=== PATIENT | female | born 2000 | race Caucasian/White ===

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

== ENCOUNTER 2018-09-25 10:49 | Emergency (ER) | payer OTHER ==
[~2018-09-25] VITALS: Ht 154.9 cm; Wt 65.8 kg
--- OUTSIDE RECORDS SUMMARY | 2018-09-25 10:54 | XMS REPORT | Clinical Summary ---
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 Conditions or Problems Problem Name Problem Code Onset Date Status Entry Date Provider Comment Standard Description Annotate FH DIABETES V18.0 Active Moon Pete CAR STOWER Family history of diabetes mellitus PHARYNGITIS-ACUTE 462 Inactive Moon Pete [employer] STOWER Acute pharyngitis OTITIS MEDIA, RIGHT 382.9 Resolved Linda Davis MD PhD Unspecified otitis media ACUTE PHARYNGITIS 462 Resolved Linda Davis MD PhD Acute pharyngitis COUGH 786.2 Resolved Linda Davis MD PhD Cough FATIGUE 780.79 Resolved Linda Davis MD PhD Other malaise and fatigue TONSILLITIS 463 Resolved Linda Davis MD PhD Acute tonsillitis ABSCESS, GLUTEAL 682.5 Resolved Linda Davis MD PhD Cellulitis and abscess of buttock EAR PAIN, LEFT 388.70 Resolved Linda Davis MD PhD Otalgia, unspecified FH BREAST CANCER V16.3 Active Radha Victor CAR STOWER Family history of malignant neoplasm of breast PILONIDAL CYST 685.1 Resolved Linda Davis MD PhD Pilonidal cyst without mention of abscess AFTERCARE FOLLOW SURGERY SKIN&SUBCUT TISSUE NEC V58.77 Resolved Linda Davis MD PhD Aftercare following surgery of the skin and subcutaneous tissue, NEC Thumb pain, left 729.5 Resolved Linda Davis MD PhD Pain in limb Migraine 346.90 Resolved Linda Davis MD PhD Migraine, unspecified, without mention of intractable migraine, without mention of status migrainosus CONTRACEPTIVE MANAGEMENT V25.09 Active Mikhail Forbes MD Encounter for other general counseling and advice on contraceptive management Fever 780.60 Active Linda Davis MD PhD Fever, unspecified Abdominal pain, epigastric 789.06 Active Linda Davis MD PhD Abdominal pain, epigastric Fatigue 780.79 Active Linda Davis MD PhD Other malaise and fatigue PHARYNGITIS-ACUTE ICD-462 Inactive Moon Pete CAR STOWER OTITIS MEDIA, RIGHT ICD-382.9 Inactive Linda Davis MD PhD ACUTE PHARYNGITIS ICD-462 Inactive Linda Davis MD PhD COUGH ICD-786.2 Inactive Linda Davis MD PhD 02/18 FATIGUE ICD-780.79 Inactive Linda Davis MD PhD TONSILLITIS ICD-463 Inactive Linda Davis MD PhD ABSCESS, GLUTEAL ICD-682.5 Inactive Linda Davis MD PhD EAR PAIN, LEFT ICD-388.70 Inactive Linda Davis MD PhD PILONIDAL CYST ICD-685.1 Inactive Linda Davis MD PhD AFTERCARE FOLLOW SURGERY SKIN&SUBCUT TISSUE NEC ICD-V58.77 02/18 Inactive Linda Davis MD PhD Thumb pain, left ICD-729.5 Inactive Linda Davis MD PhD Migraine ICD-346.90 Inactive Linda Davis MD PhD Medication List Medication Instructions Start Date Stop Date Generic Name ND Status Provider Patient Instruction TYLENOL 325 MG TAB 1-2 pills by mouth every 6 hours if needed for pain/fever ACETAMINOPHEN 16890074465 Active Linda Davis MD PhD Active DEPO-PROVERA 150 MG/ML SUPENSION q3mos MEDROXYPROGEST ANDRZEJ (CONTRACEP) 65461413683 Active Linda Davis MD PhD Active TOPAMAX 25 MG TABS take 1 tab po qday for migraines. TOPIRAMATE 39445146869 No Longer Active Linda Davis MD PhD Active HYDROCODONE-ACETAMINOPHEN 5-325 MG TABS 1 po q 6hr PRN Pain 06/18 HYDROCODONE-ACETAMINOPHEN 18407396054 No Longer Active Mikhail Forbes MD Active KEFLEX 500 MG CAP 1 tab po tid CEPHALEXIN 60269710008 No Longer Active Mikhail Forbes MD Active HYDROCODONE-ACETAMINOPHEN 5-500 MG TABS 1 every 4hours as needed HYDROCODONE-ACETAMINOPHEN 57003098378 No Longer Active Radha Victor APRN Active TAMIFLU 75 MG CAPS 1 bid x 5 days OSELTAMIVIR PHOSPHATE 86233726794 No Longer Active Linda Davis MD PhD Active AUGMENTIN 875-125 MG TAB 1 tab by mouth twice daily with food AMOXICILLIN-POT CLAVULANATE 25649494007 No Longer Active Jillina Frazell CAR STOWER Active AUGMENTIN 875-125 MG TAB 1 tab by mouth twice daily with food AMOXICILLIN-POT CLAVULANATE 06571060448 No Longer Active Jillina Kayleigh COOPERN Active CLINDAMYCIN HCL 150 MG CAPS 1 four times a day CLINDAMYCIN HCL 19312142111 No Longer Active Moon Reed Juan R RODRÍGUEZ Active BACTRIM DS 800-160 MG TAB 1 tab by mouth twice daily TRIMETHOPRIM-SULFAMETHOXAZOLE 48437190134 No Longer Active Moon Pete CAR STOWER Active AMOXICILLIN 500 MG CAP 1 tab by mouth twice daily AMOXICILLIN 73686941770 No Longer Active Antony Moran DO Active ZITHROMAX Z-MAKAYLA 250 MG TABS 2 now then 1 everyday AZITHROMYCIN 66853725158 No Longer Active Antony Moran DO Active ZITHROMAX Z-MAKAYLA 250 MG TABS 2 now then 1 everyday ZITHROMAX Z-MAKAYLA 250 MG TABS 1601019 AZITHROMYCIN Inactive AMOXICILLIN 500 MG CAP 1 tab by mouth twice daily AMOXICILLIN 500 MG CAP 607572 AMOXICILLIN Inactive BACTRIM DS 800-160 MG TAB 1 tab by mouth twice daily BACTRIM DS 800-160 MG TAB 348403 TRIMETHOPRIM-SULFAMETHOXAZOLE Inactive CLINDAMYCIN HCL 150 MG CAPS 1 four times a day CLINDAMYCIN HCL 150 MG CAPS 293237 CLINDAMYCIN HCL Inactive HYDROCODONE-ACETAMINOPHEN 5-500 MG TABS 1 every 4hours as needed HYDROCODONE-ACETAMINOPHEN 5-500 MG TABS HYDROCODONE- ACETAMINOPHEN Inactive KEFLEX 500 MG CAP 1 tab po tid KEFLEX 500 MG CAP 283648 CEPHALEXIN Inactive HYDROCODONE-ACETAMINOPHEN 5-325 MG TABS 1 po q 6hr PRN Pain 06/18 HYDROCODONE-ACETAMINOPHEN 5-325 MG TABS 395734 HYDROCODONE- ACETAMINOPHEN Inactive TOPAMAX 25 MG TABS take 1 tab po qday for migraines. TOPAMAX 25 MG TABS 826738 TOPIRAMATE Inactive AUGMENTIN 875-125 MG TAB 1 tab by mouth twice daily with food AUGMENTIN 875-125 MG TAB 668906 AMOXICILLIN-POT CLAVULANATE Inactive AUGMENTIN 875-125 MG TAB 1 tab by mouth twice daily with food AUGMENTIN 875-125 MG TAB 910704 AMOXICILLIN-POT CLAVULANATE Inactive TAMIFLU 75 MG CAPS 1 bid x 5 days TAMIFLU 75 MG CAPS OSELTAMIVIR PHOSPHATE Inactive Advance Directives Directive Description Start Date PERMISSION TO SHARE Vital Signs Date Name Value Unit Range Description blood pressure, diastolic - 8462-4 69 mm[Hg] BP burkett blood pressure, systolic - 8480-6 108 mm[Hg] BP sys pulse rate E&M - 8867-4 79 /min Heart rate temperature E&M 98.1 [degF] Body temperature weight E&M - 3141-9 123.6 [lb_av] Weight Measured Diagnostic Results Date Name Value Unit Range Description Lab Report: CBC W/DIFF - Hematology leukocyte count, blood 6.8 10^3/MM^3 10*3/mm3 4.6-10.2 neutrophils as percent of blood leukocytes 51.2 % 42.2-75.2 monocytes as percent of blood leukocytes 7.1 % 1.7-9.3 lymphocytes as percent of blood leukocytes 38.4 % 20.5-51.1 erythrocyte (RBC) count 4.14 10^6/MM^3 10*6/mm3 4.04-5.48 hemoglobin, blood 13.0 g/dL 12.0-16.0 hematocrit, blood 38.4 % 36.0-46.0 mean corpuscular volume, RBC 93 fL 80-97 mean corpuscular hemoglobin, RBC 31.5 pg 27.0-31.2 mean corpuscular hemoglobin concentration, RBC 34.0 G/DL % 31.8- 35.4 red blood cell distribution width 13.1 % 11.6-14.8 platelet count 306 10^3/MM^3 10*3/mm3 142-424 Lab Report: Comp. Metabolic Panel, H. Pylori, MONO w/Rflx EBV - Chemistry blood glucose 84 mg/dL 65-110 chloride, serum 107 mmol/L 98-107 potassium, serum 3.8 mmol/L 3.5-5.2 carbon dioxide, venous blood 26.0 mmol/L 21.0-32.0 sodium, serum 141 mmol/L 004-442 8265/09/21 urea nitrogen, blood 13 mg/dL 7-18 creatinine, serum 0.86 mg/dL 0.55-1.30 alanine aminotransferase (SGPT), serum 23 U/L 12-78 aspartate aminotransferase (SGOT), serum 17 U/L 15-37 calcium, serum 8.9 mg/dL 8.5-10.1 Lab Report: RapidStrep Rflx/Cx - Lab Microbial identification kit, rapid strep method Negative-Throat Culture to Follow Negative [place] [facility] [place] human chorionic gonadotropin, urine, qualitative (urine test) Negative Negative Encounters Code Encounter Date Provider Facility CPT-72290 Level 3 Est. Patient 18:31:30 CDT Linda Davis MD PhD [facility] CPT-56291 Level 4 Est. Patient 21:34:05 PROCESS MANAGER Mikhail Forbes MD [facility] CPT-68600 Level 4 Est. Patient 15:14:34 PROCESS MANAGER Mikhail Forbes MD [facility] CPT-68853 Level 3 Est. Patient 12:52:25 CDT Mikhail Forbes MD [facility] CPT-12369 Level 2 Est. Patient 14:57:21 CDT Radha [facility] CPT-49260 Level 2 Est. Patient 16:59:23 CDT Radha [facility] CPT-06212 Level 3 Est. Patient 15:10:28 CDT Moon Pete [facility] CPT-68462 Level 3 Est. Patient 13:38:05 PROCESS MANAGER Moon Pete [facility] CPT-80318 Level 3 Est. Patient 13:36:40 PROCESS MANAGER Antony Cline Dean KATHLEEN [facility] CPT-66739 Level 3 Est. Patient 14:07:56 PROCESS MANAGER Moon Pete [facility] Procedures Code Procedure Name Date Entry Date Standard Description CPT-J1050 Depo Provera 150 mg (Medroxyprogesterone) 11:26:14 CDT CPT-31454 Abx/Therapy Injection 11:26:13 CDT CPT-J1055 Depo-Provera Injection only 150 mg 16:55:48 CDT CPT-J1050 Depo Provera 150 mg (Medroxyprogesterone) 13:49:16 PROCESS MANAGER CPT-75363 Abx/Therapy Injection 13:49:16 PROCESS MANAGER CPT-J1055 Depo-Provera Injection only 150 mg 09:45:32 PROCESS MANAGER CPT-J1050 Depo Provera 150 mg (Medroxyprogesterone) 18:49:54 CDT CPT-14505 Abx/Therapy Injection 18:49:54 CDT CPT-J1055 Depo-Provera Injection only 150 mg 09:18:50 CDT CPT-J1050 Depo Provera 150 mg (Medroxyprogesterone) 08:12:54 CDT CPT-23631 Abx/Therapy Injection 08:12:54 CDT CPT-J1050 Depo Provera 150 mg (Medroxyprogesterone) 15:07:25 CDT CPT-10690 Abx/Therapy Injection 15:07:25 CDT CPT-J1050 Depo Provera 150 mg (Medroxyprogesterone) 09:59:09 CDT CPT-J1050 Depo Provera 150 mg (Medroxyprogesterone) 15:43:37 PROCESS MANAGER CPT-12384 Abx/Therapy Injection 15:43:37 PROCESS MANAGER CPT-J1050 Depo Provera 150 mg (Medroxyprogesterone) 15:14:34 PROCESS MANAGER CPT-38322 Postop F/U Visit 09:10:48 CDT CPT-OV Office Visit 21:43:13 CDT CPT-21200 Postop F/U Visit 16:13:18 CDT CPT-41986 Venipuncture Draw Fee 13:37:57 PROCESS MANAGER
--- OUTSIDE RECORDS SUMMARY | 2018-09-25 10:54 | XMS REPORT | Clinical Summary ---
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 Conditions or Problems Problem Name Problem Code Onset Date Status Entry Date Provider Comment Standard Description Annotate FH DIABETES V18.0 Active Moon Pete TANK TESTER Family history of diabetes mellitus PHARYNGITIS-ACUTE 462 Inactive Moon Pete TANK TESTER Acute pharyngitis OTITIS MEDIA, RIGHT 382.9 Active Moon Pete TANK TESTER Unspecified otitis media ACUTE PHARYNGITIS 462 Active Antony Moran DO Acute pharyngitis COUGH 786.2 Active Antony Moran DO Cough FATIGUE 780.79 Active Antony Moran DO Other malaise and fatigue TONSILLITIS 463 Active Moon Pete TANK TESTER Acute tonsillitis ABSCESS, GLUTEAL 682.5 Active Moon Pete TANK TESTER Cellulitis and abscess of buttock EAR PAIN, LEFT 388.70 Active Moon Pete TANK TESTER Otalgia, unspecified FH BREAST CANCER V16.3 Active Jillina Kayleigh TANK TESTER Family history of malignant neoplasm of breast PILONIDAL CYST 685.1 Active Jillina Frazell TANK TESTER Pilonidal cyst without mention of abscess AFTERCARE FOLLOW SURGERY SKIN&SUBCUT TISSUE NEC V58.77 Active Pradip Smith MD Aftercare following surgery of the skin and subcutaneous tissue, NEC Thumb pain, left 729.5 Active Mikhail Forbes MD Pain in limb Migraine 346.90 Active Mikhail Forbes MD Migraine, unspecified, without mention of intractable migraine, without mention of status migrainosus CONTRACEPTIVE MANAGEMENT V25.09 Active Mikhail Forbes MD Encounter for other general counseling and advice on contraceptive management PHARYNGITIS-ACUTE ICD-462 Inactive Moon Pete APRN Medication List Medication Instructions Start Date Stop Date Generic Name NDC Status Provider Patient Instruction TOPAMAX 25 MG TABS take 1 tab po qday for migraines. TOPIRAMATE 71070811746 Active Mikhail Forbes MD Active HYDROCODONE-ACETAMINOPHEN 5-325 MG TABS 1 po q 6hr PRN Pain 06/18 HYDROCODONE-ACETAMINOPHEN 23753107179 No Longer Active Mikhail Forbes MD Active KEFLEX 500 MG CAP 1 tab po tid CEPHALEXIN 82089812895 No Longer Active Mikhail Forbes MD Active HYDROCODONE-ACETAMINOPHEN 5-500 MG TABS 1 every 4hours as needed HYDROCODONE-ACETAMINOPHEN 69671698071 No Longer Active Radha Victor APRN Active TAMIFLU 75 MG CAPS 1 bid x 5 days OSELTAMIVIR PHOSPHATE 71656426896 No Longer Active Linda Davis MD PhD Active AUGMENTIN 875-125 MG TAB 1 tab by mouth twice daily with food AMOXICILLIN-POT CLAVULANATE 84223639220 No Longer Active Jillina Frazell TANK TESTER Active AUGMENTIN 875-125 MG TAB 1 tab by mouth twice daily with food AMOXICILLIN-POT CLAVULANATE 37341545999 No Longer Active Jillina Frazell TANK TESTER Active CLINDAMYCIN HCL 150 MG CAPS 1 four times a day CLINDAMYCIN HCL 58960026616 No Longer Active Moon Pete APRN Active BACTRIM DS 800-160 MG TAB 1 tab by mouth twice daily TRIMETHOPRIM-SULFAMETHOXAZOLE 78877650926 No Longer Active Moon Reed Juan R RODRÍGUEZ Active AMOXICILLIN 500 MG CAP 1 tab by mouth twice daily AMOXICILLIN 66878275848 No Longer Active Antony Moran DO Active ZITHROMAX Z-MAKAYLA 250 MG TABS 2 now then 1 everyday AZITHROMYCIN 68261584172 No Longer Active Antony Moran DO Active ZITHROMAX Z-MAKAYLA 250 MG TABS 2 now then 1 everyday ZITHROMAX Z-MAKAYLA 250 MG TABS 7823354 AZITHROMYCIN Inactive AMOXICILLIN 500 MG CAP 1 tab by mouth twice daily AMOXICILLIN 500 MG CAP 344197 AMOXICILLIN Inactive BACTRIM DS 800-160 MG TAB 1 tab by mouth twice daily BACTRIM DS 800-160 MG TAB TRIMETHOPRIM-SULFAMETHOXAZOLE Inactive CLINDAMYCIN HCL 150 MG CAPS 1 four times a day CLINDAMYCIN HCL 150 MG CAPS 466696 CLINDAMYCIN HCL Inactive HYDROCODONE-ACETAMINOPHEN 5-500 MG TABS 1 every 4hours as needed HYDROCODONE-ACETAMINOPHEN 5-500 MG TABS HYDROCODONE- ACETAMINOPHEN Inactive KEFLEX 500 MG CAP 1 tab po tid KEFLEX 500 MG CAP 591817 CEPHALEXIN Inactive HYDROCODONE-ACETAMINOPHEN 5-325 MG TABS 1 po q 6hr PRN Pain 06/18 HYDROCODONE-ACETAMINOPHEN 5-325 MG TABS 193854 HYDROCODONE- ACETAMINOPHEN Inactive AUGMENTIN 875-125 MG TAB 1 tab by mouth twice daily with food AUGMENTIN 875-125 MG TAB 510587 AMOXICILLIN-POT CLAVULANATE Inactive AUGMENTIN 875-125 MG TAB 1 tab by mouth twice daily with food AUGMENTIN 875-125 MG TAB 505320 AMOXICILLIN-POT CLAVULANATE Inactive TAMIFLU 75 MG CAPS 1 bid x 5 days TAMIFLU 75 MG CAPS OSELTAMIVIR PHOSPHATE Inactive Advance Directives Directive Description Start Date PERMISSION TO SHARE Vital Signs Date Name Value Unit Range Description blood pressure, diastolic - 8462-4 67 mm[Hg] BP burkett blood pressure, systolic - 8480-6 112 mm[Hg] BP sys pulse rate E&M - 8867-4 69 /min Heart rate temperature E&M 98.4 [degF] Body temperature weight E&M - 3141-9 126 [lb_av] Weight Measured blood pressure, diastolic - 8462-4 73 mm[Hg] BP burkett blood pressure, systolic - 8480-6 106 mm[Hg] BP sys height E&M - 8302-2 62 [in_us] Bdy height pulse rate E&M - 8867-4 92 /min Heart rate temperature E&M 97.6 [degF] Body temperature weight E&M - 3141-9 128 [lb_av] Weight Measured blood pressure, diastolic - 8462-4 59 mm[Hg] BP burkett blood pressure, systolic - 8480-6 104 mm[Hg] BP sys pulse rate E&M - 8867-4 78 /min Heart rate temperature E&M 98.9 [degF] Body temperature weight E&M - 3141-9 129 [lb_av] Weight Measured blood pressure, diastolic - 8462-4 76 mm[Hg] BP burkett blood pressure, systolic - 8480-6 117 mm[Hg] BP sys pulse rate E&M - 8867-4 76 /min Heart rate temperature E&M 98.0 [degF] Body temperature weight E&M - 3141-9 130 [lb_av] Weight Measured Diagnostic Results Date Name Value Unit Range Description Lab Report: CBC W/ DIFF, HCG - Hematology leukocyte count, blood 9.3 10*3/mm3 hemoglobin, blood 13.0 g/dL platelet count 311 10*3/mm3 Lab Report: [facility] [place] - Chemistry human chorionic gonadotropin, urine, qualitative (urine test) Negative Negative human chorionic gonadotropin, urine, qualitative (urine test) Negative Negative Encounters Code Encounter Date Provider Facility CPT-14510 Level 4 Est. Patient 21:34:05 MEDICAL DETAILIST Mikhail Forbes MD [facility] CPT-99188 Level 4 Est. Patient 15:14:34 MEDICAL DETAILIST Mikhail Forbes MD [facility] CPT-96632 Level 3 Est. Patient 12:52:25 CDT Mikhail Forbes MD [facility] CPT-36171 Level 2 Est. Patient 14:57:21 CDT Radha Victor [facility]-23096 Level 2 Est. Patient 16:59:23 CDT Radha Victor [facility] CPT-01593 Level 3 Est. Patient 15:10:28 CDT Moon Pete [facility] CPT-70428 Level 3 Est. Patient 13:38:05 MEDICAL DETAILIST Moon Pete [facility] CPT-82274 Level 3 Est. Patient 13:36:40 MEDICAL DETAILIST Antony Moran DO [facility] CPT-31798 Level 3 Est. Patient 14:07:56 MEDICAL DETAILIST Moon Pete [facility] Procedures Code Procedure Name Date Entry Date Standard Description CPT-J1050 Depo Provera 150 mg (Medroxyprogesterone) 15:07:25 CDT CPT-62396 Abx/Therapy Injection 15:07:25 CDT CPT-J1050 Depo Provera 150 mg (Medroxyprogesterone) 09:59:09 CDT CPT-J1050 Depo Provera 150 mg (Medroxyprogesterone) 15:43:37 MEDICAL DETAILIST CPT-99135 Abx/Therapy Injection 15:43:37 MEDICAL DETAILIST CPT-J1050 Depo Provera 150 mg (Medroxyprogesterone) 15:14:34 MEDICAL DETAILIST CPT-56840 Postop F/U Visit 09:10:48 CDT CPT-OV Office Visit 21:43:13 CDT CPT-20480 Postop F/U Visit 16:13:18 CDT CPT-96887 Venipuncture Draw Fee 13:37:57 MEDICAL DETAILIST
--- OUTSIDE RECORDS SUMMARY | 2018-09-25 10:54 | XMS REPORT | Clinical Summary ---
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 Conditions or Problems Problem Name Problem Code Onset Date Status Entry Date Provider Comment Standard Description Annotate FH DIABETES V18.0 Active Moon Pete EXERCISER HORSE Family history of diabetes mellitus PHARYNGITIS-ACUTE 462 Inactive Moon Pete EXERCISER HORSE Acute pharyngitis OTITIS MEDIA, RIGHT 382.9 Resolved [...] FH BREAST CANCER V16.3 Active Radha Victor EXERCISER HORSE Family history of malignant neoplasm of breast [...] Davis MD PhD Other malaise and fatigue Ankle pain, right 719.47 Active Radha Victor EXERCISER HORSE Pain in joint involving ankle and foot PHARYNGITIS-ACUTE ICD-462 Inactive Moon Pete EXERCISER HORSE OTITIS MEDIA, RIGHT ICD-382.9 Inactive Linda Davis [...] Generic Name NDC Status Provider Patient Instruction TYLENOL 325 MG TAB 1-2 pills by mouth every 6 hours if needed for pain/fever ACETAMINOPHEN 07922973972 Active Linda Davis MD PhD Active DEPO-PROVERA 150 MG/ML SUPENSION q3mos MEDROXYPROGEST ANDRZEJ (CONTRACEP) 09411592891 Active Linda Davis MD PhD Active TOPAMAX 25 MG TABS take 1 tab po qday for migraines. TOPIRAMATE 69027559429 No Longer Active Linda Davis MD PhD Active HYDROCODONE-ACETAMINOPHEN 5-325 MG TABS 1 po q 6hr PRN Pain 06/18 HYDROCODONE-ACETAMINOPHEN 19355708827 No Longer Active Mikhail Forbes MD Active KEFLEX 500 MG CAP 1 tab po tid CEPHALEXIN 41366325127 No Longer Active Mikhail Forbes MD Active HYDROCODONE-ACETAMINOPHEN 5-500 MG TABS 1 every 4hours as needed HYDROCODONE-ACETAMINOPHEN 68828907129 No Longer Active Radha Victor APRN Active TAMIFLU 75 MG CAPS 1 bid x 5 days OSELTAMIVIR PHOSPHATE 92968887391 No Longer Active Linda Davis MD PhD Active AUGMENTIN 875-125 MG TAB 1 tab by mouth twice daily with food AMOXICILLIN-POT CLAVULANATE 00588949997 No Longer Active Jillsantiago Victor APRN Active AUGMENTIN 875-125 MG TAB 1 tab by mouth twice daily with food AMOXICILLIN-POT CLAVULANATE 23663229195 No Longer Active Radha Victor EXERCISER HORSE Active CLINDAMYCIN HCL 150 MG CAPS 1 four times a day CLINDAMYCIN HCL 39572551496 No Longer Active Moon Pete APRN Active BACTRIM DS 800-160 MG TAB 1 tab by mouth twice daily TRIMETHOPRIM-SULFAMETHOXAZOLE 61212752647 No Longer Active Moon Pete APRN Active AMOXICILLIN 500 MG CAP 1 tab by mouth twice daily AMOXICILLIN 23590593595 No Longer Active Antony Moran DO Active ZITHROMAX Z-MAKAYLA 250 MG TABS 2 now then 1 everyday AZITHROMYCIN 84341158645 No Longer Active Antony Moran DO Active ZITHROMAX Z-MAKAYLA 250 MG TABS 2 now then 1 everyday ZITHROMAX Z-MAKAYLA 250 MG TABS 9995650 AZITHROMYCIN Inactive AMOXICILLIN 500 MG CAP 1 tab by mouth twice daily AMOXICILLIN 500 MG CAP 564784 AMOXICILLIN Inactive BACTRIM DS 800-160 MG TAB 1 tab by mouth twice daily BACTRIM DS 800-160 MG TAB 203916 TRIMETHOPRIM-SULFAMETHOXAZOLE Inactive CLINDAMYCIN HCL 150 MG CAPS 1 four times a day CLINDAMYCIN HCL 150 MG CAPS 423322 CLINDAMYCIN HCL Inactive HYDROCODONE-ACETAMINOPHEN 5-500 MG TABS 1 every 4hours as needed HYDROCODONE-ACETAMINOPHEN 5-500 MG TABS HYDROCODONE- ACETAMINOPHEN Inactive KEFLEX 500 MG CAP 1 tab po tid KEFLEX 500 MG CAP 616761 CEPHALEXIN Inactive HYDROCODONE-ACETAMINOPHEN 5-325 MG TABS 1 po q 6hr PRN Pain 06/18 HYDROCODONE-ACETAMINOPHEN 5-325 MG TABS 474755 HYDROCODONE- ACETAMINOPHEN Inactive TOPAMAX 25 MG TABS take 1 tab po qday for migraines. TOPAMAX 25 MG TABS 941081 TOPIRAMATE Inactive AUGMENTIN 875-125 MG TAB 1 tab by mouth twice daily with food AUGMENTIN 875-125 MG TAB 757680 AMOXICILLIN-POT CLAVULANATE Inactive AUGMENTIN 875-125 MG TAB 1 tab by mouth twice daily with food AUGMENTIN 875-125 MG TAB 218923 AMOXICILLIN-POT CLAVULANATE Inactive TAMIFLU 75 MG CAPS 1 bid x 5 days TAMIFLU 75 MG CAPS 414947 OSELTAMIVIR PHOSPHATE Inactive Advance Directives Directive Description Start Date PERMISSION TO SHARE Encounters Code Encounter Date Provider Facility CPT-94879 Level 3 Est. Patient 10:22:24 CDT Radha Victor [facility]-26505 Level 3 Est. Patient 18:31:30 CDT Linda Davis MD, PhD [facility] CPT-42085 Level 4 Est. Patient 21:34:05 REGIONAL EDUCATION COORDINATOR Mikhail Forbes MD [facility] CPT-31681 Level 4 Est. Patient 15:14:34 REGIONAL EDUCATION COORDINATOR Mikhail Forbes MD [facility] CPT-94509 Level 3 Est. Patient 12:52:25 CDT Mikhail Forbes MD [facility] CPT-41751 Level 2 Est. Patient 14:57:21 CDT Radha Victor [facility]-61196 Level 2 Est. Patient 16:59:23 CDT Radha Victor [facility]-74867 Level 3 Est. Patient 15:10:28 CDT Moon Pete [facility] [place] CPT-00855 Level 3 Est. Patient 13:38:05 REGIONAL EDUCATION COORDINATOR Moon Pete [facility] [place] CPT-04205 Level 3 Est. Patient 13:36:40 REGIONAL EDUCATION COORDINATOR Antony Moran DO [facility] CPT-92613 Level 3 Est. Patient 14:07:56 REGIONAL EDUCATION COORDINATOR Moon Pete APRN [facility] Procedures Code Procedure Name Date Entry Date Standard Description CPT-J1050 Depo Provera 150 mg (Medroxyprogesterone) 14:50:04 CDT CPT-31443 Abx/Therapy Injection 14:50:04 CDT CPT-40244 Ankle, right, Complete - Min 3V 10:34:26 CDT CPT-J1050 Depo Provera 150 mg (Medroxyprogesterone) 11:26:14 CDT CPT-64649 Abx/Therapy Injection 11:26:13 CDT CPT-J1055 Depo-Provera Injection only 150 mg 16:55:48 CDT CPT-J1050 Depo Provera 150 mg (Medroxyprogesterone) 13:49:16 REGIONAL EDUCATION COORDINATOR CPT-76447 Abx/Therapy Injection 13:49:16 REGIONAL EDUCATION COORDINATOR CPT-J1055 Depo-Provera Injection only 150 mg 09:45:32 REGIONAL EDUCATION COORDINATOR CPT-J1050 Depo Provera 150 mg (Medroxyprogesterone) 18:49:54 CDT CPT-38892 Abx/Therapy Injection 18:49:54 CDT CPT-J1055 Depo-Provera Injection only 150 mg 09:18:50 CDT CPT-J1050 Depo Provera 150 mg (Medroxyprogesterone) 08:12:54 CDT CPT-21374 Abx/Therapy Injection 08:12:54 CDT CPT-J1050 Depo Provera 150 mg (Medroxyprogesterone) 15:07:25 CDT CPT-74355 Abx/Therapy Injection 15:07:25 CDT CPT-J1050 Depo Provera 150 mg (Medroxyprogesterone) 09:59:09 CDT CPT-J1050 Depo Provera 150 mg (Medroxyprogesterone) 15:43:37 REGIONAL EDUCATION COORDINATOR CPT-89170 Abx/Therapy Injection 15:43:37 REGIONAL EDUCATION COORDINATOR CPT-J1050 Depo Provera 150 mg (Medroxyprogesterone) 15:14:34 REGIONAL EDUCATION COORDINATOR CPT-66989 Postop F/U Visit 09:10:48 CDT CPT-OV Office Visit 21:43:13 CDT CPT-75027 Postop F/U Visit 16:13:18 CDT CPT-61176 Venipuncture Draw Fee 13:37:57 REGIONAL EDUCATION COORDINATOR
--- OUTSIDE RECORDS SUMMARY | 2018-09-25 10:55 | XMS REPORT | Clinical Summary ---
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 Problem Name Problem Code Onset Date Status Entry Date Provider Comment Standard Description Annotate FH DIABETES V18.0 Active Moon Pete ROUTE AIDE Family history of diabetes mellitus PHARYNGITIS-ACUTE 462 Inactive Moon Pete ROUTE AIDE Acute pharyngitis OTITIS MEDIA, RIGHT 382.9 Resolved [...] FH BREAST CANCER V16.3 Active Radha Victor ROUTE AIDE Family history of malignant neoplasm of breast [...] Ankle pain, right 719.47 Active Radha Victor ROUTE AIDE Pain in joint involving ankle and foot PHARYNGITIS-ACUTE ICD-462 Inactive Moon Pete ROUTE AIDE OTITIS MEDIA, RIGHT ICD-382.9 Inactive Linda Davis [...] 6 hours if needed for pain/fever ACETAMINOPHEN 37058726090 Active Linda Davis MD PhD Active DEPO-PROVERA 150 MG/ML SUPENSION q3mos MEDROXYPROGEST ANDRZEJ (CONTRACEP) 36520498072 Active Linda Davis MD PhD Active TOPAMAX 25 MG TABS take 1 tab po qday for migraines. TOPIRAMATE 40832807941 No Longer Active Linda Davis MD PhD Active HYDROCODONE-ACETAMINOPHEN 5-325 MG TABS 1 po q 6hr PRN Pain 06/18 HYDROCODONE-ACETAMINOPHEN 83682089590 No Longer Active Mikhail Forbes MD Active KEFLEX 500 MG CAP 1 tab po tid CEPHALEXIN 41109691458 No Longer Active Mikhail Forbes MD Active HYDROCODONE-ACETAMINOPHEN 5-500 MG TABS 1 every 4hours as needed HYDROCODONE-ACETAMINOPHEN 48444661822 No Longer Active Radha Victor APRN Active TAMIFLU 75 MG CAPS 1 bid x 5 days OSELTAMIVIR PHOSPHATE 03282691908 No Longer Active Linda Davis MD PhD Active AUGMENTIN 875-125 MG TAB 1 tab by mouth twice daily with food AMOXICILLIN-POT CLAVULANATE 87576963792 No Longer Active Jillina Frahazel ROUTE AIDE Active AUGMENTIN 875-125 MG TAB 1 tab by mouth twice daily with food AMOXICILLIN-POT CLAVULANATE 95495363500 No Longer Active Radha Victor ROUTE AIDE Active CLINDAMYCIN HCL 150 MG CAPS 1 four times a day CLINDAMYCIN HCL 60661374877 No Longer Active Moon Pete APRN Active BACTRIM DS 800-160 MG TAB 1 tab by mouth twice daily TRIMETHOPRIM-SULFAMETHOXAZOLE 09333398543 No Longer Active Moon Pete APRN Active AMOXICILLIN 500 MG CAP 1 tab by mouth twice daily AMOXICILLIN 62473532244 No Longer Active Antony Moran DO Active ZITHROMAX Z-MAKAYLA 250 MG TABS 2 now then 1 everyday AZITHROMYCIN 32905972632 No Longer Active Antony Moran DO Active ZITHROMAX Z-MAKAYLA 250 MG TABS 2 now then 1 everyday ZITHROMAX Z-MAKAYLA 250 MG TABS 6833059 AZITHROMYCIN Inactive AMOXICILLIN 500 MG CAP 1 tab by mouth twice daily AMOXICILLIN 500 MG CAP 428813 AMOXICILLIN Inactive BACTRIM DS 800-160 MG TAB 1 tab by mouth twice daily BACTRIM DS 800-160 MG TAB 593689 TRIMETHOPRIM-SULFAMETHOXAZOLE Inactive CLINDAMYCIN HCL 150 MG CAPS 1 four times a day CLINDAMYCIN HCL 150 MG CAPS 707208 CLINDAMYCIN HCL Inactive HYDROCODONE-ACETAMINOPHEN 5-500 MG TABS 1 every 4hours as needed HYDROCODONE-ACETAMINOPHEN 5-500 MG TABS HYDROCODONE- ACETAMINOPHEN Inactive KEFLEX 500 MG CAP 1 tab po tid KEFLEX 500 MG CAP 377004 CEPHALEXIN Inactive HYDROCODONE-ACETAMINOPHEN 5-325 MG TABS 1 po q 6hr PRN Pain 06/18 HYDROCODONE-ACETAMINOPHEN 5-325 MG TABS 916309 HYDROCODONE- ACETAMINOPHEN Inactive TOPAMAX 25 MG TABS take 1 tab po qday for migraines. TOPAMAX 25 MG TABS 155576 TOPIRAMATE Inactive AUGMENTIN 875-125 MG TAB 1 tab by mouth twice daily with food AUGMENTIN 875-125 MG TAB 455112 AMOXICILLIN-POT CLAVULANATE Inactive AUGMENTIN 875-125 MG TAB 1 tab by mouth twice daily with food AUGMENTIN 875-125 MG TAB 821316 AMOXICILLIN-POT CLAVULANATE Inactive TAMIFLU 75 MG CAPS 1 bid x 5 days TAMIFLU 75 MG CAPS OSELTAMIVIR PHOSPHATE Inactive Advance Directives Directive Description Start Date PERMISSION TO SHARE Vital Signs Date Name Value Unit Range Description blood pressure, diastolic - 8462-4 59 mm[Hg] BP burkett blood pressure, systolic - 8480-6 112 mm[Hg] BP sys pulse rate E&M - 8867-4 84 /min Heart rate temperature E&M 96.4 [degF] Body temperature weight E&M - 3141-9 131 [lb_av] Weight Measured blood pressure, diastolic - 8462-4 69 mm[Hg] [...] 26.0 mmol/L 21.0-32.0 sodium, serum 141 mmol/L 737-412 4042/09/21 urea nitrogen, blood 13 mg/dL 7-18 creatinine, serum 0.86 mg/dL 0.55-1.30 alanine aminotransferase (SGPT), serum 23 U/L 12-78 aspartate aminotransferase (SGOT), serum 17 U/L 15-37 calcium, serum 8.9 mg/dL 8.5-10.1 Lab Report: RapidStrep Rflx/Cx - Lab Microbial identification kit, rapid strep method Negative-Throat Culture to Follow Negative Lab Report: [facility] - Chemistry human chorionic gonadotropin, urine, qualitative (urine test) Negative Negative Encounters Code Encounter Date Provider Facility CPT-72078 Level 3 Est. Patient 10:22:24 CDT Radha Victor APRN [facility] CPT-61990 Level 3 Est. Patient 18:31:30 CDT Linda Davis MD PhD [facility] CPT-32075 Level 4 Est. Patient 21:34:05 PRODUCTION MACHINE SHOP SUPERVISOR Mikhail Forbes MD [facility] CPT-09681 Level 4 Est. Patient 15:14:34 PRODUCTION MACHINE SHOP SUPERVISOR Mikhail Frobes MD [facility] CPT-10660 Level 3 Est. Patient 12:52:25 CDT Mikhail Forbes MD [facility] CPT-79400 Level 2 Est. Patient 14:57:21 CDT Radha Victor [facility] CPT-22978 Level 2 Est. Patient 16:59:23 CDT Radha Victor [facility]-04421 Level 3 Est. Patient 15:10:28 CDT Moon Pete [facility] CPT-63240 Level 3 Est. Patient 13:38:05 PRODUCTION MACHINE SHOP SUPERVISOR Moon Pete [facility] CPT-53905 Level 3 Est. Patient 13:36:40 PRODUCTION MACHINE SHOP SUPERVISOR Antony Moran DO [facility] CPT-23884 Level 3 Est. Patient 14:07:56 PRODUCTION MACHINE SHOP SUPERVISOR Moon Pete [facility] Procedures Code Procedure Name Date Entry Date Standard Description CPT-15880 Ankle, right, Complete - Min 3V 10:34:26 CDT CPT-J1050 Depo Provera 150 mg (Medroxyprogesterone) 11:26:14 CDT CPT-80056 Abx/Therapy Injection 11:26:13 CDT CPT-J1055 Depo-Provera Injection only 150 mg 16:55:48 CDT CPT-J1050 Depo Provera 150 mg (Medroxyprogesterone) 13:49:16 PRODUCTION MACHINE SHOP SUPERVISOR CPT-73293 Abx/Therapy Injection 13:49:16 PRODUCTION MACHINE SHOP SUPERVISOR CPT-J1055 Depo-Provera Injection only 150 mg 09:45:32 PRODUCTION MACHINE SHOP SUPERVISOR CPT-J1050 Depo Provera 150 mg (Medroxyprogesterone) 18:49:54 CDT CPT-05964 Abx/Therapy Injection 18:49:54 CDT CPT-J1055 Depo-Provera Injection only 150 mg 09:18:50 CDT CPT-J1050 Depo Provera 150 mg (Medroxyprogesterone) 08:12:54 CDT CPT-69877 Abx/Therapy Injection 08:12:54 CDT CPT-J1050 Depo Provera 150 mg (Medroxyprogesterone) 15:07:25 CDT CPT-71810 Abx/Therapy Injection 15:07:25 CDT CPT-J1050 Depo Provera 150 mg (Medroxyprogesterone) 09:59:09 CDT CPT-J1050 Depo Provera 150 mg (Medroxyprogesterone) 15:43:37 PRODUCTION MACHINE SHOP SUPERVISOR CPT-94875 Abx/Therapy Injection 15:43:37 PRODUCTION MACHINE SHOP SUPERVISOR CPT-J1050 Depo Provera 150 mg (Medroxyprogesterone) 15:14:34 PRODUCTION MACHINE SHOP SUPERVISOR CPT-85057 Postop F/U Visit 09:10:48 CDT CPT-OV Office Visit 21:43:13 CDT CPT-34388 Postop F/U Visit 16:13:18 CDT CPT-53011 Venipuncture Draw Fee 13:37:57 PRODUCTION MACHINE SHOP SUPERVISOR
--- OUTSIDE RECORDS SUMMARY | 2018-09-25 10:55 | XMS REPORT | Clinical Summary ---
Author Author Admin, MAISHA Pedroza [facility] Address Unknown Phone Unavailable Allergies, Adverse Reactions, Alerts Allergy Name Reaction Description Start Date Severity Status Provider SULFA rash Moderate Active Jessy Sommers CLINIC MD ASSOCIATE Conditions or Problems Problem Name Problem Code Onset Date Status Entry Date Provider Comment Standard Description Annotate FH DIABETES V18.0 Active Moon Pete DYE LAB TECHNICIAN Family history of diabetes mellitus PHARYNGITIS-ACUTE 462 Inactive Moon Peet DYE LAB TECHNICIAN Acute pharyngitis OTITIS MEDIA, RIGHT 382.9 Active Moon Pete DYE LAB TECHNICIAN Unspecified otitis media ACUTE PHARYNGITIS 462 Active Antony Moran DO Acute pharyngitis COUGH 786.2 Active Antony Moran DO Cough FATIGUE 780.79 Active Antony Moran DO Other malaise and fatigue TONSILLITIS 463 Active Moon Pete DYE LAB TECHNICIAN Acute tonsillitis ABSCESS, GLUTEAL 682.5 Active Moon Pete DYE LAB TECHNICIAN Cellulitis and abscess of buttock EAR PAIN, LEFT 388.70 Active Moon Pete DYE LAB TECHNICIAN Otalgia, unspecified FH BREAST CANCER V16.3 Active Jillina Kayleigh DYE LAB TECHNICIAN Family history of malignant neoplasm of breast PILONIDAL CYST 685.1 Active Jillina Frazell DYE LAB TECHNICIAN Pilonidal cyst without mention of abscess AFTERCARE [...] 1 tab po qday for migraines. TOPIRAMATE 84072727376 Active Mikhail Forbes MD Active HYDROCODONE-ACETAMINOPHEN 5-325 MG TABS 1 po q 6hr PRN Pain 06/18 HYDROCODONE-ACETAMINOPHEN 20311818825 No Longer Active Mikhail Forbes MD Active KEFLEX 500 MG CAP 1 tab po tid CEPHALEXIN 15390238930 No Longer Active Mikhail Forbes MD Active HYDROCODONE-ACETAMINOPHEN 5-500 MG TABS 1 every 4hours as needed HYDROCODONE-ACETAMINOPHEN 27502019740 No Longer Active Radha Victor APRN Active TAMIFLU 75 MG CAPS 1 bid x 5 days OSELTAMIVIR PHOSPHATE 32359345746 No Longer Active Linda Davis MD PhD Active AUGMENTIN 875-125 MG TAB 1 tab by mouth twice daily with food AMOXICILLIN-POT CLAVULANATE 99772150410 No Longer Active Jillina Frazell DYE LAB TECHNICIAN Active AUGMENTIN 875-125 MG TAB 1 tab by mouth twice daily with food AMOXICILLIN-POT CLAVULANATE 11956695367 No Longer Active Jillina Frazell DYE LAB TECHNICIAN Active CLINDAMYCIN HCL 150 MG CAPS 1 four times a day CLINDAMYCIN HCL 36451120379 No Longer Active Moon Pete APRN Active BACTRIM DS 800-160 MG TAB 1 tab by mouth twice daily TRIMETHOPRIM-SULFAMETHOXAZOLE 04863363916 No Longer Active Moon Reed Juan R RODRÍGUEZ Active AMOXICILLIN 500 MG CAP 1 tab by mouth twice daily AMOXICILLIN 87537998096 No Longer Active Antony Moran DO Active ZITHROMAX Z-MAKAYLA 250 MG TABS 2 now then 1 everyday AZITHROMYCIN 33234047207 No Longer Active Antony Moran DO Active ZITHROMAX Z-MAKAYLA 250 MG TABS 2 now then 1 everyday ZITHROMAX Z-MAKAYLA 250 MG TABS 1736141 AZITHROMYCIN Inactive AMOXICILLIN 500 MG CAP 1 tab by mouth twice daily AMOXICILLIN 500 MG CAP 787861 AMOXICILLIN Inactive BACTRIM DS 800-160 MG TAB 1 tab by mouth twice daily BACTRIM DS 800-160 MG TAB TRIMETHOPRIM-SULFAMETHOXAZOLE Inactive CLINDAMYCIN HCL 150 MG CAPS 1 four times a day CLINDAMYCIN HCL 150 MG CAPS 972413 CLINDAMYCIN HCL Inactive HYDROCODONE-ACETAMINOPHEN 5-500 MG TABS 1 every 4hours as needed HYDROCODONE-ACETAMINOPHEN 5-500 MG TABS HYDROCODONE- ACETAMINOPHEN Inactive KEFLEX 500 MG CAP 1 tab po tid KEFLEX 500 MG CAP 704083 CEPHALEXIN Inactive HYDROCODONE-ACETAMINOPHEN 5-325 MG TABS 1 po q 6hr PRN Pain 06/18 HYDROCODONE-ACETAMINOPHEN 5-325 MG TABS 958888 HYDROCODONE- ACETAMINOPHEN Inactive AUGMENTIN 875-125 MG TAB 1 tab by mouth twice daily with food AUGMENTIN 875-125 MG TAB 775311 AMOXICILLIN-POT CLAVULANATE Inactive AUGMENTIN 875-125 MG TAB 1 tab by mouth twice daily with food AUGMENTIN 875-125 MG TAB 088599 AMOXICILLIN-POT CLAVULANATE Inactive TAMIFLU 75 MG CAPS [...] g/dL platelet count 311 10*3/mm3 Lab Report: [facility] - Chemistry human chorionic gonadotropin, urine, qualitative (urine test) Negative Negative Encounters Code Encounter Date Provider Facility CPT-54449 Level 4 Est. Patient 21:34:05 FOREST PRACTICES FIELD COORDINATOR Mikhail Forbse MD [facility] CPT-79442 Level 4 Est. Patient 15:14:34 FOREST PRACTICES FIELD COORDINATOR Mikhail Forbes MD [facility] CPT-00882 Level 3 Est. Patient 12:52:25 CDT Mikhail Forbes MD [facility] CPT-47167 Level 2 Est. Patient 14:57:21 CDT [facility]-03895 Level 2 Est. Patient 16:59:23 CDT Radha Victor [facility]-86173 Level 3 Est. Patient 15:10:28 CDT Moon Pete [facility] CPT-91332 Level 3 Est. Patient 13:38:05 FOREST PRACTICES FIELD COORDINATOR Moon Pete [facility] CPT-96840 Level 3 Est. Patient 13:36:40 FOREST PRACTICES FIELD COORDINATOR Antony Moran DO [facility] CPT-71696 Level 3 Est. Patient 14:07:56 FOREST PRACTICES FIELD COORDINATOR Moon Pete [facility] [place] Procedures Code Procedure Name Date Entry Date Standard Description CPT-J1050 Depo Provera 150 mg (Medroxyprogesterone) 15:07:25 CDT CPT-32209 Abx/Therapy Injection 15:07:25 CDT CPT-J1050 Depo Provera 150 mg (Medroxyprogesterone) 09:59:09 CDT CPT-J1050 Depo Provera 150 mg (Medroxyprogesterone) 15:43:37 FOREST PRACTICES FIELD COORDINATOR CPT-35415 Abx/Therapy Injection 15:43:37 FOREST PRACTICES FIELD COORDINATOR CPT-J1050 Depo Provera 150 mg (Medroxyprogesterone) 15:14:34 FOREST PRACTICES FIELD COORDINATOR CPT-14893 Postop F/U Visit 09:10:48 CDT CPT-OV Office Visit 21:43:13 CDT CPT-67651 Postop F/U Visit 16:13:18 CDT CPT-94084 Venipuncture Draw Fee 13:37:57 FOREST PRACTICES FIELD COORDINATOR
--- OUTSIDE RECORDS SUMMARY | 2018-09-25 10:55 | XMS REPORT | Clinical Summary ---
Author Author Admin, MAISHA Organization [employer] Address Unknown Phone Unavailable Allergies, Adverse Reactions, Alerts Allergy Name Reaction Description Start Date Severity Status Provider SULFA rash Moderate Active Jessy Sommers IT DESKTOP SUPPORT TECHNICIAN Conditions or Problems Problem Name Problem Code Onset Date Status Entry Date Provider Comment Standard Description Annotate FH DIABETES V18.0 Active Moon Pete WASTEWATER PROCESS ENGINEER Family history of diabetes mellitus PHARYNGITIS-ACUTE 462 Inactive Moon Pete WASTEWATER PROCESS ENGINEER Acute pharyngitis OTITIS MEDIA, RIGHT 382.9 Resolved Linda Davis MD PhD Unspecified otitis media ACUTE PHARYNGITIS 462 Resolved Linda Davis MD PhD Acute pharyngitis ACUTE PHARYNGITIS 462 Active Mary Dupont WASTEWATER PROCESS ENGINEER Acute pharyngitis COUGH 786.2 Resolved Linda Davis MD PhD Cough FATIGUE 780.79 Resolved Linda Davis MD PhD Other malaise and fatigue TONSILLITIS 463 Resolved Linda Davis MD PhD Acute tonsillitis ABSCESS, GLUTEAL 682.5 Resolved Linda Davis MD PhD Cellulitis and abscess of buttock EAR PAIN, LEFT 388.70 Resolved Linda Davis MD PhD Otalgia, unspecified FH BREAST CANCER V16.3 Active Radha Victor WASTEWATER PROCESS ENGINEER Family history of malignant neoplasm of breast [...] Ankle pain, right 719.47 Active Radha Victor WASTEWATER PROCESS ENGINEER Pain in joint involving ankle and foot PHARYNGITIS-ACUTE ICD-462 Inactive Moon Pete WASTEWATER PROCESS ENGINEER OTITIS MEDIA, RIGHT ICD-382.9 Inactive Linda Davis MD PhD COUGH ICD-786.2 [...] Generic Name NDC Status Provider Patient Instruction CLARITIN-D 12 HOUR 5-120 MG ORAL [id number] Take one tablet every 12 hours as needed for congestion LORATADINE-PSEUDOEPHEDRINE [id number] Active Mary Yoangelito WASTEWATER PROCESS ENGINEER Active AUGMENTIN 875-125 MG TAB 1 tab by mouth twice daily with food AMOXICILLIN-POT CLAVULANATE 77289226360 Active Mary Dupont APRN Active DEPO-PROVERA 150 MG/ML SUPENSION q3mos MEDROXYPROGEST ANDRZEJ ( CONTRACEP) 36352050371 No Longer Active Mary Dupont APRN Active NAPROXEN 500 MG TABS 1 twice a day for breakthrough bleeding. Continue for 1 month. NAPROXEN 80454096717 Active Ania Alejandra APRN Active TRI-SPRINTEC 0.18/0.215/0.25 MG-35 MCG TABS 1 po qd as directed. Begin 1st pack on 11/01/16. NORGESTIM-ETH ESTRAD TRIPHASIC 95631407151 Active Ania Alejandra APRN Active TYLENOL 325 MG TAB 1-2 pills by mouth every 6 hours if needed for pain/fever ACETAMINOPHEN 39046317584 Active Linda Davis MD PhD Active TOPAMAX 25 MG TABS take 1 tab po qday for migraines. TOPIRAMATE 57211705285 No Longer Active Linda Davis MD PhD Active HYDROCODONE-ACETAMINOPHEN 5-325 MG TABS 1 po q 6hr PRN Pain 06/18 HYDROCODONE-ACETAMINOPHEN 66999557180 No Longer Active Mikhail Forbes MD Active KEFLEX 500 MG CAP 1 tab po tid CEPHALEXIN 45026279274 No Longer Active Mikhail Forbes MD Active HYDROCODONE-ACETAMINOPHEN 5-500 MG TABS 1 every 4hours as needed HYDROCODONE-ACETAMINOPHEN 14309651827 No Longer Active Germainllina Kayleigh COOPERN Active TAMIFLU 75 MG CAPS 1 bid x 5 days OSELTAMIVIR PHOSPHATE 11758702368 No Longer Active Linda Davis MD PhD Active AUGMENTIN 875-125 MG TAB 1 tab by mouth twice daily with food AMOXICILLIN-POT CLAVULANATE 14564770784 No Longer Active Jillina Frazell WASTEWATER PROCESS ENGINEER Active AUGMENTIN 875-125 MG TAB 1 tab by mouth twice daily with food AMOXICILLIN-POT CLAVULANATE 95138534715 No Longer Active Jillina Frashantelll WASTEWATER PROCESS ENGINEER Active CLINDAMYCIN HCL 150 MG CAPS 1 four times a day CLINDAMYCIN HCL 15193069396 No Longer Active Moon Pete APRN Active BACTRIM DS 800-160 MG TAB 1 tab by mouth twice daily TRIMETHOPRIM-SULFAMETHOXAZOLE 37824831913 No Longer Active Moon Pete APRN Active AMOXICILLIN 500 MG CAP 1 tab by mouth twice daily AMOXICILLIN 89776361385 No Longer Active Antony Moran DO Active ZITHROMAX Z-MAKAYLA 250 MG TABS 2 now then 1 everyday AZITHROMYCIN 02188834602 No Longer Active Antony Moran DO Active ZITHROMAX Z-MAKAYLA 250 MG TABS 2 now then 1 everyday ZITHROMAX Z-MAKAYLA 250 MG TABS 7210652 AZITHROMYCIN Inactive AMOXICILLIN 500 MG CAP 1 tab by mouth twice daily AMOXICILLIN 500 MG CAP 437248 AMOXICILLIN Inactive BACTRIM DS 800-160 MG TAB 1 tab by mouth twice daily BACTRIM DS 800-160 MG TAB 751888 TRIMETHOPRIM-SULFAMETHOXAZOLE Inactive CLINDAMYCIN HCL 150 MG CAPS 1 four times a day CLINDAMYCIN HCL 150 MG CAPS 652705 CLINDAMYCIN HCL Inactive HYDROCODONE-ACETAMINOPHEN 5-500 MG TABS 1 every 4hours as needed HYDROCODONE-ACETAMINOPHEN 5-500 MG TABS HYDROCODONE- ACETAMINOPHEN Inactive KEFLEX 500 MG CAP 1 tab po tid KEFLEX 500 MG CAP 828603 CEPHALEXIN Inactive HYDROCODONE-ACETAMINOPHEN 5-325 MG TABS 1 po q 6hr PRN Pain 06/18 HYDROCODONE-ACETAMINOPHEN 5-325 MG TABS 735539 HYDROCODONE- ACETAMINOPHEN Inactive TOPAMAX 25 MG TABS take 1 tab po qday for migraines. TOPAMAX 25 MG TABS 226467 TOPIRAMATE Inactive DEPO-PROVERA 150 MG/ML SUPENSION q3mos DEPO-PROVERA 150 MG/ML SUPENSION 2342175 MEDROXYPROGEST ANDRZEJ (CONTRACEP) Inactive AUGMENTIN 875-125 MG TAB 1 tab by mouth twice daily with food AUGMENTIN 875-125 MG TAB 559002 AMOXICILLIN-POT CLAVULANATE Inactive AUGMENTIN 875-125 MG TAB 1 tab by mouth twice daily with food AUGMENTIN 875-125 MG TAB 481978 AMOXICILLIN-POT CLAVULANATE Inactive TAMIFLU 75 MG CAPS 1 bid x 5 days TAMIFLU 75 MG CAPS 018993 OSELTAMIVIR PHOSPHATE Inactive Advance Directives Directive Description Start Date PERMISSION TO SHARE Vital Signs Date Name Value Unit Range Description blood pressure, diastolic - 8462-4 73 mm[Hg] BP burkett blood pressure, systolic - 8480-6 117 mm[Hg] BP sys height E&M - 8302-2 62 [in_us] Bdy height pulse rate E&M - 8867-4 120 /min Heart rate temperature E&M 97.8 [degF] Body temperature weight E&M - 3141-9 129.5 [lb_av] Weight Measured blood pressure, diastolic - 8462-4 56 mm[Hg] BP burkett blood pressure, systolic - 8480-6 117 mm[Hg] BP sys height E&M - 8302-2 62 [in_us] Bdy height pulse rate E&M - 8867-4 73 /min Heart rate temperature E&M 97.2 [degF] Body temperature weight E&M - 3141-9 135 [lb_av] Weight Measured Encounters Code Encounter Date Provider Facility CPT-03224 Level 3 Est. Patient 18:10:13 CDT Ania Alejandra [facility] CPT-71125 Level 3 Est. Patient 13:01:05 CDT Mary Dupont [facility] CPT-87392 Level 3 Est. Patient 10:22:24 CDT Radha Victor [facility]-18331 Level 3 Est. Patient 18:31:30 CDT Linda Davis MD PhD [facility] CPT-17112 Level 4 Est. Patient 21:34:05 PROJECT ADMINISTRATOR Mikhail Forbes MD [facility] CPT-23613 Level 4 Est. Patient 15:14:34 PROJECT ADMINISTRATOR Mikhail Forbes MD [facility] CPT-02178 Level 3 Est. Patient 12:52:25 CDT Mikhail Forbes MD [facility] CPT-60663 Level 2 Est. Patient 14:57:21 CDT Radha Victor [facility] CPT-19311 Level 2 Est. Patient 16:59:23 CDT Radha Victor [facility] CPT-15537 Level 3 Est. Patient 15:10:28 CDT Moon Pete [facility] CPT-29330 Level 3 Est. Patient 13:38:05 PROJECT ADMINISTRATOR Moon Pete [facility] CPT-50331 Level 3 Est. Patient 13:36:40 PROJECT ADMINISTRATOR Antony Moran DO [facility] CPT-60958 Level 3 Est. Patient 14:07:56 PROJECT ADMINISTRATOR Moon Pete [facility] Procedures Code Procedure Name Date Entry Date Standard Description CPT-J1050 Depo Provera 150 mg (Medroxyprogesterone) 14:50:04 CDT CPT-73174 Abx/Therapy Injection 14:50:04 CDT CPT-28688 Ankle, right, Complete - Min 3V 10:34:26 CDT CPT-J1050 Depo Provera 150 mg (Medroxyprogesterone) 11:26:14 CDT CPT-56663 Abx/Therapy Injection 11:26:13 CDT CPT-J1055 Depo-Provera Injection only 150 mg 16:55:48 CDT CPT-J1050 Depo Provera 150 mg (Medroxyprogesterone) 13:49:16 PROJECT ADMINISTRATOR CPT-39935 Abx/Therapy Injection 13:49:16 PROJECT ADMINISTRATOR CPT-J1055 Depo-Provera Injection only 150 mg 09:45:32 PROJECT ADMINISTRATOR CPT-J1050 Depo Provera 150 mg (Medroxyprogesterone) 18:49:54 CDT CPT-51734 Abx/Therapy Injection 18:49:54 CDT CPT-J1055 Depo-Provera Injection only 150 mg 09:18:50 CDT CPT-J1050 Depo Provera 150 mg (Medroxyprogesterone) 08:12:54 CDT CPT-21881 Abx/Therapy Injection 08:12:54 CDT CPT-J1050 Depo Provera 150 mg (Medroxyprogesterone) 15:07:25 CDT CPT-07444 Abx/Therapy Injection 15:07:25 CDT CPT-J1050 Depo Provera 150 mg (Medroxyprogesterone) 09:59:09 CDT CPT-J1050 Depo Provera 150 mg (Medroxyprogesterone) 15:43:37 PROJECT ADMINISTRATOR CPT-13047 Abx/Therapy Injection 15:43:37 PROJECT ADMINISTRATOR CPT-J1050 Depo Provera 150 mg (Medroxyprogesterone) 15:14:34 PROJECT ADMINISTRATOR CPT-90350 Postop F/U Visit 09:10:48 CDT CPT-OV Office Visit 21:43:13 CDT CPT-83397 Postop F/U Visit 16:13:18 CDT CPT-68106 Venipuncture Draw Fee 13:37:57 PROJECT ADMINISTRATOR
--- OUTSIDE RECORDS SUMMARY | 2018-09-25 10:56 | XMS REPORT | Clinical Summary ---
Author Author Admin, MAISHA Organization [email or web address] Address Unknown Phone Unavailable Allergies, Adverse Reactions, Alerts Allergy Name Reaction Description Start Date Severity Status Provider SULFA rash Moderate Active Jessy Sommers PAROLE AGENT Conditions or Problems Problem Name Problem Code Onset Date Status Entry Date Provider Comment Standard Description Annotate FH DIABETES V18.0 Active Moon Pete SENIOR DATABASE PROGRAMMER Family history of diabetes mellitus PHARYNGITIS-ACUTE 462 Inactive Moon Pete SENIOR DATABASE PROGRAMMER Acute pharyngitis OTITIS MEDIA, RIGHT 382.9 Resolved [...] FH BREAST CANCER V16.3 Active Radha Victor SENIOR DATABASE PROGRAMMER Family history of malignant neoplasm of breast [...] Ankle pain, right 719.47 Active Radha Victor SENIOR DATABASE PROGRAMMER Pain in joint involving ankle and foot PHARYNGITIS-ACUTE ICD-462 Inactive Moon Pete SENIOR DATABASE PROGRAMMER OTITIS MEDIA, RIGHT ICD-382.9 Inactive Linda Davis [...] 6 hours if needed for pain/fever ACETAMINOPHEN 58815307228 Active Linda Davis MD PhD Active DEPO-PROVERA 150 MG/ML SUPENSION q3mos MEDROXYPROGEST ANDRZEJ (CONTRACEP) 98331658184 Active Linda Davis MD PhD Active TOPAMAX 25 MG TABS take 1 tab po qday for migraines. TOPIRAMATE 59336271066 No Longer Active Linda Davis MD PhD Active HYDROCODONE-ACETAMINOPHEN 5-325 MG TABS 1 po q 6hr PRN Pain 06/18 HYDROCODONE-ACETAMINOPHEN 03136500972 No Longer Active Mikhail Forbes MD Active KEFLEX 500 MG CAP 1 tab po tid CEPHALEXIN 62456836162 No Longer Active Mikhail Forbes MD Active HYDROCODONE-ACETAMINOPHEN 5-500 MG TABS 1 every 4hours as needed HYDROCODONE-ACETAMINOPHEN 36082986083 No Longer Active Radha Victor APRN Active TAMIFLU 75 MG CAPS 1 bid x 5 days OSELTAMIVIR PHOSPHATE 24107920987 No Longer Active Linda Davis MD PhD Active AUGMENTIN 875-125 MG TAB 1 tab by mouth twice daily with food AMOXICILLIN-POT CLAVULANATE 35608342942 No Longer Active Jillina Frahazel SENIOR DATABASE PROGRAMMER Active AUGMENTIN 875-125 MG TAB 1 tab by mouth twice daily with food AMOXICILLIN-POT CLAVULANATE 98590528554 No Longer Active Radha Victor SENIOR DATABASE PROGRAMMER Active CLINDAMYCIN HCL 150 MG CAPS 1 four times a day CLINDAMYCIN HCL 87579866105 No Longer Active Moon Ptee APRN Active BACTRIM DS 800-160 MG TAB 1 tab by mouth twice daily TRIMETHOPRIM-SULFAMETHOXAZOLE 59407050994 No Longer Active Moon Pete APRN Active AMOXICILLIN 500 MG CAP 1 tab by mouth twice daily AMOXICILLIN 70567156678 No Longer Active Antony Moran DO Active ZITHROMAX Z-MAKAYLA 250 MG TABS 2 now then 1 everyday AZITHROMYCIN 41008438326 No Longer Active Antony Moran DO Active ZITHROMAX Z-MAKAYLA 250 MG TABS 2 now then 1 everyday ZITHROMAX Z-MAKAYLA 250 MG TABS 3851242 AZITHROMYCIN Inactive AMOXICILLIN 500 MG CAP 1 tab by mouth twice daily AMOXICILLIN 500 MG CAP 533134 AMOXICILLIN Inactive BACTRIM DS 800-160 MG TAB 1 tab by mouth twice daily BACTRIM DS 800-160 MG TAB 291743 TRIMETHOPRIM-SULFAMETHOXAZOLE Inactive CLINDAMYCIN HCL 150 MG CAPS 1 four times a day CLINDAMYCIN HCL 150 MG CAPS 111854 CLINDAMYCIN HCL Inactive HYDROCODONE-ACETAMINOPHEN 5-500 MG TABS 1 every 4hours as needed HYDROCODONE-ACETAMINOPHEN 5-500 MG TABS HYDROCODONE- ACETAMINOPHEN Inactive KEFLEX 500 MG CAP 1 tab po tid KEFLEX 500 MG CAP 078558 CEPHALEXIN Inactive HYDROCODONE-ACETAMINOPHEN 5-325 MG TABS 1 po q 6hr PRN Pain 06/18 HYDROCODONE-ACETAMINOPHEN 5-325 MG TABS 887603 HYDROCODONE- ACETAMINOPHEN Inactive TOPAMAX 25 MG TABS take 1 tab po qday for migraines. TOPAMAX 25 MG TABS 614044 TOPIRAMATE Inactive AUGMENTIN 875-125 MG TAB 1 tab by mouth twice daily with food AUGMENTIN 875-125 MG TAB 340375 AMOXICILLIN-POT CLAVULANATE Inactive AUGMENTIN 875-125 MG TAB 1 tab by mouth twice daily with food AUGMENTIN 875-125 MG TAB 829066 AMOXICILLIN-POT CLAVULANATE Inactive TAMIFLU 75 MG CAPS [...] H. Pylori, MONO w/Rflx EBV - Chemistry sodium, serum 141 mmol/L 466-375 0560/09/21 carbon dioxide, venous blood 26.0 mmol/L 21.0-32.0 potassium, serum 3.8 mmol/L 3.5-5.2 chloride, serum 107 mmol/L 98-107 blood glucose 84 mg/dL 65-110 urea nitrogen, blood 13 mg/dL 7-18 creatinine, serum 0.86 mg/dL 0.55-1.30 alanine aminotransferase (SGPT), serum 23 U/L 12-78 aspartate aminotransferase (SGOT), serum 17 U/L 15-37 calcium, serum 8.9 mg/dL 8.5-10.1 Lab Report: RapidStrep Rflx/Cx - Lab Microbial identification kit, rapid strep method Negative-Throat Culture to Follow Negative Lab Report: [facility] [place] Chemistry human chorionic gonadotropin, urine, qualitative (urine test) Negative Negative Encounters Code Encounter Date Provider Facility CPT-04854 Level 3 Est. Patient 10:22:24 CDT Radha Victor APRN [facility] CPT-85170 Level 3 Est. Patient 18:31:30 CDT Linda Davis MD PhD [facility] CPT-70844 Level 4 Est. Patient 21:34:05 FREEZER MACHINE OPERATOR Mikhail Forbes MD [facility] CPT-19083 Level 4 Est. Patient 15:14:34 FREEZER MACHINE OPERATOR Mikhail Forbes MD [facility] CPT-95239 Level 3 Est. Patient 12:52:25 CDT Mikhail Forbes MD [facility] CPT-93489 Level 2 Est. Patient 14:57:21 CDT Radha Victor [facility] CPT-55613 Level 2 Est. Patient 16:59:23 CDT Radha Victor [facility]-04413 Level 3 Est. Patient 15:10:28 CDT Moon Pete [facility] CPT-01862 Level 3 Est. Patient 13:38:05 FREEZER MACHINE OPERATOR Moon Pete [facility] CPT-97310 Level 3 Est. Patient 13:36:40 FREEZER MACHINE OPERATOR Antony Moran DO [facility] CPT-61960 Level 3 Est. Patient 14:07:56 FREEZER MACHINE OPERATOR Moon Pete [facility] Procedures Code Procedure Name Date Entry Date Standard Description CPT-22422 Ankle, right, Complete - Min 3V 10:34:26 CDT CPT-J1050 Depo Provera 150 mg (Medroxyprogesterone) 11:26:14 CDT CPT-59049 Abx/Therapy Injection 11:26:13 CDT CPT-J1055 Depo-Provera Injection only 150 mg 16:55:48 CDT CPT-J1050 Depo Provera 150 mg (Medroxyprogesterone) 13:49:16 FREEZER MACHINE OPERATOR CPT-14660 Abx/Therapy Injection 13:49:16 FREEZER MACHINE OPERATOR CPT-J1055 Depo-Provera Injection only 150 mg 09:45:32 FREEZER MACHINE OPERATOR CPT-J1050 Depo Provera 150 mg (Medroxyprogesterone) 18:49:54 CDT CPT-11798 Abx/Therapy Injection 18:49:54 CDT CPT-J1055 Depo-Provera Injection only 150 mg 09:18:50 CDT CPT-J1050 Depo Provera 150 mg (Medroxyprogesterone) 08:12:54 CDT CPT-84713 Abx/Therapy Injection 08:12:54 CDT CPT-J1050 Depo Provera 150 mg (Medroxyprogesterone) 15:07:25 CDT CPT-14765 Abx/Therapy Injection 15:07:25 CDT CPT-J1050 Depo Provera 150 mg (Medroxyprogesterone) 09:59:09 CDT CPT-J1050 Depo Provera 150 mg (Medroxyprogesterone) 15:43:37 FREEZER MACHINE OPERATOR CPT-15857 Abx/Therapy Injection 15:43:37 FREEZER MACHINE OPERATOR CPT-J1050 Depo Provera 150 mg (Medroxyprogesterone) 15:14:34 FREEZER MACHINE OPERATOR CPT-63798 Postop F/U Visit 09:10:48 CDT CPT-OV Office Visit 21:43:13 CDT CPT-52432 Postop F/U Visit 16:13:18 CDT CPT-03054 Venipuncture Draw Fee 13:37:57 FREEZER MACHINE OPERATOR
--- OUTSIDE RECORDS SUMMARY | 2018-09-25 10:56 | XMS REPORT | Clinical Summary ---
Author Author Admin, MAISHA Organization [employer] Address Unknown Phone Unavailable Allergies, Adverse Reactions, Alerts Allergy Name Reaction Description Start Date Severity Status Provider SULFA rash Moderate Active Jessy Sommers GUEST SERVICES REPRESENTATIVE Conditions or Problems Problem Name Problem Code Onset Date Status Entry Date Provider Comment Standard Description Annotate FH DIABETES V18.0 Active Moon Pete DIRECTOR OF RELIGIOUS ACTIVITIES Family history of diabetes mellitus PHARYNGITIS-ACUTE 462 Inactive Moon Pete DIRECTOR OF RELIGIOUS ACTIVITIES Acute pharyngitis OTITIS MEDIA, RIGHT 382.9 Resolved [...] FH BREAST CANCER V16.3 Active Radha Victor DIRECTOR OF RELIGIOUS ACTIVITIES Family history of malignant neoplasm of breast [...] Ankle pain, right 719.47 Active Radha Victor DIRECTOR OF RELIGIOUS ACTIVITIES Pain in joint involving ankle and foot PHARYNGITIS-ACUTE ICD-462 Inactive Moon Pete DIRECTOR OF RELIGIOUS ACTIVITIES OTITIS MEDIA, RIGHT ICD-382.9 Inactive Linda Davis [...] 6 hours if needed for pain/fever ACETAMINOPHEN 40998734953 Active Linda Davis MD PhD Active DEPO-PROVERA 150 MG/ML SUPENSION q3mos MEDROXYPROGEST ANDRZEJ (CONTRACEP) 08436846637 Active Linda Davis MD PhD Active TOPAMAX 25 MG TABS take 1 tab po qday for migraines. TOPIRAMATE 41587234707 No Longer Active Linda Davis MD PhD Active HYDROCODONE-ACETAMINOPHEN 5-325 MG TABS 1 po q 6hr PRN Pain 06/18 HYDROCODONE-ACETAMINOPHEN 73954926982 No Longer Active Mikhail Forbes MD Active KEFLEX 500 MG CAP 1 tab po tid CEPHALEXIN 41337653299 No Longer Active Mikhail Forbes MD Active HYDROCODONE-ACETAMINOPHEN 5-500 MG TABS 1 every 4hours as needed HYDROCODONE-ACETAMINOPHEN 65954510663 No Longer Active Radha Victor APRN Active TAMIFLU 75 MG CAPS 1 bid x 5 days OSELTAMIVIR PHOSPHATE 20182007755 No Longer Active Linda Davis MD PhD Active AUGMENTIN 875-125 MG TAB 1 tab by mouth twice daily with food AMOXICILLIN-POT CLAVULANATE 89571278763 No Longer Active Jillsantiago Victor APRN Active AUGMENTIN 875-125 MG TAB 1 tab by mouth twice daily with food AMOXICILLIN-POT CLAVULANATE 50399816810 No Longer Active Radha Victor DIRECTOR OF RELIGIOUS ACTIVITIES Active CLINDAMYCIN HCL 150 MG CAPS 1 four times a day CLINDAMYCIN HCL 02932757758 No Longer Active Moon Pete APRN Active BACTRIM DS 800-160 MG TAB 1 tab by mouth twice daily TRIMETHOPRIM-SULFAMETHOXAZOLE 23031418014 No Longer Active Moon Pete APRN Active AMOXICILLIN 500 MG CAP 1 tab by mouth twice daily AMOXICILLIN 98890700729 No Longer Active Antony Moran DO Active ZITHROMAX Z-MAKAYLA 250 MG TABS 2 now then 1 everyday AZITHROMYCIN 59480262987 No Longer Active Antony Moran DO Active ZITHROMAX Z-MAKAYLA 250 MG TABS 2 now then 1 everyday ZITHROMAX Z-MAKAYLA 250 MG TABS 9130459 AZITHROMYCIN Inactive AMOXICILLIN 500 MG CAP 1 tab by mouth twice daily AMOXICILLIN 500 MG CAP 330390 AMOXICILLIN Inactive BACTRIM DS 800-160 MG TAB 1 tab by mouth twice daily BACTRIM DS 800-160 MG TAB 740853 TRIMETHOPRIM-SULFAMETHOXAZOLE Inactive CLINDAMYCIN HCL 150 MG CAPS 1 four times a day CLINDAMYCIN HCL 150 MG CAPS 009714 CLINDAMYCIN HCL Inactive HYDROCODONE-ACETAMINOPHEN 5-500 MG TABS 1 every 4hours as needed HYDROCODONE-ACETAMINOPHEN 5-500 MG TABS HYDROCODONE- ACETAMINOPHEN Inactive KEFLEX 500 MG CAP 1 tab po tid KEFLEX 500 MG CAP 566674 CEPHALEXIN Inactive HYDROCODONE-ACETAMINOPHEN 5-325 MG TABS 1 po q 6hr PRN Pain 06/18 HYDROCODONE-ACETAMINOPHEN 5-325 MG TABS 771778 HYDROCODONE- ACETAMINOPHEN Inactive TOPAMAX 25 MG TABS take 1 tab po qday for migraines. TOPAMAX 25 MG TABS 324738 TOPIRAMATE Inactive AUGMENTIN 875-125 MG TAB 1 tab by mouth twice daily with food AUGMENTIN 875-125 MG TAB 207314 AMOXICILLIN-POT CLAVULANATE Inactive AUGMENTIN 875-125 MG TAB 1 tab by mouth twice daily with food AUGMENTIN 875-125 MG TAB 755432 AMOXICILLIN-POT CLAVULANATE Inactive TAMIFLU 75 MG CAPS 1 bid x 5 days TAMIFLU 75 MG CAPS 416942 OSELTAMIVIR PHOSPHATE Inactive Advance Directives Directive Description Start Date PERMISSION TO SHARE Vital Signs Date Name Value Unit Range Description blood pressure, diastolic - 8462-4 59 mm[Hg] BP burkett blood pressure, systolic - 8480-6 112 mm[Hg] BP sys pulse rate E&M - 8867-4 84 /min Heart rate temperature E&M 96.4 [degF] Body temperature weight E&M - 3141-9 131 [lb_av] Weight Measured Encounters Code Encounter Date Provider Facility CPT-49938 Level 3 Est. Patient 10:22:24 CDT Radha Victor [facility] CPT-59955 Level 3 Est. Patient 18:31:30 CDT Linda Davis MD PhD [facility] CPT-39036 Level 4 Est. Patient 21:34:05 DIESEL TRAILER MECHANIC Mikhail Forbes MD [facility] CPT-19820 Level 4 Est. Patient 15:14:34 DIESEL TRAILER MECHANIC Mikhail Forbes MD [facility] CPT-38435 Level 3 Est. Patient 12:52:25 CDT Mikhail Forbes MD [facility] CPT-52824 Level 2 Est. Patient 14:57:21 CDT Radha Victor [facility] CPT-55803 Level 2 Est. Patient 16:59:23 CDT Radha Victor [facility] CPT-30917 Level 3 Est. Patient 15:10:28 CDT Moon Pete [facility] CPT-59936 Level 3 Est. Patient 13:38:05 DIESEL TRAILER MECHANIC Moon Pete [facility] CPT-02211 Level 3 Est. Patient 13:36:40 DIESEL TRAILER MECHANIC Antony Cline Dean KATHLEEN [facility] CPT-45037 Level 3 Est. Patient 14:07:56 DIESEL TRAILER MECHANIC Moon Pete [facility] Procedures Code Procedure Name Date Entry Date Standard Description CPT-J1050 Depo Provera 150 mg (Medroxyprogesterone) 14:50:04 CDT CPT-63066 Abx/Therapy Injection 14:50:04 CDT CPT-12055 Ankle, right, Complete - Min 3V 10:34:26 CDT CPT-J1050 Depo Provera 150 mg (Medroxyprogesterone) 11:26:14 CDT CPT-19057 Abx/Therapy Injection 11:26:13 CDT CPT-J1055 Depo-Provera Injection only 150 mg 16:55:48 CDT CPT-J1050 Depo Provera 150 mg (Medroxyprogesterone) 13:49:16 DIESEL TRAILER MECHANIC CPT-00497 Abx/Therapy Injection 13:49:16 DIESEL TRAILER MECHANIC CPT-J1055 Depo-Provera Injection only 150 mg 09:45:32 DIESEL TRAILER MECHANIC CPT-J1050 Depo Provera 150 mg (Medroxyprogesterone) 18:49:54 CDT CPT-12356 Abx/Therapy Injection 18:49:54 CDT CPT-J1055 Depo-Provera Injection only 150 mg 09:18:50 CDT CPT-J1050 Depo Provera 150 mg (Medroxyprogesterone) 08:12:54 CDT CPT-64964 Abx/Therapy Injection 08:12:54 CDT CPT-J1050 Depo Provera 150 mg (Medroxyprogesterone) 15:07:25 CDT CPT-38205 Abx/Therapy Injection 15:07:25 CDT CPT-J1050 Depo Provera 150 mg (Medroxyprogesterone) 09:59:09 CDT CPT-J1050 Depo Provera 150 mg (Medroxyprogesterone) 15:43:37 DIESEL TRAILER MECHANIC CPT-49941 Abx/Therapy Injection 15:43:37 DIESEL TRAILER MECHANIC CPT-J1050 Depo Provera 150 mg (Medroxyprogesterone) 15:14:34 DIESEL TRAILER MECHANIC CPT-40660 Postop F/U Visit 09:10:48 CDT CPT-OV Office Visit 21:43:13 CDT CPT-62285 Postop F/U Visit 16:13:18 CDT CPT-85535 Venipuncture Draw Fee 13:37:57 DIESEL TRAILER MECHANIC
--- OUTSIDE RECORDS SUMMARY | 2018-09-25 10:56 | XMS REPORT | Clinical Summary ---
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 PLUMBER Conditions or Problems Problem Name Problem Code Onset Date Status Entry Date Provider Comment Standard Description Annotate FH DIABETES V18.0 Active Moon Pete PRESS BRAKE OPERATOR Family history of diabetes mellitus PHARYNGITIS-ACUTE 462 Inactive Moon Pete PRESS BRAKE OPERATOR Acute pharyngitis OTITIS MEDIA, RIGHT 382.9 Resolved Linda Davis MD PhD Unspecified otitis media ACUTE PHARYNGITIS 462 Resolved Linda Davis MD PhD Acute pharyngitis ACUTE PHARYNGITIS 462 Active Mary Dupont PRESS BRAKE OPERATOR Acute pharyngitis COUGH 786.2 Resolved Linda Davis MD PhD Cough FATIGUE 780.79 Resolved Linda Davis MD PhD Other malaise and fatigue TONSILLITIS 463 Resolved Lnida Davis MD PhD Acute tonsillitis ABSCESS, GLUTEAL 682.5 Resolved Linda Davis MD PhD Cellulitis and abscess of buttock EAR PAIN, LEFT 388.70 Resolved Linda Davis MD PhD Otalgia, unspecified FH BREAST CANCER V16.3 Active Radha Victor PRESS BRAKE OPERATOR Family history of malignant neoplasm of breast [...] Ankle pain, right 719.47 Active Radha Victor PRESS BRAKE OPERATOR Pain in joint involving ankle and foot PHARYNGITIS-ACUTE ICD-462 Inactive Moon Pete PRESS BRAKE OPERATOR OTITIS MEDIA, RIGHT ICD-382.9 Inactive Linda Davis [...] Instruction CLARITIN-D 12 HOUR 5-120 MG ORAL [id number] Take one tablet every 12 hours as needed for congestion LORATADINE-PSEUDOEPHEDRINE 37073232765 Active Mary Yokum PRESS BRAKE OPERATOR Active AUGMENTIN 875-125 MG TAB 1 tab by mouth twice daily with food AMOXICILLIN-POT CLAVULANATE 02898507577 No Longer Active Marypushpa Dupont APRN Active DEPO-PROVERA 150 MG/ML SUPENSION q3mos MEDROXYPROGEST ANDRZEJ ( CONTRACEP) 48559611529 No Longer Active Marypushpa Dupont APRN Active NAPROXEN 500 MG TABS 1 twice a day for breakthrough bleeding. Continue for 1 month. NAPROXEN 31114438186 Active Ania Alejandra APRN Active TRI-SPRINTEC 0.18/0.215/0.25 MG-35 MCG TABS 1 po qd as directed. Begin 1st pack on 11/01/16. NORGESTIM-ETH ESTRAD TRIPHASIC 26850503594 Active Ania Alejandra APRN Active TYLENOL 325 MG TAB 1-2 pills by mouth every 6 hours if needed for pain/fever ACETAMINOPHEN 76464578751 Active Linda Davis MD PhD Active TOPAMAX 25 MG TABS take 1 tab po qday for migraines. TOPIRAMATE 82834411046 No Longer Active Linda Davis MD PhD Active HYDROCODONE-ACETAMINOPHEN 5-325 MG TABS 1 po q 6hr PRN Pain 06/18 HYDROCODONE-ACETAMINOPHEN 75905822016 No Longer Active Mikhail Forbes MD Active KEFLEX 500 MG CAP 1 tab po tid CEPHALEXIN 14959202405 No Longer Active Mikhail Forbes MD Active HYDROCODONE-ACETAMINOPHEN 5-500 MG TABS 1 every 4hours as needed HYDROCODONE-ACETAMINOPHEN 34718740119 No Longer Active Germainllina Kayleigh COOPERN Active TAMIFLU 75 MG CAPS 1 bid x 5 days OSELTAMIVIR PHOSPHATE 70080678446 No Longer Active Linda Davis MD PhD Active AUGMENTIN 875-125 MG TAB 1 tab by mouth twice daily with food AMOXICILLIN-POT CLAVULANATE 41282714656 No Longer Active Jillina Frazell PRESS BRAKE OPERATOR Active AUGMENTIN 875-125 MG TAB 1 tab by mouth twice daily with food AMOXICILLIN-POT CLAVULANATE 42456441725 No Longer Active Jillina Frashantelll PRESS BRAKE OPERATOR Active CLINDAMYCIN HCL 150 MG CAPS 1 four times a day CLINDAMYCIN HCL 02194348087 No Longer Active Moon Pete APRN Active BACTRIM DS 800-160 MG TAB 1 tab by mouth twice daily TRIMETHOPRIM-SULFAMETHOXAZOLE 25162655120 No Longer Active Moon Pete APRN Active AMOXICILLIN 500 MG CAP 1 tab by mouth twice daily AMOXICILLIN 74741013741 No Longer Active Antony Moran DO Active ZITHROMAX Z-MAKAYLA 250 MG TABS 2 now then 1 everyday AZITHROMYCIN 26026433141 No Longer Active Antony Moran DO Active ZITHROMAX Z-MAKAYLA 250 MG TABS 2 now then 1 everyday ZITHROMAX Z-MAKAYLA 250 MG TABS 3595795 AZITHROMYCIN Inactive AMOXICILLIN 500 MG CAP 1 tab by mouth twice daily AMOXICILLIN 500 MG CAP 900558 AMOXICILLIN Inactive BACTRIM DS 800-160 MG TAB 1 tab by mouth twice daily BACTRIM DS 800-160 MG TAB 285977 TRIMETHOPRIM-SULFAMETHOXAZOLE Inactive CLINDAMYCIN HCL 150 MG CAPS 1 four times a day CLINDAMYCIN HCL 150 MG CAPS 814454 CLINDAMYCIN HCL Inactive HYDROCODONE-ACETAMINOPHEN 5-500 MG TABS 1 every 4hours as needed HYDROCODONE-ACETAMINOPHEN 5-500 MG TABS HYDROCODONE- ACETAMINOPHEN Inactive KEFLEX 500 MG CAP 1 tab po tid KEFLEX 500 MG CAP 842324 CEPHALEXIN Inactive HYDROCODONE-ACETAMINOPHEN 5-325 MG TABS 1 po q 6hr PRN Pain 06/18 HYDROCODONE-ACETAMINOPHEN 5-325 MG TABS 980035 HYDROCODONE- ACETAMINOPHEN Inactive TOPAMAX 25 MG TABS take 1 tab po qday for migraines. TOPAMAX 25 MG TABS 880416 TOPIRAMATE Inactive DEPO-PROVERA 150 MG/ML SUPENSION q3mos DEPO-PROVERA 150 MG/ML SUPENSION 7877662 MEDROXYPROGEST ANDRZEJ (CONTRACEP) Inactive AUGMENTIN 875-125 MG TAB 1 tab by mouth twice daily with food AUGMENTIN 875-125 MG TAB 870467 AMOXICILLIN-POT CLAVULANATE Inactive AUGMENTIN 875-125 MG TAB 1 tab by mouth twice daily with food AUGMENTIN 875-125 MG TAB 124896 AMOXICILLIN-POT CLAVULANATE Inactive TAMIFLU 75 MG CAPS 1 bid x 5 days TAMIFLU 75 MG CAPS 609792 OSELTAMIVIR PHOSPHATE Inactive AUGMENTIN 875-125 MG TAB 1 tab by mouth twice daily with food AUGMENTIN 875-125 MG TAB 164606 AMOXICILLIN-POT CLAVULANATE Inactive Advance Directives Directive Description Start Date [...] Measured Encounters Code Encounter Date Provider Facility CPT-36394 Level 3 Est. Patient 18:10:13 CDT Ania Alejandra [facility] CPT-19706 Level 3 Est. Patient 13:01:05 CDT Mary Dupont [facility] CPT-41943 Level 3 Est. Patient 10:22:24 CDT Radha Victor [facility] [place]-21067 Level 3 Est. Patient 18:31:30 CDT [facility] MD [facility] CPT-68841 Level 4 Est. Patient 21:34:05 FIBER DESIGN ENGINEER Mikhail Forbes MD [facility] CPT-51444 Level 4 Est. Patient 15:14:34 FIBER DESIGN ENGINEER Mikhail Forbes [facility] CPT-54248 Level 3 Est. Patient 12:52:25 CDT Mikhail Forbes [facility] CPT-71756 Level 2 Est. Patient 14:57:21 CDT Radha Victor [facility] CPT-57631 Level 2 Est. Patient 16:59:23 CDT Radha Victor [facility] CPT-08337 Level 3 Est. Patient 15:10:28 CDT Moon Pete [facility] CPT-18340 Level 3 Est. Patient 13:38:05 FIBER DESIGN ENGINEER Moon Pete [facility] CPT-07434 Level 3 Est. Patient 13:36:40 FIBER DESIGN ENGINEER Antony Moran DO [facility] CPT-68423 Level 3 Est. Patient 14:07:56 FIBER DESIGN ENGINEER Moon Pete [facility] Procedures Code Procedure Name Date Entry Date Standard Description CPT-J1050 Depo Provera 150 mg (Medroxyprogesterone) 14:50:04 CDT CPT-11692 Abx/Therapy Injection 14:50:04 CDT CPT-17964 Ankle, right, Complete - Min 3V 10:34:26 CDT CPT-J1050 Depo Provera 150 mg (Medroxyprogesterone) 11:26:14 CDT CPT-89185 Abx/Therapy Injection 11:26:13 CDT CPT-J1055 Depo-Provera Injection only 150 mg 16:55:48 CDT CPT-J1050 Depo Provera 150 mg (Medroxyprogesterone) 13:49:16 FIBER DESIGN ENGINEER CPT-74267 Abx/Therapy Injection 13:49:16 FIBER DESIGN ENGINEER CPT-J1055 Depo-Provera Injection only 150 mg 09:45:32 FIBER DESIGN ENGINEER CPT-J1050 Depo Provera 150 mg (Medroxyprogesterone) 18:49:54 CDT CPT-57740 Abx/Therapy Injection 18:49:54 CDT CPT-J1055 Depo-Provera Injection only 150 mg 09:18:50 CDT CPT-J1050 Depo Provera 150 mg (Medroxyprogesterone) 08:12:54 CDT CPT-73746 Abx/Therapy Injection 08:12:54 CDT CPT-J1050 Depo Provera 150 mg (Medroxyprogesterone) 15:07:25 CDT CPT-14678 Abx/Therapy Injection 15:07:25 CDT CPT-J1050 Depo Provera 150 mg (Medroxyprogesterone) 09:59:09 CDT CPT-J1050 Depo Provera 150 mg (Medroxyprogesterone) 15:43:37 FIBER DESIGN ENGINEER CPT-76997 Abx/Therapy Injection 15:43:37 FIBER DESIGN ENGINEER CPT-J1050 Depo Provera 150 mg (Medroxyprogesterone) 15:14:34 FIBER DESIGN ENGINEER CPT-47609 Postop F/U Visit 09:10:48 CDT CPT-OV Office Visit 21:43:13 CDT CPT-03593 Postop F/U Visit 16:13:18 CDT CPT-23128 Venipuncture Draw Fee 13:37:57 FIBER DESIGN ENGINEER
--- OUTSIDE RECORDS SUMMARY | 2018-09-25 10:56 | XMS REPORT | Clinical Summary ---
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 Conditions or Problems Problem Name Problem Code Onset Date Status Entry Date Provider Comment Standard Description Annotate FH DIABETES V18.0 Active Moon Pete HIDE CLEANER Family history of diabetes mellitus PHARYNGITIS-ACUTE 462 Inactive Moon Pete HIDE CLEANER Acute pharyngitis OTITIS MEDIA, RIGHT 382.9 Active Moon Pete HIDE CLEANER Unspecified otitis media ACUTE PHARYNGITIS 462 Active Antony Moran DO Acute pharyngitis COUGH 786.2 Active Antony Moran DO Cough FATIGUE 780.79 Active Antony Moran DO Other malaise and fatigue TONSILLITIS 463 Active Moon Pete HIDE CLEANER Acute tonsillitis ABSCESS, GLUTEAL 682.5 Active Moon Pete HIDE CLEANER Cellulitis and abscess of buttock EAR PAIN, LEFT 388.70 Active Moon Pete HIDE CLEANER Otalgia, unspecified FH BREAST CANCER V16.3 Active Jillina Kayleigh HIDE CLEANER Family history of malignant neoplasm of breast PILONIDAL CYST 685.1 Active Jillina Frazell HIDE CLEANER Pilonidal cyst without mention of abscess AFTERCARE [...] 1 tab po qday for migraines. TOPIRAMATE 70185951507 Active Mikhail Forbes MD Active HYDROCODONE-ACETAMINOPHEN 5-325 MG TABS 1 po q 6hr PRN Pain 06/18 HYDROCODONE-ACETAMINOPHEN 00759353073 No Longer Active Mikhail Forbes MD Active KEFLEX 500 MG CAP 1 tab po tid CEPHALEXIN 54401047106 No Longer Active Mikhail Forbes MD Active HYDROCODONE-ACETAMINOPHEN 5-500 MG TABS 1 every 4hours as needed HYDROCODONE-ACETAMINOPHEN 94587431689 No Longer Active Radha Victor APRN Active TAMIFLU 75 MG CAPS 1 bid x 5 days OSELTAMIVIR PHOSPHATE 70530436779 No Longer Active Linda Davis MD PhD Active AUGMENTIN 875-125 MG TAB 1 tab by mouth twice daily with food AMOXICILLIN-POT CLAVULANATE 58771962895 No Longer Active Jillina Frazell HIDE CLEANER Active AUGMENTIN 875-125 MG TAB 1 tab by mouth twice daily with food AMOXICILLIN-POT CLAVULANATE 04105648253 No Longer Active Jillina Frazell HIDE CLEANER Active CLINDAMYCIN HCL 150 MG CAPS 1 four times a day CLINDAMYCIN HCL 82451237644 No Longer Active Moon Pete APRN Active BACTRIM DS 800-160 MG TAB 1 tab by mouth twice daily TRIMETHOPRIM-SULFAMETHOXAZOLE 79760174294 No Longer Active Moon Reed Juan R RODRÍGUEZ Active AMOXICILLIN 500 MG CAP 1 tab by mouth twice daily AMOXICILLIN 59747049034 No Longer Active Antony Moran DO Active ZITHROMAX Z-MAKAYLA 250 MG TABS 2 now then 1 everyday AZITHROMYCIN 71106776731 No Longer Active Antony Moran DO Active ZITHROMAX Z-MAKAYLA 250 MG TABS 2 now then 1 everyday ZITHROMAX Z-MAKAYLA 250 MG TABS 1775400 AZITHROMYCIN Inactive AMOXICILLIN 500 MG CAP 1 tab by mouth twice daily AMOXICILLIN 500 MG CAP 016845 AMOXICILLIN Inactive BACTRIM DS 800-160 MG TAB 1 tab by mouth twice daily BACTRIM DS 800-160 MG TAB TRIMETHOPRIM-SULFAMETHOXAZOLE Inactive CLINDAMYCIN HCL 150 MG CAPS 1 four times a day CLINDAMYCIN HCL 150 MG CAPS 081615 CLINDAMYCIN HCL Inactive HYDROCODONE-ACETAMINOPHEN 5-500 MG TABS 1 every 4hours as needed HYDROCODONE-ACETAMINOPHEN 5-500 MG TABS HYDROCODONE- ACETAMINOPHEN Inactive KEFLEX 500 MG CAP 1 tab po tid KEFLEX 500 MG CAP 381220 CEPHALEXIN Inactive HYDROCODONE-ACETAMINOPHEN 5-325 MG TABS 1 po q 6hr PRN Pain 06/18 HYDROCODONE-ACETAMINOPHEN 5-325 MG TABS 421375 HYDROCODONE- ACETAMINOPHEN Inactive AUGMENTIN 875-125 MG TAB 1 tab by mouth twice daily with food AUGMENTIN 875-125 MG TAB 463520 AMOXICILLIN-POT CLAVULANATE Inactive AUGMENTIN 875-125 MG TAB 1 tab by mouth twice daily with food AUGMENTIN 875-125 MG TAB 412881 AMOXICILLIN-POT CLAVULANATE Inactive TAMIFLU 75 MG CAPS [...] g/dL platelet count 311 10*3/mm3 Lab Report: [facility] [place] - Chemistry human chorionic gonadotropin, urine, qualitative (urine test) Negative Negative Encounters Code Encounter Date Provider Facility CPT-39217 Level 4 Est. Patient 21:34:05 LOAN UNDERWRITER Mikhail Forbes MD [facility] CPT-74463 Level 4 Est. Patient 15:14:34 LOAN UNDERWRITER Mikhail Forbes MD [facility] CPT-62868 Level 3 Est. Patient 12:52:25 CDT Mikhail Forbes MD [facility] CPT-87770 Level 2 Est. Patient 14:57:21 CDT [facility] Level 2 Est. Patient 16:59:23 CDT Germiansantiago Victor [facility] CPT-62591 Level 3 Est. Patient 15:10:28 CDT Moon Pete [facility] CPT-66708 Level 3 Est. Patient 13:38:05 LOAN UNDERWRITER Moon Pete [facility] CPT-30703 Level 3 Est. Patient 13:36:40 LOAN UNDERWRITER Antony Moran DO [facility] CPT-48241 Level 3 Est. Patient 14:07:56 LOAN UNDERWRITER Moon Pete [facility] Procedures Code Procedure Name Date Entry Date Standard Description CPT-J1050 Depo Provera 150 mg (Medroxyprogesterone) 09:59:09 CDT CPT-J1050 Depo Provera 150 mg (Medroxyprogesterone) 15:43:37 LOAN UNDERWRITER CPT-88158 Abx/Therapy Injection 15:43:37 LOAN UNDERWRITER CPT-J1050 Depo Provera 150 mg (Medroxyprogesterone) 15:14:34 LOAN UNDERWRITER CPT-66883 Postop F/U Visit 09:10:48 CDT CPT-OV Office Visit 21:43:13 CDT CPT-82940 Postop F/U Visit 16:13:18 CDT CPT-47848 Venipuncture Draw Fee 13:37:57 LOAN UNDERWRITER
--- OUTSIDE RECORDS SUMMARY | 2018-09-25 10:57 | XMS REPORT | Clinical Summary ---
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 Conditions or Problems Problem Name Problem Code Onset Date Status Entry Date Provider Comment Standard Description Annotate FH DIABETES V18.0 Active Moon Pete DRYWALL STRIPPER Family history of diabetes mellitus PHARYNGITIS-ACUTE 462 Inactive Moon Pete DRYWALL STRIPPER Acute pharyngitis OTITIS MEDIA, RIGHT 382.9 Resolved [...] FH BREAST CANCER V16.3 Active Radha Victor DRYWALL STRIPPER Family history of malignant neoplasm of breast [...] Ankle pain, right 719.47 Active Radha Victor DRYWALL STRIPPER Pain in joint involving ankle and foot PHARYNGITIS-ACUTE ICD-462 Inactive Moon Pete DRYWALL STRIPPER OTITIS MEDIA, RIGHT ICD-382.9 Inactive Linda Davis [...] 6 hours if needed for pain/fever ACETAMINOPHEN 59556550991 Active Linda Davis MD PhD Active DEPO-PROVERA 150 MG/ML SUPENSION q3mos MEDROXYPROGEST ANDRZEJ (CONTRACEP) 94454029061 Active Linda Davis MD PhD Active TOPAMAX 25 MG TABS take 1 tab po qday for migraines. TOPIRAMATE 76412310392 No Longer Active Linda Davis MD PhD Active HYDROCODONE-ACETAMINOPHEN 5-325 MG TABS 1 po q 6hr PRN Pain 06/18 HYDROCODONE-ACETAMINOPHEN 63799399091 No Longer Active Mikhail Forbes MD Active KEFLEX 500 MG CAP 1 tab po tid CEPHALEXIN 51109829675 No Longer Active Mikhail Forbes MD Active HYDROCODONE-ACETAMINOPHEN 5-500 MG TABS 1 every 4hours as needed HYDROCODONE-ACETAMINOPHEN 98444133933 No Longer Active Radha Victor APRN Active TAMIFLU 75 MG CAPS 1 bid x 5 days OSELTAMIVIR PHOSPHATE 31403930293 No Longer Active Linda Davis MD PhD Active AUGMENTIN 875-125 MG TAB 1 tab by mouth twice daily with food AMOXICILLIN-POT CLAVULANATE 09245461994 No Longer Active Jillina Frahazel DRYWALL STRIPPER Active AUGMENTIN 875-125 MG TAB 1 tab by mouth twice daily with food AMOXICILLIN-POT CLAVULANATE 83762133700 No Longer Active Radha Victor DRYWALL STRIPPER Active CLINDAMYCIN HCL 150 MG CAPS 1 four times a day CLINDAMYCIN HCL 57093062194 No Longer Active Moon Pete APRN Active BACTRIM DS 800-160 MG TAB 1 tab by mouth twice daily TRIMETHOPRIM-SULFAMETHOXAZOLE 74278254812 No Longer Active Moon Pete APRN Active AMOXICILLIN 500 MG CAP 1 tab by mouth twice daily AMOXICILLIN 04326889893 No Longer Active Antony Moran DO Active ZITHROMAX Z-MAKAYLA 250 MG TABS 2 now then 1 everyday AZITHROMYCIN 46310072850 No Longer Active Antony Moran DO Active ZITHROMAX Z-MAKAYLA 250 MG TABS 2 now then 1 everyday ZITHROMAX Z-MAKAYLA 250 MG TABS 2622023 AZITHROMYCIN Inactive AMOXICILLIN 500 MG CAP 1 tab by mouth twice daily AMOXICILLIN 500 MG CAP 350166 AMOXICILLIN Inactive BACTRIM DS 800-160 MG TAB 1 tab by mouth twice daily BACTRIM DS 800-160 MG TAB 853280 TRIMETHOPRIM-SULFAMETHOXAZOLE Inactive CLINDAMYCIN HCL 150 MG CAPS 1 four times a day CLINDAMYCIN HCL 150 MG CAPS 793713 CLINDAMYCIN HCL Inactive HYDROCODONE-ACETAMINOPHEN 5-500 MG TABS 1 every 4hours as needed HYDROCODONE-ACETAMINOPHEN 5-500 MG TABS HYDROCODONE- ACETAMINOPHEN Inactive KEFLEX 500 MG CAP 1 tab po tid KEFLEX 500 MG CAP 941078 CEPHALEXIN Inactive HYDROCODONE-ACETAMINOPHEN 5-325 MG TABS 1 po q 6hr PRN Pain 06/18 HYDROCODONE-ACETAMINOPHEN 5-325 MG TABS 236414 HYDROCODONE- ACETAMINOPHEN Inactive TOPAMAX 25 MG TABS take 1 tab po qday for migraines. TOPAMAX 25 MG TABS 209477 TOPIRAMATE Inactive AUGMENTIN 875-125 MG TAB 1 tab by mouth twice daily with food AUGMENTIN 875-125 MG TAB 643281 AMOXICILLIN-POT CLAVULANATE Inactive AUGMENTIN 875-125 MG TAB 1 tab by mouth twice daily with food AUGMENTIN 875-125 MG TAB 073692 AMOXICILLIN-POT CLAVULANATE Inactive TAMIFLU 75 MG CAPS 1 bid x 5 days TAMIFLU 75 MG CAPS 676881 OSELTAMIVIR PHOSPHATE Inactive Advance Directives Directive Description [...] Measured Encounters Code Encounter Date Provider Facility CPT-07703 Level 3 Est. Patient 10:22:24 CDT Rahda Victor [facility] CPT-83631 Level 3 Est. Patient 18:31:30 CDT Linda Davis MD PhD [facility] CPT-94891 Level 4 Est. Patient 21:34:05 CREPE BOX TENDER Mikhail Forbes MD [facility] CPT-31724 Level 4 Est. Patient 15:14:34 CREPE BOX TENDER Mikhail Forbes MD [facility] CPT-08521 Level 3 Est. Patient 12:52:25 CDT Mikhail Forbes MD [facility] CPT-69051 Level 2 Est. Patient 14:57:21 CDT Radha Victor [facility] CPT-91455 Level 2 Est. Patient 16:59:23 CDT Radha Victor [facility] CPT-49792 Level 3 Est. Patient 15:10:28 CDT Moon ePte [facility] CPT-69900 Level 3 Est. Patient 13:38:05 CREPE BOX TENDER Moon Pete [facility] CPT-88881 Level 3 Est. Patient 13:36:40 CREPE BOX TENDER Antony Cline Dean KATHLEEN [facility] CPT-72342 Level 3 Est. Patient 14:07:56 CREPE BOX TENDER Moon Pete [facility] Procedures Code Procedure Name Date Entry Date Standard Description CPT-J1050 Depo Provera 150 mg (Medroxyprogesterone) 14:50:04 CDT CPT-74394 Abx/Therapy Injection 14:50:04 CDT CPT-20762 Ankle, right, Complete - Min 3V 10:34:26 CDT CPT-J1050 Depo Provera 150 mg (Medroxyprogesterone) 11:26:14 CDT CPT-52528 Abx/Therapy Injection 11:26:13 CDT CPT-J1055 Depo-Provera Injection only 150 mg 16:55:48 CDT CPT-J1050 Depo Provera 150 mg (Medroxyprogesterone) 13:49:16 CREPE BOX TENDER CPT-07366 Abx/Therapy Injection 13:49:16 CREPE BOX TENDER CPT-J1055 Depo-Provera Injection only 150 mg 09:45:32 CREPE BOX TENDER CPT-J1050 Depo Provera 150 mg (Medroxyprogesterone) 18:49:54 CDT CPT-68969 Abx/Therapy Injection 18:49:54 CDT CPT-J1055 Depo-Provera Injection only 150 mg 09:18:50 CDT CPT-J1050 Depo Provera 150 mg (Medroxyprogesterone) 08:12:54 CDT CPT-37228 Abx/Therapy Injection 08:12:54 CDT CPT-J1050 Depo Provera 150 mg (Medroxyprogesterone) 15:07:25 CDT CPT-53718 Abx/Therapy Injection 15:07:25 CDT CPT-J1050 Depo Provera 150 mg (Medroxyprogesterone) 09:59:09 CDT CPT-J1050 Depo Provera 150 mg (Medroxyprogesterone) 15:43:37 CREPE BOX TENDER CPT-20899 Abx/Therapy Injection 15:43:37 CREPE BOX TENDER CPT-J1050 Depo Provera 150 mg (Medroxyprogesterone) 15:14:34 CREPE BOX TENDER CPT-48644 Postop F/U Visit 09:10:48 CDT CPT-OV Office Visit 21:43:13 CDT CPT-93637 Postop F/U Visit 16:13:18 CDT CPT-46802 Venipuncture Draw Fee 13:37:57 CREPE BOX TENDER
--- OUTSIDE RECORDS SUMMARY | 2018-09-25 10:57 | XMS REPORT | Clinical Summary ---
Author Author Admin, MAISHA Organization [facility] Address Unknown Phone Unavailable Allergies, Adverse Reactions, Alerts Allergy Name Reaction Description Start Date Severity Status Provider SULFA rash Moderate Active Jsesy Sommers MOBILE ARCHITECT Conditions or Problems Problem Name Problem Code Onset Date Status Entry Date Provider Comment Standard Description Annotate FH DIABETES V18.0 Active Moon Pete MEMORANDUM STATEMENT CLERK Family history of diabetes mellitus PHARYNGITIS-ACUTE 462 Inactive Moon Pete MEMORANDUM STATEMENT CLERK Acute pharyngitis OTITIS MEDIA, RIGHT 382.9 Resolved [...] FH BREAST CANCER V16.3 Active Radha Victor MEMORANDUM STATEMENT CLERK Family history of malignant neoplasm of breast [...] Ankle pain, right 719.47 Active Radha Victor MEMORANDUM STATEMENT CLERK Pain in joint involving ankle and foot PHARYNGITIS-ACUTE ICD-462 Inactive Moon Pete MEMORANDUM STATEMENT CLERK OTITIS MEDIA, RIGHT ICD-382.9 Inactive Linda Davis [...] 6 hours if needed for pain/fever ACETAMINOPHEN 06074473485 Active Linda Davis MD PhD Active DEPO-PROVERA 150 MG/ML SUPENSION q3mos MEDROXYPROGEST ANDRZEJ (CONTRACEP) 85383183039 Active Linda Davis MD PhD Active TOPAMAX 25 MG TABS take 1 tab po qday for migraines. TOPIRAMATE 88623787462 No Longer Active Linda Davis MD PhD Active HYDROCODONE-ACETAMINOPHEN 5-325 MG TABS 1 po q 6hr PRN Pain 06/18 HYDROCODONE-ACETAMINOPHEN 23342243854 No Longer Active Mikhail Forbes MD Active KEFLEX 500 MG CAP 1 tab po tid CEPHALEXIN 37693617998 No Longer Active Mikhail Forbes MD Active HYDROCODONE-ACETAMINOPHEN 5-500 MG TABS 1 every 4hours as needed HYDROCODONE-ACETAMINOPHEN 64880629305 No Longer Active Radha Victor APRN Active TAMIFLU 75 MG CAPS 1 bid x 5 days OSELTAMIVIR PHOSPHATE 82189539568 No Longer Active Linda Davis MD PhD Active AUGMENTIN 875-125 MG TAB 1 tab by mouth twice daily with food AMOXICILLIN-POT CLAVULANATE 94173292985 No Longer Active Jillina Frahazel MEMORANDUM STATEMENT CLERK Active AUGMENTIN 875-125 MG TAB 1 tab by mouth twice daily with food AMOXICILLIN-POT CLAVULANATE 21518810953 No Longer Active Radha Victor MEMORANDUM STATEMENT CLERK Active CLINDAMYCIN HCL 150 MG CAPS 1 four times a day CLINDAMYCIN HCL 37456238956 No Longer Active Moon Pete APRN Active BACTRIM DS 800-160 MG TAB 1 tab by mouth twice daily TRIMETHOPRIM-SULFAMETHOXAZOLE 00268828836 No Longer Active Moon Pete APRN Active AMOXICILLIN 500 MG CAP 1 tab by mouth twice daily AMOXICILLIN 65283589123 No Longer Active Antony Moran DO Active ZITHROMAX Z-MAKAYLA 250 MG TABS 2 now then 1 everyday AZITHROMYCIN 53923379383 No Longer Active Antony Moran DO Active ZITHROMAX Z-MAKAYLA 250 MG TABS 2 now then 1 everyday ZITHROMAX Z-MAKAYLA 250 MG TABS 9050876 AZITHROMYCIN Inactive AMOXICILLIN 500 MG CAP 1 tab by mouth twice daily AMOXICILLIN 500 MG CAP 922874 AMOXICILLIN Inactive BACTRIM DS 800-160 MG TAB 1 tab by mouth twice daily BACTRIM DS 800-160 MG TAB 328384 TRIMETHOPRIM-SULFAMETHOXAZOLE Inactive CLINDAMYCIN HCL 150 MG CAPS 1 four times a day CLINDAMYCIN HCL 150 MG CAPS 698130 CLINDAMYCIN HCL Inactive HYDROCODONE-ACETAMINOPHEN 5-500 MG TABS 1 every 4hours as needed HYDROCODONE-ACETAMINOPHEN 5-500 MG TABS HYDROCODONE- ACETAMINOPHEN Inactive KEFLEX 500 MG CAP 1 tab po tid KEFLEX 500 MG CAP 923499 CEPHALEXIN Inactive HYDROCODONE-ACETAMINOPHEN 5-325 MG TABS 1 po q 6hr PRN Pain 06/18 HYDROCODONE-ACETAMINOPHEN 5-325 MG TABS 368125 HYDROCODONE- ACETAMINOPHEN Inactive TOPAMAX 25 MG TABS take 1 tab po qday for migraines. TOPAMAX 25 MG TABS 527040 TOPIRAMATE Inactive AUGMENTIN 875-125 MG TAB 1 tab by mouth twice daily with food AUGMENTIN 875-125 MG TAB 424222 AMOXICILLIN-POT CLAVULANATE Inactive AUGMENTIN 875-125 MG TAB 1 tab by mouth twice daily with food AUGMENTIN 875-125 MG TAB 038209 AMOXICILLIN-POT CLAVULANATE Inactive TAMIFLU 75 MG CAPS [...] EBV - Chemistry sodium, serum 141 mmol/L 259-170 9657/09/21 carbon dioxide, venous blood 26.0 mmol/L 21.0-32.0 [...] Negative-Throat Culture to Follow Negative [facility] Report[facility] Chemistry human chorionic gonadotropin, urine, qualitative (urine test) Negative Negative Encounters Code Encounter Date Provider Facility CPT-84344 Level 3 Est. Patient 10:22:24 CDT Radha Victor APRN [facility] CPT-16372 Level 3 Est. Patient 18:31:30 CDT Linda Davis MD PhD [facility] CPT-26625 Level 4 Est. Patient 21:34:05 CORE WINDING OPERATOR Mikhail Forbes MD [facility] CPT-58344 Level 4 Est. Patient 15:14:34 CORE WINDING OPERATOR Mikhail Forbes MD [facility] CPT-95323 Level 3 Est. Patient 12:52:25 CDT Mikhail Forbes MD [facility] CPT-82582 Level 2 Est. Patient 14:57:21 CDT Radha Victor [facility] CPT-81770 Level 2 Est. Patient 16:59:23 CDT Radha Victor [facility] CPT-90289 Level 3 Est. Patient 15:10:28 CDT Moon Pete [facility] CPT-02492 Level 3 Est. Patient 13:38:05 CORE WINDING OPERATOR Moon Pete [facility] CPT-43287 Level 3 Est. Patient 13:36:40 CORE WINDING OPERATOR Antony Moran DO [facility] CPT-31769 Level 3 Est. Patient 14:07:56 CORE WINDING OPERATOR Moon Pete [facility] Procedures Code Procedure Name Date Entry Date Standard Description CPT-23356 Ankle, right, Complete - Min 3V 10:34:26 CDT CPT-J1050 Depo Provera 150 mg (Medroxyprogesterone) 11:26:14 CDT CPT-13231 Abx/Therapy Injection 11:26:13 CDT CPT-J1055 Depo-Provera Injection only 150 mg 16:55:48 CDT CPT-J1050 Depo Provera 150 mg (Medroxyprogesterone) 13:49:16 CORE WINDING OPERATOR CPT-58276 Abx/Therapy Injection 13:49:16 CORE WINDING OPERATOR CPT-J1055 Depo-Provera Injection only 150 mg 09:45:32 CORE WINDING OPERATOR CPT-J1050 Depo Provera 150 mg (Medroxyprogesterone) 18:49:54 CDT CPT-60744 Abx/Therapy Injection 18:49:54 CDT CPT-J1055 Depo-Provera Injection only 150 mg 09:18:50 CDT CPT-J1050 Depo Provera 150 mg (Medroxyprogesterone) 08:12:54 CDT CPT-74401 Abx/Therapy Injection 08:12:54 CDT CPT-J1050 Depo Provera 150 mg (Medroxyprogesterone) 15:07:25 CDT CPT-55342 Abx/Therapy Injection 15:07:25 CDT CPT-J1050 Depo Provera 150 mg (Medroxyprogesterone) 09:59:09 CDT CPT-J1050 Depo Provera 150 mg (Medroxyprogesterone) 15:43:37 CORE WINDING OPERATOR CPT-61375 Abx/Therapy Injection 15:43:37 CORE WINDING OPERATOR CPT-J1050 Depo Provera 150 mg (Medroxyprogesterone) 15:14:34 CORE WINDING OPERATOR CPT-28125 Postop F/U Visit 09:10:48 CDT CPT-OV Office Visit 21:43:13 CDT CPT-16053 Postop F/U Visit 16:13:18 CDT CPT-75377 Venipuncture Draw Fee 13:37:57 CORE WINDING OPERATOR
--- OUTSIDE RECORDS SUMMARY | 2018-09-25 10:58 | XMS REPORT | Clinical Summary ---
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 Conditions or Problems Problem Name Problem Code Onset Date Status Entry Date Provider Comment Standard Description Annotate FH DIABETES V18.0 Active Moon Pete INFORMATICS SPEC Family history of diabetes mellitus PHARYNGITIS-ACUTE 462 Inactive Moon Pete INFORMATICS SPEC Acute pharyngitis OTITIS MEDIA, RIGHT 382.9 Resolved [...] FH BREAST CANCER V16.3 Active Radha Victor INFORMATICS SPEC Family history of malignant neoplasm of breast [...] Ankle pain, right 719.47 Active Radha Victor INFORMATICS SPEC Pain in joint involving ankle and foot PHARYNGITIS-ACUTE ICD-462 Inactive Moon Pete INFORMATICS SPEC ACUTE PHARYNGITIS ICD-462 Inactive Linda Davis MD [...] Migraine ICD-346.90 Inactive Linda Davis MD PhD OTITIS MEDIA, RIGHT ICD-382.9 Inactive Linda Davis MD PhD Medication List Medication Instructions Start Date Stop Date Generic Name NDC Status Provider Patient Instruction TYLENOL 325 MG TAB 1-2 pills by mouth every 6 hours if needed for pain/fever ACETAMINOPHEN 83263633059 Active Linda Davis MD PhD Active DEPO-PROVERA 150 MG/ML SUPENSION q3mos MEDROXYPROGEST ANDRZEJ (CONTRACEP) 71039606903 Active Linda Davis MD PhD Active TOPAMAX 25 MG TABS take 1 tab po qday for migraines. TOPIRAMATE 53986088122 No Longer Active Linda Davis MD PhD Active HYDROCODONE-ACETAMINOPHEN 5-325 MG TABS 1 po q 6hr PRN Pain 06/18 HYDROCODONE-ACETAMINOPHEN 78921603252 No Longer Active Mikhail Forbes MD Active KEFLEX 500 MG CAP 1 tab po tid CEPHALEXIN 35955142173 No Longer Active Mikhail Forbes MD Active HYDROCODONE-ACETAMINOPHEN 5-500 MG TABS 1 every 4hours as needed HYDROCODONE-ACETAMINOPHEN 94727007115 No Longer Active Radha Victor APRN Active TAMIFLU 75 MG CAPS 1 bid x 5 days OSELTAMIVIR PHOSPHATE 67590070514 No Longer Active Linda Davis MD PhD Active AUGMENTIN 875-125 MG TAB 1 tab by mouth twice daily with food AMOXICILLIN-POT CLAVULANATE 88652304269 No Longer Active Jillina Frahazel RODRÍGUEZ Active AUGMENTIN 875-125 MG TAB 1 tab by mouth twice daily with food AMOXICILLIN-POT CLAVULANATE 68060031355 No Longer Active Radha Victor INFORMATICS SPEC Active CLINDAMYCIN HCL 150 MG CAPS 1 four times a day CLINDAMYCIN HCL 06061135725 No Longer Active Moon Pete APRN Active BACTRIM DS 800-160 MG TAB 1 tab by mouth twice daily TRIMETHOPRIM-SULFAMETHOXAZOLE 17505600647 No Longer Active Moon Pete APRN Active AMOXICILLIN 500 MG CAP 1 tab by mouth twice daily AMOXICILLIN 64983000320 No Longer Active Antony Moran DO Active ZITHROMAX Z-MAKAYLA 250 MG TABS 2 now then 1 everyday AZITHROMYCIN 39847720011 No Longer Active Antony Moran DO Active ZITHROMAX Z-MAKAYLA 250 MG TABS 2 now then 1 everyday ZITHROMAX Z-MAKAYLA 250 MG TABS 6589788 AZITHROMYCIN Inactive AMOXICILLIN 500 MG CAP 1 tab by mouth twice daily AMOXICILLIN 500 MG CAP 303704 AMOXICILLIN Inactive BACTRIM DS 800-160 MG TAB 1 tab by mouth twice daily BACTRIM DS 800-160 MG TAB 792117 TRIMETHOPRIM-SULFAMETHOXAZOLE Inactive CLINDAMYCIN HCL 150 MG CAPS 1 four times a day CLINDAMYCIN HCL 150 MG CAPS 824501 CLINDAMYCIN HCL Inactive HYDROCODONE-ACETAMINOPHEN 5-500 MG TABS 1 every 4hours as needed HYDROCODONE-ACETAMINOPHEN 5-500 MG TABS HYDROCODONE- ACETAMINOPHEN Inactive KEFLEX 500 MG CAP 1 tab po tid KEFLEX 500 MG CAP 896084 CEPHALEXIN Inactive HYDROCODONE-ACETAMINOPHEN 5-325 MG TABS 1 po q 6hr PRN Pain 06/18 HYDROCODONE-ACETAMINOPHEN 5-325 MG TABS 281015 HYDROCODONE- ACETAMINOPHEN Inactive TOPAMAX 25 MG TABS take 1 tab po qday for migraines. TOPAMAX 25 MG TABS 957088 TOPIRAMATE Inactive AUGMENTIN 875-125 MG TAB 1 tab by mouth twice daily with food AUGMENTIN 875-125 MG TAB 798496 AMOXICILLIN-POT CLAVULANATE Inactive AUGMENTIN 875-125 MG TAB 1 tab by mouth twice daily with food AUGMENTIN 875-125 MG TAB 005770 AMOXICILLIN-POT CLAVULANATE Inactive TAMIFLU 75 MG CAPS [...] Description Lab Report: CBC W/DIFF - Hematology hemoglobin, blood 13.0 g/dL 12.0-16.0 hematocrit, blood 38.4 % 36.0-46.0 mean corpuscular volume, RBC 93 fL 80-97 mean corpuscular hemoglobin, RBC 31.5 pg 27.0-31.2 mean corpuscular hemoglobin concentration, RBC 34.0 G/DL % 31.8- 35.4 red blood cell distribution width 13.1 % 11.6-14.8 platelet count 306 10^3/MM^3 10*3/mm3 721-143 4481/09/21 leukocyte count, blood 6.8 10^3/MM^3 10*3/mm3 4.6-10.2 neutrophils as percent of blood leukocytes 51.2 % 42.2-75.2 monocytes as percent of blood leukocytes 7.1 % 1.7-9.3 lymphocytes as percent of blood leukocytes 38.4 % 20.5-51.1 erythrocyte (RBC) count 4.14 10^6/MM^3 10*6/mm3 4.04-5.48 Lab Report: Comp. Metabolic Panel, H. Pylori, MONO w/Rflx EBV - Chemistry urea nitrogen, blood 13 mg/dL 7-18 creatinine, serum 0.86 mg/dL 0.55-1.30 alanine aminotransferase (SGPT), serum 23 U/L 12-78 aspartate aminotransferase (SGOT), serum 17 U/L 15-37 calcium, serum 8.9 mg/dL 8.5-10.1 blood glucose 84 mg/dL 65-110 chloride, serum 107 mmol/L 98-107 potassium, serum 3.8 mmol/L 3.5-5.2 carbon dioxide, venous blood 26.0 mmol/L 21.0-32.0 sodium, serum 141 mmol/L 136-145 Lab Report: RapidStrep Rflx/Cx - Lab Microbial identification kit, rapid strep method Negative-Throat Culture to Follow Negative Lab Report: [facility] - Chemistry human chorionic gonadotropin, urine, qualitative (urine test) Negative Negative Encounters Code Encounter Date Provider Facility CPT-79371 Level 3 Est. Patient 10:22:24 CDT Radha Victor APRN [facility] CPT-35920 Level 3 Est. Patient 18:31:30 CDT Linda Davis MD PhD [facility] CPT-71757 Level 4 Est. Patient 21:34:05 SANDBLAST OR SHOTBLAST EQUIPMENT TENDER Mikhail Forbes MD [facility] CPT-91347 Level 4 Est. Patient 15:14:34 SANDBLAST OR SHOTBLAST EQUIPMENT TENDER Mikhail Forbes MD [facility] CPT-27502 Level 3 Est. Patient 12:52:25 CDT Mikhail Forbes MD [facility] CPT-36306 Level 2 Est. Patient 14:57:21 CDT Radha Victor [facility][note 3] CPT-31356 Level 2 Est. Patient 16:59:23 CDT Radha Victor [facility][note 3] CPT-56324 Level 3 Est. Patient 15:10:28 CDT Moon Pete [facility] CPT-57360 Level 3 Est. Patient 13:38:05 SANDBLAST OR SHOTBLAST EQUIPMENT TENDER Moon Pete [facility] CPT-46333 Level 3 Est. Patient 13:36:40 SANDBLAST OR SHOTBLAST EQUIPMENT TENDER Antony Moran DO [facility] CPT-58276 Level 3 Est. Patient 14:07:56 SANDBLAST OR SHOTBLAST EQUIPMENT TENDER Moon Pete [facility] Procedures Code Procedure Name Date Entry Date Standard Description CPT-44113 Ankle, right, Complete - Min 3V 10:34:26 CDT CPT-J1050 Depo Provera 150 mg (Medroxyprogesterone) 11:26:14 CDT CPT-72446 Abx/Therapy Injection 11:26:13 CDT CPT-J1055 Depo-Provera Injection only 150 mg 16:55:48 CDT CPT-J1050 Depo Provera 150 mg (Medroxyprogesterone) 13:49:16 SANDBLAST OR SHOTBLAST EQUIPMENT TENDER CPT-39921 Abx/Therapy Injection 13:49:16 SANDBLAST OR SHOTBLAST EQUIPMENT TENDER CPT-J1055 Depo-Provera Injection only 150 mg 09:45:32 SANDBLAST OR SHOTBLAST EQUIPMENT TENDER CPT-J1050 Depo Provera 150 mg (Medroxyprogesterone) 18:49:54 CDT CPT-87707 Abx/Therapy Injection 18:49:54 CDT CPT-J1055 Depo-Provera Injection only 150 mg 09:18:50 CDT CPT-J1050 Depo Provera 150 mg (Medroxyprogesterone) 08:12:54 CDT CPT-54333 Abx/Therapy Injection 08:12:54 CDT CPT-J1050 Depo Provera 150 mg (Medroxyprogesterone) 15:07:25 CDT CPT-50942 Abx/Therapy Injection 15:07:25 CDT CPT-J1050 Depo Provera 150 mg (Medroxyprogesterone) 09:59:09 CDT CPT-J1050 Depo Provera 150 mg (Medroxyprogesterone) 15:43:37 SANDBLAST OR SHOTBLAST EQUIPMENT TENDER CPT-29652 Abx/Therapy Injection 15:43:37 SANDBLAST OR SHOTBLAST EQUIPMENT TENDER CPT-J1050 Depo Provera 150 mg (Medroxyprogesterone) 15:14:34 SANDBLAST OR SHOTBLAST EQUIPMENT TENDER CPT-87239 Postop F/U Visit 09:10:48 CDT CPT-OV Office Visit 21:43:13 CDT CPT-75410 Postop F/U Visit 16:13:18 CDT CPT-66597 Venipuncture Draw Fee 13:37:57 SANDBLAST OR SHOTBLAST EQUIPMENT TENDER
--- OUTSIDE RECORDS SUMMARY | 2018-09-25 10:58 | XMS REPORT | Clinical Summary ---
Author Author Admin, MAISHA Organization [facility] Address Unknown Phone Unavailable Allergies, Adverse Reactions, Alerts Allergy Name Reaction Description Start Date Severity Status Provider SULFA rash Moderate Active Jessy Sommers ATTENDANCE CLERK Conditions or Problems Problem Name Problem Code Onset Date Status Entry Date Provider Comment Standard Description Annotate FH DIABETES V18.0 Active Moon Pete MACHINE PAN GREASER Family history of diabetes mellitus PHARYNGITIS-ACUTE 462 Inactive Moon Pete MACHINE PAN GREASER Acute pharyngitis OTITIS MEDIA, RIGHT 382.9 Resolved Linda Davis MD PhD Unspecified otitis media ACUTE PHARYNGITIS 462 Resolved Linda Davis MD PhD Acute pharyngitis ACUTE PHARYNGITIS 462 Active Mary Dupont MACHINE PAN GREASER Acute pharyngitis COUGH 786.2 Resolved Linda Davis MD PhD Cough FATIGUE 780.79 Resolved Linda Davis MD PhD Other malaise and fatigue TONSILLITIS 463 Resolved Linda Davis MD PhD Acute tonsillitis ABSCESS, GLUTEAL 682.5 Resolved Linda Davis MD PhD Cellulitis and abscess of buttock EAR PAIN, LEFT 388.70 Resolved Linda Davis MD PhD Otalgia, unspecified FH BREAST CANCER V16.3 Active Radha Victor MACHINE PAN GREASER Family history of malignant neoplasm of breast [...] Ankle pain, right 719.47 Active Radha Victor MACHINE PAN GREASER Pain in joint involving ankle and foot PHARYNGITIS-ACUTE ICD-462 Inactive Moon Pete MACHINE PAN GREASER OTITIS MEDIA, RIGHT ICD-382.9 Inactive Linda Davis [...] Instruction CLARITIN-D 12 HOUR 5-120 MG ORAL [id number] Take one tablet every 12 hours as needed for congestion LORATADINE-PSEUDOEPHEDRINE 82754749934 Active Mary Yokum MACHINE PAN GREASER Active AUGMENTIN 875-125 MG TAB 1 tab by mouth twice daily with food AMOXICILLIN-POT CLAVULANATE 49967962947 Active Marypushpa Dupont APRN Active DEPO-PROVERA 150 MG/ML SUPENSION q3mos MEDROXYPROGEST ANDRZEJ ( CONTRACEP) 69265046028 No Longer Active Mary Dupont APRN Active NAPROXEN 500 MG TABS 1 twice a day for breakthrough bleeding. Continue for 1 month. NAPROXEN 40909082796 Active Ania Alejandra APRN Active TRI-SPRINTEC 0.18/0.215/0.25 MG-35 MCG TABS 1 po qd as directed. Begin 1st pack on 11/01/16. NORGESTIM-ETH ESTRAD TRIPHASIC 30640311648 Active Ania Alejandra APRN Active TYLENOL 325 MG TAB 1-2 pills by mouth every 6 hours if needed for pain/fever ACETAMINOPHEN 87131450368 Active Linda Davis MD PhD Active TOPAMAX 25 MG TABS take 1 tab po qday for migraines. TOPIRAMATE 68110744019 No Longer Active Linda Davis MD PhD Active HYDROCODONE-ACETAMINOPHEN 5-325 MG TABS 1 po q 6hr PRN Pain 06/18 HYDROCODONE-ACETAMINOPHEN 41559856988 No Longer Active Mikhail Forbes MD Active KEFLEX 500 MG CAP 1 tab po tid CEPHALEXIN 46183830704 No Longer Active Mikhail Forbes MD Active HYDROCODONE-ACETAMINOPHEN 5-500 MG TABS 1 every 4hours as needed HYDROCODONE-ACETAMINOPHEN 59496790636 No Longer Active Germainllina Kayleigh COOPERN Active TAMIFLU 75 MG CAPS 1 bid x 5 days OSELTAMIVIR PHOSPHATE 11087710366 No Longer Active Linda Davis MD PhD Active AUGMENTIN 875-125 MG TAB 1 tab by mouth twice daily with food AMOXICILLIN-POT CLAVULANATE 21458363324 No Longer Active Jillina Frazell MACHINE PAN GREASER Active AUGMENTIN 875-125 MG TAB 1 tab by mouth twice daily with food AMOXICILLIN-POT CLAVULANATE 54311609886 No Longer Active Jillina Frashantelll MACHINE PAN GREASER Active CLINDAMYCIN HCL 150 MG CAPS 1 four times a day CLINDAMYCIN HCL 03138358937 No Longer Active Moon Pete APRN Active BACTRIM DS 800-160 MG TAB 1 tab by mouth twice daily TRIMETHOPRIM-SULFAMETHOXAZOLE 05848525187 No Longer Active Moon Pete APRN Active AMOXICILLIN 500 MG CAP 1 tab by mouth twice daily AMOXICILLIN 07861357754 No Longer Active Antony Moran DO Active ZITHROMAX Z-MAKAYLA 250 MG TABS 2 now then 1 everyday AZITHROMYCIN 63565209516 No Longer Active Antony Moran DO Active ZITHROMAX Z-MAKAYLA 250 MG TABS 2 now then 1 everyday ZITHROMAX Z-MAKAYLA 250 MG TABS 0325724 AZITHROMYCIN Inactive AMOXICILLIN 500 MG CAP 1 tab by mouth twice daily AMOXICILLIN 500 MG CAP 101446 AMOXICILLIN Inactive BACTRIM DS 800-160 MG TAB 1 tab by mouth twice daily BACTRIM DS 800-160 MG TAB 655417 TRIMETHOPRIM-SULFAMETHOXAZOLE Inactive CLINDAMYCIN HCL 150 MG CAPS 1 four times a day CLINDAMYCIN HCL 150 MG CAPS 508386 CLINDAMYCIN HCL Inactive HYDROCODONE-ACETAMINOPHEN 5-500 MG TABS 1 every 4hours as needed HYDROCODONE-ACETAMINOPHEN 5-500 MG TABS HYDROCODONE- ACETAMINOPHEN Inactive KEFLEX 500 MG CAP 1 tab po tid KEFLEX 500 MG CAP 597779 CEPHALEXIN Inactive HYDROCODONE-ACETAMINOPHEN 5-325 MG TABS 1 po q 6hr PRN Pain 06/18 HYDROCODONE-ACETAMINOPHEN 5-325 MG TABS 418575 HYDROCODONE- ACETAMINOPHEN Inactive TOPAMAX 25 MG TABS take 1 tab po qday for migraines. TOPAMAX 25 MG TABS 416517 TOPIRAMATE Inactive DEPO-PROVERA 150 MG/ML SUPENSION q3mos DEPO-PROVERA 150 MG/ML SUPENSION 0281276 MEDROXYPROGEST ANDRZEJ (CONTRACEP) Inactive AUGMENTIN 875-125 MG TAB 1 tab by mouth twice daily with food AUGMENTIN 875-125 MG TAB 720427 AMOXICILLIN-POT CLAVULANATE Inactive AUGMENTIN 875-125 MG TAB 1 tab by mouth twice daily with food AUGMENTIN 875-125 MG TAB 479404 AMOXICILLIN-POT CLAVULANATE Inactive TAMIFLU 75 MG CAPS 1 bid x 5 days TAMIFLU 75 MG CAPS 272702 OSELTAMIVIR PHOSPHATE Inactive Advance Directives Directive Description [...] Measured Encounters Code Encounter Date Provider Facility CPT-25110 Level 3 Est. Patient 18:10:13 CDT Ania Alejandra [facility] CPT-33014 Level 3 Est. Patient 13:01:05 CDT Mary Dupont [facility] CPT-00814 Level 3 Est. Patient 10:22:24 CDT Radha Victor [facility] CPT-52866 Level 3 Est. Patient 18:31:30 CDT Linda Davis MD, PhD [facility] CPT-32116 Level 4 Est. Patient 21:34:05 AIR DEFENSE SPECIALIST Mikhail Forbes MD [facility] CPT-33942 Level 4 Est. Patient 15:14:34 AIR DEFENSE SPECIALIST Mikhail Forbes MD [facility] CPT-67269 Level 3 Est. Patient 12:52:25 CDT Mikhail Forbes MD [facility] CPT-87015 Level 2 Est. Patient 14:57:21 CDT Radha Victor [facility] CPT-91855 Level 2 Est. Patient 16:59:23 CDT Radha Victor [facility] CPT-54074 Level 3 Est. Patient 15:10:28 CDT Moon Pete [facility] CPT-33186 Level 3 Est. Patient 13:38:05 AIR DEFENSE SPECIALIST Moon Pete [facility] CPT-60623 Level 3 Est. Patient 13:36:40 AIR DEFENSE SPECIALIST Antony Moran DO [facility] CPT-77243 Level 3 Est. Patient 14:07:56 AIR DEFENSE SPECIALIST Moon Pete [facility] Procedures Code Procedure Name Date Entry Date Standard Description CPT-J1050 Depo Provera 150 mg (Medroxyprogesterone) 14:50:04 CDT CPT-58328 Abx/Therapy Injection 14:50:04 CDT CPT-33270 Ankle, right, Complete - Min 3V 10:34:26 CDT CPT-J1050 Depo Provera 150 mg (Medroxyprogesterone) 11:26:14 CDT CPT-00721 Abx/Therapy Injection 11:26:13 CDT CPT-J1055 Depo-Provera Injection only 150 mg 16:55:48 CDT CPT-J1050 Depo Provera 150 mg (Medroxyprogesterone) 13:49:16 AIR DEFENSE SPECIALIST CPT-06955 Abx/Therapy Injection 13:49:16 AIR DEFENSE SPECIALIST CPT-J1055 Depo-Provera Injection only 150 mg 09:45:32 AIR DEFENSE SPECIALIST CPT-J1050 Depo Provera 150 mg (Medroxyprogesterone) 18:49:54 CDT CPT-66048 Abx/Therapy Injection 18:49:54 CDT CPT-J1055 Depo-Provera Injection only 150 mg 09:18:50 CDT CPT-J1050 Depo Provera 150 mg (Medroxyprogesterone) 08:12:54 CDT CPT-07926 Abx/Therapy Injection 08:12:54 CDT CPT-J1050 Depo Provera 150 mg (Medroxyprogesterone) 15:07:25 CDT CPT-26814 Abx/Therapy Injection 15:07:25 CDT CPT-J1050 Depo Provera 150 mg (Medroxyprogesterone) 09:59:09 CDT CPT-J1050 Depo Provera 150 mg (Medroxyprogesterone) 15:43:37 AIR DEFENSE SPECIALIST CPT-76551 Abx/Therapy Injection 15:43:37 AIR DEFENSE SPECIALIST CPT-J1050 Depo Provera 150 mg (Medroxyprogesterone) 15:14:34 AIR DEFENSE SPECIALIST CPT-22863 Postop F/U Visit 09:10:48 CDT CPT-OV Office Visit 21:43:13 CDT CPT-45258 Postop F/U Visit 16:13:18 CDT CPT-74052 Venipuncture Draw Fee 13:37:57 AIR DEFENSE SPECIALIST
--- OUTSIDE RECORDS SUMMARY | 2018-09-25 10:58 | XMS REPORT | Clinical Summary ---
Author Author Admin, MAISHA Organization [facility] Address Unknown Phone Unavailable Allergies, Adverse Reactions, Alerts Allergy Name Reaction Description Start Date Severity Status Provider SULFA rash Moderate Active Jessy Sommers ELECTROPHONIC ENGINEER Conditions or Problems Problem Name Problem Code Onset Date Status Entry Date Provider Comment Standard Description Annotate FH DIABETES V18.0 Active Moon Pete HOG STOMACH PREPARER Family history of diabetes mellitus PHARYNGITIS-ACUTE 462 Inactive Moon Pete HOG STOMACH PREPARER Acute pharyngitis OTITIS MEDIA, RIGHT 382.9 Resolved [...] FH BREAST CANCER V16.3 Active Radha Victor HOG STOMACH PREPARER Family history of malignant neoplasm of breast [...] Ankle pain, right 719.47 Active Radha Victor HOG STOMACH PREPARER Pain in joint involving ankle and foot PHARYNGITIS-ACUTE ICD-462 Inactive Moon Pete HOG STOMACH PREPARER ACUTE PHARYNGITIS ICD-462 Inactive Linda Davis MD [...] Generic Name NDC Status Provider Patient Instruction NAPROXEN 500 MG TABS 1 twice a day for breakthrough bleeding. Continue for 1 month. NAPROXEN [id number] Active Ania Alejandra APRN Active TRI-SPRINTEC 0.18/0.215/0.25 MG-35 MCG TABS 1 po qd as directed. Begin 1st pack on 11/01/16. NORGESTIM-ETH ESTRAD TRIPHASIC 41302112387 Active Ania Alejandra APRN Active TYLENOL 325 MG TAB 1-2 pills by mouth every 6 hours if needed for pain/fever ACETAMINOPHEN 85940769883 Active Linda Davis MD PhD Active DEPO-PROVERA 150 MG/ML SUPENSION q3mos MEDROXYPROGEST ANDRZEJ (CONTRACEP) 84299477098 Active Linda Davis MD PhD Active TOPAMAX 25 MG TABS take 1 tab po qday for migraines. TOPIRAMATE 74443855543 No Longer Active Linda Davis MD PhD Active HYDROCODONE-ACETAMINOPHEN 5-325 MG TABS 1 po q 6hr PRN Pain 06/18 HYDROCODONE-ACETAMINOPHEN 95866823959 No Longer Active Mikhail Forbes MD Active KEFLEX 500 MG CAP 1 tab po tid CEPHALEXIN 98940820695 No Longer Active Mikhail Forbes MD Active HYDROCODONE-ACETAMINOPHEN 5-500 MG TABS 1 every 4hours as needed HYDROCODONE-ACETAMINOPHEN 57148107771 No Longer Active Radha Victor APRN Active TAMIFLU 75 MG CAPS 1 bid x 5 days OSELTAMIVIR PHOSPHATE 93731883915 No Longer Active Linda Davis MD PhD Active AUGMENTIN 875-125 MG TAB 1 tab by mouth twice daily with food AMOXICILLIN-POT CLAVULANATE 60292577635 No Longer Active Jillina Frazeljess HOG STOMACH PREPARER Active AUGMENTIN 875-125 MG TAB 1 tab by mouth twice daily with food AMOXICILLIN-POT CLAVULANATE 73586686641 No Longer Active Jillina Frazell HOG STOMACH PREPARER Active CLINDAMYCIN HCL 150 MG CAPS 1 four times a day CLINDAMYCIN HCL 51248956806 No Longer Active Moon Pete APRN Active BACTRIM DS 800-160 MG TAB 1 tab by mouth twice daily TRIMETHOPRIM-SULFAMETHOXAZOLE 55901018700 No Longer Active Moon Pete APRN Active AMOXICILLIN 500 MG CAP 1 tab by mouth twice daily AMOXICILLIN 59289096234 No Longer Active Antony Moran DO Active ZITHROMAX Z-MAKAYLA 250 MG TABS 2 now then 1 everyday AZITHROMYCIN 60480523420 No Longer Active Antony Moran DO Active ZITHROMAX Z-MAKAYLA 250 MG TABS 2 now then 1 everyday ZITHROMAX Z-MAKAYLA 250 MG TABS 0535480 AZITHROMYCIN Inactive AMOXICILLIN 500 MG CAP 1 tab by mouth twice daily AMOXICILLIN 500 MG CAP 039358 AMOXICILLIN Inactive BACTRIM DS 800-160 MG TAB 1 tab by mouth twice daily BACTRIM DS 800-160 MG TAB 996185 TRIMETHOPRIM-SULFAMETHOXAZOLE Inactive CLINDAMYCIN HCL 150 MG CAPS 1 four times a day CLINDAMYCIN HCL 150 MG CAPS 193940 CLINDAMYCIN HCL Inactive HYDROCODONE-ACETAMINOPHEN 5-500 MG TABS 1 every 4hours as needed HYDROCODONE-ACETAMINOPHEN 5-500 MG TABS HYDROCODONE- ACETAMINOPHEN Inactive KEFLEX 500 MG CAP 1 tab po tid KEFLEX 500 MG CAP 327199 CEPHALEXIN Inactive HYDROCODONE-ACETAMINOPHEN 5-325 MG TABS 1 po q 6hr PRN Pain 06/18 HYDROCODONE-ACETAMINOPHEN 5-325 MG TABS 261547 HYDROCODONE- ACETAMINOPHEN Inactive TOPAMAX 25 MG TABS take 1 tab po qday for migraines. TOPAMAX 25 MG TABS 052267 TOPIRAMATE Inactive AUGMENTIN 875-125 MG TAB 1 tab by mouth twice daily with food AUGMENTIN 875-125 MG TAB 443526 AMOXICILLIN-POT CLAVULANATE Inactive AUGMENTIN 875-125 MG TAB 1 tab by mouth twice daily with food AUGMENTIN 875-125 MG TAB 610299 AMOXICILLIN-POT CLAVULANATE Inactive TAMIFLU 75 MG CAPS 1 bid x 5 days TAMIFLU 75 MG CAPS 290437 OSELTAMIVIR PHOSPHATE Inactive Advance Directives Directive Description Start Date PERMISSION TO SHARE Encounters Code Encounter Date Provider Facility CPT-71177 Level 3 Est. Patient 10:22:24 CDT Radha Victor [facility] CPT-20896 Level 3 Est. Patient 18:31:30 CDT Linda Davis MD [facility] CPT-21983 Level 4 Est. Patient 21:34:05 RISK OFFICER M[facility]ail [facility] CPT-74833 Level 4 Est. Patient 15:14:34 RISK OFFICER Mikhail [facility] CPT-44895 Level 3 Est. Patient 12:52:25 CDT Mikhail [facility] CPT-34037 Level 2 Est. Patient 14:57:21 CDT Radha Victor [facility] CPT-65508 Level 2 Est. Patient 16:59:23 CDT Radha Victor [facility] CPT-23468 Level 3 Est. Patient 15:10:28 CDT Moon Pete [facility] CPT-97524 Level 3 Est. Patient 13:38:05 RISK OFFICER Moon ePte [facility] CPT-07146 Level 3 Est. Patient 13:36:40 RISK OFFICER Antony Cline [facility] CPT-25976 Level 3 Est. Patient 14:07:56 RISK OFFICER Moon Pete [facility] Procedures Code Procedure Name Date Entry Date Standard Description CPT-J1050 Depo Provera 150 mg (Medroxyprogesterone) 14:50:04 CDT CPT-12566 Abx/Therapy Injection 14:50:04 CDT CPT-16967 Ankle, right, Complete - Min 3V 10:34:26 CDT CPT-J1050 Depo Provera 150 mg (Medroxyprogesterone) 11:26:14 CDT CPT-73275 Abx/Therapy Injection 11:26:13 CDT CPT-J1055 Depo-Provera Injection only 150 mg 16:55:48 CDT CPT-J1050 Depo Provera 150 mg (Medroxyprogesterone) 13:49:16 RISK OFFICER CPT-81022 Abx/Therapy Injection 13:49:16 RISK OFFICER CPT-J1055 Depo-Provera Injection only 150 mg 09:45:32 RISK OFFICER CPT-J1050 Depo Provera 150 mg (Medroxyprogesterone) 18:49:54 CDT CPT-07456 Abx/Therapy Injection 18:49:54 CDT CPT-J1055 Depo-Provera Injection only 150 mg 09:18:50 CDT CPT-J1050 Depo Provera 150 mg (Medroxyprogesterone) 08:12:54 CDT CPT-15221 Abx/Therapy Injection 08:12:54 CDT CPT-J1050 Depo Provera 150 mg (Medroxyprogesterone) 15:07:25 CDT CPT-94472 Abx/Therapy Injection 15:07:25 CDT CPT-J1050 Depo Provera 150 mg (Medroxyprogesterone) 09:59:09 CDT CPT-J1050 Depo Provera 150 mg (Medroxyprogesterone) 15:43:37 RISK OFFICER CPT-22551 Abx/Therapy Injection 15:43:37 RISK OFFICER CPT-J1050 Depo Provera 150 mg (Medroxyprogesterone) 15:14:34 RISK OFFICER CPT-50276 Postop F/U Visit 09:10:48 CDT CPT-OV Office Visit 21:43:13 CDT CPT-51149 Postop F/U Visit 16:13:18 CDT CPT-30098 Venipuncture Draw Fee 13:37:57 RISK OFFICER
--- OUTSIDE RECORDS SUMMARY | 2018-09-25 10:59 | XMS REPORT | Clinical Summary ---
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 Conditions or Problems Problem Name Problem Code Onset Date Status Entry Date Provider Comment Standard Description Annotate FH DIABETES V18.0 Active Moon Pete PEWTER FINISHER Family history of diabetes mellitus PHARYNGITIS-ACUTE 462 Inactive Moon Pete PEWTER FINISHER Acute pharyngitis OTITIS MEDIA, RIGHT 382.9 Resolved [...] FH BREAST CANCER V16.3 Active Radha Victor PEWTER FINISHER Family history of malignant neoplasm of breast [...] and fatigue PHARYNGITIS-ACUTE ICD-462 Inactive Moon Pete PEWTER FINISHER OTITIS MEDIA, RIGHT ICD-382.9 Inactive Linda Davis MD PhD ACUTE PHARYNGITIS ICD-462 Inactive Linda Davis MD PhD COUGH ICD-786.2 Inactive Linda Davis MD PhD 02/18 FATIGUE ICD-780.79 Inactive Lnida Davis MD PhD TONSILLITIS ICD-463 Inactive Linda [...] 6 hours if needed for pain/fever ACETAMINOPHEN 45588419011 Active Linda Davis MD PhD Active DEPO-PROVERA 150 MG/ML SUPENSION q3mos MEDROXYPROGEST ANDRZEJ (CONTRACEP) 36655308044 Active Linda Davis MD PhD Active TOPAMAX 25 MG TABS take 1 tab po qday for migraines. TOPIRAMATE 59709473612 No Longer Active Linda Davis MD PhD Active HYDROCODONE-ACETAMINOPHEN 5-325 MG TABS 1 po q 6hr PRN Pain 06/18 HYDROCODONE-ACETAMINOPHEN 98027081040 No Longer Active Mikhail Forbes MD Active KEFLEX 500 MG CAP 1 tab po tid CEPHALEXIN 37753049463 No Longer Active Mikhail Forbes MD Active HYDROCODONE-ACETAMINOPHEN 5-500 MG TABS 1 every 4hours as needed HYDROCODONE-ACETAMINOPHEN 01257819160 No Longer Active Radha Victor APRN Active TAMIFLU 75 MG CAPS 1 bid x 5 days OSELTAMIVIR PHOSPHATE 92255115421 No Longer Active Linda Davis MD PhD Active AUGMENTIN 875-125 MG TAB 1 tab by mouth twice daily with food AMOXICILLIN-POT CLAVULANATE 93585601718 No Longer Active Jillina Frazell PEWTER FINISHER Active AUGMENTIN 875-125 MG TAB 1 tab by mouth twice daily with food AMOXICILLIN-POT CLAVULANATE 48006828748 No Longer Active Jillina Frahazel PEWTER FINISHER Active CLINDAMYCIN HCL 150 MG CAPS 1 four times a day CLINDAMYCIN HCL 44585648930 No Longer Active [place]beau Pete APRN Active BACTRIM DS 800-160 MG TAB 1 tab by mouth twice daily TRIMETHOPRIM-SULFAMETHOXAZOLE 51944054168 No Longer Active Moon Pete PEWTER FINISHER Active AMOXICILLIN 500 MG CAP 1 tab by mouth twice daily AMOXICILLIN 53270800859 No Longer Active Antony Moran DO Active ZITHROMAX Z-MAKAYLA 250 MG TABS 2 now then 1 everyday AZITHROMYCIN 33799573557 No Longer Active Antony Moran DO Active ZITHROMAX Z-MAKAYLA 250 MG TABS 2 now then 1 everyday ZITHROMAX Z-MAKAYLA 250 MG TABS 6455161 AZITHROMYCIN Inactive AMOXICILLIN 500 MG CAP 1 tab by mouth twice daily AMOXICILLIN 500 MG CAP 754765 AMOXICILLIN Inactive BACTRIM DS 800-160 MG TAB 1 tab by mouth twice daily BACTRIM DS 800-160 MG TAB 697173 TRIMETHOPRIM-SULFAMETHOXAZOLE Inactive CLINDAMYCIN HCL 150 MG CAPS 1 four times a day CLINDAMYCIN HCL 150 MG CAPS 403450 CLINDAMYCIN HCL Inactive HYDROCODONE-ACETAMINOPHEN 5-500 MG TABS 1 every 4hours as needed HYDROCODONE-ACETAMINOPHEN 5-500 MG TABS HYDROCODONE- ACETAMINOPHEN Inactive KEFLEX 500 MG CAP 1 tab po tid KEFLEX 500 MG CAP 268463 CEPHALEXIN Inactive HYDROCODONE-ACETAMINOPHEN 5-325 MG TABS 1 po q 6hr PRN Pain 06/18 HYDROCODONE-ACETAMINOPHEN 5-325 MG TABS 971407 HYDROCODONE- ACETAMINOPHEN Inactive TOPAMAX 25 MG TABS take 1 tab po qday for migraines. TOPAMAX 25 MG TABS 174870 TOPIRAMATE Inactive AUGMENTIN 875-125 MG TAB 1 tab by mouth twice daily with food AUGMENTIN 875-125 MG TAB 700408 AMOXICILLIN-POT CLAVULANATE Inactive AUGMENTIN 875-125 MG TAB 1 tab by mouth twice daily with food AUGMENTIN 875-125 MG TAB 608510 AMOXICILLIN-POT CLAVULANATE Inactive TAMIFLU 75 MG CAPS [...] E&M - 3141-9 123.6 [lb_av] Weight Measured blood pressure, diastolic - 8462-4 67 mm[Hg] BP burkett blood pressure, systolic - 8480-6 112 mm[Hg] BP sys pulse rate E&M - 8867-4 69 /min Heart rate temperature E&M 98.4 [degF] Body temperature weight E&M - 3141-9 126 [lb_av] Weight Measured Diagnostic Results Date Name [...] EBV - Chemistry sodium, serum 141 mmol/L 268-553 2099/09/21 carbon dioxide, venous blood 26.0 mmol/L 21.0-32.0 [...] Negative-Throat Culture to Follow Negative Lab Report: [place] - Chemistry human chorionic gonadotropin, urine, qualitative (urine test) Negative Negative human chorionic gonadotropin, urine, qualitative (urine test) Negative Negative Encounters Code Encounter Date Provider Facility CPT-49713 Level 3 Est. Patient 18:31:30 CDT Linda Davis MD PhD [facility] CPT-72718 Level 4 Est. Patient 21:34:05 PEST CONTROL OPERATOR Mikhail Forbes MD [facility] CPT-85699 Level 4 Est. Patient 15:14:34 PEST CONTROL OPERATOR Mikhail Forbes MD [facility] CPT-01739 Level 3 Est. Patient 12:52:25 CDT Mikhail Forbes MD [facility] CPT-20300 Level 2 Est. Patient 14:57:21 CDT Radha Victor [facility] CPT-79842 Level 2 Est. Patient 16:59:23 CDT Radha Victor [facility] CPT-72926 Level 3 Est. Patient 15:10:28 CDT Moon Pete [facility] CPT-45770 Level 3 Est. Patient 13:38:05 PEST CONTROL OPERATOR Moon Derek Thorntones [facility] CPT-44213 Level 3 Est. Patient 13:36:40 PEST CONTROL OPERATOR Antony Moran DO [facility] CPT-46618 Level 3 Est. Patient 14:07:56 PEST CONTROL OPERATOR Moon Derek Pete [facility] Procedures Code Procedure Name Date Entry Date Standard Description CPT-J1055 Depo-Provera Injection only 150 mg 16:55:48 CDT CPT-J1050 Depo Provera 150 mg (Medroxyprogesterone) 13:49:16 PEST CONTROL OPERATOR CPT-61569 Abx/Therapy Injection 13:49:16 PEST CONTROL OPERATOR CPT-J1055 Depo-Provera Injection only 150 mg 09:45:32 PEST CONTROL OPERATOR CPT-J1050 Depo Provera 150 mg (Medroxyprogesterone) 18:49:54 CDT CPT-98914 Abx/Therapy Injection 18:49:54 CDT CPT-J1055 Depo-Provera Injection only 150 mg 09:18:50 CDT CPT-J1050 Depo Provera 150 mg (Medroxyprogesterone) 08:12:54 CDT CPT-35404 Abx/Therapy Injection 08:12:54 CDT CPT-J1050 Depo Provera 150 mg (Medroxyprogesterone) 15:07:25 CDT CPT-43702 Abx/Therapy Injection 15:07:25 CDT CPT-J1050 Depo Provera 150 mg (Medroxyprogesterone) 09:59:09 CDT CPT-J1050 Depo Provera 150 mg (Medroxyprogesterone) 15:43:37 PEST CONTROL OPERATOR CPT-13438 Abx/Therapy Injection 15:43:37 PEST CONTROL OPERATOR CPT-J1050 Depo Provera 150 mg (Medroxyprogesterone) 15:14:34 PEST CONTROL OPERATOR CPT-85473 Postop F/U Visit 09:10:48 CDT CPT-OV Office Visit 21:43:13 CDT CPT-61720 Postop F/U Visit 16:13:18 CDT CPT-78553 Venipuncture Draw Fee 13:37:57 PEST CONTROL OPERATOR
--- OUTSIDE RECORDS SUMMARY | 2018-09-25 10:59 | XMS REPORT | Clinical Summary ---
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 Conditions or Problems Problem Name Problem Code Onset Date Status Entry Date Provider Comment Standard Description Annotate FH DIABETES V18.0 Active Moon Pete MIXER BLENDER Family history of diabetes mellitus PHARYNGITIS-ACUTE 462 Inactive Moon Pete MIXER BLENDER Acute pharyngitis OTITIS MEDIA, RIGHT 382.9 Resolved Linda Davis MD PhD Unspecified otitis media ACUTE PHARYNGITIS 462 Resolved Linda Davis MD PhD Acute pharyngitis ACUTE PHARYNGITIS 462 Active Mary Dupont MIXER BLENDER Acute pharyngitis COUGH 786.2 Resolved Linda Davis MD PhD Cough FATIGUE 780.79 Resolved Linda Davis MD PhD Other malaise and fatigue TONSILLITIS 463 Resolved Linda Davis MD PhD Acute tonsillitis ABSCESS, GLUTEAL 682.5 Resolved Linda Davis MD PhD Cellulitis and abscess of buttock EAR PAIN, LEFT 388.70 Resolved Linda Davis MD PhD Otalgia, unspecified FH BREAST CANCER V16.3 Active Radha Victor MIXER BLENDER Family history of malignant neoplasm of breast [...] Ankle pain, right 719.47 Active Radha Victor MIXER BLENDER Pain in joint involving ankle and foot PHARYNGITIS-ACUTE ICD-462 Inactive Moon Pete MIXER BLENDER OTITIS MEDIA, RIGHT ICD-382.9 Inactive Linda Davis [...] Instruction CLARITIN-D 12 HOUR 5-120 MG ORAL [id number] Take one tablet every 12 hours as needed for congestion LORATADINE-PSEUDOEPHEDRINE 30833969289 Active Mary Yokum MIXER BLENDER Active AUGMENTIN 875-125 MG TAB 1 tab by mouth twice daily with food AMOXICILLIN-POT CLAVULANATE 57881792671 Active Marypushpa Dupont APRN Active DEPO-PROVERA 150 MG/ML SUPENSION q3mos MEDROXYPROGEST ANDRZEJ ( CONTRACEP) 44903528696 No Longer Active Mary Dupont APRN Active NAPROXEN 500 MG TABS 1 twice a day for breakthrough bleeding. Continue for 1 month. NAPROXEN 82325630977 Active Ania Alejandra APRN Active TRI-SPRINTEC 0.18/0.215/0.25 MG-35 MCG TABS 1 po qd as directed. Begin 1st pack on 11/01/16. NORGESTIM-ETH ESTRAD TRIPHASIC 38409223205 Active Ania Alejandra APRN Active TYLENOL 325 MG TAB 1-2 pills by mouth every 6 hours if needed for pain/fever ACETAMINOPHEN 91856397674 Active Linda Davis MD PhD Active TOPAMAX 25 MG TABS take 1 tab po qday for migraines. TOPIRAMATE 60787769585 No Longer Active Linda Davis MD PhD Active HYDROCODONE-ACETAMINOPHEN 5-325 MG TABS 1 po q 6hr PRN Pain 06/18 HYDROCODONE-ACETAMINOPHEN 50530293873 No Longer Active Mikhail Forbes MD Active KEFLEX 500 MG CAP 1 tab po tid CEPHALEXIN 53665279421 No Longer Active Mikhail Forbes MD Active HYDROCODONE-ACETAMINOPHEN 5-500 MG TABS 1 every 4hours as needed HYDROCODONE-ACETAMINOPHEN 74801995309 No Longer Active Germainllina Kayleigh COOPERN Active TAMIFLU 75 MG CAPS 1 bid x 5 days OSELTAMIVIR PHOSPHATE 55369530177 No Longer Active Linda Davis MD PhD Active AUGMENTIN 875-125 MG TAB 1 tab by mouth twice daily with food AMOXICILLIN-POT CLAVULANATE 97449210566 No Longer Active Jillina Frazell MIXER BLENDER Active AUGMENTIN 875-125 MG TAB 1 tab by mouth twice daily with food AMOXICILLIN-POT CLAVULANATE 84690441059 No Longer Active Jillina Frashantelll MIXER BLENDER Active CLINDAMYCIN HCL 150 MG CAPS 1 four times a day CLINDAMYCIN HCL 69165484263 No Longer Active Moon Pete APRN Active BACTRIM DS 800-160 MG TAB 1 tab by mouth twice daily TRIMETHOPRIM-SULFAMETHOXAZOLE 36655315181 No Longer Active Moon Pete APRN Active AMOXICILLIN 500 MG CAP 1 tab by mouth twice daily AMOXICILLIN 77602914285 No Longer Active Antony Moran DO Active ZITHROMAX Z-MAKAYLA 250 MG TABS 2 now then 1 everyday AZITHROMYCIN 96657836374 No Longer Active Antony Moran DO Active ZITHROMAX Z-MAKAYLA 250 MG TABS 2 now then 1 everyday ZITHROMAX Z-MAKAYLA 250 MG TABS 5484079 AZITHROMYCIN Inactive AMOXICILLIN 500 MG CAP 1 tab by mouth twice daily AMOXICILLIN 500 MG CAP 429334 AMOXICILLIN Inactive BACTRIM DS 800-160 MG TAB 1 tab by mouth twice daily BACTRIM DS 800-160 MG TAB 270213 TRIMETHOPRIM-SULFAMETHOXAZOLE Inactive CLINDAMYCIN HCL 150 MG CAPS 1 four times a day CLINDAMYCIN HCL 150 MG CAPS 392782 CLINDAMYCIN HCL Inactive HYDROCODONE-ACETAMINOPHEN 5-500 MG TABS 1 every 4hours as needed HYDROCODONE-ACETAMINOPHEN 5-500 MG TABS HYDROCODONE- ACETAMINOPHEN Inactive KEFLEX 500 MG CAP 1 tab po tid KEFLEX 500 MG CAP 012183 CEPHALEXIN Inactive HYDROCODONE-ACETAMINOPHEN 5-325 MG TABS 1 po q 6hr PRN Pain 06/18 HYDROCODONE-ACETAMINOPHEN 5-325 MG TABS 860532 HYDROCODONE- ACETAMINOPHEN Inactive TOPAMAX 25 MG TABS take 1 tab po qday for migraines. TOPAMAX 25 MG TABS 981856 TOPIRAMATE Inactive DEPO-PROVERA 150 MG/ML SUPENSION q3mos DEPO-PROVERA 150 MG/ML SUPENSION 4776726 MEDROXYPROGEST ANDRZEJ (CONTRACEP) Inactive AUGMENTIN 875-125 MG TAB 1 tab by mouth twice daily with food AUGMENTIN 875-125 MG TAB 162547 AMOXICILLIN-POT CLAVULANATE Inactive AUGMENTIN 875-125 MG TAB 1 tab by mouth twice daily with food AUGMENTIN 875-125 MG TAB 851570 AMOXICILLIN-POT CLAVULANATE Inactive TAMIFLU 75 MG CAPS 1 bid x 5 days TAMIFLU 75 MG CAPS 514932 OSELTAMIVIR PHOSPHATE Inactive Advance Directives Directive Description [...] Measured Encounters Code Encounter Date Provider Facility CPT-89506 Level 3 Est. Patient 18:10:13 CDT Ania Alejandra [facility] CPT-27647 Level 3 Est. Patient 13:01:05 CDT Mary Dupont [facility] CPT-21552 Level 3 Est. Patient 10:22:24 CDT Radha Victor [facility] CPT-17021 Level 3 Est. Patient 18:31:30 CDT Linda Davis MD, PhD [facility] CPT-82285 Level 4 Est. Patient 21:34:05 PAPER BAG MACHINE OPERATOR Mikhail Forbes MD [facility] CPT-78509 Level 4 Est. Patient 15:14:34 PAPER BAG MACHINE OPERATOR Mikhail Forbes MD [facility] CPT-43140 Level 3 Est. Patient 12:52:25 CDT Mikhail Forbes MD [facility] CPT-42345 Level 2 Est. Patient 14:57:21 CDT Radha Victor [facility] CPT-93505 Level 2 Est. Patient 16:59:23 CDT Radha Victor [facility] CPT-92599 Level 3 Est. Patient 15:10:28 CDT Moon Pete [facility] CPT-36621 Level 3 Est. Patient 13:38:05 PAPER BAG MACHINE OPERATOR Moon Pete [facility] CPT-34663 Level 3 Est. Patient 13:36:40 PAPER BAG MACHINE OPERATOR Antony Moran DO [facility] CPT-01837 Level 3 Est. Patient 14:07:56 PAPER BAG MACHINE OPERATOR Moon Pete [facility] Procedures Code Procedure Name Date Entry Date Standard Description CPT-J1050 Depo Provera 150 mg (Medroxyprogesterone) 14:50:04 CDT CPT-84611 Abx/Therapy Injection 14:50:04 CDT CPT-24401 Ankle, right, Complete - Min 3V 10:34:26 CDT CPT-J1050 Depo Provera 150 mg (Medroxyprogesterone) 11:26:14 CDT CPT-02232 Abx/Therapy Injection 11:26:13 CDT CPT-J1055 Depo-Provera Injection only 150 mg 16:55:48 CDT CPT-J1050 Depo Provera 150 mg (Medroxyprogesterone) 13:49:16 PAPER BAG MACHINE OPERATOR CPT-02769 Abx/Therapy Injection 13:49:16 PAPER BAG MACHINE OPERATOR CPT-J1055 Depo-Provera Injection only 150 mg 09:45:32 PAPER BAG MACHINE OPERATOR CPT-J1050 Depo Provera 150 mg (Medroxyprogesterone) 18:49:54 CDT CPT-33918 Abx/Therapy Injection 18:49:54 CDT CPT-J1055 Depo-Provera Injection only 150 mg 09:18:50 CDT CPT-J1050 Depo Provera 150 mg (Medroxyprogesterone) 08:12:54 CDT CPT-20875 Abx/Therapy Injection 08:12:54 CDT CPT-J1050 Depo Provera 150 mg (Medroxyprogesterone) 15:07:25 CDT CPT-34650 Abx/Therapy Injection 15:07:25 CDT CPT-J1050 Depo Provera 150 mg (Medroxyprogesterone) 09:59:09 CDT CPT-J1050 Depo Provera 150 mg (Medroxyprogesterone) 15:43:37 PAPER BAG MACHINE OPERATOR CPT-45830 Abx/Therapy Injection 15:43:37 PAPER BAG MACHINE OPERATOR CPT-J1050 Depo Provera 150 mg (Medroxyprogesterone) 15:14:34 PAPER BAG MACHINE OPERATOR CPT-65420 Postop F/U Visit 09:10:48 CDT CPT-OV Office Visit 21:43:13 CDT CPT-24644 Postop F/U Visit 16:13:18 CDT CPT-68661 Venipuncture Draw Fee 13:37:57 PAPER BAG MACHINE OPERATOR
--- OUTSIDE RECORDS SUMMARY | 2018-09-25 10:59 | XMS REPORT | Clinical Summary ---
Author Author Admin, MAISHA Organization [employer] Address Unknown Phone Unavailable Allergies, Adverse Reactions, Alerts Allergy Name Reaction Description Start Date Severity Status Provider SULFA rash Moderate Active Jessy Sommers DOUPER Conditions or Problems Problem Name Problem Code Onset Date Status Entry Date Provider Comment Standard Description Annotate FH DIABETES V18.0 Active Moon Pete SPECIMEN COLLECTOR Family history of diabetes mellitus PHARYNGITIS-ACUTE 462 Inactive Moon Pete SPECIMEN COLLECTOR Acute pharyngitis OTITIS MEDIA, RIGHT 382.9 Resolved Linda Davis MD PhD Unspecified otitis media ACUTE PHARYNGITIS 462 Resolved Linda Davis MD PhD Acute pharyngitis COUGH 786.2 Resolved Linda Davis MD PhD Cough FATIGUE 780.79 Resolved Linda Davis MD PhD Other malaise and fatigue TONSILLITIS 463 Resolved Linda Davis MD PhD Acute tonsillitis ABSCESS, GLUTEAL 682.5 Resolved Linda aDvis MD PhD Cellulitis and abscess of buttock EAR PAIN, LEFT 388.70 Resolved Linda Davis MD PhD Otalgia, unspecified FH BREAST CANCER V16.3 Active Radha Victor SPECIMEN COLLECTOR Family history of malignant neoplasm of breast [...] and fatigue PHARYNGITIS-ACUTE ICD-462 Inactive Moon Pete SPECIMEN COLLECTOR OTITIS MEDIA, RIGHT ICD-382.9 Inactive Linda Davis [...] 6 hours if needed for pain/fever ACETAMINOPHEN 42656889852 Active Linda Davis MD PhD Active DEPO-PROVERA 150 MG/ML SUPENSION q3mos MEDROXYPROGEST ANDRZEJ (CONTRACEP) 64376869441 Active Linda Davis MD PhD Active TOPAMAX 25 MG TABS take 1 tab po qday for migraines. TOPIRAMATE 30306263402 No Longer Active Linda Davis MD PhD Active HYDROCODONE-ACETAMINOPHEN 5-325 MG TABS 1 po q 6hr PRN Pain 06/18 HYDROCODONE-ACETAMINOPHEN 13570187113 No Longer Active Mikhail Forbes MD Active KEFLEX 500 MG CAP 1 tab po tid CEPHALEXIN 51964574273 No Longer Active Mikhail Forbes MD Active HYDROCODONE-ACETAMINOPHEN 5-500 MG TABS 1 every 4hours as needed HYDROCODONE-ACETAMINOPHEN 39714956918 No Longer Active Radha Victor APRN Active TAMIFLU 75 MG CAPS 1 bid x 5 days OSELTAMIVIR PHOSPHATE 08273418414 No Longer Active Linda Davis MD PhD Active AUGMENTIN 875-125 MG TAB 1 tab by mouth twice daily with food AMOXICILLIN-POT CLAVULANATE 86298889803 No Longer Active Jillina Frazell SPECIMEN COLLECTOR Active AUGMENTIN 875-125 MG TAB 1 tab by mouth twice daily with food AMOXICILLIN-POT CLAVULANATE 27940633637 No Longer Active Jillina Kayleigh COOPERN Active CLINDAMYCIN HCL 150 MG CAPS 1 four times a day CLINDAMYCIN HCL 67195825235 No Longer Active Moon Reed Juan R RODRÍGUEZ Active BACTRIM DS 800-160 MG TAB 1 tab by mouth twice daily TRIMETHOPRIM-SULFAMETHOXAZOLE 39268258182 No Longer Active Moon Pete SPECIMEN COLLECTOR Active AMOXICILLIN 500 MG CAP 1 tab by mouth twice daily AMOXICILLIN 25698441849 No Longer Active Antony Moran DO Active ZITHROMAX Z-MAKAYLA 250 MG TABS 2 now then 1 everyday AZITHROMYCIN 79934728608 No Longer Active Antony Moran DO Active ZITHROMAX Z-MAKAYLA 250 MG TABS 2 now then 1 everyday ZITHROMAX Z-MAKAYLA 250 MG TABS 1055923 AZITHROMYCIN Inactive AMOXICILLIN 500 MG CAP 1 tab by mouth twice daily AMOXICILLIN 500 MG CAP 485975 AMOXICILLIN Inactive BACTRIM DS 800-160 MG TAB 1 tab by mouth twice daily BACTRIM DS 800-160 MG TAB 876885 TRIMETHOPRIM-SULFAMETHOXAZOLE Inactive CLINDAMYCIN HCL 150 MG CAPS 1 four times a day CLINDAMYCIN HCL 150 MG CAPS 380526 CLINDAMYCIN HCL Inactive HYDROCODONE-ACETAMINOPHEN 5-500 MG TABS 1 every 4hours as needed HYDROCODONE-ACETAMINOPHEN 5-500 MG TABS HYDROCODONE- ACETAMINOPHEN Inactive KEFLEX 500 MG CAP 1 tab po tid KEFLEX 500 MG CAP 866706 CEPHALEXIN Inactive HYDROCODONE-ACETAMINOPHEN 5-325 MG TABS 1 po q 6hr PRN Pain 06/18 HYDROCODONE-ACETAMINOPHEN 5-325 MG TABS 714854 HYDROCODONE- ACETAMINOPHEN Inactive TOPAMAX 25 MG TABS take 1 tab po qday for migraines. TOPAMAX 25 MG TABS 854962 TOPIRAMATE Inactive AUGMENTIN 875-125 MG TAB 1 tab by mouth twice daily with food AUGMENTIN 875-125 MG TAB 697643 AMOXICILLIN-POT CLAVULANATE Inactive AUGMENTIN 875-125 MG TAB 1 tab by mouth twice daily with food AUGMENTIN 875-125 MG TAB 244013 AMOXICILLIN-POT CLAVULANATE Inactive TAMIFLU 75 MG CAPS [...] Description Lab Report: CBC W/DIFF - Hematology erythrocyte (RBC) count 4.14 10^6/MM^3 10*6/mm3 4.04-5.48 hemoglobin, blood 13.0 g/dL 12.0-16.0 hematocrit, blood 38.4 % 36.0-46.0 mean corpuscular volume, RBC 93 fL 80-97 mean corpuscular hemoglobin, RBC 31.5 pg 27.0-31.2 mean corpuscular hemoglobin concentration, RBC 34.0 G/DL % 31.8- 35.4 red blood cell distribution width 13.1 % 11.6-14.8 platelet count 306 10^3/MM^3 10*3/mm3 872-525 2480/09/21 lymphocytes as percent of blood leukocytes 38.4 % 20.5-51.1 monocytes as percent of blood leukocytes 7.1 % 1.7-9.3 neutrophils as percent of blood leukocytes 51.2 % 42.2-75.2 leukocyte count, blood 6.8 10^3/MM^3 10*3/mm3 4.6-10.2 Lab Report: Comp. Metabolic Panel, H. Pylori, MONO w/Rflx EBV - Chemistry sodium, serum 141 mmol/L 090-143 6948/09/21 carbon dioxide, venous blood 26.0 mmol/L 21.0-32.0 [...] Negative-Throat Culture to Follow Negative Lab Report: [facility] [place] - Chemistry human chorionic gonadotropin, urine, qualitative (urine test) Negative Negative Encounters Code Encounter Date Provider Facility CPT-16676 Level 3 Est. Patient 18:31:30 CDT Linda Davis MD PhD [facility] CPT-09339 Level 4 Est. Patient 21:34:05 TOBACCO WEIGHER Mikhail Forbes MD [facility] CPT-05383 Level 4 Est. Patient 15:14:34 TOBACCO WEIGHER Mikhail Forbes MD [facility] CPT-13171 Level 3 Est. Patient 12:52:25 CDT Mikhail Forbes MD [facility] CPT-65532 Level 2 Est. Patient 14:57:21 CDT Radha Victor [facility] CPT-25237 Level 2 Est. Patient 16:59:23 CDT Radha Victor [facility] CPT-29479 Level 3 Est. Patient 15:10:28 CDT Moon Pete [facility] CPT-13457 Level 3 Est. Patient 13:38:05 TOBACCO WEIGHER Moon Pete [facility] CPT-62952 Level 3 Est. Patient 13:36:40 TOBACCO WEIGHER Antony Cline Dean KATHLEEN [facility] CPT-11602 Level 3 Est. Patient 14:07:56 TOBACCO WEIGHER Moon Pete [facility] Procedures Code Procedure Name Date Entry Date Standard Description CPT-J1050 Depo Provera 150 mg (Medroxyprogesterone) 11:26:14 CDT CPT-67446 Abx/Therapy Injection 11:26:13 CDT CPT-J1055 Depo-Provera Injection only 150 mg 16:55:48 CDT CPT-J1050 Depo Provera 150 mg (Medroxyprogesterone) 13:49:16 TOBACCO WEIGHER CPT-92703 Abx/Therapy Injection 13:49:16 TOBACCO WEIGHER CPT-J1055 Depo-Provera Injection only 150 mg 09:45:32 TOBACCO WEIGHER CPT-J1050 Depo Provera 150 mg (Medroxyprogesterone) 18:49:54 CDT CPT-09603 Abx/Therapy Injection 18:49:54 CDT CPT-J1055 Depo-Provera Injection only 150 mg 09:18:50 CDT CPT-J1050 Depo Provera 150 mg (Medroxyprogesterone) 08:12:54 CDT CPT-93933 Abx/Therapy Injection 08:12:54 CDT CPT-J1050 Depo Provera 150 mg (Medroxyprogesterone) 15:07:25 CDT CPT-77319 Abx/Therapy Injection 15:07:25 CDT CPT-J1050 Depo Provera 150 mg (Medroxyprogesterone) 09:59:09 CDT CPT-J1050 Depo Provera 150 mg (Medroxyprogesterone) 15:43:37 TOBACCO WEIGHER CPT-86021 Abx/Therapy Injection 15:43:37 TOBACCO WEIGHER CPT-J1050 Depo Provera 150 mg (Medroxyprogesterone) 15:14:34 TOBACCO WEIGHER CPT-32177 Postop F/U Visit 09:10:48 CDT CPT-OV Office Visit 21:43:13 CDT CPT-48605 Postop F/U Visit 16:13:18 CDT CPT-13853 Venipuncture Draw Fee 13:37:57 TOBACCO WEIGHER
--- OUTSIDE RECORDS SUMMARY | 2018-09-25 11:00 | XMS REPORT | Clinical Summary ---
Author Author Admin, MAISHA Organization [email or web address] Address Unknown Phone Unavailable Allergies, Adverse Reactions, Alerts Allergy Name Reaction Description Start Date Severity Status Provider SULFA rash Moderate Active Jessy Sommers BANKING SERVICES ADVISOR Conditions or Problems Problem Name Problem Code Onset Date Status Entry Date Provider Comment Standard Description Annotate FH DIABETES V18.0 Active Moon Pete ICU STAFF NURSE Family history of diabetes mellitus PHARYNGITIS-ACUTE 462 Inactive Moon Pete ICU STAFF NURSE Acute pharyngitis OTITIS MEDIA, RIGHT 382.9 Resolved Linda Davis MD PhD Unspecified otitis media ACUTE PHARYNGITIS 462 Resolved Linda Davis MD PhD Acute pharyngitis ACUTE PHARYNGITIS 462 Active Mary Dupont ICU STAFF NURSE Acute pharyngitis COUGH 786.2 Resolved Linda Davis MD PhD Cough FATIGUE 780.79 Resolved Linda Davis MD PhD Other malaise and fatigue TONSILLITIS 463 Resolved Linda Davis MD PhD Acute tonsillitis ABSCESS, GLUTEAL 682.5 Resolved Linda Davis MD PhD Cellulitis and abscess of buttock EAR PAIN, LEFT 388.70 Resolved Linda Davis MD PhD Otalgia, unspecified FH BREAST CANCER V16.3 Active Radha Victor ICU STAFF NURSE Family history of malignant neoplasm of breast [...] Ankle pain, right 719.47 Active Radha Victor ICU STAFF NURSE Pain in joint involving ankle and foot PHARYNGITIS-ACUTE ICD-462 Inactive Moon Pete ICU STAFF NURSE OTITIS MEDIA, RIGHT ICD-382.9 Inactive Linda Davis [...] Instruction CLARITIN-D 12 HOUR 5-120 MG ORAL [id number] Take one tablet every 12 hours as needed for congestion LORATADINE-PSEUDOEPHEDRINE 00406729564 Active Mary Yokum ICU STAFF NURSE Active AUGMENTIN 875-125 MG TAB 1 tab by mouth twice daily with food AMOXICILLIN-POT CLAVULANATE 56262123366 No Longer Active Marypushpa Dupont APRN Active DEPO-PROVERA 150 MG/ML SUPENSION q3mos MEDROXYPROGEST ANDRZEJ ( CONTRACEP) 06157448391 No Longer Active Marypushpa Dupont APRN Active NAPROXEN 500 MG TABS 1 twice a day for breakthrough bleeding. Continue for 1 month. NAPROXEN 83363662450 Active Ania Alejandra APRN Active TRI-SPRINTEC 0.18/0.215/0.25 MG-35 MCG TABS 1 po qd as directed. Begin 1st pack on 11/01/16. NORGESTIM-ETH ESTRAD TRIPHASIC 18866608738 Active Ania Alejandra APRN Active TYLENOL 325 MG TAB 1-2 pills by mouth every 6 hours if needed for pain/fever ACETAMINOPHEN 15876080841 Active Linda Davis MD PhD Active TOPAMAX 25 MG TABS take 1 tab po qday for migraines. TOPIRAMATE 97497669859 No Longer Active Linda Davis MD PhD Active HYDROCODONE-ACETAMINOPHEN 5-325 MG TABS 1 po q 6hr PRN Pain 06/18 HYDROCODONE-ACETAMINOPHEN 34182724320 No Longer Active Mikhail Forbes MD Active KEFLEX 500 MG CAP 1 tab po tid CEPHALEXIN 78039178896 No Longer Active Mikhail Forbes MD Active HYDROCODONE-ACETAMINOPHEN 5-500 MG TABS 1 every 4hours as needed HYDROCODONE-ACETAMINOPHEN 79305539468 No Longer Active Germainllina Kayleigh COOPERN Active TAMIFLU 75 MG CAPS 1 bid x 5 days OSELTAMIVIR PHOSPHATE 37983294833 No Longer Active Linda Davis MD PhD Active AUGMENTIN 875-125 MG TAB 1 tab by mouth twice daily with food AMOXICILLIN-POT CLAVULANATE 33516773147 No Longer Active Jillina Frazell ICU STAFF NURSE Active AUGMENTIN 875-125 MG TAB 1 tab by mouth twice daily with food AMOXICILLIN-POT CLAVULANATE 34236834858 No Longer Active Jillina Frashantelll ICU STAFF NURSE Active CLINDAMYCIN HCL 150 MG CAPS 1 four times a day CLINDAMYCIN HCL 92633427726 No Longer Active Moon Pete APRN Active BACTRIM DS 800-160 MG TAB 1 tab by mouth twice daily TRIMETHOPRIM-SULFAMETHOXAZOLE 81925708784 No Longer Active Moon Pete APRN Active AMOXICILLIN 500 MG CAP 1 tab by mouth twice daily AMOXICILLIN 25977578991 No Longer Active Antony Moran DO Active ZITHROMAX Z-MAKAYLA 250 MG TABS 2 now then 1 everyday AZITHROMYCIN 90917454981 No Longer Active Antony Moran DO Active ZITHROMAX Z-MAKAYLA 250 MG TABS 2 now then 1 everyday ZITHROMAX Z-MAKAYLA 250 MG TABS 6183778 AZITHROMYCIN Inactive AMOXICILLIN 500 MG CAP 1 tab by mouth twice daily AMOXICILLIN 500 MG CAP 744752 AMOXICILLIN Inactive BACTRIM DS 800-160 MG TAB 1 tab by mouth twice daily BACTRIM DS 800-160 MG TAB 233890 TRIMETHOPRIM-SULFAMETHOXAZOLE Inactive CLINDAMYCIN HCL 150 MG CAPS 1 four times a day CLINDAMYCIN HCL 150 MG CAPS 586739 CLINDAMYCIN HCL Inactive HYDROCODONE-ACETAMINOPHEN 5-500 MG TABS 1 every 4hours as needed HYDROCODONE-ACETAMINOPHEN 5-500 MG TABS HYDROCODONE- ACETAMINOPHEN Inactive KEFLEX 500 MG CAP 1 tab po tid KEFLEX 500 MG CAP 673424 CEPHALEXIN Inactive HYDROCODONE-ACETAMINOPHEN 5-325 MG TABS 1 po q 6hr PRN Pain 06/18 HYDROCODONE-ACETAMINOPHEN 5-325 MG TABS 536342 HYDROCODONE- ACETAMINOPHEN Inactive TOPAMAX 25 MG TABS take 1 tab po qday for migraines. TOPAMAX 25 MG TABS 364670 TOPIRAMATE Inactive DEPO-PROVERA 150 MG/ML SUPENSION q3mos DEPO-PROVERA 150 MG/ML SUPENSION 6959089 MEDROXYPROGEST ANDRZEJ (CONTRACEP) Inactive AUGMENTIN 875-125 MG TAB 1 tab by mouth twice daily with food AUGMENTIN 875-125 MG TAB 377615 AMOXICILLIN-POT CLAVULANATE Inactive AUGMENTIN 875-125 MG TAB 1 tab by mouth twice daily with food AUGMENTIN 875-125 MG TAB 001335 AMOXICILLIN-POT CLAVULANATE Inactive TAMIFLU 75 MG CAPS 1 bid x 5 days TAMIFLU 75 MG CAPS 034992 OSELTAMIVIR PHOSPHATE Inactive AUGMENTIN 875-125 MG TAB 1 tab by mouth twice daily with food AUGMENTIN 875-125 MG TAB 911414 AMOXICILLIN-POT CLAVULANATE Inactive Advance Directives Directive Description [...] Measured Encounters Code Encounter Date Provider Facility CPT-46721 Level 3 Est. Patient 18:10:13 CDT Ania Alejandra [facility] CPT-18785 Level 3 Est. Patient 13:01:05 CDT Mary Dupont [facility] CPT-33889 Level 3 Est. Patient 10:22:24 CDT Radha Victor [facility]-28025 Level 3 Est. Patient 18:31:30 CDT Linda Davis MD PhD [facility] CPT-35091 Level 4 Est. Patient 21:34:05 TANDEM MILL STICKER Mikhail Forbes MD [facility] CPT-06877 Level 4 Est. Patient 15:14:34 TANDEM MILL STICKER Mikhail Forbes MD [facility] CPT-86966 Level 3 Est. Patient 12:52:25 CDT Mikhail Forbes MD [facility] CPT-44045 Level 2 Est. Patient 14:57:21 CDT Radha Victor [facility] CPT-43403 Level 2 Est. Patient 16:59:23 CDT Radha Victor [facility] CPT-73201 Level 3 Est. Patient 15:10:28 CDT Moon Pete [facility] CPT-07867 Level 3 Est. Patient 13:38:05 TANDEM MILL STICKER Moon Pete [facility] CPT-88683 Level 3 Est. Patient 13:36:40 TANDEM MILL STICKER Antony Moran DO [facility] CPT-54040 Level 3 Est. Patient 14:07:56 TANDEM MILL STICKER Mono Pete [facility] Procedures Code Procedure Name Date Entry Date Standard Description CPT-J1050 Depo Provera 150 mg (Medroxyprogesterone) 14:50:04 CDT CPT-12877 Abx/Therapy Injection 14:50:04 CDT CPT-20537 Ankle, right, Complete - Min 3V 10:34:26 CDT CPT-J1050 Depo Provera 150 mg (Medroxyprogesterone) 11:26:14 CDT CPT-99237 Abx/Therapy Injection 11:26:13 CDT CPT-J1055 Depo-Provera Injection only 150 mg 16:55:48 CDT CPT-J1050 Depo Provera 150 mg (Medroxyprogesterone) 13:49:16 TANDEM MILL STICKER CPT-05958 Abx/Therapy Injection 13:49:16 TANDEM MILL STICKER CPT-J1055 Depo-Provera Injection only 150 mg 09:45:32 TANDEM MILL STICKER CPT-J1050 Depo Provera 150 mg (Medroxyprogesterone) 18:49:54 CDT CPT-27266 Abx/Therapy Injection 18:49:54 CDT CPT-J1055 Depo-Provera Injection only 150 mg 09:18:50 CDT CPT-J1050 Depo Provera 150 mg (Medroxyprogesterone) 08:12:54 CDT CPT-74738 Abx/Therapy Injection 08:12:54 CDT CPT-J1050 Depo Provera 150 mg (Medroxyprogesterone) 15:07:25 CDT CPT-21035 Abx/Therapy Injection 15:07:25 CDT CPT-J1050 Depo Provera 150 mg (Medroxyprogesterone) 09:59:09 CDT CPT-J1050 Depo Provera 150 mg (Medroxyprogesterone) 15:43:37 TANDEM MILL STICKER CPT-89320 Abx/Therapy Injection 15:43:37 TANDEM MILL STICKER CPT-J1050 Depo Provera 150 mg (Medroxyprogesterone) 15:14:34 TANDEM MILL STICKER CPT-28722 Postop F/U Visit 09:10:48 CDT CPT-OV Office Visit 21:43:13 CDT CPT-74500 Postop F/U Visit 16:13:18 CDT CPT-30501 Venipuncture Draw Fee 13:37:57 TANDEM MILL STICKER
--- OUTSIDE RECORDS SUMMARY | 2018-09-25 11:00 | XMS REPORT | Clinical Summary ---
Author Author Admin, MAISHA Pedroza [facility] Address Unknown Phone Unavailable Allergies, Adverse Reactions, Alerts Allergy Name Reaction Description Start Date Severity Status Provider SULFA rash Moderate Active Jessy Sommers SASH FINISHER Conditions or Problems Problem Name Problem Code Onset Date Status Entry Date Provider Comment Standard Description Annotate FH DIABETES V18.0 Active Moon Pete NECK SKEWER Family history of diabetes mellitus PHARYNGITIS-ACUTE 462 Inactive Moon Pete NECK SKEWER Acute pharyngitis OTITIS MEDIA, RIGHT 382.9 Active Moon Pete NECK SKEWER Unspecified otitis media ACUTE PHARYNGITIS 462 Active Antony Moran DO Acute pharyngitis COUGH 786.2 Active Antony Moran DO Cough FATIGUE 780.79 Active Antony Moran DO Other malaise and fatigue TONSILLITIS 463 Active Moon Pete NECK SKEWER Acute tonsillitis ABSCESS, GLUTEAL 682.5 Active Moon Pete NECK SKEWER Cellulitis and abscess of buttock EAR PAIN, LEFT 388.70 Active Moon Pete NECK SKEWER Otalgia, unspecified FH BREAST CANCER V16.3 Active Jillina Kayleigh NECK SKEWER Family history of malignant neoplasm of breast PILONIDAL CYST 685.1 Active Jillina Frazell NECK SKEWER Pilonidal cyst without mention of abscess AFTERCARE [...] 1 tab po qday for migraines. TOPIRAMATE 45551919589 Active Mikhail Forbes MD Active HYDROCODONE-ACETAMINOPHEN 5-325 MG TABS 1 po q 6hr PRN Pain 06/18 HYDROCODONE-ACETAMINOPHEN 56243228513 No Longer Active Mikhail Forbes MD Active KEFLEX 500 MG CAP 1 tab po tid CEPHALEXIN 91800052043 No Longer Active Mikhail Forbes MD Active HYDROCODONE-ACETAMINOPHEN 5-500 MG TABS 1 every 4hours as needed HYDROCODONE-ACETAMINOPHEN 91410255506 No Longer Active Radha Victor APRN Active TAMIFLU 75 MG CAPS 1 bid x 5 days OSELTAMIVIR PHOSPHATE 97038816426 No Longer Active Linda Davis MD PhD Active AUGMENTIN 875-125 MG TAB 1 tab by mouth twice daily with food AMOXICILLIN-POT CLAVULANATE 61539658954 No Longer Active Jillina Frazell NECK SKEWER Active AUGMENTIN 875-125 MG TAB 1 tab by mouth twice daily with food AMOXICILLIN-POT CLAVULANATE 15570416436 No Longer Active Jillina Frazell NECK SKEWER Active CLINDAMYCIN HCL 150 MG CAPS 1 four times a day CLINDAMYCIN HCL 09980471895 No Longer Active Moon Pete APRN Active BACTRIM DS 800-160 MG TAB 1 tab by mouth twice daily TRIMETHOPRIM-SULFAMETHOXAZOLE 76010936235 No Longer Active Moon Reed Juan R RODRÍGUEZ Active AMOXICILLIN 500 MG CAP 1 tab by mouth twice daily AMOXICILLIN 37127218334 No Longer Active Antony Moran DO Active ZITHROMAX Z-MAKAYLA 250 MG TABS 2 now then 1 everyday AZITHROMYCIN 36697913951 No Longer Active Antony Moran DO Active ZITHROMAX Z-MAKAYLA 250 MG TABS 2 now then 1 everyday ZITHROMAX Z-MAKAYLA 250 MG TABS 3199329 AZITHROMYCIN Inactive AMOXICILLIN 500 MG CAP 1 tab by mouth twice daily AMOXICILLIN 500 MG CAP 620328 AMOXICILLIN Inactive BACTRIM DS 800-160 MG TAB 1 tab by mouth twice daily BACTRIM DS 800-160 MG TAB TRIMETHOPRIM-SULFAMETHOXAZOLE Inactive CLINDAMYCIN HCL 150 MG CAPS 1 four times a day CLINDAMYCIN HCL 150 MG CAPS 984190 CLINDAMYCIN HCL Inactive HYDROCODONE-ACETAMINOPHEN 5-500 MG TABS 1 every 4hours as needed HYDROCODONE-ACETAMINOPHEN 5-500 MG TABS HYDROCODONE- ACETAMINOPHEN Inactive KEFLEX 500 MG CAP 1 tab po tid KEFLEX 500 MG CAP 256104 CEPHALEXIN Inactive HYDROCODONE-ACETAMINOPHEN 5-325 MG TABS 1 po q 6hr PRN Pain 06/18 HYDROCODONE-ACETAMINOPHEN 5-325 MG TABS 871427 HYDROCODONE- ACETAMINOPHEN Inactive AUGMENTIN 875-125 MG TAB 1 tab by mouth twice daily with food AUGMENTIN 875-125 MG TAB 125790 AMOXICILLIN-POT CLAVULANATE Inactive AUGMENTIN 875-125 MG TAB 1 tab by mouth twice daily with food AUGMENTIN 875-125 MG TAB 364794 AMOXICILLIN-POT CLAVULANATE Inactive TAMIFLU 75 MG CAPS [...] Report: CBC W/ DIFF, HCG - Hematology platelet count 311 10*3/mm3 hemoglobin, blood 13.0 g/dL leukocyte count, blood 9.3 10*3/mm3 Lab Report: [facility] [place] human chorionic gonadotropin, urine, qualitative (urine test) Negative Negative human chorionic gonadotropin, urine, qualitative (urine test) Negative Negative Encounters Code Encounter Date Provider Facility CPT-67769 Level 4 Est. Patient 21:34:05 CUSTOMS APPRAISER Mikhail Forbes MD [facility] CPT-66181 Level 4 Est. Patient 15:14:34 CUSTOMS APPRAISER Mikhail Forbes MD [facility] CPT-13188 Level 3 Est. Patient 12:52:25 CDT Mikhail Forbes MD [facility] CPT-18133 Level 2 Est. Patient 14:57:21 CDT Radha Victor [facility]-67626 Level 2 Est. Patient 16:59:23 CDT Radha Victor [facility] CPT-29763 Level 3 Est. Patient 15:10:28 CDT Moon Pete [facility] CPT-93923 Level 3 Est. Patient 13:38:05 CUSTOMS APPRAISER Moon Pete [facility] CPT-18120 Level 3 Est. Patient 13:36:40 CUSTOMS APPRAISER Antony Moran DO [facility] CPT-15346 Level 3 Est. Patient 14:07:56 CUSTOMS APPRAISER Moon Pete [facility] Procedures Code Procedure Name Date Entry Date Standard Description CPT-J1050 Depo Provera 150 mg (Medroxyprogesterone) 15:07:25 CDT CPT-81487 Abx/Therapy Injection 15:07:25 CDT CPT-J1050 Depo Provera 150 mg (Medroxyprogesterone) 09:59:09 CDT CPT-J1050 Depo Provera 150 mg (Medroxyprogesterone) 15:43:37 CUSTOMS APPRAISER CPT-41241 Abx/Therapy Injection 15:43:37 CUSTOMS APPRAISER CPT-J1050 Depo Provera 150 mg (Medroxyprogesterone) 15:14:34 CUSTOMS APPRAISER CPT-22843 Postop F/U Visit 09:10:48 CDT CPT-OV Office Visit 21:43:13 CDT CPT-57775 Postop F/U Visit 16:13:18 CDT CPT-27979 Venipuncture Draw Fee 13:37:57 CUSTOMS APPRAISER
--- OUTSIDE RECORDS SUMMARY | 2018-09-25 11:00 | XMS REPORT | Clinical Summary ---
Author Author Admin, MAISHA Organization [employer] Address Unknown Phone Unavailable Allergies, Adverse Reactions, Alerts Allergy Name Reaction Description Start Date Severity Status Provider SULFA rash Moderate Active Jessy Sommers EMULSION OPERATOR Conditions or Problems Problem Name Problem Code Onset Date Status Entry Date Provider Comment Standard Description Annotate FH DIABETES V18.0 Active Moon Pete RESIDENT SERVICES COORDINATOR Family history of diabetes mellitus PHARYNGITIS-ACUTE 462 Inactive Moon Pete RESIDENT SERVICES COORDINATOR Acute pharyngitis OTITIS MEDIA, RIGHT 382.9 Resolved [...] FH BREAST CANCER V16.3 Active Radha Victor RESIDENT SERVICES COORDINATOR Family history of malignant neoplasm of breast [...] Ankle pain, right 719.47 Active Radha Victor RESIDENT SERVICES COORDINATOR Pain in joint involving ankle and foot PHARYNGITIS-ACUTE ICD-462 Inactive Moon Pete RESIDENT SERVICES COORDINATOR OTITIS MEDIA, RIGHT ICD-382.9 Inactive Linda Davis [...] Instruction CLARITIN-D 12 HOUR 5-120 MG ORAL [id number] Take one tablet every 12 hours as needed for congestion LORATADINE-PSEUDOEPHEDRINE 73424738045 Active Mary Yokum RESIDENT SERVICES COORDINATOR Active AUGMENTIN 875-125 MG TAB 1 tab by mouth twice daily with food AMOXICILLIN-POT CLAVULANATE 43341339429 Active Marypushpa Dupont APRN Active DEPO-PROVERA 150 MG/ML SUPENSION q3mos MEDROXYPROGEST ANDRZEJ ( CONTRACEP) 70140924971 No Longer Active Mary Dupont APRN Active NAPROXEN 500 MG TABS 1 twice a day for breakthrough bleeding. Continue for 1 month. NAPROXEN 94090960973 Active Ania Alejandra APRN Active TRI-SPRINTEC 0.18/0.215/0.25 MG-35 MCG TABS 1 po qd as directed. Begin 1st pack on 11/01/16. NORGESTIM-ETH ESTRAD TRIPHASIC 40065445090 Active Ania Alejandra APRN Active TYLENOL 325 MG TAB 1-2 pills by mouth every 6 hours if needed for pain/fever ACETAMINOPHEN 72545628049 Active Linda Davis MD PhD Active TOPAMAX 25 MG TABS take 1 tab po qday for migraines. TOPIRAMATE 62181312431 No Longer Active Linda Davis MD PhD Active HYDROCODONE-ACETAMINOPHEN 5-325 MG TABS 1 po q 6hr PRN Pain 06/18 HYDROCODONE-ACETAMINOPHEN 90025467848 No Longer Active Mikhail Forbes MD Active KEFLEX 500 MG CAP 1 tab po tid CEPHALEXIN 59649725760 No Longer Active Mikhail Forbes MD Active HYDROCODONE-ACETAMINOPHEN 5-500 MG TABS 1 every 4hours as needed HYDROCODONE-ACETAMINOPHEN 57307152829 No Longer Active Germainllina Kayleigh COOPERN Active TAMIFLU 75 MG CAPS 1 bid x 5 days OSELTAMIVIR PHOSPHATE 86063471069 No Longer Active Linda Davis MD PhD Active AUGMENTIN 875-125 MG TAB 1 tab by mouth twice daily with food AMOXICILLIN-POT CLAVULANATE 63335748392 No Longer Active Jillina Frazell RESIDENT SERVICES COORDINATOR Active AUGMENTIN 875-125 MG TAB 1 tab by mouth twice daily with food AMOXICILLIN-POT CLAVULANATE 14799291593 No Longer Active Jillina Frashantelll RESIDENT SERVICES COORDINATOR Active CLINDAMYCIN HCL 150 MG CAPS 1 four times a day CLINDAMYCIN HCL 16842362474 No Longer Active Moon Pete APRN Active BACTRIM DS 800-160 MG TAB 1 tab by mouth twice daily TRIMETHOPRIM-SULFAMETHOXAZOLE 96198139053 No Longer Active Moon Pete APRN Active AMOXICILLIN 500 MG CAP 1 tab by mouth twice daily AMOXICILLIN 07801133827 No Longer Active Antony Moran DO Active ZITHROMAX Z-MAKAYLA 250 MG TABS 2 now then 1 everyday AZITHROMYCIN 00561588467 No Longer Active Antony Moran DO Active ZITHROMAX Z-MAKAYLA 250 MG TABS 2 now then 1 everyday ZITHROMAX Z-MAKAYLA 250 MG TABS 8539475 AZITHROMYCIN Inactive AMOXICILLIN 500 MG CAP 1 tab by mouth twice daily AMOXICILLIN 500 MG CAP 264602 AMOXICILLIN Inactive BACTRIM DS 800-160 MG TAB 1 tab by mouth twice daily BACTRIM DS 800-160 MG TAB 083903 TRIMETHOPRIM-SULFAMETHOXAZOLE Inactive CLINDAMYCIN HCL 150 MG CAPS 1 four times a day CLINDAMYCIN HCL 150 MG CAPS 087205 CLINDAMYCIN HCL Inactive HYDROCODONE-ACETAMINOPHEN 5-500 MG TABS 1 every 4hours as needed HYDROCODONE-ACETAMINOPHEN 5-500 MG TABS HYDROCODONE- ACETAMINOPHEN Inactive KEFLEX 500 MG CAP 1 tab po tid KEFLEX 500 MG CAP 866491 CEPHALEXIN Inactive HYDROCODONE-ACETAMINOPHEN 5-325 MG TABS 1 po q 6hr PRN Pain 06/18 HYDROCODONE-ACETAMINOPHEN 5-325 MG TABS 857764 HYDROCODONE- ACETAMINOPHEN Inactive TOPAMAX 25 MG TABS take 1 tab po qday for migraines. TOPAMAX 25 MG TABS 629069 TOPIRAMATE Inactive DEPO-PROVERA 150 MG/ML SUPENSION q3mos DEPO-PROVERA 150 MG/ML SUPENSION 6533123 MEDROXYPROGEST ANDRZEJ (CONTRACEP) Inactive AUGMENTIN 875-125 MG TAB 1 tab by mouth twice daily with food AUGMENTIN 875-125 MG TAB 321787 AMOXICILLIN-POT CLAVULANATE Inactive AUGMENTIN 875-125 MG TAB 1 tab by mouth twice daily with food AUGMENTIN 875-125 MG TAB 882623 AMOXICILLIN-POT CLAVULANATE Inactive TAMIFLU 75 MG CAPS 1 bid x 5 days TAMIFLU 75 MG CAPS 948106 OSELTAMIVIR PHOSPHATE Inactive Advance Directives Directive Description Start Date PERMISSION TO SHARE Encounters Code Encounter Date Provider Facility CPT-69261 Level 3 Est. Patient 10:22:24 CDT Radha Victor APRN [facility] CPT-33541 Level 3 Est. Patient 18:31:30 CDT Linda Davis MD PhD [facility] CPT-46211 Level 4 Est. Patient 21:34:05 UNCLAIMED PROPERTY MANAGER Mikhail Forbes MD [facility] CPT-65650 Level 4 Est. Patient 15:14:34 UNCLAIMED PROPERTY MANAGER Mikhail Forbes MD [facility] CPT-87931 Level 3 Est. Patient 12:52:25 CDT Mikhail Forbes MD [facility] CPT-09569 Level 2 Est. Patient 14:57:21 CDT Germainfelicity Victor [facility] CPT-69354 Level 2 Est. Patient 16:59:23 CDT Radha Victor [facility] CPT-16043 Level 3 Est. Patient 15:10:28 CDT Moon Pete [facility] CPT-40509 Level 3 Est. Patient 13:38:05 UNCLAIMED PROPERTY MANAGER Moon Pete [facility] CPT-63536 Level 3 Est. Patient 13:36:40 UNCLAIMED PROPERTY MANAGER Antony Moran DO [facility] CPT-29126 Level 3 Est. Patient 14:07:56 UNCLAIMED PROPERTY MANAGER Moon Pete [facility] Procedures Code Procedure Name Date Entry Date Standard Description CPT-J1050 Depo Provera 150 mg (Medroxyprogesterone) 14:50:04 CDT CPT-22290 Abx/Therapy Injection 14:50:04 CDT CPT-85330 Ankle, right, Complete - Min 3V 10:34:26 CDT CPT-J1050 Depo Provera 150 mg (Medroxyprogesterone) 11:26:14 CDT CPT-50079 Abx/Therapy Injection 11:26:13 CDT CPT-J1055 Depo-Provera Injection only 150 mg 16:55:48 CDT CPT-J1050 Depo Provera 150 mg (Medroxyprogesterone) 13:49:16 UNCLAIMED PROPERTY MANAGER CPT-96334 Abx/Therapy Injection 13:49:16 UNCLAIMED PROPERTY MANAGER CPT-J1055 Depo-Provera Injection only 150 mg 09:45:32 UNCLAIMED PROPERTY MANAGER CPT-J1050 Depo Provera 150 mg (Medroxyprogesterone) 18:49:54 CDT CPT-95597 Abx/Therapy Injection 18:49:54 CDT CPT-J1055 Depo-Provera Injection only 150 mg 09:18:50 CDT CPT-J1050 Depo Provera 150 mg (Medroxyprogesterone) 08:12:54 CDT CPT-97507 Abx/Therapy Injection 08:12:54 CDT CPT-J1050 Depo Provera 150 mg (Medroxyprogesterone) 15:07:25 CDT CPT-85665 Abx/Therapy Injection 15:07:25 CDT CPT-J1050 Depo Provera 150 mg (Medroxyprogesterone) 09:59:09 CDT CPT-J1050 Depo Provera 150 mg (Medroxyprogesterone) 15:43:37 UNCLAIMED PROPERTY MANAGER CPT-23320 Abx/Therapy Injection 15:43:37 UNCLAIMED PROPERTY MANAGER CPT-J1050 Depo Provera 150 mg (Medroxyprogesterone) 15:14:34 UNCLAIMED PROPERTY MANAGER CPT-92668 Postop F/U Visit 09:10:48 CDT CPT-OV Office Visit 21:43:13 CDT CPT-37267 Postop F/U Visit 16:13:18 CDT CPT-27728 Venipuncture Draw Fee 13:37:57 UNCLAIMED PROPERTY MANAGER
--- OUTSIDE RECORDS SUMMARY | 2018-09-25 11:01 | XMS REPORT | Clinical Summary ---
Author Author Admin, MAISHA Organization [employer] Address Unknown Phone Unavailable Allergies, Adverse Reactions, Alerts Allergy Name Reaction Description Start Date Severity Status Provider SULFA rash Moderate Active Jessy Sommers COLOR CONTROL OPERATOR Conditions or Problems Problem Name Problem Code Onset Date Status Entry Date Provider Comment Standard Description Annotate FH DIABETES V18.0 Active Moon Pete RE DYE HAND Family history of diabetes mellitus PHARYNGITIS-ACUTE 462 Inactive Moon Pete RE DYE HAND Acute pharyngitis OTITIS MEDIA, RIGHT 382.9 Resolved Linda Davis MD PhD Unspecified otitis media ACUTE PHARYNGITIS 462 Resolved Linda Davis MD PhD Acute pharyngitis ACUTE PHARYNGITIS 462 Active Mary Dupont RE DYE HAND Acute pharyngitis COUGH 786.2 Resolved Linda Davis MD PhD Cough FATIGUE 780.79 Resolved Linda Davis MD PhD Other malaise and fatigue TONSILLITIS 463 Resolved Linda Davis MD PhD Acute tonsillitis ABSCESS, GLUTEAL 682.5 Resolved Linda Davis MD PhD Cellulitis and abscess of buttock EAR PAIN, LEFT 388.70 Resolved Linda Davis MD PhD Otalgia, unspecified FH BREAST CANCER V16.3 Active Radha Victor RE DYE HAND Family history of malignant neoplasm of breast [...] Ankle pain, right 719.47 Active Radha Victor RE DYE HAND Pain in joint involving ankle and foot PHARYNGITIS-ACUTE ICD-462 Inactive Moon Pete RE DYE HAND COUGH ICD-786.2 Inactive Linda Davis MD PhD [...] Instruction CLARITIN-D 12 HOUR 5-120 MG ORAL [id number] Take one tablet every 12 hours as needed for congestion LORATADINE-PSEUDOEPHEDRINE 84115642352 Active Marypushpa Dupont RE DYE HAND Active AUGMENTIN 875-125 MG TAB 1 tab by mouth twice daily with food AMOXICILLIN-POT CLAVULANATE 48494486797 Active Mary Dupont APRN Active DEPO-PROVERA 150 MG/ML SUPENSION q3mos MEDROXYPROGEST ANDRZEJ ( CONTRACEP) 34692836773 No Longer Active Mary Dupont APRN Active NAPROXEN 500 MG TABS 1 twice a day for breakthrough bleeding. Continue for 1 month. NAPROXEN 10932275718 Active Ania Alejandra APRN Active TRI-SPRINTEC 0.18/0.215/0.25 MG-35 MCG TABS 1 po qd as directed. Begin 1st pack on 11/01/16. NORGESTIM-ETH ESTRAD TRIPHASIC 77107194299 Active Ania Alejandra APRN Active TYLENOL 325 MG TAB 1-2 pills by mouth every 6 hours if needed for pain/fever ACETAMINOPHEN 93448151732 Active Linda Davis MD PhD Active TOPAMAX 25 MG TABS take 1 tab po qday for migraines. TOPIRAMATE 88040467489 No Longer Active Linda Davis MD PhD Active HYDROCODONE-ACETAMINOPHEN 5-325 MG TABS 1 po q 6hr PRN Pain 06/18 HYDROCODONE-ACETAMINOPHEN 34216680855 No Longer Active Mikhail Forbes MD Active KEFLEX 500 MG CAP 1 tab po tid CEPHALEXIN 41208073339 No Longer Active Mikhail Forbes MD Active HYDROCODONE-ACETAMINOPHEN 5-500 MG TABS 1 every 4hours as needed HYDROCODONE-ACETAMINOPHEN 15989093085 No Longer Active Germainllina Kayleigh COOPERN Active TAMIFLU 75 MG CAPS 1 bid x 5 days OSELTAMIVIR PHOSPHATE 16920373270 No Longer Active Linda Davis MD PhD Active AUGMENTIN 875-125 MG TAB 1 tab by mouth twice daily with food AMOXICILLIN-POT CLAVULANATE 85765289235 No Longer Active Jillina Frazell RE DYE HAND Active AUGMENTIN 875-125 MG TAB 1 tab by mouth twice daily with food AMOXICILLIN-POT CLAVULANATE 43150330789 No Longer Active Jillina Frashantelll RE DYE HAND Active CLINDAMYCIN HCL 150 MG CAPS 1 four times a day CLINDAMYCIN HCL 80346983123 No Longer Active Moon Pete APRN Active BACTRIM DS 800-160 MG TAB 1 tab by mouth twice daily TRIMETHOPRIM-SULFAMETHOXAZOLE 17551546591 No Longer Active Moon Pete APRN Active AMOXICILLIN 500 MG CAP 1 tab by mouth twice daily AMOXICILLIN 86645696938 No Longer Active Antony Moran DO Active ZITHROMAX Z-MAKAYLA 250 MG TABS 2 now then 1 everyday AZITHROMYCIN 67723461598 No Longer Active Antony Moran DO Active ZITHROMAX Z-MAKAYLA 250 MG TABS 2 now then 1 everyday ZITHROMAX Z-MAKAYLA 250 MG TABS 3757820 AZITHROMYCIN Inactive AMOXICILLIN 500 MG CAP 1 tab by mouth twice daily AMOXICILLIN 500 MG CAP 802916 AMOXICILLIN Inactive BACTRIM DS 800-160 MG TAB 1 tab by mouth twice daily BACTRIM DS 800-160 MG TAB 647495 TRIMETHOPRIM-SULFAMETHOXAZOLE Inactive CLINDAMYCIN HCL 150 MG CAPS 1 four times a day CLINDAMYCIN HCL 150 MG CAPS 365478 CLINDAMYCIN HCL Inactive HYDROCODONE-ACETAMINOPHEN 5-500 MG TABS 1 every 4hours as needed HYDROCODONE-ACETAMINOPHEN 5-500 MG TABS HYDROCODONE- ACETAMINOPHEN Inactive KEFLEX 500 MG CAP 1 tab po tid KEFLEX 500 MG CAP 718417 CEPHALEXIN Inactive HYDROCODONE-ACETAMINOPHEN 5-325 MG TABS 1 po q 6hr PRN Pain 06/18 HYDROCODONE-ACETAMINOPHEN 5-325 MG TABS 942261 HYDROCODONE- ACETAMINOPHEN Inactive TOPAMAX 25 MG TABS take 1 tab po qday for migraines. TOPAMAX 25 MG TABS 877898 TOPIRAMATE Inactive DEPO-PROVERA 150 MG/ML SUPENSION q3mos DEPO-PROVERA 150 MG/ML SUPENSION 8520027 MEDROXYPROGEST ANDRZEJ (CONTRACEP) Inactive AUGMENTIN 875-125 MG TAB 1 tab by mouth twice daily with food AUGMENTIN 875-125 MG TAB 331639 AMOXICILLIN-POT CLAVULANATE Inactive AUGMENTIN 875-125 MG TAB 1 tab by mouth twice daily with food AUGMENTIN 875-125 MG TAB 381108 AMOXICILLIN-POT CLAVULANATE Inactive TAMIFLU 75 MG CAPS 1 bid x 5 days TAMIFLU 75 MG CAPS 873876 OSELTAMIVIR PHOSPHATE Inactive Advance Directives Directive Description [...] E&M - 3141-9 129.5 [lb_av] Weight Measured Encounters Code Encounter Date Provider Facility CPT-01127 Level 3 Est. Patient 13:01:05 CDT Mary Dupont [facility] CPT-68528 Level 3 Est. Patient 10:22:24 CDT Radha Victor [facility]-59820 Level 3 Est. Patient 18:31:30 CDT Linda Davis MD PhD [facility] CPT-27390 Level 4 Est. Patient 21:34:05 FIELD RETURN REPAIRER Mikhail Forbes MD [facility] CPT-71636 Level 4 Est. Patient 15:14:34 FIELD RETURN REPAIRER Mikhail Forbes MD [facility] CPT-61930 Level 3 Est. Patient 12:52:25 CDT Mikhail Forbes MD [facility] CPT-17937 Level 2 Est. Patient 14:57:21 CDT Radha Victor [facility]-42170 Level 2 Est. Patient 16:59:23 CDT Radha Victor [facility]-92224 Level 3 Est. Patient 15:10:28 CDT Moon Pete [facility] CPT-33547 Level 3 Est. Patient 13:38:05 FIELD RETURN REPAIRER Moon Pete [facility] CPT-68635 Level 3 Est. Patient 13:36:40 FIELD RETURN REPAIRER Antony Moran DO [facility] CPT-44401 Level 3 Est. Patient 14:07:56 FIELD RETURN REPAIRER Moon Pete [facility] Procedures Code Procedure Name Date Entry Date Standard Description CPT-J1050 Depo Provera 150 mg (Medroxyprogesterone) 14:50:04 CDT CPT-47975 Abx/Therapy Injection 14:50:04 CDT CPT-83795 Ankle, right, Complete - Min 3V 10:34:26 CDT CPT-J1050 Depo Provera 150 mg (Medroxyprogesterone) 11:26:14 CDT CPT-14356 Abx/Therapy Injection 11:26:13 CDT CPT-J1055 Depo-Provera Injection only 150 mg 16:55:48 CDT CPT-J1050 Depo Provera 150 mg (Medroxyprogesterone) 13:49:16 FIELD RETURN REPAIRER CPT-66053 Abx/Therapy Injection 13:49:16 FIELD RETURN REPAIRER CPT-J1055 Depo-Provera Injection only 150 mg 09:45:32 FIELD RETURN REPAIRER CPT-J1050 Depo Provera 150 mg (Medroxyprogesterone) 18:49:54 CDT CPT-83476 Abx/Therapy Injection 18:49:54 CDT CPT-J1055 Depo-Provera Injection only 150 mg 09:18:50 CDT CPT-J1050 Depo Provera 150 mg (Medroxyprogesterone) 08:12:54 CDT CPT-26988 Abx/Therapy Injection 08:12:54 CDT CPT-J1050 Depo Provera 150 mg (Medroxyprogesterone) 15:07:25 CDT CPT-44963 Abx/Therapy Injection 15:07:25 CDT CPT-J1050 Depo Provera 150 mg (Medroxyprogesterone) 09:59:09 CDT CPT-J1050 Depo Provera 150 mg (Medroxyprogesterone) 15:43:37 FIELD RETURN REPAIRER CPT-24094 Abx/Therapy Injection 15:43:37 FIELD RETURN REPAIRER CPT-J1050 Depo Provera 150 mg (Medroxyprogesterone) 15:14:34 FIELD RETURN REPAIRER CPT-26041 Postop F/U Visit 09:10:48 CDT CPT-OV Office Visit 21:43:13 CDT CPT-28309 Postop F/U Visit 16:13:18 CDT CPT-51409 Venipuncture Draw Fee 13:37:57 FIELD RETURN REPAIRER
--- OUTSIDE RECORDS SUMMARY | 2018-09-25 11:01 | XMS REPORT | Clinical Summary ---
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 Conditions or Problems Problem Name Problem Code Onset Date Status Entry Date Provider Comment Standard Description Annotate FH DIABETES V18.0 Active Moon Pete MANAGER POKER Family history of diabetes mellitus PHARYNGITIS-ACUTE 462 Inactive Moon Pete MANAGER POKER Acute pharyngitis OTITIS MEDIA, RIGHT 382.9 Resolved [...] FH BREAST CANCER V16.3 Active Radha Victor MANAGER POKER Family history of malignant neoplasm of breast [...] and fatigue PHARYNGITIS-ACUTE ICD-462 Inactive Moon Pete MANAGER POKER OTITIS MEDIA, RIGHT ICD-382.9 Inactive Linda Davis [...] 6 hours if needed for pain/fever ACETAMINOPHEN 50270069747 Active Linda Davis MD PhD Active DEPO-PROVERA 150 MG/ML SUPENSION q3mos MEDROXYPROGEST ANDRZEJ (CONTRACEP) 19891117946 Active Linda Davis MD PhD Active TOPAMAX 25 MG TABS take 1 tab po qday for migraines. TOPIRAMATE 23753922244 No Longer Active Linda Davis MD PhD Active HYDROCODONE-ACETAMINOPHEN 5-325 MG TABS 1 po q 6hr PRN Pain 06/18 HYDROCODONE-ACETAMINOPHEN 23779658946 No Longer Active Mikhail Forbes MD Active KEFLEX 500 MG CAP 1 tab po tid CEPHALEXIN 87553491217 No Longer Active Mikhail Forbes MD Active HYDROCODONE-ACETAMINOPHEN 5-500 MG TABS 1 every 4hours as needed HYDROCODONE-ACETAMINOPHEN 88110905605 No Longer Active Radha Victor APRN Active TAMIFLU 75 MG CAPS 1 bid x 5 days OSELTAMIVIR PHOSPHATE 47376606808 No Longer Active Linda Davis MD PhD Active AUGMENTIN 875-125 MG TAB 1 tab by mouth twice daily with food AMOXICILLIN-POT CLAVULANATE 12618996865 No Longer Active Jillina Frazell MANAGER POKER Active AUGMENTIN 875-125 MG TAB 1 tab by mouth twice daily with food AMOXICILLIN-POT CLAVULANATE 24724782966 No Longer Active Jillina Frahazel MANAGER POKER Active CLINDAMYCIN HCL 150 MG CAPS 1 four times a day CLINDAMYCIN HCL 23547131922 No Longer Active Moonbeau Pete APRN Active BACTRIM DS 800-160 MG TAB 1 tab by mouth twice daily TRIMETHOPRIM-SULFAMETHOXAZOLE 60745976583 No Longer Active Moon Pete MANAGER POKER Active AMOXICILLIN 500 MG CAP 1 tab by mouth twice daily AMOXICILLIN 60729612045 No Longer Active Antony Moran DO Active ZITHROMAX Z-MAKAYLA 250 MG TABS 2 now then 1 everyday AZITHROMYCIN 37062880555 No Longer Active Antony Moran DO Active ZITHROMAX Z-MAKAYLA 250 MG TABS 2 now then 1 everyday ZITHROMAX Z-MAKAYLA 250 MG TABS 4479944 AZITHROMYCIN Inactive AMOXICILLIN 500 MG CAP 1 tab by mouth twice daily AMOXICILLIN 500 MG CAP 481665 AMOXICILLIN Inactive BACTRIM DS 800-160 MG TAB 1 tab by mouth twice daily BACTRIM DS 800-160 MG TAB 380648 TRIMETHOPRIM-SULFAMETHOXAZOLE Inactive CLINDAMYCIN HCL 150 MG CAPS 1 four times a day CLINDAMYCIN HCL 150 MG CAPS 491739 CLINDAMYCIN HCL Inactive HYDROCODONE-ACETAMINOPHEN 5-500 MG TABS 1 every 4hours as needed HYDROCODONE-ACETAMINOPHEN 5-500 MG TABS HYDROCODONE- ACETAMINOPHEN Inactive KEFLEX 500 MG CAP 1 tab po tid KEFLEX 500 MG CAP 125587 CEPHALEXIN Inactive HYDROCODONE-ACETAMINOPHEN 5-325 MG TABS 1 po q 6hr PRN Pain 06/18 HYDROCODONE-ACETAMINOPHEN 5-325 MG TABS 017749 HYDROCODONE- ACETAMINOPHEN Inactive TOPAMAX 25 MG TABS take 1 tab po qday for migraines. TOPAMAX 25 MG TABS 552216 TOPIRAMATE Inactive AUGMENTIN 875-125 MG TAB 1 tab by mouth twice daily with food AUGMENTIN 875-125 MG TAB 262671 AMOXICILLIN-POT CLAVULANATE Inactive AUGMENTIN 875-125 MG TAB 1 tab by mouth twice daily with food AUGMENTIN 875-125 MG TAB 923073 AMOXICILLIN-POT CLAVULANATE Inactive TAMIFLU 75 MG CAPS [...] EBV - Chemistry sodium, serum 141 mmol/L 199-573 4312/09/21 carbon dioxide, venous blood 26.0 mmol/L 21.0-32.0 [...] Culture to Follow Negative [place] Report[place] [facility] [place] human chorionic gonadotropin, urine, qualitative (urine test) Negative Negative human chorionic gonadotropin, urine, qualitative (urine test) Negative Negative Encounters Code Encounter Date Provider Facility CPT-03187 Level 3 Est. Patient 18:31:30 CDT Linda Davis MD PhD [facility] CPT-29731 Level 4 Est. Patient 21:34:05 TEST CAR DRIVER Mikhail Forbes MD [facility] CPT-22927 Level 4 Est. Patient 15:14:34 TEST CAR DRIVER Mikhail Forbes MD [facility] CPT-52518 Level 3 Est. Patient 12:52:25 CDT Mikhail Forbes MD [facility] CPT-22246 Level 2 Est. Patient 14:57:21 CDT Radha Victor [facility] CPT-92345 Level 2 Est. Patient 16:59:23 CDT Radha Victor [facility] CPT-23051 Level 3 Est. Patient 15:10:28 CDT Moon Derek Pete [facility] CPT-66421 Level 3 Est. Patient 13:38:05 TEST CAR DRIVER Moon Pete [facility] CPT-92389 Level 3 Est. Patient 13:36:40 TEST CAR DRIVER Antony Moran DO [facility] CPT-25675 Level 3 Est. Patient 14:07:56 TEST CAR DRIVER Moon Pete [facility] Procedures Code Procedure Name Date Entry Date Standard Description CPT-J1055 Depo-Provera Injection only 150 mg 09:45:32 TEST CAR DRIVER CPT-J1050 Depo Provera 150 mg (Medroxyprogesterone) 18:49:54 CDT CPT-86767 Abx/Therapy Injection 18:49:54 CDT CPT-J1055 Depo-Provera Injection only 150 mg 09:18:50 CDT CPT-J1050 Depo Provera 150 mg (Medroxyprogesterone) 08:12:54 CDT CPT-32901 Abx/Therapy Injection 08:12:54 CDT CPT-J1050 Depo Provera 150 mg (Medroxyprogesterone) 15:07:25 CDT CPT-21294 Abx/Therapy Injection 15:07:25 CDT CPT-J1050 Depo Provera 150 mg (Medroxyprogesterone) 09:59:09 CDT CPT-J1050 Depo Provera 150 mg (Medroxyprogesterone) 15:43:37 TEST CAR DRIVER CPT-37481 Abx/Therapy Injection 15:43:37 TEST CAR DRIVER CPT-J1050 Depo Provera 150 mg (Medroxyprogesterone) 15:14:34 TEST CAR DRIVER CPT-92954 Postop F/U Visit 09:10:48 CDT CPT-OV Office Visit 21:43:13 CDT CPT-87337 Postop F/U Visit 16:13:18 CDT CPT-42019 Venipuncture Draw Fee 13:37:57 TEST CAR DRIVER
--- OUTSIDE RECORDS SUMMARY | 2018-09-25 11:02 | XMS REPORT | Clinical Summary ---
Author Author Admin, MAISHA Organization [employer] Address Unknown Phone Unavailable Allergies, Adverse Reactions, Alerts Allergy Name Reaction Description Start Date Severity Status Provider SULFA rash Moderate Active Jessy Sommers MAT PUNCHER Conditions or Problems Problem Name Problem Code Onset Date Status Entry Date Provider Comment Standard Description Annotate FH DIABETES V18.0 Active Moon Pete WAREHOUSE PROCESSOR Family history of diabetes mellitus PHARYNGITIS-ACUTE 462 Inactive Moon Pete WAREHOUSE PROCESSOR Acute pharyngitis OTITIS MEDIA, RIGHT 382.9 Resolved Linda Davis MD PhD Unspecified otitis media ACUTE PHARYNGITIS 462 Resolved Linda Davis MD PhD Acute pharyngitis ACUTE PHARYNGITIS 462 Active Mary Dupont WAREHOUSE PROCESSOR Acute pharyngitis COUGH 786.2 Resolved Linda Davis MD PhD Cough FATIGUE 780.79 Resolved Linda Davis MD PhD Other malaise and fatigue TONSILLITIS 463 Resolved Linda Davis MD PhD Acute tonsillitis ABSCESS, GLUTEAL 682.5 Resolved Linda Davis MD PhD Cellulitis and abscess of buttock EAR PAIN, LEFT 388.70 Resolved Linda Davis MD PhD Otalgia, unspecified FH BREAST CANCER V16.3 Active Radha Victor WAREHOUSE PROCESSOR Family history of malignant neoplasm of breast [...] Ankle pain, right 719.47 Active Radha Victor WAREHOUSE PROCESSOR Pain in joint involving ankle and foot PHARYNGITIS-ACUTE ICD-462 Inactive oMon Pete WAREHOUSE PROCESSOR OTITIS MEDIA, RIGHT ICD-382.9 Inactive Linda Davis [...] Instruction CLARITIN-D 12 HOUR 5-120 MG ORAL [id number] Take one tablet every 12 hours as needed for congestion LORATADINE-PSEUDOEPHEDRINE 00320576042 Active Mary Yokum WAREHOUSE PROCESSOR Active AUGMENTIN 875-125 MG TAB 1 tab by mouth twice daily with food AMOXICILLIN-POT CLAVULANATE 93988483148 No Longer Active Marypushpa Dupont APRN Active DEPO-PROVERA 150 MG/ML SUPENSION q3mos MEDROXYPROGEST ANDRZEJ ( CONTRACEP) 86627701844 No Longer Active Marypushpa Dupont APRN Active NAPROXEN 500 MG TABS 1 twice a day for breakthrough bleeding. Continue for 1 month. NAPROXEN 12225036521 Active Ania Alejandra APRN Active TRI-SPRINTEC 0.18/0.215/0.25 MG-35 MCG TABS 1 po qd as directed. Begin 1st pack on 11/01/16. NORGESTIM-ETH ESTRAD TRIPHASIC 06402113188 Active Ania Alejandra APRN Active TYLENOL 325 MG TAB 1-2 pills by mouth every 6 hours if needed for pain/fever ACETAMINOPHEN 38327080317 Active Linda Davis MD PhD Active TOPAMAX 25 MG TABS take 1 tab po qday for migraines. TOPIRAMATE 20331375155 No Longer Active Linda Davis MD PhD Active HYDROCODONE-ACETAMINOPHEN 5-325 MG TABS 1 po q 6hr PRN Pain 06/18 HYDROCODONE-ACETAMINOPHEN 64544714055 No Longer Active Mikhail Forbes MD Active KEFLEX 500 MG CAP 1 tab po tid CEPHALEXIN 96650655005 No Longer Active Mikhail Forbes MD Active HYDROCODONE-ACETAMINOPHEN 5-500 MG TABS 1 every 4hours as needed HYDROCODONE-ACETAMINOPHEN 16664851051 No Longer Active Germainllina Kayleigh COOPERN Active TAMIFLU 75 MG CAPS 1 bid x 5 days OSELTAMIVIR PHOSPHATE 87756533603 No Longer Active Linda Davis MD PhD Active AUGMENTIN 875-125 MG TAB 1 tab by mouth twice daily with food AMOXICILLIN-POT CLAVULANATE 79250493318 No Longer Active Jillina Frazell WAREHOUSE PROCESSOR Active AUGMENTIN 875-125 MG TAB 1 tab by mouth twice daily with food AMOXICILLIN-POT CLAVULANATE 32410101740 No Longer Active Jillina Frashantelll WAREHOUSE PROCESSOR Active CLINDAMYCIN HCL 150 MG CAPS 1 four times a day CLINDAMYCIN HCL 45450864447 No Longer Active Moon Pete APRN Active BACTRIM DS 800-160 MG TAB 1 tab by mouth twice daily TRIMETHOPRIM-SULFAMETHOXAZOLE 50123550138 No Longer Active Moon Pete APRN Active AMOXICILLIN 500 MG CAP 1 tab by mouth twice daily AMOXICILLIN 15087495730 No Longer Active Antony Moran DO Active ZITHROMAX Z-MAKAYLA 250 MG TABS 2 now then 1 everyday AZITHROMYCIN 60599587619 No Longer Active Antony Moran DO Active ZITHROMAX Z-MAKAYLA 250 MG TABS 2 now then 1 everyday ZITHROMAX Z-MAKAYLA 250 MG TABS 7968305 AZITHROMYCIN Inactive AMOXICILLIN 500 MG CAP 1 tab by mouth twice daily AMOXICILLIN 500 MG CAP 626266 AMOXICILLIN Inactive BACTRIM DS 800-160 MG TAB 1 tab by mouth twice daily BACTRIM DS 800-160 MG TAB 506315 TRIMETHOPRIM-SULFAMETHOXAZOLE Inactive CLINDAMYCIN HCL 150 MG CAPS 1 four times a day CLINDAMYCIN HCL 150 MG CAPS 038800 CLINDAMYCIN HCL Inactive HYDROCODONE-ACETAMINOPHEN 5-500 MG TABS 1 every 4hours as needed HYDROCODONE-ACETAMINOPHEN 5-500 MG TABS HYDROCODONE- ACETAMINOPHEN Inactive KEFLEX 500 MG CAP 1 tab po tid KEFLEX 500 MG CAP 698326 CEPHALEXIN Inactive HYDROCODONE-ACETAMINOPHEN 5-325 MG TABS 1 po q 6hr PRN Pain 06/18 HYDROCODONE-ACETAMINOPHEN 5-325 MG TABS 148925 HYDROCODONE- ACETAMINOPHEN Inactive TOPAMAX 25 MG TABS take 1 tab po qday for migraines. TOPAMAX 25 MG TABS 351212 TOPIRAMATE Inactive DEPO-PROVERA 150 MG/ML SUPENSION q3mos DEPO-PROVERA 150 MG/ML SUPENSION 5804512 MEDROXYPROGEST ANDRZEJ (CONTRACEP) Inactive AUGMENTIN 875-125 MG TAB 1 tab by mouth twice daily with food AUGMENTIN 875-125 MG TAB 680551 AMOXICILLIN-POT CLAVULANATE Inactive AUGMENTIN 875-125 MG TAB 1 tab by mouth twice daily with food AUGMENTIN 875-125 MG TAB 550361 AMOXICILLIN-POT CLAVULANATE Inactive TAMIFLU 75 MG CAPS 1 bid x 5 days TAMIFLU 75 MG CAPS 981060 OSELTAMIVIR PHOSPHATE Inactive AUGMENTIN 875-125 MG TAB 1 tab by mouth twice daily with food AUGMENTIN 875-125 MG TAB 820710 AMOXICILLIN-POT CLAVULANATE Inactive Advance Directives Directive Description [...] Measured Encounters Code Encounter Date Provider Facility CPT-51400 Level 3 Est. Patient 18:10:[address] [facility] [place] CPT-10043 Level 3 Est. Patient 13:01:[address] [facility] [place] CPT-31781 Level 3 Est. Patient 10:22:24 CDT Radha Victor [facility]-13268 Level 3 Est. Patient 18:31:30 CDT Linda Davis MD PhD [facility] CPT-97786 Level 4 Est. Patient 21:34:05 GROOVER AND STRIPER OPERATOR Mikhail Forbes MD [facility] CPT-70770 Level 4 Est. Patient 15:14:34 GROOVER AND STRIPER OPERATOR Mikhail Forbes MD [facility] CPT-94037 Level 3 Est. Patient 12:52:25 CDT Mikhail Forbes MD [facility] CPT-73724 Level 2 Est. Patient 14:57:[address] [facility] CPT-08405 Level 2 Est. Patient 16:59:[address] [facility] CPT-43538 Level 3 Est. Patient 15:10:28 CDT Moon Pete [facility] CPT-31437 Level 3 Est. Patient 13:38:05 GROOVER AND STRIPER OPERATOR Moon Pete [facility] CPT-30888 Level 3 Est. Patient 13:36:40 GROOVER AND STRIPER OPERATOR Antony Moran DO [facility] CPT-10280 Level 3 Est. Patient 14:07:56 GROOVER AND STRIPER OPERATOR Moon Pete [facility] Procedures Code Procedure Name Date Entry Date Standard Description CPT-J1050 Depo Provera 150 mg (Medroxyprogesterone) 14:50:04 CDT CPT-19936 Abx/Therapy Injection 14:50:04 CDT CPT-06940 Ankle, right, Complete - Min 3V 10:34:26 CDT CPT-J1050 Depo Provera 150 mg (Medroxyprogesterone) 11:26:14 CDT CPT-29356 Abx/Therapy Injection 11:26:13 CDT CPT-J1055 Depo-Provera Injection only 150 mg 16:55:48 CDT CPT-J1050 Depo Provera 150 mg (Medroxyprogesterone) 13:49:16 GROOVER AND STRIPER OPERATOR CPT-12234 Abx/Therapy Injection 13:49:16 GROOVER AND STRIPER OPERATOR CPT-J1055 Depo-Provera Injection only 150 mg 09:45:32 GROOVER AND STRIPER OPERATOR CPT-J1050 Depo Provera 150 mg (Medroxyprogesterone) 18:49:54 CDT CPT-09091 Abx/Therapy Injection 18:49:54 CDT CPT-J1055 Depo-Provera Injection only 150 mg 09:18:50 CDT CPT-J1050 Depo Provera 150 mg (Medroxyprogesterone) 08:12:54 CDT CPT-53945 Abx/Therapy Injection 08:12:54 CDT CPT-J1050 Depo Provera 150 mg (Medroxyprogesterone) 15:07:25 CDT CPT-36004 Abx/Therapy Injection 15:07:25 CDT CPT-J1050 Depo Provera 150 mg (Medroxyprogesterone) 09:59:09 CDT CPT-J1050 Depo Provera 150 mg (Medroxyprogesterone) 15:43:37 GROOVER AND STRIPER OPERATOR CPT-24326 Abx/Therapy Injection 15:43:37 GROOVER AND STRIPER OPERATOR CPT-J1050 Depo Provera 150 mg (Medroxyprogesterone) 15:14:34 GROOVER AND STRIPER OPERATOR CPT-33793 Postop F/U Visit 09:10:48 CDT CPT-OV Office Visit 21:43:13 CDT CPT-26223 Postop F/U Visit 16:13:18 CDT CPT-64637 Venipuncture Draw Fee 13:37:57 GROOVER AND STRIPER OPERATOR
--- OUTSIDE RECORDS SUMMARY | 2018-09-25 11:02 | XMS REPORT | Clinical Summary ---
Author Author Admin, MAISHA Pedroza [facility] Address Unknown Phone Unavailable Allergies, Adverse Reactions, Alerts Allergy Name Reaction Description Start Date Severity Status Provider SULFA rash Moderate Active Jessy Sommers HOSE CEMENTER Conditions or Problems Problem Name Problem Code Onset Date Status Entry Date Provider Comment Standard Description Annotate FH DIABETES V18.0 Active Moon Pete SYSTEM DEVELOPMENT MANAGER Family history of diabetes mellitus PHARYNGITIS-ACUTE 462 Inactive Moon Pete SYSTEM DEVELOPMENT MANAGER Acute pharyngitis OTITIS MEDIA, RIGHT 382.9 Active Moon Pete SYSTEM DEVELOPMENT MANAGER Unspecified otitis media ACUTE PHARYNGITIS 462 Active Antony Moran DO Acute pharyngitis COUGH 786.2 Active Antony Moran DO Cough FATIGUE 780.79 Active Antony Moran DO Other malaise and fatigue TONSILLITIS 463 Active Moon Pete SYSTEM DEVELOPMENT MANAGER Acute tonsillitis ABSCESS, GLUTEAL 682.5 Active Moon Pete SYSTEM DEVELOPMENT MANAGER Cellulitis and abscess of buttock EAR PAIN, LEFT 388.70 Active Moon Pete SYSTEM DEVELOPMENT MANAGER Otalgia, unspecified FH BREAST CANCER V16.3 Active Jillina Kayleigh SYSTEM DEVELOPMENT MANAGER Family history of malignant neoplasm of breast PILONIDAL CYST 685.1 Active Jillina Frazell SYSTEM DEVELOPMENT MANAGER Pilonidal cyst without mention of abscess AFTERCARE [...] 1 tab po qday for migraines. TOPIRAMATE 45577729116 Active Mikhail Forbes MD Active HYDROCODONE-ACETAMINOPHEN 5-325 MG TABS 1 po q 6hr PRN Pain 06/18 HYDROCODONE-ACETAMINOPHEN 10093010038 No Longer Active Mikhail Forbes MD Active KEFLEX 500 MG CAP 1 tab po tid CEPHALEXIN 01421225697 No Longer Active Mikhail Forbes MD Active HYDROCODONE-ACETAMINOPHEN 5-500 MG TABS 1 every 4hours as needed HYDROCODONE-ACETAMINOPHEN 98585801130 No Longer Active Radha Victor APRN Active TAMIFLU 75 MG CAPS 1 bid x 5 days OSELTAMIVIR PHOSPHATE 85076896077 No Longer Active Linda Davis MD PhD Active AUGMENTIN 875-125 MG TAB 1 tab by mouth twice daily with food AMOXICILLIN-POT CLAVULANATE 02004933706 No Longer Active Jillina Frazell SYSTEM DEVELOPMENT MANAGER Active AUGMENTIN 875-125 MG TAB 1 tab by mouth twice daily with food AMOXICILLIN-POT CLAVULANATE 93089844323 No Longer Active Jillina Frazell SYSTEM DEVELOPMENT MANAGER Active CLINDAMYCIN HCL 150 MG CAPS 1 four times a day CLINDAMYCIN HCL 42784308786 No Longer Active Moon Pete APRN Active BACTRIM DS 800-160 MG TAB 1 tab by mouth twice daily TRIMETHOPRIM-SULFAMETHOXAZOLE 53578560204 No Longer Active Moon Reed Juan R RODRÍGUEZ Active AMOXICILLIN 500 MG CAP 1 tab by mouth twice daily AMOXICILLIN 13676524885 No Longer Active Antony Moran DO Active ZITHROMAX Z-MAKAYLA 250 MG TABS 2 now then 1 everyday AZITHROMYCIN 11217862318 No Longer Active Antony Moran DO Active ZITHROMAX Z-MAKAYLA 250 MG TABS 2 now then 1 everyday ZITHROMAX Z-MAKAYLA 250 MG TABS 3224450 AZITHROMYCIN Inactive AMOXICILLIN 500 MG CAP 1 tab by mouth twice daily AMOXICILLIN 500 MG CAP 267138 AMOXICILLIN Inactive BACTRIM DS 800-160 MG TAB 1 tab by mouth twice daily BACTRIM DS 800-160 MG TAB TRIMETHOPRIM-SULFAMETHOXAZOLE Inactive CLINDAMYCIN HCL 150 MG CAPS 1 four times a day CLINDAMYCIN HCL 150 MG CAPS 401548 CLINDAMYCIN HCL Inactive HYDROCODONE-ACETAMINOPHEN 5-500 MG TABS 1 every 4hours as needed HYDROCODONE-ACETAMINOPHEN 5-500 MG TABS HYDROCODONE- ACETAMINOPHEN Inactive KEFLEX 500 MG CAP 1 tab po tid KEFLEX 500 MG CAP 499851 CEPHALEXIN Inactive HYDROCODONE-ACETAMINOPHEN 5-325 MG TABS 1 po q 6hr PRN Pain 06/18 HYDROCODONE-ACETAMINOPHEN 5-325 MG TABS 876738 HYDROCODONE- ACETAMINOPHEN Inactive AUGMENTIN 875-125 MG TAB 1 tab by mouth twice daily with food AUGMENTIN 875-125 MG TAB 974769 AMOXICILLIN-POT CLAVULANATE Inactive AUGMENTIN 875-125 MG TAB 1 tab by mouth twice daily with food AUGMENTIN 875-125 MG TAB 966464 AMOXICILLIN-POT CLAVULANATE Inactive TAMIFLU 75 MG CAPS [...] g/dL platelet count 311 10*3/mm3 Lab Report: [facility] - Chemistry human chorionic gonadotropin, urine, qualitative (urine test) Negative Negative Encounters Code Encounter Date Provider Facility CPT-84563 Level 4 Est. Patient 21:34:05 INSIDE SALES LEAD Mikhail Forbes MD [facility] CPT-89674 Level 4 Est. Patient 15:14:34 INSIDE SALES LEAD Mikhail Forbes MD [facility] CPT-92594 Level 3 Est. Patient 12:52:25 CDT Mikhail Forbes MD [facility] CPT-77303 Level 2 Est. Patient 14:57:21 CDT [facility]-91884 Level 2 Est. Patient 16:59:23 CDT Germainsantiago Victor [facility] CPT-44469 Level 3 Est. Patient 15:10:28 CDT Moon Pete [facility] CPT-38674 Level 3 Est. Patient 13:38:05 INSIDE SALES LEAD Moon Pete [facility] CPT-37885 Level 3 Est. Patient 13:36:40 INSIDE SALES LEAD Antony Moran DO [facility] CPT-67722 Level 3 Est. Patient 14:07:56 INSIDE SALES LEAD Moon Pete [facility] Procedures Code Procedure Name Date Entry Date Standard Description CPT-J1050 Depo Provera 150 mg (Medroxyprogesterone) 09:59:09 CDT CPT-J1050 Depo Provera 150 mg (Medroxyprogesterone) 15:43:37 INSIDE SALES LEAD CPT-05955 Abx/Therapy Injection 15:43:37 INSIDE SALES LEAD CPT-J1050 Depo Provera 150 mg (Medroxyprogesterone) 15:14:34 INSIDE SALES LEAD CPT-75277 Postop F/U Visit 09:10:48 CDT CPT-OV Office Visit 21:43:13 CDT CPT-04643 Postop F/U Visit 16:13:18 CDT CPT-68407 Venipuncture Draw Fee 13:37:57 INSIDE SALES LEAD
--- OUTSIDE RECORDS SUMMARY | 2018-09-25 11:03 | XMS REPORT | Clinical Summary ---
Author Author Admin, MAISHA Organization [employer] Address Unknown Phone Unavailable Allergies, Adverse Reactions, Alerts Allergy Name Reaction Description Start Date Severity Status Provider SULFA rash Moderate Active Jessy Sommers GREASE MONKEY Conditions or Problems Problem Name Problem Code Onset Date Status Entry Date Provider Comment Standard Description Annotate FH DIABETES V18.0 Active Moon Pete REIMBURSEMENT REPRESENTATIVE Family history of diabetes mellitus PHARYNGITIS-ACUTE 462 Inactive Moon Pete REIMBURSEMENT REPRESENTATIVE Acute pharyngitis OTITIS MEDIA, RIGHT 382.9 Resolved Linda Davis MD PhD Unspecified otitis media ACUTE PHARYNGITIS 462 Resolved Linda Davis MD PhD Acute pharyngitis ACUTE PHARYNGITIS 462 Active Mary Dupont REIMBURSEMENT REPRESENTATIVE Acute pharyngitis COUGH 786.2 Resolved Linda Davis MD PhD Cough FATIGUE 780.79 Resolved Linda Davis MD PhD Other malaise and fatigue TONSILLITIS 463 Resolved Linda Davis MD PhD Acute tonsillitis ABSCESS, GLUTEAL 682.5 Resolved Linda Davis MD PhD Cellulitis and abscess of buttock EAR PAIN, LEFT 388.70 Resolved Linda Davis MD PhD Otalgia, unspecified FH BREAST CANCER V16.3 Active Radha Victor REIMBURSEMENT REPRESENTATIVE Family history of malignant neoplasm of breast [...] Ankle pain, right 719.47 Active Radha Victor REIMBURSEMENT REPRESENTATIVE Pain in joint involving ankle and foot PHARYNGITIS-ACUTE ICD-462 Inactive Moon Pete REIMBURSEMENT REPRESENTATIVE OTITIS MEDIA, RIGHT ICD-382.9 Inactive Linda Davis [...] Instruction CLARITIN-D 12 HOUR 5-120 MG ORAL [id number] Take one tablet every 12 hours as needed for congestion LORATADINE-PSEUDOEPHEDRINE 41807741642 Active Mary Yokum REIMBURSEMENT REPRESENTATIVE Active AUGMENTIN 875-125 MG TAB 1 tab by mouth twice daily with food AMOXICILLIN-POT CLAVULANATE 03347276754 No Longer Active Marypushpa Dupont APRN Active DEPO-PROVERA 150 MG/ML SUPENSION q3mos MEDROXYPROGEST ANDRZEJ ( CONTRACEP) 08887764015 No Longer Active Marypushpa Dupont APRN Active NAPROXEN 500 MG TABS 1 twice a day for breakthrough bleeding. Continue for 1 month. NAPROXEN 11926593627 Active Ania Alejandra APRN Active TRI-SPRINTEC 0.18/0.215/0.25 MG-35 MCG TABS 1 po qd as directed. Begin 1st pack on 11/01/16. NORGESTIM-ETH ESTRAD TRIPHASIC 06616538649 Active Ania Alejandra APRN Active TYLENOL 325 MG TAB 1-2 pills by mouth every 6 hours if needed for pain/fever ACETAMINOPHEN 48095654281 Active Linda Davis MD PhD Active TOPAMAX 25 MG TABS take 1 tab po qday for migraines. TOPIRAMATE 85037975049 No Longer Active Linda Davis MD PhD Active HYDROCODONE-ACETAMINOPHEN 5-325 MG TABS 1 po q 6hr PRN Pain 06/18 HYDROCODONE-ACETAMINOPHEN 84528663177 No Longer Active Mikhail Forbes MD Active KEFLEX 500 MG CAP 1 tab po tid CEPHALEXIN 41807638894 No Longer Active Mikhail Forbes MD Active HYDROCODONE-ACETAMINOPHEN 5-500 MG TABS 1 every 4hours as needed HYDROCODONE-ACETAMINOPHEN 58148323339 No Longer Active Germainllina Kayleigh COOPERN Active TAMIFLU 75 MG CAPS 1 bid x 5 days OSELTAMIVIR PHOSPHATE 50091613773 No Longer Active Linda aDvis MD PhD Active AUGMENTIN 875-125 MG TAB 1 tab by mouth twice daily with food AMOXICILLIN-POT CLAVULANATE 91485568230 No Longer Active Jillina Frazell REIMBURSEMENT REPRESENTATIVE Active AUGMENTIN 875-125 MG TAB 1 tab by mouth twice daily with food AMOXICILLIN-POT CLAVULANATE 70427972232 No Longer Active Jillina Frashantelll REIMBURSEMENT REPRESENTATIVE Active CLINDAMYCIN HCL 150 MG CAPS 1 four times a day CLINDAMYCIN HCL 39848190945 No Longer Active Moon Pete APRN Active BACTRIM DS 800-160 MG TAB 1 tab by mouth twice daily TRIMETHOPRIM-SULFAMETHOXAZOLE 81436314580 No Longer Active Moon Pete APRN Active AMOXICILLIN 500 MG CAP 1 tab by mouth twice daily AMOXICILLIN 35680997910 No Longer Active Antony Moran DO Active ZITHROMAX Z-MAKAYLA 250 MG TABS 2 now then 1 everyday AZITHROMYCIN 34804149071 No Longer Active Antony Moran DO Active ZITHROMAX Z-MAKAYLA 250 MG TABS 2 now then 1 everyday ZITHROMAX Z-MAKAYLA 250 MG TABS 0190695 AZITHROMYCIN Inactive AMOXICILLIN 500 MG CAP 1 tab by mouth twice daily AMOXICILLIN 500 MG CAP 721919 AMOXICILLIN Inactive BACTRIM DS 800-160 MG TAB 1 tab by mouth twice daily BACTRIM DS 800-160 MG TAB 017340 TRIMETHOPRIM-SULFAMETHOXAZOLE Inactive CLINDAMYCIN HCL 150 MG CAPS 1 four times a day CLINDAMYCIN HCL 150 MG CAPS 889772 CLINDAMYCIN HCL Inactive HYDROCODONE-ACETAMINOPHEN 5-500 MG TABS 1 every 4hours as needed HYDROCODONE-ACETAMINOPHEN 5-500 MG TABS HYDROCODONE- ACETAMINOPHEN Inactive KEFLEX 500 MG CAP 1 tab po tid KEFLEX 500 MG CAP 089543 CEPHALEXIN Inactive HYDROCODONE-ACETAMINOPHEN 5-325 MG TABS 1 po q 6hr PRN Pain 06/18 HYDROCODONE-ACETAMINOPHEN 5-325 MG TABS 245477 HYDROCODONE- ACETAMINOPHEN Inactive TOPAMAX 25 MG TABS take 1 tab po qday for migraines. TOPAMAX 25 MG TABS 916303 TOPIRAMATE Inactive DEPO-PROVERA 150 MG/ML SUPENSION q3mos DEPO-PROVERA 150 MG/ML SUPENSION 9421166 MEDROXYPROGEST ANDRZEJ (CONTRACEP) Inactive AUGMENTIN 875-125 MG TAB 1 tab by mouth twice daily with food AUGMENTIN 875-125 MG TAB 601452 AMOXICILLIN-POT CLAVULANATE Inactive AUGMENTIN 875-125 MG TAB 1 tab by mouth twice daily with food AUGMENTIN 875-125 MG TAB 861488 AMOXICILLIN-POT CLAVULANATE Inactive TAMIFLU 75 MG CAPS 1 bid x 5 days TAMIFLU 75 MG CAPS 731176 OSELTAMIVIR PHOSPHATE Inactive AUGMENTIN 875-125 MG TAB 1 tab by mouth twice daily with food AUGMENTIN 875-125 MG TAB 285560 AMOXICILLIN-POT CLAVULANATE Inactive Advance Directives Directive Description [...] Measured Encounters Code Encounter Date Provider Facility CPT-94305 Level 3 Est. Patient 18:10:13 CDT Ania Alejandra [facility] CPT-36131 Level 3 Est. Patient 13:01:05 CDT Mary Dupont [facility] CPT-02045 Level 3 Est. Patient 10:22:24 CDT Radha Victor [facility]-76378 Level 3 Est. Patient 18:31:30 CDT Linda Davis MD PhD [facility] CPT-58769 Level 4 Est. Patient 21:34:05 MEDICAL RECORD CLERK Mikhail Forbes MD [facility] CPT-39524 Level 4 Est. Patient 15:14:34 MEDICAL RECORD CLERK Mikhail Forbes MD [facility] CPT-27966 Level 3 Est. Patient 12:52:25 CDT Mikhail Forbes MD [facility] CPT-34409 Level 2 Est. Patient 14:57:21 CDT Radha Victor [facility] CPT-93280 Level 2 Est. Patient 16:59:23 CDT Radha Victor [facility] CPT-05381 Level 3 Est. Patient 15:10:28 CDT Moon Pete [facility] CPT-08789 Level 3 Est. Patient 13:38:05 MEDICAL RECORD CLERK Moon Pete [facility] CPT-49540 Level 3 Est. Patient 13:36:40 MEDICAL RECORD CLERK Antony Moran DO [facility] CPT-66020 Level 3 Est. Patient 14:07:56 MEDICAL RECORD CLERK Moon Pete [facility] Procedures Code Procedure Name Date Entry Date Standard Description CPT-J1050 Depo Provera 150 mg (Medroxyprogesterone) 14:50:04 CDT CPT-80618 Abx/Therapy Injection 14:50:04 CDT CPT-44694 Ankle, right, Complete - Min 3V 10:34:26 CDT CPT-J1050 Depo Provera 150 mg (Medroxyprogesterone) 11:26:14 CDT CPT-21420 Abx/Therapy Injection 11:26:13 CDT CPT-J1055 Depo-Provera Injection only 150 mg 16:55:48 CDT CPT-J1050 Depo Provera 150 mg (Medroxyprogesterone) 13:49:16 MEDICAL RECORD CLERK CPT-62440 Abx/Therapy Injection 13:49:16 MEDICAL RECORD CLERK CPT-J1055 Depo-Provera Injection only 150 mg 09:45:32 MEDICAL RECORD CLERK CPT-J1050 Depo Provera 150 mg (Medroxyprogesterone) 18:49:54 CDT CPT-55699 Abx/Therapy Injection 18:49:54 CDT CPT-J1055 Depo-Provera Injection only 150 mg 09:18:50 CDT CPT-J1050 Depo Provera 150 mg (Medroxyprogesterone) 08:12:54 CDT CPT-30633 Abx/Therapy Injection 08:12:54 CDT CPT-J1050 Depo Provera 150 mg (Medroxyprogesterone) 15:07:25 CDT CPT-20706 Abx/Therapy Injection 15:07:25 CDT CPT-J1050 Depo Provera 150 mg (Medroxyprogesterone) 09:59:09 CDT CPT-J1050 Depo Provera 150 mg (Medroxyprogesterone) 15:43:37 MEDICAL RECORD CLERK CPT-26408 Abx/Therapy Injection 15:43:37 MEDICAL RECORD CLERK CPT-J1050 Depo Provera 150 mg (Medroxyprogesterone) 15:14:34 MEDICAL RECORD CLERK CPT-90209 Postop F/U Visit 09:10:48 CDT CPT-OV Office Visit 21:43:13 CDT CPT-64941 Postop F/U Visit 16:13:18 CDT CPT-31899 Venipuncture Draw Fee 13:37:57 MEDICAL RECORD CLERK
--- OUTSIDE RECORDS SUMMARY | 2018-09-25 11:03 | XMS REPORT | Clinical Summary ---
Author Author Admin, MAISHA Pedroza [facility] Address Unknown Phone Unavailable Allergies, Adverse Reactions, Alerts Allergy Name Reaction Description Start Date Severity Status Provider SULFA rash Moderate Active Jessy Sommers SKIMMER Conditions or Problems Problem Name Problem Code Onset Date Status Entry Date Provider Comment Standard Description Annotate FH DIABETES V18.0 Active Moon Pete SAMPLER AND TEST PREPARER Family history of diabetes mellitus PHARYNGITIS-ACUTE 462 Inactive Moon Pete SAMPLER AND TEST PREPARER Acute pharyngitis OTITIS MEDIA, RIGHT 382.9 Active Moon Pete SAMPLER AND TEST PREPARER Unspecified otitis media ACUTE PHARYNGITIS 462 Active Antony Moran DO Acute pharyngitis COUGH 786.2 Active Antony Moran DO Cough FATIGUE 780.79 Active Antony Moran DO Other malaise and fatigue TONSILLITIS 463 Active Moon Pete SAMPLER AND TEST PREPARER Acute tonsillitis ABSCESS, GLUTEAL 682.5 Active Moon Pete SAMPLER AND TEST PREPARER Cellulitis and abscess of buttock EAR PAIN, LEFT 388.70 Active Moon Pete SAMPLER AND TEST PREPARER Otalgia, unspecified FH BREAST CANCER V16.3 Active Jillina Kayleigh SAMPLER AND TEST PREPARER Family history of malignant neoplasm of breast PILONIDAL CYST 685.1 Active Jillina Frazell SAMPLER AND TEST PREPARER Pilonidal cyst without mention of abscess AFTERCARE [...] 1 tab po qday for migraines. TOPIRAMATE 23227588733 Active Mikhail Forbes MD Active HYDROCODONE-ACETAMINOPHEN 5-325 MG TABS 1 po q 6hr PRN Pain 06/18 HYDROCODONE-ACETAMINOPHEN 20484849991 No Longer Active Mikhail Forbes MD Active KEFLEX 500 MG CAP 1 tab po tid CEPHALEXIN 18903291349 No Longer Active Mikhail Forbes MD Active HYDROCODONE-ACETAMINOPHEN 5-500 MG TABS 1 every 4hours as needed HYDROCODONE-ACETAMINOPHEN 72808929280 No Longer Active Radha Victor APRN Active TAMIFLU 75 MG CAPS 1 bid x 5 days OSELTAMIVIR PHOSPHATE 68526160412 No Longer Active Linda Davis MD PhD Active AUGMENTIN 875-125 MG TAB 1 tab by mouth twice daily with food AMOXICILLIN-POT CLAVULANATE 10098527255 No Longer Active Jillina Frazell SAMPLER AND TEST PREPARER Active AUGMENTIN 875-125 MG TAB 1 tab by mouth twice daily with food AMOXICILLIN-POT CLAVULANATE 67594161501 No Longer Active Jillina Frazell SAMPLER AND TEST PREPARER Active CLINDAMYCIN HCL 150 MG CAPS 1 four times a day CLINDAMYCIN HCL 60947685894 No Longer Active Moon Pete APRN Active BACTRIM DS 800-160 MG TAB 1 tab by mouth twice daily TRIMETHOPRIM-SULFAMETHOXAZOLE 35875335105 No Longer Active Moon Reed Juan R RODRÍGUEZ Active AMOXICILLIN 500 MG CAP 1 tab by mouth twice daily AMOXICILLIN 58444822808 No Longer Active Antony Moran DO Active ZITHROMAX Z-MAKAYLA 250 MG TABS 2 now then 1 everyday AZITHROMYCIN 57407751575 No Longer Active Antony Moran DO Active ZITHROMAX Z-MAKAYLA 250 MG TABS 2 now then 1 everyday ZITHROMAX Z-MAKAYLA 250 MG TABS 9111973 AZITHROMYCIN Inactive AMOXICILLIN 500 MG CAP 1 tab by mouth twice daily AMOXICILLIN 500 MG CAP 935123 AMOXICILLIN Inactive BACTRIM DS 800-160 MG TAB 1 tab by mouth twice daily BACTRIM DS 800-160 MG TAB TRIMETHOPRIM-SULFAMETHOXAZOLE Inactive CLINDAMYCIN HCL 150 MG CAPS 1 four times a day CLINDAMYCIN HCL 150 MG CAPS 056155 CLINDAMYCIN HCL Inactive HYDROCODONE-ACETAMINOPHEN 5-500 MG TABS 1 every 4hours as needed HYDROCODONE-ACETAMINOPHEN 5-500 MG TABS HYDROCODONE- ACETAMINOPHEN Inactive KEFLEX 500 MG CAP 1 tab po tid KEFLEX 500 MG CAP 101218 CEPHALEXIN Inactive HYDROCODONE-ACETAMINOPHEN 5-325 MG TABS 1 po q 6hr PRN Pain 06/18 HYDROCODONE-ACETAMINOPHEN 5-325 MG TABS 138834 HYDROCODONE- ACETAMINOPHEN Inactive AUGMENTIN 875-125 MG TAB 1 tab by mouth twice daily with food AUGMENTIN 875-125 MG TAB 351596 AMOXICILLIN-POT CLAVULANATE Inactive AUGMENTIN 875-125 MG TAB 1 tab by mouth twice daily with food AUGMENTIN 875-125 MG TAB 783880 AMOXICILLIN-POT CLAVULANATE Inactive TAMIFLU 75 MG CAPS [...] E&M - 3141-9 128 [lb_av] Weight Measured Diagnostic Results Date Name Value Unit Range Description Lab Report: [facility] - Chemistry human chorionic gonadotropin, urine, qualitative (urine test) Negative Negative human chorionic gonadotropin, urine, qualitative (urine test) Negative Negative Encounters Code Encounter Date Provider Facility CPT-79787 Level 4 Est. Patient 21:34:05 DERRICK FOLLOWER Mikhail Forbes MD [facility] CPT-74149 Level 4 Est. Patient 15:14:34 DERRICK FOLLOWER Mikhail Forbes MD [facility] CPT-04565 Level 3 Est. Patient 12:52:25 CDT Mikhail Forbes MD [facility] CPT-92388 Level 2 Est. Patient 14:57:21 CDT Radha Victor [facility] CPT-89807 Level 2 Est. Patient 16:59:23 CDT Radha Victor [facility] CPT-86661 Level 3 Est. Patient 15:10:28 CDT Moon Pete [facility] CPT-36669 Level 3 Est. Patient 13:38:05 DERRICK FOLLOWER Moon Pete [facility] CPT-56274 Level 3 Est. Patient 13:36:40 DERRICK FOLLOWER Antony Moran DO [facility] CPT-57361 Level 3 Est. Patient 14:07:56 DERRICK FOLLOWER Moon Pete [facility] Procedures Code Procedure Name Date Entry Date Standard Description CPT-J1050 Depo Provera 150 mg (Medroxyprogesterone) 08:12:54 CDT CPT-85456 Abx/Therapy Injection 08:12:54 CDT CPT-J1050 Depo Provera 150 mg (Medroxyprogesterone) 15:07:25 CDT CPT-39179 Abx/Therapy Injection 15:07:25 CDT CPT-J1050 Depo Provera 150 mg (Medroxyprogesterone) 09:59:09 CDT CPT-J1050 Depo Provera 150 mg (Medroxyprogesterone) 15:43:37 DERRICK FOLLOWER CPT-07107 Abx/Therapy Injection 15:43:37 DERRICK FOLLOWER CPT-J1050 Depo Provera 150 mg (Medroxyprogesterone) 15:14:34 DERRICK FOLLOWER CPT-45861 Postop F/U Visit 09:10:48 CDT CPT-OV Office Visit 21:43:13 CDT CPT-60135 Postop F/U Visit 16:13:18 CDT CPT-63585 Venipuncture Draw Fee 13:37:57 DERRICK FOLLOWER
--- OUTSIDE RECORDS SUMMARY | 2018-09-25 11:04 | XMS REPORT | Clinical Summary ---
Author Author Admin, MAISHA Pedroza [facility] Address Unknown Phone Unavailable Allergies, Adverse Reactions, Alerts Allergy Name Reaction Description Start Date Severity Status Provider SULFA rash Moderate Active Jessy Sommers LUBRICATION TECHNICIAN Conditions or Problems Problem Name Problem Code Onset Date Status Entry Date Provider Comment Standard Description Annotate FH DIABETES V18.0 Active Moon Pete COMPUTER OPERATIONS TECHNICIAN Family history of diabetes mellitus PHARYNGITIS-ACUTE 462 Inactive Moon Pete COMPUTER OPERATIONS TECHNICIAN Acute pharyngitis OTITIS MEDIA, RIGHT 382.9 Resolved [...] FH BREAST CANCER V16.3 Active Radha Victor COMPUTER OPERATIONS TECHNICIAN Family history of malignant neoplasm of [...] and fatigue PHARYNGITIS-ACUTE ICD-462 Inactive Moon Pete COMPUTER OPERATIONS TECHNICIAN OTITIS MEDIA, RIGHT ICD-382.9 Inactive Linda Davis [...] 6 hours if needed for pain/fever ACETAMINOPHEN 89894977646 Active Linda Davis MD PhD Active DEPO-PROVERA 150 MG/ML SUPENSION q3mos MEDROXYPROGEST ANDRZEJ (CONTRACEP) 59024571984 Active Linda Davis MD PhD Active TOPAMAX 25 MG TABS take 1 tab po qday for migraines. TOPIRAMATE 72072147901 No Longer Active Linda Davis MD PhD Active HYDROCODONE-ACETAMINOPHEN 5-325 MG TABS 1 po q 6hr PRN Pain 06/18 HYDROCODONE-ACETAMINOPHEN 04170768746 No Longer Active Mikhail Forbes MD Active KEFLEX 500 MG CAP 1 tab po tid CEPHALEXIN 01072092531 No Longer Active Mikhail Forbes MD Active HYDROCODONE-ACETAMINOPHEN 5-500 MG TABS 1 every 4hours as needed HYDROCODONE-ACETAMINOPHEN 45738787748 No Longer Active Radha Victor APRN Active TAMIFLU 75 MG CAPS 1 bid x 5 days OSELTAMIVIR PHOSPHATE 31835930578 No Longer Active Linda Davis MD PhD Active AUGMENTIN 875-125 MG TAB 1 tab by mouth twice daily with food AMOXICILLIN-POT CLAVULANATE 15454456997 No Longer Active Jillina Frazell COMPUTER OPERATIONS TECHNICIAN Active AUGMENTIN 875-125 MG TAB 1 tab by mouth twice daily with food AMOXICILLIN-POT CLAVULANATE 00761531673 No Longer Active Jillina Frahazel COMPUTER OPERATIONS TECHNICIAN Active CLINDAMYCIN HCL 150 MG CAPS 1 four times a day CLINDAMYCIN HCL 33194543114 No Longer Active Moonbeau Pete APRN Active BACTRIM DS 800-160 MG TAB 1 tab by mouth twice daily TRIMETHOPRIM-SULFAMETHOXAZOLE 51495537587 No Longer Active Moon Pete COMPUTER OPERATIONS TECHNICIAN Active AMOXICILLIN 500 MG CAP 1 tab by mouth twice daily AMOXICILLIN 22108868291 No Longer Active Antony Moran DO Active ZITHROMAX Z-MAKAYLA 250 MG TABS 2 now then 1 everyday AZITHROMYCIN 79808896050 No Longer Active Antony Moran DO Active ZITHROMAX Z-MAKAYLA 250 MG TABS 2 now then 1 everyday ZITHROMAX Z-MAKAYLA 250 MG TABS 6426276 AZITHROMYCIN Inactive AMOXICILLIN 500 MG CAP 1 tab by mouth twice daily AMOXICILLIN 500 MG CAP 471765 AMOXICILLIN Inactive BACTRIM DS 800-160 MG TAB 1 tab by mouth twice daily BACTRIM DS 800-160 MG TAB 276281 TRIMETHOPRIM-SULFAMETHOXAZOLE Inactive CLINDAMYCIN HCL 150 MG CAPS 1 four times a day CLINDAMYCIN HCL 150 MG CAPS 090162 CLINDAMYCIN HCL Inactive HYDROCODONE-ACETAMINOPHEN 5-500 MG TABS 1 every 4hours as needed HYDROCODONE-ACETAMINOPHEN 5-500 MG TABS HYDROCODONE- ACETAMINOPHEN Inactive KEFLEX 500 MG CAP 1 tab po tid KEFLEX 500 MG CAP 800349 CEPHALEXIN Inactive HYDROCODONE-ACETAMINOPHEN 5-325 MG TABS 1 po q 6hr PRN Pain 06/18 HYDROCODONE-ACETAMINOPHEN 5-325 MG TABS 095729 HYDROCODONE- ACETAMINOPHEN Inactive TOPAMAX 25 MG TABS take 1 tab po qday for migraines. TOPAMAX 25 MG TABS 725709 TOPIRAMATE Inactive AUGMENTIN 875-125 MG TAB 1 tab by mouth twice daily with food AUGMENTIN 875-125 MG TAB 911915 AMOXICILLIN-POT CLAVULANATE Inactive AUGMENTIN 875-125 MG TAB 1 tab by mouth twice daily with food AUGMENTIN 875-125 MG TAB 696612 AMOXICILLIN-POT CLAVULANATE Inactive TAMIFLU 75 MG CAPS [...] EBV - Chemistry sodium, serum 141 mmol/L 828-910 2527/09/21 carbon dioxide, venous blood 26.0 mmol/L 21.0-32.0 [...] Negative-Throat Culture to Follow Negative Lab Report: [facility] [place] Chemistry human chorionic gonadotropin, urine, qualitative (urine test) Negative Negative human chorionic gonadotropin, urine, qualitative (urine test) Negative Negative Encounters Code Encounter Date Provider Facility CPT-94613 Level 3 Est. Patient 18:31:30 CDT Linda Davis MD PhD [facility] CPT-25644 Level 4 Est. Patient 21:34:05 MEDICAL EDUCATOR Mikhail Forbes MD [facility] CPT-74818 Level 4 Est. Patient 15:14:34 MEDICAL EDUCATOR Mikhail Forbes MD [facility] CPT-72002 Level 3 Est. Patient 12:52:25 CDT Mikhail Forbes MD [facility] CPT-62186 Level 2 Est. Patient 14:57:21 CDT Radha Victor [facility] CPT-92025 Level 2 Est. Patient 16:59:23 CDT Radha Victor [facility] CPT-69830 Level 3 Est. Patient 15:10:28 CDT Moon Derek Pete [facility] CPT-04640 Level 3 Est. Patient 13:38:05 MEDICAL EDUCATOR Moon Pete [facility] CPT-16479 Level 3 Est. Patient 13:36:40 MEDICAL EDUCATOR Antony Moran DO [facility] CPT-64757 Level 3 Est. Patient 14:07:56 MEDICAL EDUCATOR Moon Pete [facility] Procedures Code Procedure Name Date Entry Date Standard Description CPT-J1050 Depo Provera 150 mg (Medroxyprogesterone) 13:49:16 MEDICAL EDUCATOR CPT-97864 Abx/Therapy Injection 13:49:16 MEDICAL EDUCATOR CPT-J1055 Depo-Provera Injection only 150 mg 09:45:32 MEDICAL EDUCATOR CPT-J1050 Depo Provera 150 mg (Medroxyprogesterone) 18:49:54 CDT CPT-54214 Abx/Therapy Injection 18:49:54 CDT CPT-J1055 Depo-Provera Injection only 150 mg 09:18:50 CDT CPT-J1050 Depo Provera 150 mg (Medroxyprogesterone) 08:12:54 CDT CPT-94640 Abx/Therapy Injection 08:12:54 CDT CPT-J1050 Depo Provera 150 mg (Medroxyprogesterone) 15:07:25 CDT CPT-76920 Abx/Therapy Injection 15:07:25 CDT CPT-J1050 Depo Provera 150 mg (Medroxyprogesterone) 09:59:09 CDT CPT-J1050 Depo Provera 150 mg (Medroxyprogesterone) 15:43:37 MEDICAL EDUCATOR CPT-07848 Abx/Therapy Injection 15:43:37 MEDICAL EDUCATOR CPT-J1050 Depo Provera 150 mg (Medroxyprogesterone) 15:14:34 MEDICAL EDUCATOR CPT-45130 Postop F/U Visit 09:10:48 CDT CPT-OV Office Visit 21:43:13 CDT CPT-09461 Postop F/U Visit 16:13:18 CDT CPT-27045 Venipuncture Draw Fee 13:37:57 MEDICAL EDUCATOR
--- OUTSIDE RECORDS SUMMARY | 2018-09-25 11:04 | XMS REPORT | Clinical Summary ---
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 Conditions or Problems Problem Name Problem Code Onset Date Status Entry Date Provider Comment Standard Description Annotate FH DIABETES V18.0 Active Moon Pete POST SECONDARY PROFESSIONAL Family history of diabetes mellitus PHARYNGITIS-ACUTE 462 Inactive Moon Pete POST SECONDARY PROFESSIONAL Acute pharyngitis OTITIS MEDIA, RIGHT 382.9 Resolved [...] FH BREAST CANCER V16.3 Active Radha Victor POST SECONDARY PROFESSIONAL Family history of malignant neoplasm of breast [...] and fatigue PHARYNGITIS-ACUTE ICD-462 Inactive Moon Pete POST SECONDARY PROFESSIONAL OTITIS MEDIA, RIGHT ICD-382.9 Inactive Linda Davis [...] 6 hours if needed for pain/fever ACETAMINOPHEN 04857550198 Active Linda Davis MD PhD Active DEPO-PROVERA 150 MG/ML SUPENSION q3mos MEDROXYPROGEST ANDRZEJ (CONTRACEP) 09805310406 Active Linda Davis MD PhD Active TOPAMAX 25 MG TABS take 1 tab po qday for migraines. TOPIRAMATE 12915622601 No Longer Active Linda Davis MD PhD Active HYDROCODONE-ACETAMINOPHEN 5-325 MG TABS 1 po q 6hr PRN Pain 06/18 HYDROCODONE-ACETAMINOPHEN 71856810290 No Longer Active Mikhail Forbes MD Active KEFLEX 500 MG CAP 1 tab po tid CEPHALEXIN 59126676368 No Longer Active Mikhail Forbes MD Active HYDROCODONE-ACETAMINOPHEN 5-500 MG TABS 1 every 4hours as needed HYDROCODONE-ACETAMINOPHEN 83824184801 No Longer Active Radha Victor APRN Active TAMIFLU 75 MG CAPS 1 bid x 5 days OSELTAMIVIR PHOSPHATE 24838913398 No Longer Active Linda Davis MD PhD Active AUGMENTIN 875-125 MG TAB 1 tab by mouth twice daily with food AMOXICILLIN-POT CLAVULANATE 29429042338 No Longer Active Jillina Frazell POST SECONDARY PROFESSIONAL Active AUGMENTIN 875-125 MG TAB 1 tab by mouth twice daily with food AMOXICILLIN-POT CLAVULANATE 80219879413 No Longer Active Jillina Frahazel POST SECONDARY PROFESSIONAL Active CLINDAMYCIN HCL 150 MG CAPS 1 four times a day CLINDAMYCIN HCL 45221886325 No Longer Active Moonbeau Pete APRN Active BACTRIM DS 800-160 MG TAB 1 tab by mouth twice daily TRIMETHOPRIM-SULFAMETHOXAZOLE 65661284069 No Longer Active Moon Pete POST SECONDARY PROFESSIONAL Active AMOXICILLIN 500 MG CAP 1 tab by mouth twice daily AMOXICILLIN 54671727510 No Longer Active Antony Moran DO Active ZITHROMAX Z-MAKAYLA 250 MG TABS 2 now then 1 everyday AZITHROMYCIN 80931059024 No Longer Active Antony Moran DO Active ZITHROMAX Z-MAKAYLA 250 MG TABS 2 now then 1 everyday ZITHROMAX Z-MAKAYLA 250 MG TABS 6608867 AZITHROMYCIN Inactive AMOXICILLIN 500 MG CAP 1 tab by mouth twice daily AMOXICILLIN 500 MG CAP 347225 AMOXICILLIN Inactive BACTRIM DS 800-160 MG TAB 1 tab by mouth twice daily BACTRIM DS 800-160 MG TAB 671874 TRIMETHOPRIM-SULFAMETHOXAZOLE Inactive CLINDAMYCIN HCL 150 MG CAPS 1 four times a day CLINDAMYCIN HCL 150 MG CAPS 158067 CLINDAMYCIN HCL Inactive HYDROCODONE-ACETAMINOPHEN 5-500 MG TABS 1 every 4hours as needed HYDROCODONE-ACETAMINOPHEN 5-500 MG TABS HYDROCODONE- ACETAMINOPHEN Inactive KEFLEX 500 MG CAP 1 tab po tid KEFLEX 500 MG CAP 403681 CEPHALEXIN Inactive HYDROCODONE-ACETAMINOPHEN 5-325 MG TABS 1 po q 6hr PRN Pain 06/18 HYDROCODONE-ACETAMINOPHEN 5-325 MG TABS 991460 HYDROCODONE- ACETAMINOPHEN Inactive TOPAMAX 25 MG TABS take 1 tab po qday for migraines. TOPAMAX 25 MG TABS 769827 TOPIRAMATE Inactive AUGMENTIN 875-125 MG TAB 1 tab by mouth twice daily with food AUGMENTIN 875-125 MG TAB 851423 AMOXICILLIN-POT CLAVULANATE Inactive AUGMENTIN 875-125 MG TAB 1 tab by mouth twice daily with food AUGMENTIN 875-125 MG TAB 040788 AMOXICILLIN-POT CLAVULANATE Inactive TAMIFLU 75 MG CAPS [...] leukocyte count, blood 6.8 10^3/MM^3 10*3/mm3 4.6-10.2 hematocrit, blood 38.4 % 36.0-46.0 mean corpuscular volume, RBC 93 fL 80-97 mean corpuscular hemoglobin, RBC 31.5 pg 27.0-31.2 mean corpuscular hemoglobin concentration, RBC 34.0 G/DL % 31.8- 35.4 red blood cell distribution width 13.1 % 11.6-14.8 platelet count 306 10^3/MM^3 10*3/mm3 528-603 4189/09/21 neutrophils as percent of blood leukocytes 51.2 % 42.2-75.2 monocytes as percent of blood leukocytes 7.1 % 1.7-9.3 lymphocytes as percent of blood leukocytes 38.4 % 20.5-51.1 erythrocyte (RBC) count 4.14 10^6/MM^3 10*6/mm3 4.04-5.48 hemoglobin, blood 13.0 g/dL 12.0-16.0 Lab Report: Comp. Metabolic Panel, H. Pylori, [...] Negative-Throat Culture to Follow Negative Lab Report: [facility] [place] - Chemistry human chorionic gonadotropin, urine, qualitative (urine test) Negative Negative human chorionic gonadotropin, urine, qualitative (urine test) Negative Negative Encounters Code Encounter Date Provider Facility CPT-08742 Level 3 Est. Patient 18:31:30 CDT Linda Davis MD PhD [facility] CPT-59248 Level 4 Est. Patient 21:34:05 CONTRACTING ENGINEER Mikhail Forbes MD [facility] CPT-10839 Level 4 Est. Patient 15:14:34 CONTRACTING ENGINEER Mikhail Forbes MD [facility] CPT-51387 Level 3 Est. Patient 12:52:25 CDT Mikhail Forbes MD [facility] CPT-54576 Level 2 Est. Patient 14:57:21 CDT Radha Victor [facility] CPT-02591 Level 2 Est. Patient 16:59:23 CDT Radha Victor [facility] CPT-82228 Level 3 Est. Patient 15:10:28 CDT Moon Derek [facility] CPT-90828 Level 3 Est. Patient 13:38:05 CONTRACTING ENGINEER Moon Pete [facility] CPT-33562 Level 3 Est. Patient 13:36:40 CONTRACTING ENGINEER Antony Moran DO [facility] CPT-03131 Level 3 Est. Patient 14:07:56 CONTRACTING ENGINEER Moon Pete [facility] Procedures Code Procedure Name Date Entry Date Standard Description CPT-J1055 Depo-Provera Injection only 150 mg 09:45:32 CONTRACTING ENGINEER CPT-J1050 Depo Provera 150 mg (Medroxyprogesterone) 18:49:54 CDT CPT-16823 Abx/Therapy Injection 18:49:54 CDT CPT-J1055 Depo-Provera Injection only 150 mg 09:18:50 CDT CPT-J1050 Depo Provera 150 mg (Medroxyprogesterone) 08:12:54 CDT CPT-63256 Abx/Therapy Injection 08:12:54 CDT CPT-J1050 Depo Provera 150 mg (Medroxyprogesterone) 15:07:25 CDT CPT-00888 Abx/Therapy Injection 15:07:25 CDT CPT-J1050 Depo Provera 150 mg (Medroxyprogesterone) 09:59:09 CDT CPT-J1050 Depo Provera 150 mg (Medroxyprogesterone) 15:43:37 CONTRACTING ENGINEER CPT-77810 Abx/Therapy Injection 15:43:37 CONTRACTING ENGINEER CPT-J1050 Depo Provera 150 mg (Medroxyprogesterone) 15:14:34 CONTRACTING ENGINEER CPT-60020 Postop F/U Visit 09:10:48 CDT CPT-OV Office Visit 21:43:13 CDT CPT-73128 Postop F/U Visit 16:13:18 CDT CPT-34046 Venipuncture Draw Fee 13:37:57 CONTRACTING ENGINEER
--- OUTSIDE RECORDS SUMMARY | 2018-09-25 11:05 | XMS REPORT | Clinical Summary ---
Author Author Admin, MAISHA Pedroza [facility] Address Unknown Phone Unavailable Allergies, Adverse Reactions, Alerts Allergy Name Reaction Description Start Date Severity Status Provider SULFA rash Moderate Active Jessy Sommers TRAFFIC RATE COMPUTER Conditions or Problems Problem Name Problem Code Onset Date Status Entry Date Provider Comment Standard Description Annotate FH DIABETES V18.0 Active Moon Pete PM HEAD COOK Family history of diabetes mellitus PHARYNGITIS-ACUTE 462 Inactive Moon Pete PM HEAD COOK Acute pharyngitis OTITIS MEDIA, RIGHT 382.9 Active Moon Pete PM HEAD COOK Unspecified otitis media ACUTE PHARYNGITIS 462 Active Antony Moran DO Acute pharyngitis COUGH 786.2 Active Antony Moran DO Cough FATIGUE 780.79 Active Antony Moran DO Other malaise and fatigue TONSILLITIS 463 Active Moon Pete PM HEAD COOK Acute tonsillitis ABSCESS, GLUTEAL 682.5 Active Moon Pete PM HEAD COOK Cellulitis and abscess of buttock EAR PAIN, LEFT 388.70 Active Moon Pete PM HEAD COOK Otalgia, unspecified FH BREAST CANCER V16.3 Active Jillina Kayleigh PM HEAD COOK Family history of malignant neoplasm of breast PILONIDAL CYST 685.1 Active Jillina Frazell PM HEAD COOK Pilonidal cyst without mention of abscess AFTERCARE [...] 1 tab po qday for migraines. TOPIRAMATE 65177070512 Active Mikhail Forbes MD Active HYDROCODONE-ACETAMINOPHEN 5-325 MG TABS 1 po q 6hr PRN Pain 06/18 HYDROCODONE-ACETAMINOPHEN 54044696616 No Longer Active Mikhail Forbes MD Active KEFLEX 500 MG CAP 1 tab po tid CEPHALEXIN 78074721900 No Longer Active Mikhail Forbes MD Active HYDROCODONE-ACETAMINOPHEN 5-500 MG TABS 1 every 4hours as needed HYDROCODONE-ACETAMINOPHEN 82551649155 No Longer Active Radha Victor APRN Active TAMIFLU 75 MG CAPS 1 bid x 5 days OSELTAMIVIR PHOSPHATE 29666043098 No Longer Active Linda Davis MD PhD Active AUGMENTIN 875-125 MG TAB 1 tab by mouth twice daily with food AMOXICILLIN-POT CLAVULANATE 73551455333 No Longer Active Jillina Frazell PM HEAD COOK Active AUGMENTIN 875-125 MG TAB 1 tab by mouth twice daily with food AMOXICILLIN-POT CLAVULANATE 56596226498 No Longer Active Jillina Frazell PM HEAD COOK Active CLINDAMYCIN HCL 150 MG CAPS 1 four times a day CLINDAMYCIN HCL 41327880468 No Longer Active Moon Pete APRN Active BACTRIM DS 800-160 MG TAB 1 tab by mouth twice daily TRIMETHOPRIM-SULFAMETHOXAZOLE 03072799348 No Longer Active Moon Reed Juan R RODRÍGUEZ Active AMOXICILLIN 500 MG CAP 1 tab by mouth twice daily AMOXICILLIN 86931747694 No Longer Active Antony Moran DO Active ZITHROMAX Z-MAKAYLA 250 MG TABS 2 now then 1 everyday AZITHROMYCIN 72363567792 No Longer Active Antony Moran DO Active ZITHROMAX Z-MAKAYLA 250 MG TABS 2 now then 1 everyday ZITHROMAX Z-MAKAYLA 250 MG TABS 4910475 AZITHROMYCIN Inactive AMOXICILLIN 500 MG CAP 1 tab by mouth twice daily AMOXICILLIN 500 MG CAP 859907 AMOXICILLIN Inactive BACTRIM DS 800-160 MG TAB 1 tab by mouth twice daily BACTRIM DS 800-160 MG TAB TRIMETHOPRIM-SULFAMETHOXAZOLE Inactive CLINDAMYCIN HCL 150 MG CAPS 1 four times a day CLINDAMYCIN HCL 150 MG CAPS 857637 CLINDAMYCIN HCL Inactive HYDROCODONE-ACETAMINOPHEN 5-500 MG TABS 1 every 4hours as needed HYDROCODONE-ACETAMINOPHEN 5-500 MG TABS HYDROCODONE- ACETAMINOPHEN Inactive KEFLEX 500 MG CAP 1 tab po tid KEFLEX 500 MG CAP 221570 CEPHALEXIN Inactive HYDROCODONE-ACETAMINOPHEN 5-325 MG TABS 1 po q 6hr PRN Pain 06/18 HYDROCODONE-ACETAMINOPHEN 5-325 MG TABS 387219 HYDROCODONE- ACETAMINOPHEN Inactive AUGMENTIN 875-125 MG TAB 1 tab by mouth twice daily with food AUGMENTIN 875-125 MG TAB 291353 AMOXICILLIN-POT CLAVULANATE Inactive AUGMENTIN 875-125 MG TAB 1 tab by mouth twice daily with food AUGMENTIN 875-125 MG TAB 193719 AMOXICILLIN-POT CLAVULANATE Inactive TAMIFLU 75 MG CAPS [...] g/dL platelet count 311 10*3/mm3 Lab Report: [facility] [place] Chemistry human chorionic gonadotropin, urine, qualitative (urine test) Negative Negative human chorionic gonadotropin, urine, qualitative (urine test) Negative Negative Encounters Code Encounter Date Provider Facility CPT-98103 Level 4 Est. Patient 21:34:05 INSURANCE SALES AGENT Mikhail Forbes MD [facility] CPT-80410 Level 4 Est. Patient 15:14:34 INSURANCE SALES AGENT Mikhail Forbes MD [facility] CPT-11034 Level 3 Est. Patient 12:52:25 CDT Mikhail Forbes MD [facility] CPT-42274 Level 2 Est. Patient 14:57:21 [address] [facility]-63707 Level 2 Est. Patient 16:59:23 CDT Radha Victor [facility] CPT-85646 Level 3 Est. Patient 15:10:28 CDT Moon Pete [facility] CPT-74212 Level 3 Est. Patient 13:38:05 INSURANCE SALES AGENT Moon Pete [facility] CPT-16610 Level 3 Est. Patient 13:36:40 INSURANCE SALES AGENT Antony Moran DO [facility] CPT-25908 Level 3 Est. Patient 14:07:56 INSURANCE SALES AGENT Moon Pete [facility] Procedures Code Procedure Name Date Entry Date Standard Description CPT-J1050 Depo Provera 150 mg (Medroxyprogesterone) 15:07:25 CDT CPT-94288 Abx/Therapy Injection 15:07:25 CDT CPT-J1050 Depo Provera 150 mg (Medroxyprogesterone) 09:59:09 CDT CPT-J1050 Depo Provera 150 mg (Medroxyprogesterone) 15:43:37 INSURANCE SALES AGENT CPT-06620 Abx/Therapy Injection 15:43:37 INSURANCE SALES AGENT CPT-J1050 Depo Provera 150 mg (Medroxyprogesterone) 15:14:34 INSURANCE SALES AGENT CPT-53829 Postop F/U Visit 09:10:48 CDT CPT-OV Office Visit 21:43:13 CDT CPT-01323 Postop F/U Visit 16:13:18 CDT CPT-77077 Venipuncture Draw Fee 13:37:57 INSURANCE SALES AGENT
--- OUTSIDE RECORDS SUMMARY | 2018-09-25 11:05 | XMS REPORT | Clinical Summary ---
Author Author Admin, MAISHA Organization [facility] Address Unknown Phone Unavailable Allergies, Adverse Reactions, Alerts Allergy Name Reaction Description Start Date Severity Status Provider SULFA rash Moderate Active Jessy Sommers LITERACY CONSULTANT Conditions or Problems Problem Name Problem Code Onset Date Status Entry Date Provider Comment Standard Description Annotate FH DIABETES V18.0 Active Moon Pete STRAIGHTENING PRESS OPERATOR Family history of diabetes mellitus PHARYNGITIS-ACUTE 462 Inactive Moon Pete STRAIGHTENING PRESS OPERATOR Acute pharyngitis OTITIS MEDIA, RIGHT 382.9 [...] FH BREAST CANCER V16.3 Active Radha Victor STRAIGHTENING PRESS OPERATOR Family history of malignant neoplasm of [...] Ankle pain, right 719.47 Active Radha Victor STRAIGHTENING PRESS OPERATOR Pain in joint involving ankle and foot PHARYNGITIS-ACUTE ICD-462 Inactive Moon Pete STRAIGHTENING PRESS OPERATOR OTITIS MEDIA, RIGHT ICD-382.9 Inactive Linda [...] 6 hours if needed for pain/fever ACETAMINOPHEN 08478335770 Active Linda Davis MD PhD Active DEPO-PROVERA 150 MG/ML SUPENSION q3mos MEDROXYPROGEST ANDRZEJ (CONTRACEP) 85307239212 Active Linda Davis MD PhD Active TOPAMAX 25 MG TABS take 1 tab po qday for migraines. TOPIRAMATE 28954742550 No Longer Active Linda Davis MD PhD Active HYDROCODONE-ACETAMINOPHEN 5-325 MG TABS 1 po q 6hr PRN Pain 06/18 HYDROCODONE-ACETAMINOPHEN 06810874773 No Longer Active Mikhail Forbes MD Active KEFLEX 500 MG CAP 1 tab po tid CEPHALEXIN 43279930752 No Longer Active Mikhail Forbes MD Active HYDROCODONE-ACETAMINOPHEN 5-500 MG TABS 1 every 4hours as needed HYDROCODONE-ACETAMINOPHEN 65146882621 No Longer Active Radha Victor APRN Active TAMIFLU 75 MG CAPS 1 bid x 5 days OSELTAMIVIR PHOSPHATE 97323796172 No Longer Active Linda Davis MD PhD Active AUGMENTIN 875-125 MG TAB 1 tab by mouth twice daily with food AMOXICILLIN-POT CLAVULANATE 50183218684 No Longer Active Jillina Frahazel RODRÍGUEZ Active AUGMENTIN 875-125 MG TAB 1 tab by mouth twice daily with food AMOXICILLIN-POT CLAVULANATE 47007818490 No Longer Active Radha Victor STRAIGHTENING PRESS OPERATOR Active CLINDAMYCIN HCL 150 MG CAPS 1 four times a day CLINDAMYCIN HCL 26570758230 No Longer Active Moon Pete APRN Active BACTRIM DS 800-160 MG TAB 1 tab by mouth twice daily TRIMETHOPRIM-SULFAMETHOXAZOLE 20159215586 No Longer Active Moon Pete APRN Active AMOXICILLIN 500 MG CAP 1 tab by mouth twice daily AMOXICILLIN 85073151084 No Longer Active Antony Moran DO Active ZITHROMAX Z-MAKAYLA 250 MG TABS 2 now then 1 everyday AZITHROMYCIN 22544248695 No Longer Active Antony Moran DO Active ZITHROMAX Z-MAKAYLA 250 MG TABS 2 now then 1 everyday ZITHROMAX Z-MAKAYLA 250 MG TABS 6916282 AZITHROMYCIN Inactive AMOXICILLIN 500 MG CAP 1 tab by mouth twice daily AMOXICILLIN 500 MG CAP 941444 AMOXICILLIN Inactive BACTRIM DS 800-160 MG TAB 1 tab by mouth twice daily BACTRIM DS 800-160 MG TAB 908241 TRIMETHOPRIM-SULFAMETHOXAZOLE Inactive CLINDAMYCIN HCL 150 MG CAPS 1 four times a day CLINDAMYCIN HCL 150 MG CAPS 845982 CLINDAMYCIN HCL Inactive HYDROCODONE-ACETAMINOPHEN 5-500 MG TABS 1 every 4hours as needed HYDROCODONE-ACETAMINOPHEN 5-500 MG TABS HYDROCODONE- ACETAMINOPHEN Inactive KEFLEX 500 MG CAP 1 tab po tid KEFLEX 500 MG CAP 407137 CEPHALEXIN Inactive HYDROCODONE-ACETAMINOPHEN 5-325 MG TABS 1 po q 6hr PRN Pain 06/18 HYDROCODONE-ACETAMINOPHEN 5-325 MG TABS 835936 HYDROCODONE- ACETAMINOPHEN Inactive TOPAMAX 25 MG TABS take 1 tab po qday for migraines. TOPAMAX 25 MG TABS 507854 TOPIRAMATE Inactive AUGMENTIN 875-125 MG TAB 1 tab by mouth twice daily with food AUGMENTIN 875-125 MG TAB 194526 AMOXICILLIN-POT CLAVULANATE Inactive AUGMENTIN 875-125 MG TAB 1 tab by mouth twice daily with food AUGMENTIN 875-125 MG TAB 718383 AMOXICILLIN-POT CLAVULANATE Inactive TAMIFLU 75 MG CAPS [...] EBV - Chemistry sodium, serum 141 mmol/L 057-627 0902/09/21 carbon dioxide, venous blood 26.0 mmol/L 21.0-32.0 [...] Negative-Throat Culture to Follow Negative [facility] Report[facility] - Chemistry human chorionic gonadotropin, urine, qualitative (urine test) Negative Negative Encounters Code Encounter Date Provider Facility CPT-41600 Level 3 Est. Patient 10:22:24 CDT Radha Victor APRN [facility] CPT-18898 Level 3 Est. Patient 18:31:30 CDT Linda Davis MD PhD [facility] CPT-46866 Level 4 Est. Patient 21:34:05 ELEMENTARY SCHOOL REGISTRAR Mikhail Forbes MD [facility] CPT-75369 Level 4 Est. Patient 15:14:34 ELEMENTARY SCHOOL REGISTRAR Mikhail Forbes MD [facility] CPT-56208 Level 3 Est. Patient 12:52:25 CDT Mikhail Forbes MD [facility] CPT-97887 Level 2 Est. Patient 14:57:21 CDT Radha Victor [facility] CPT-44112 Level 2 Est. Patient 16:59:23 CDT Radha Victor [facility] CPT-84548 Level 3 Est. Patient 15:10:28 CDT Moon Pete [facility] CPT-21335 Level 3 Est. Patient 13:38:05 ELEMENTARY SCHOOL REGISTRAR Moon Pete [facility] CPT-66684 Level 3 Est. Patient 13:36:40 ELEMENTARY SCHOOL REGISTRAR Antony Moran DO [facility] CPT-44209 Level 3 Est. Patient 14:07:56 ELEMENTARY SCHOOL REGISTRAR Moon Pete [facility] Procedures Code Procedure Name Date Entry Date Standard Description CPT-24753 Ankle, right, Complete - Min 3V 10:34:26 CDT CPT-J1050 Depo Provera 150 mg (Medroxyprogesterone) 11:26:14 CDT CPT-59935 Abx/Therapy Injection 11:26:13 CDT CPT-J1055 Depo-Provera Injection only 150 mg 16:55:48 CDT CPT-J1050 Depo Provera 150 mg (Medroxyprogesterone) 13:49:16 ELEMENTARY SCHOOL REGISTRAR CPT-30290 Abx/Therapy Injection 13:49:16 ELEMENTARY SCHOOL REGISTRAR CPT-J1055 Depo-Provera Injection only 150 mg 09:45:32 ELEMENTARY SCHOOL REGISTRAR CPT-J1050 Depo Provera 150 mg (Medroxyprogesterone) 18:49:54 CDT CPT-55841 Abx/Therapy Injection 18:49:54 CDT CPT-J1055 Depo-Provera Injection only 150 mg 09:18:50 CDT CPT-J1050 Depo Provera 150 mg (Medroxyprogesterone) 08:12:54 CDT CPT-83454 Abx/Therapy Injection 08:12:54 CDT CPT-J1050 Depo Provera 150 mg (Medroxyprogesterone) 15:07:25 CDT CPT-89289 Abx/Therapy Injection 15:07:25 CDT CPT-J1050 Depo Provera 150 mg (Medroxyprogesterone) 09:59:09 CDT CPT-J1050 Depo Provera 150 mg (Medroxyprogesterone) 15:43:37 ELEMENTARY SCHOOL REGISTRAR CPT-58925 Abx/Therapy Injection 15:43:37 ELEMENTARY SCHOOL REGISTRAR CPT-J1050 Depo Provera 150 mg (Medroxyprogesterone) 15:14:34 ELEMENTARY SCHOOL REGISTRAR CPT-27751 Postop F/U Visit 09:10:48 CDT CPT-OV Office Visit 21:43:13 CDT CPT-81355 Postop F/U Visit 16:13:18 CDT CPT-63865 Venipuncture Draw Fee 13:37:57 ELEMENTARY SCHOOL REGISTRAR
--- OUTSIDE RECORDS SUMMARY | 2018-09-25 11:05 | XMS REPORT | Clinical Summary ---
Author Author Admin, MAISHA Organization [employer] Address Unknown Phone Unavailable Allergies, Adverse Reactions, Alerts Allergy Name Reaction Description Start Date Severity Status Provider SULFA rash Moderate Active Jessy Sommers ELEPHANT KEEPER Conditions or Problems Problem Name Problem Code Onset Date Status Entry Date Provider Comment Standard Description Annotate FH DIABETES V18.0 Active Moon Pete BUILDING CONSTRUCTION SUPERVISOR Family history of diabetes mellitus PHARYNGITIS-ACUTE 462 Inactive Moon Pete BUILDING CONSTRUCTION SUPERVISOR Acute pharyngitis OTITIS MEDIA, RIGHT 382.9 Resolved Linda Davis MD PhD Unspecified otitis media ACUTE PHARYNGITIS 462 Resolved Linda Davis MD PhD Acute pharyngitis ACUTE PHARYNGITIS 462 Active Mary Dupont BUILDING CONSTRUCTION SUPERVISOR Acute pharyngitis COUGH 786.2 Resolved Linda aDvis MD PhD Cough FATIGUE 780.79 Resolved Linda Davis MD PhD Other malaise and fatigue TONSILLITIS 463 Resolved Linda Davis MD PhD Acute tonsillitis ABSCESS, GLUTEAL 682.5 Resolved Linda Davis MD PhD Cellulitis and abscess of buttock EAR PAIN, LEFT 388.70 Resolved Linda Davis MD PhD Otalgia, unspecified FH BREAST CANCER V16.3 Active Radha Victor BUILDING CONSTRUCTION SUPERVISOR Family history of malignant neoplasm of breast [...] Ankle pain, right 719.47 Active Radha Victor BUILDING CONSTRUCTION SUPERVISOR Pain in joint involving ankle and foot PHARYNGITIS-ACUTE ICD-462 Inactive Moon Pete BUILDING CONSTRUCTION SUPERVISOR OTITIS MEDIA, RIGHT ICD-382.9 Inactive Linda Davis [...] Instruction CLARITIN-D 12 HOUR 5-120 MG ORAL [id number] Take one tablet every 12 hours as needed for congestion LORATADINE-PSEUDOEPHEDRINE 35820013687 Active Mary Yoangelito BUILDING CONSTRUCTION SUPERVISOR Active AUGMENTIN 875-125 MG TAB 1 tab by mouth twice daily with food AMOXICILLIN-POT CLAVULANATE 64541751482 Active Mary Dupont APRN Active DEPO-PROVERA 150 MG/ML SUPENSION q3mos MEDROXYPROGEST ANDRZEJ ( CONTRACEP) 31600632575 No Longer Active Mary Dupont APRN Active NAPROXEN 500 MG TABS 1 twice a day for breakthrough bleeding. Continue for 1 month. NAPROXEN 55139615942 Active Ania Alejandra APRN Active TRI-SPRINTEC 0.18/0.215/0.25 MG-35 MCG TABS 1 po qd as directed. Begin 1st pack on 11/01/16. NORGESTIM-ETH ESTRAD TRIPHASIC 12285811797 Active Ania Alejandra APRN Active TYLENOL 325 MG TAB 1-2 pills by mouth every 6 hours if needed for pain/fever ACETAMINOPHEN 25421273485 Active Linda Davis MD PhD Active TOPAMAX 25 MG TABS take 1 tab po qday for migraines. TOPIRAMATE 00099813256 No Longer Active Linda Davis MD PhD Active HYDROCODONE-ACETAMINOPHEN 5-325 MG TABS 1 po q 6hr PRN Pain 06/18 HYDROCODONE-ACETAMINOPHEN 67504539595 No Longer Active Mikhail Forbes MD Active KEFLEX 500 MG CAP 1 tab po tid CEPHALEXIN 29960509438 No Longer Active Mikhail Forbes MD Active HYDROCODONE-ACETAMINOPHEN 5-500 MG TABS 1 every 4hours as needed HYDROCODONE-ACETAMINOPHEN 31571921610 No Longer Active Germainllina Kayleigh COOPERN Active TAMIFLU 75 MG CAPS 1 bid x 5 days OSELTAMIVIR PHOSPHATE 08908541491 No Longer Active Linda Davis MD PhD Active AUGMENTIN 875-125 MG TAB 1 tab by mouth twice daily with food AMOXICILLIN-POT CLAVULANATE 25790569848 No Longer Active Jillina Frazell BUILDING CONSTRUCTION SUPERVISOR Active AUGMENTIN 875-125 MG TAB 1 tab by mouth twice daily with food AMOXICILLIN-POT CLAVULANATE 02582367195 No Longer Active Jillina Frashantelll BUILDING CONSTRUCTION SUPERVISOR Active CLINDAMYCIN HCL 150 MG CAPS 1 four times a day CLINDAMYCIN HCL 24150646460 No Longer Active Moon Pete APRN Active BACTRIM DS 800-160 MG TAB 1 tab by mouth twice daily TRIMETHOPRIM-SULFAMETHOXAZOLE 20330299316 No Longer Active Moon Pete APRN Active AMOXICILLIN 500 MG CAP 1 tab by mouth twice daily AMOXICILLIN 28905696813 No Longer Active Antony Moran DO Active ZITHROMAX Z-MAKAYLA 250 MG TABS 2 now then 1 everyday AZITHROMYCIN 77527446317 No Longer Active Antony Moran DO Active ZITHROMAX Z-MAKAYLA 250 MG TABS 2 now then 1 everyday ZITHROMAX Z-MAKAYLA 250 MG TABS 0517808 AZITHROMYCIN Inactive AMOXICILLIN 500 MG CAP 1 tab by mouth twice daily AMOXICILLIN 500 MG CAP 130696 AMOXICILLIN Inactive BACTRIM DS 800-160 MG TAB 1 tab by mouth twice daily BACTRIM DS 800-160 MG TAB 181242 TRIMETHOPRIM-SULFAMETHOXAZOLE Inactive CLINDAMYCIN HCL 150 MG CAPS 1 four times a day CLINDAMYCIN HCL 150 MG CAPS 325618 CLINDAMYCIN HCL Inactive HYDROCODONE-ACETAMINOPHEN 5-500 MG TABS 1 every 4hours as needed HYDROCODONE-ACETAMINOPHEN 5-500 MG TABS HYDROCODONE- ACETAMINOPHEN Inactive KEFLEX 500 MG CAP 1 tab po tid KEFLEX 500 MG CAP 087255 CEPHALEXIN Inactive HYDROCODONE-ACETAMINOPHEN 5-325 MG TABS 1 po q 6hr PRN Pain 06/18 HYDROCODONE-ACETAMINOPHEN 5-325 MG TABS 775237 HYDROCODONE- ACETAMINOPHEN Inactive TOPAMAX 25 MG TABS take 1 tab po qday for migraines. TOPAMAX 25 MG TABS 426082 TOPIRAMATE Inactive DEPO-PROVERA 150 MG/ML SUPENSION q3mos DEPO-PROVERA 150 MG/ML SUPENSION 3511606 MEDROXYPROGEST ANDRZEJ (CONTRACEP) Inactive AUGMENTIN 875-125 MG TAB 1 tab by mouth twice daily with food AUGMENTIN 875-125 MG TAB 621802 AMOXICILLIN-POT CLAVULANATE Inactive AUGMENTIN 875-125 MG TAB 1 tab by mouth twice daily with food AUGMENTIN 875-125 MG TAB 924748 AMOXICILLIN-POT CLAVULANATE Inactive TAMIFLU 75 MG CAPS 1 bid x 5 days TAMIFLU 75 MG CAPS 482190 OSELTAMIVIR PHOSPHATE Inactive Advance Directives Directive Description [...] Measured Encounters Code Encounter Date Provider Facility CPT-89299 Level 3 Est. Patient 13:01:05 CDT Mary Dupont [facility] [place] 2] CPT-48752 Level 3 Est. Patient 10:22:24 CDT Radha Victor [facility]-55333 Level 3 Est. Patient 18:31:30 CDT Linda Davis MD PhD [facility] CPT-30816 Level 4 Est. Patient 21:34:05 YOUTH OFFICER Mikhail Forbes MD [facility] CPT-94409 Level 4 Est. Patient 15:14:34 YOUTH OFFICER Mikhail Forbes MD [facility] CPT-69422 Level 3 Est. Patient 12:52:25 CDT Mikhail Forbes MD [facility] CPT-57250 Level 2 Est. Patient 14:57:21 CDT Radha Victor [facility]-33026 Level 2 Est. Patient 16:59:23 CDT Radha Victor [facility]-24181 Level 3 Est. Patient 15:10:28 CDT Moon Pete [facility] CPT-20589 Level 3 Est. Patient 13:38:05 YOUTH OFFICER Moon Pete [facility] CPT-76070 Level 3 Est. Patient 13:36:40 YOUTH OFFICER Antony Moran DO [facility] CPT-15543 Level 3 Est. Patient 14:07:56 YOUTH OFFICER Moon Pete [facility] Procedures Code Procedure Name Date Entry Date Standard Description CPT-J1050 Depo Provera 150 mg (Medroxyprogesterone) 14:50:04 CDT CPT-71360 Abx/Therapy Injection 14:50:04 CDT CPT-64955 Ankle, right, Complete - Min 3V 10:34:26 CDT CPT-J1050 Depo Provera 150 mg (Medroxyprogesterone) 11:26:14 CDT CPT-23389 Abx/Therapy Injection 11:26:13 CDT CPT-J1055 Depo-Provera Injection only 150 mg 16:55:48 CDT CPT-J1050 Depo Provera 150 mg (Medroxyprogesterone) 13:49:16 YOUTH OFFICER CPT-28935 Abx/Therapy Injection 13:49:16 YOUTH OFFICER CPT-J1055 Depo-Provera Injection only 150 mg 09:45:32 YOUTH OFFICER CPT-J1050 Depo Provera 150 mg (Medroxyprogesterone) 18:49:54 CDT CPT-47443 Abx/Therapy Injection 18:49:54 CDT CPT-J1055 Depo-Provera Injection only 150 mg 09:18:50 CDT CPT-J1050 Depo Provera 150 mg (Medroxyprogesterone) 08:12:54 CDT CPT-24381 Abx/Therapy Injection 08:12:54 CDT CPT-J1050 Depo Provera 150 mg (Medroxyprogesterone) 15:07:25 CDT CPT-77339 Abx/Therapy Injection 15:07:25 CDT CPT-J1050 Depo Provera 150 mg (Medroxyprogesterone) 09:59:09 CDT CPT-J1050 Depo Provera 150 mg (Medroxyprogesterone) 15:43:37 YOUTH OFFICER CPT-39336 Abx/Therapy Injection 15:43:37 YOUTH OFFICER CPT-J1050 Depo Provera 150 mg (Medroxyprogesterone) 15:14:34 YOUTH OFFICER CPT-32717 Postop F/U Visit 09:10:48 CDT CPT-OV Office Visit 21:43:13 CDT CPT-65416 Postop F/U Visit 16:13:18 CDT CPT-19877 Venipuncture Draw Fee 13:37:57 YOUTH OFFICER
--- OUTSIDE RECORDS SUMMARY | 2018-09-25 11:06 | XMS REPORT | Clinical Summary ---
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 Conditions or Problems Problem Name Problem Code Onset Date Status Entry Date Provider Comment Standard Description Annotate FH DIABETES V18.0 Active Moon Pete EVENTS AND PROMOTIONS ASSISTANT Family history of diabetes mellitus PHARYNGITIS-ACUTE 462 Inactive Moon Pete EVENTS AND PROMOTIONS ASSISTANT Acute pharyngitis OTITIS MEDIA, RIGHT 382.9 Resolved Linda Davis MD PhD Unspecified otitis media ACUTE PHARYNGITIS 462 Resolved Linda Davis MD PhD Acute pharyngitis ACUTE PHARYNGITIS 462 Active Mary Dupont EVENTS AND PROMOTIONS ASSISTANT Acute pharyngitis COUGH 786.2 Resolved Linda Davis MD PhD Cough FATIGUE 780.79 Resolved Linda Davis MD PhD Other malaise and fatigue TONSILLITIS 463 Resolved Linda Davis MD PhD Acute tonsillitis ABSCESS, GLUTEAL 682.5 Resolved Linda Davis MD PhD Cellulitis and abscess of buttock EAR PAIN, LEFT 388.70 Resolved Linda Davis MD PhD Otalgia, unspecified FH BREAST CANCER V16.3 Active Radha Victor EVENTS AND PROMOTIONS ASSISTANT Family history of malignant neoplasm of breast [...] Ankle pain, right 719.47 Active Radha Victor EVENTS AND PROMOTIONS ASSISTANT Pain in joint involving ankle and foot PHARYNGITIS-ACUTE ICD-462 Inactive Moon Pete EVENTS AND PROMOTIONS ASSISTANT OTITIS MEDIA, RIGHT ICD-382.9 Inactive Linda Davis [...] Instruction CLARITIN-D 12 HOUR 5-120 MG ORAL [id number] Take one tablet every 12 hours as needed for congestion LORATADINE-PSEUDOEPHEDRINE 49601847845 Active Mary Yokum EVENTS AND PROMOTIONS ASSISTANT Active AUGMENTIN 875-125 MG TAB 1 tab by mouth twice daily with food AMOXICILLIN-POT CLAVULANATE 77888312152 No Longer Active Marypushpa Dupont APRN Active DEPO-PROVERA 150 MG/ML SUPENSION q3mos MEDROXYPROGEST ANDRZEJ ( CONTRACEP) 65076033504 No Longer Active Marypushpa Dupont APRN Active NAPROXEN 500 MG TABS 1 twice a day for breakthrough bleeding. Continue for 1 month. NAPROXEN 47445438926 Active Ania Alejandra APRN Active TRI-SPRINTEC 0.18/0.215/0.25 MG-35 MCG TABS 1 po qd as directed. Begin 1st pack on 11/01/16. NORGESTIM-ETH ESTRAD TRIPHASIC 95938004597 Active Ania Alejandra APRN Active TYLENOL 325 MG TAB 1-2 pills by mouth every 6 hours if needed for pain/fever ACETAMINOPHEN 83982632355 Active Linda Davis MD PhD Active TOPAMAX 25 MG TABS take 1 tab po qday for migraines. TOPIRAMATE 18903391613 No Longer Active Linda Davis MD PhD Active HYDROCODONE-ACETAMINOPHEN 5-325 MG TABS 1 po q 6hr PRN Pain 06/18 HYDROCODONE-ACETAMINOPHEN 39498612577 No Longer Active Mikhail Forbes MD Active KEFLEX 500 MG CAP 1 tab po tid CEPHALEXIN 04032684613 No Longer Active Mikhail Forbes MD Active HYDROCODONE-ACETAMINOPHEN 5-500 MG TABS 1 every 4hours as needed HYDROCODONE-ACETAMINOPHEN 17793552175 No Longer Active Germainllina Kyaleigh COOPERN Active TAMIFLU 75 MG CAPS 1 bid x 5 days OSELTAMIVIR PHOSPHATE 18324345989 No Longer Active Linda Davis MD PhD Active AUGMENTIN 875-125 MG TAB 1 tab by mouth twice daily with food AMOXICILLIN-POT CLAVULANATE 58057808215 No Longer Active Jillina Frazell EVENTS AND PROMOTIONS ASSISTANT Active AUGMENTIN 875-125 MG TAB 1 tab by mouth twice daily with food AMOXICILLIN-POT CLAVULANATE 87860891518 No Longer Active Jillina Frashantelll EVENTS AND PROMOTIONS ASSISTANT Active CLINDAMYCIN HCL 150 MG CAPS 1 four times a day CLINDAMYCIN HCL 43275497692 No Longer Active Moon Pete APRN Active BACTRIM DS 800-160 MG TAB 1 tab by mouth twice daily TRIMETHOPRIM-SULFAMETHOXAZOLE 19307081754 No Longer Active Moon Pete APRN Active AMOXICILLIN 500 MG CAP 1 tab by mouth twice daily AMOXICILLIN 08266410668 No Longer Active Antony Moran DO Active ZITHROMAX Z-MAKAYLA 250 MG TABS 2 now then 1 everyday AZITHROMYCIN 63327035658 No Longer Active Antony Moran DO Active ZITHROMAX Z-MAKAYLA 250 MG TABS 2 now then 1 everyday ZITHROMAX Z-MAKAYLA 250 MG TABS 5375678 AZITHROMYCIN Inactive AMOXICILLIN 500 MG CAP 1 tab by mouth twice daily AMOXICILLIN 500 MG CAP 626103 AMOXICILLIN Inactive BACTRIM DS 800-160 MG TAB 1 tab by mouth twice daily BACTRIM DS 800-160 MG TAB 231402 TRIMETHOPRIM-SULFAMETHOXAZOLE Inactive CLINDAMYCIN HCL 150 MG CAPS 1 four times a day CLINDAMYCIN HCL 150 MG CAPS 483042 CLINDAMYCIN HCL Inactive HYDROCODONE-ACETAMINOPHEN 5-500 MG TABS 1 every 4hours as needed HYDROCODONE-ACETAMINOPHEN 5-500 MG TABS HYDROCODONE- ACETAMINOPHEN Inactive KEFLEX 500 MG CAP 1 tab po tid KEFLEX 500 MG CAP 020787 CEPHALEXIN Inactive HYDROCODONE-ACETAMINOPHEN 5-325 MG TABS 1 po q 6hr PRN Pain 06/18 HYDROCODONE-ACETAMINOPHEN 5-325 MG TABS 170852 HYDROCODONE- ACETAMINOPHEN Inactive TOPAMAX 25 MG TABS take 1 tab po qday for migraines. TOPAMAX 25 MG TABS 834359 TOPIRAMATE Inactive DEPO-PROVERA 150 MG/ML SUPENSION q3mos DEPO-PROVERA 150 MG/ML SUPENSION 5091412 MEDROXYPROGEST ANDRZEJ (CONTRACEP) Inactive AUGMENTIN 875-125 MG TAB 1 tab by mouth twice daily with food AUGMENTIN 875-125 MG TAB 897925 AMOXICILLIN-POT CLAVULANATE Inactive AUGMENTIN 875-125 MG TAB 1 tab by mouth twice daily with food AUGMENTIN 875-125 MG TAB 005755 AMOXICILLIN-POT CLAVULANATE Inactive TAMIFLU 75 MG CAPS 1 bid x 5 days TAMIFLU 75 MG CAPS 122919 OSELTAMIVIR PHOSPHATE Inactive AUGMENTIN 875-125 MG TAB 1 tab by mouth twice daily with food AUGMENTIN 875-125 MG TAB 420502 AMOXICILLIN-POT CLAVULANATE Inactive Advance Directives Directive Description [...] Measured Encounters Code Encounter Date Provider Facility CPT-16548 Level 3 Est. Patient 18:10:13 CDT Ania Alejandra [facility] CPT-22928 Level 3 Est. Patient 13:01:05 CDT Mary Dupont [facility] CPT-13708 Level 3 Est. Patient 10:22:24 CDT Radha Victor [facility]-79312 Level 3 Est. Patient 18:31:30 CDT Linda Davis MD PhD [facility] CPT-17603 Level 4 Est. Patient 21:34:05 BILINGUAL ELEMENTARY SCHOOL TEACHER Mikhail Forbes MD [facility] CPT-85261 Level 4 Est. Patient 15:14:34 BILINGUAL ELEMENTARY SCHOOL TEACHER Mikhail Forbes MD [facility] CPT-61265 Level 3 Est. Patient 12:52:25 CDT Mikhail Forbes MD [facility] CPT-53819 Level 2 Est. Patient 14:57:21 CDT Radha Victor [facility] CPT-26144 Level 2 Est. Patient 16:59:23 CDT Radha Victor [facility] CPT-79906 Level 3 Est. Patient 15:10:28 CDT Moon Pete [facility] CPT-64511 Level 3 Est. Patient 13:38:05 BILINGUAL ELEMENTARY SCHOOL TEACHER Moon Pete [facility] CPT-42477 Level 3 Est. Patient 13:36:40 BILINGUAL ELEMENTARY SCHOOL TEACHER Antony Moran DO [facility] CPT-79390 Level 3 Est. Patient 14:07:56 BILINGUAL ELEMENTARY SCHOOL TEACHER Moon Pete [facility] Procedures Code Procedure Name Date Entry Date Standard Description CPT-J1050 Depo Provera 150 mg (Medroxyprogesterone) 14:50:04 CDT CPT-15290 Abx/Therapy Injection 14:50:04 CDT CPT-51262 Ankle, right, Complete - Min 3V 10:34:26 CDT CPT-J1050 Depo Provera 150 mg (Medroxyprogesterone) 11:26:14 CDT CPT-89946 Abx/Therapy Injection 11:26:13 CDT CPT-J1055 Depo-Provera Injection only 150 mg 16:55:48 CDT CPT-J1050 Depo Provera 150 mg (Medroxyprogesterone) 13:49:16 BILINGUAL ELEMENTARY SCHOOL TEACHER CPT-48685 Abx/Therapy Injection 13:49:16 BILINGUAL ELEMENTARY SCHOOL TEACHER CPT-J1055 Depo-Provera Injection only 150 mg 09:45:32 BILINGUAL ELEMENTARY SCHOOL TEACHER CPT-J1050 Depo Provera 150 mg (Medroxyprogesterone) 18:49:54 CDT CPT-42993 Abx/Therapy Injection 18:49:54 CDT CPT-J1055 Depo-Provera Injection only 150 mg 09:18:50 CDT CPT-J1050 Depo Provera 150 mg (Medroxyprogesterone) 08:12:54 CDT CPT-62453 Abx/Therapy Injection 08:12:54 CDT CPT-J1050 Depo Provera 150 mg (Medroxyprogesterone) 15:07:25 CDT CPT-45622 Abx/Therapy Injection 15:07:25 CDT CPT-J1050 Depo Provera 150 mg (Medroxyprogesterone) 09:59:09 CDT CPT-J1050 Depo Provera 150 mg (Medroxyprogesterone) 15:43:37 BILINGUAL ELEMENTARY SCHOOL TEACHER CPT-05769 Abx/Therapy Injection 15:43:37 BILINGUAL ELEMENTARY SCHOOL TEACHER CPT-J1050 Depo Provera 150 mg (Medroxyprogesterone) 15:14:34 BILINGUAL ELEMENTARY SCHOOL TEACHER CPT-67620 Postop F/U Visit 09:10:48 CDT CPT-OV Office Visit 21:43:13 CDT CPT-88040 Postop F/U Visit 16:13:18 CDT CPT-97128 Venipuncture Draw Fee 13:37:57 BILINGUAL ELEMENTARY SCHOOL TEACHER
--- OUTSIDE RECORDS SUMMARY | 2018-09-25 11:06 | XMS REPORT | Clinical Summary ---
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 Conditions or Problems Problem Name Problem Code Onset Date Status Entry Date Provider Comment Standard Description Annotate FH DIABETES V18.0 Active Moon Pete BOBBIN DISKER Family history of diabetes mellitus PHARYNGITIS-ACUTE 462 Inactive Moon Pete BOBBIN DISKER Acute pharyngitis OTITIS MEDIA, RIGHT 382.9 Resolved [...] FH BREAST CANCER V16.3 Active Radha Victor BOBBIN DISKER Family history of malignant neoplasm of breast [...] Ankle pain, right 719.47 Active Radha Victor BOBBIN DISKER Pain in joint involving ankle and foot PHARYNGITIS-ACUTE ICD-462 Inactive Moon Pete BOBBIN DISKER OTITIS MEDIA, RIGHT ICD-382.9 Inactive Linda Davis MD PhD ACUTE PHARYNGITIS ICD-462 Inactive Linda Davis MD PhD COUGH ICD-786.2 Inactive Linda Davis MD PhD 02/18 FATIGUE ICD-780.79 Inactive Linda Davis MD PhD TONSILLITIS ICD-463 Inactive Linda Davis MD PhD ABSCESS, GLUTEAL ICD-682.5 Inactive Linda Davis MD PhD EAR PAIN, LEFT ICD-388.70 Inactive Linda Davis MD PhD PILONIDAL CYST ICD-685.1 Inactive Lnida Davis MD PhD AFTERCARE FOLLOW SURGERY SKIN&SUBCUT TISSUE NEC ICD-V58.77 02/18 Inactive Linda Davis MD PhD Thumb pain, left ICD-729.5 Inactive Linda Davis MD PhD Migraine ICD-346.90 Inactive Linda Davis MD PhD Medication List Medication Instructions Start Date Stop Date Generic Name NDC Status Provider Patient Instruction TYLENOL 325 MG TAB 1-2 pills by mouth every 6 hours if needed for pain/fever ACETAMINOPHEN 84738436416 Active Linda Davis MD PhD Active DEPO-PROVERA 150 MG/ML SUPENSION q3mos MEDROXYPROGEST ANDRZEJ (CONTRACEP) 00067892543 Active Linda Davis MD PhD Active TOPAMAX 25 MG TABS take 1 tab po qday for migraines. TOPIRAMATE 46313349583 No Longer Active Linda Davis MD PhD Active HYDROCODONE-ACETAMINOPHEN 5-325 MG TABS 1 po q 6hr PRN Pain 06/18 HYDROCODONE-ACETAMINOPHEN 44715021715 No Longer Active Mikhail Forbes MD Active KEFLEX 500 MG CAP 1 tab po tid CEPHALEXIN 96863438941 No Longer Active Mikhail Forbes MD Active HYDROCODONE-ACETAMINOPHEN 5-500 MG TABS 1 every 4hours as needed HYDROCODONE-ACETAMINOPHEN 07300683404 No Longer Active Radha Victor APRN Active TAMIFLU 75 MG CAPS 1 bid x 5 days OSELTAMIVIR PHOSPHATE 73692913151 No Longer Active Linda Davis MD PhD Active AUGMENTIN 875-125 MG TAB 1 tab by mouth twice daily with food AMOXICILLIN-POT CLAVULANATE 13859963736 No Longer Active Jillina Frahazel BOBBIN DISKER Active AUGMENTIN 875-125 MG TAB 1 tab by mouth twice daily with food AMOXICILLIN-POT CLAVULANATE 67080329099 No Longer Active Radha Victor BOBBIN DISKER Active CLINDAMYCIN HCL 150 MG CAPS 1 four times a day CLINDAMYCIN HCL 67913569242 No Longer Active Moon Pete APRN Active BACTRIM DS 800-160 MG TAB 1 tab by mouth twice daily TRIMETHOPRIM-SULFAMETHOXAZOLE 39139022932 No Longer Active Moon Pete APRN Active AMOXICILLIN 500 MG CAP 1 tab by mouth twice daily AMOXICILLIN 46862237466 No Longer Active Antony Moran DO Active ZITHROMAX Z-MAKAYLA 250 MG TABS 2 now then 1 everyday AZITHROMYCIN 04467672348 No Longer Active Antony Moran DO Active ZITHROMAX Z-MAKAYLA 250 MG TABS 2 now then 1 everyday ZITHROMAX Z-MAKAYLA 250 MG TABS 7169551 AZITHROMYCIN Inactive AMOXICILLIN 500 MG CAP 1 tab by mouth twice daily AMOXICILLIN 500 MG CAP 397478 AMOXICILLIN Inactive BACTRIM DS 800-160 MG TAB 1 tab by mouth twice daily BACTRIM DS 800-160 MG TAB 929572 TRIMETHOPRIM-SULFAMETHOXAZOLE Inactive CLINDAMYCIN HCL 150 MG CAPS 1 four times a day CLINDAMYCIN HCL 150 MG CAPS 107221 CLINDAMYCIN HCL Inactive HYDROCODONE-ACETAMINOPHEN 5-500 MG TABS 1 every 4hours as needed HYDROCODONE-ACETAMINOPHEN 5-500 MG TABS HYDROCODONE- ACETAMINOPHEN Inactive KEFLEX 500 MG CAP 1 tab po tid KEFLEX 500 MG CAP 994941 CEPHALEXIN Inactive HYDROCODONE-ACETAMINOPHEN 5-325 MG TABS 1 po q 6hr PRN Pain 06/18 HYDROCODONE-ACETAMINOPHEN 5-325 MG TABS 164135 HYDROCODONE- ACETAMINOPHEN Inactive TOPAMAX 25 MG TABS take 1 tab po qday for migraines. TOPAMAX 25 MG TABS 221861 TOPIRAMATE Inactive AUGMENTIN 875-125 MG TAB 1 tab by mouth twice daily with food AUGMENTIN 875-125 MG TAB 573271 AMOXICILLIN-POT CLAVULANATE Inactive AUGMENTIN 875-125 MG TAB 1 tab by mouth twice daily with food AUGMENTIN 875-125 MG TAB 384491 AMOXICILLIN-POT CLAVULANATE Inactive TAMIFLU 75 MG CAPS [...] 26.0 mmol/L 21.0-32.0 sodium, serum 141 mmol/L 676-203 4488/09/21 urea nitrogen, blood 13 mg/dL 7-18 creatinine, serum 0.86 mg/dL 0.55-1.30 alanine aminotransferase (SGPT), serum 23 U/L 12-78 aspartate aminotransferase (SGOT), serum 17 U/L 15-37 calcium, serum 8.9 mg/dL 8.5-10.1 Lab Report: RapidStrep Rflx/Cx - Lab Microbial identification kit, rapid strep method Negative-Throat Culture to Follow Negative [facility] Report[facility] Chemistry human chorionic gonadotropin, urine, qualitative (urine test) Negative Negative Encounters Code Encounter Date Provider Facility CPT-44971 Level 3 Est. Patient 10:22:24 CDT Radha Victor APRN [facility] CPT-67404 Level 3 Est. Patient 18:31:30 CDT Linda Davis MD PhD [facility] CPT-98828 Level 4 Est. Patient 21:34:05 CAPPING MACHINE OPERATOR Mikhail Forbes MD [facility] CPT-30602 Level 4 Est. Patient 15:14:34 CAPPING MACHINE OPERATOR Mikhail Forbes MD [facility] CPT-16715 Level 3 Est. Patient 12:52:25 CDT Mikhail Forbes MD [facility] CPT-37259 Level 2 Est. Patient 14:57:21 CDT Radha Victor [facility] CPT-80723 Level 2 Est. Patient 16:59:23 CDT Radha Victor [facility] CPT-96961 Level 3 Est. Patient 15:10:28 CDT Moon Pete [facility] CPT-35066 Level 3 Est. Patient 13:38:05 CAPPING MACHINE OPERATOR Moon Pete [facility] CPT-20816 Level 3 Est. Patient 13:36:40 CAPPING MACHINE OPERATOR Antony Moran DO [facility] CPT-72939 Level 3 Est. Patient 14:07:56 CAPPING MACHINE OPERATOR Moon Pete [facility] Procedures Code Procedure Name Date Entry Date Standard Description CPT-79485 Ankle, right, Complete - Min 3V 10:34:26 CDT CPT-J1050 Depo Provera 150 mg (Medroxyprogesterone) 11:26:14 CDT CPT-52067 Abx/Therapy Injection 11:26:13 CDT CPT-J1055 Depo-Provera Injection only 150 mg 16:55:48 CDT CPT-J1050 Depo Provera 150 mg (Medroxyprogesterone) 13:49:16 CAPPING MACHINE OPERATOR CPT-32208 Abx/Therapy Injection 13:49:16 CAPPING MACHINE OPERATOR CPT-J1055 Depo-Provera Injection only 150 mg 09:45:32 CAPPING MACHINE OPERATOR CPT-J1050 Depo Provera 150 mg (Medroxyprogesterone) 18:49:54 CDT CPT-21325 Abx/Therapy Injection 18:49:54 CDT CPT-J1055 Depo-Provera Injection only 150 mg 09:18:50 CDT CPT-J1050 Depo Provera 150 mg (Medroxyprogesterone) 08:12:54 CDT CPT-09758 Abx/Therapy Injection 08:12:54 CDT CPT-J1050 Depo Provera 150 mg (Medroxyprogesterone) 15:07:25 CDT CPT-46585 Abx/Therapy Injection 15:07:25 CDT CPT-J1050 Depo Provera 150 mg (Medroxyprogesterone) 09:59:09 CDT CPT-J1050 Depo Provera 150 mg (Medroxyprogesterone) 15:43:37 CAPPING MACHINE OPERATOR CPT-19758 Abx/Therapy Injection 15:43:37 CAPPING MACHINE OPERATOR CPT-J1050 Depo Provera 150 mg (Medroxyprogesterone) 15:14:34 CAPPING MACHINE OPERATOR CPT-60171 Postop F/U Visit 09:10:48 CDT CPT-OV Office Visit 21:43:13 CDT CPT-07285 Postop F/U Visit 16:13:18 CDT CPT-96536 Venipuncture Draw Fee 13:37:57 CAPPING MACHINE OPERATOR
--- OUTSIDE RECORDS SUMMARY | 2018-09-25 11:07 | XMS REPORT | Clinical Summary ---
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 LINE WORKER Acute pharyngitis OTITIS MEDIA, RIGHT 382.9 Resolved [...] FH BREAST CANCER V16.3 Active Radha Victor OVERHEAD LINE WORKER Family history of malignant neoplasm of breast [...] Ankle pain, right 719.47 Active Radha Victor OVERHEAD LINE WORKER Pain in joint involving ankle and foot PHARYNGITIS-ACUTE ICD-462 Inactive Moon Pete OVERHEAD LINE WORKER OTITIS MEDIA, RIGHT ICD-382.9 Inactive Linda Davis [...] 6 hours if needed for pain/fever ACETAMINOPHEN 83554207459 Active Linda Davis MD PhD Active DEPO-PROVERA 150 MG/ML SUPENSION q3mos MEDROXYPROGEST ANDRZEJ (CONTRACEP) 72245379767 Active Linda Davis MD PhD Active TOPAMAX 25 MG TABS take 1 tab po qday for migraines. TOPIRAMATE 21419681775 No Longer Active Linda Davis MD PhD Active HYDROCODONE-ACETAMINOPHEN 5-325 MG TABS 1 po q 6hr PRN Pain 06/18 HYDROCODONE-ACETAMINOPHEN 61738527388 No Longer Active Mikhail Forbes MD Active KEFLEX 500 MG CAP 1 tab po tid CEPHALEXIN 11241390743 No Longer Active Mikhail Forbes MD Active HYDROCODONE-ACETAMINOPHEN 5-500 MG TABS 1 every 4hours as needed HYDROCODONE-ACETAMINOPHEN 80051730693 No Longer Active Radha Victor APRN Active TAMIFLU 75 MG CAPS 1 bid x 5 days OSELTAMIVIR PHOSPHATE 19597016908 No Longer Active Linda Davis MD PhD Active AUGMENTIN 875-125 MG TAB 1 tab by mouth twice daily with food AMOXICILLIN-POT CLAVULANATE 66067970816 No Longer Active Jillina Frahazel OVERHEAD LINE WORKER Active AUGMENTIN 875-125 MG TAB 1 tab by mouth twice daily with food AMOXICILLIN-POT CLAVULANATE 59516643511 No Longer Active Radha Victor OVERHEAD LINE WORKER Active CLINDAMYCIN HCL 150 MG CAPS 1 four times a day CLINDAMYCIN HCL 77791378737 No Longer Active Moon Pete APRN Active BACTRIM DS 800-160 MG TAB 1 tab by mouth twice daily TRIMETHOPRIM-SULFAMETHOXAZOLE 31848520411 No Longer Active Moon Pete APRN Active AMOXICILLIN 500 MG CAP 1 tab by mouth twice daily AMOXICILLIN 42434915417 No Longer Active Antony Moran DO Active ZITHROMAX Z-MAKAYLA 250 MG TABS 2 now then 1 everyday AZITHROMYCIN 63992405563 No Longer Active Antony Moran DO Active ZITHROMAX Z-MAKAYLA 250 MG TABS 2 now then 1 everyday ZITHROMAX Z-MAKAYLA 250 MG TABS 7023559 AZITHROMYCIN Inactive AMOXICILLIN 500 MG CAP 1 tab by mouth twice daily AMOXICILLIN 500 MG CAP 960101 AMOXICILLIN Inactive BACTRIM DS 800-160 MG TAB 1 tab by mouth twice daily BACTRIM DS 800-160 MG TAB 755055 TRIMETHOPRIM-SULFAMETHOXAZOLE Inactive CLINDAMYCIN HCL 150 MG CAPS 1 four times a day CLINDAMYCIN HCL 150 MG CAPS 862455 CLINDAMYCIN HCL Inactive HYDROCODONE-ACETAMINOPHEN 5-500 MG TABS 1 every 4hours as needed HYDROCODONE-ACETAMINOPHEN 5-500 MG TABS HYDROCODONE- ACETAMINOPHEN Inactive KEFLEX 500 MG CAP 1 tab po tid KEFLEX 500 MG CAP 544654 CEPHALEXIN Inactive HYDROCODONE-ACETAMINOPHEN 5-325 MG TABS 1 po q 6hr PRN Pain 06/18 HYDROCODONE-ACETAMINOPHEN 5-325 MG TABS 690122 HYDROCODONE- ACETAMINOPHEN Inactive TOPAMAX 25 MG TABS take 1 tab po qday for migraines. TOPAMAX 25 MG TABS 752594 TOPIRAMATE Inactive AUGMENTIN 875-125 MG TAB 1 tab by mouth twice daily with food AUGMENTIN 875-125 MG TAB 780958 AMOXICILLIN-POT CLAVULANATE Inactive AUGMENTIN 875-125 MG TAB 1 tab by mouth twice daily with food AUGMENTIN 875-125 MG TAB 570155 AMOXICILLIN-POT CLAVULANATE Inactive TAMIFLU 75 MG CAPS [...] EBV - Chemistry sodium, serum 141 mmol/L 339-326 2877/09/21 carbon dioxide, venous blood 26.0 mmol/L 21.0-32.0 [...] Negative-Throat Culture to Follow Negative [facility] Report: [facility] - Chemistry human chorionic gonadotropin, urine, qualitative (urine test) Negative Negative Encounters Code Encounter Date Provider Facility CPT-08519 Level 3 Est. Patient 10:22:24 CDT Radha Victor APRN [facility] CPT-54395 Level 3 Est. Patient 18:31:30 CDT Linda Davis MD PhD [facility] CPT-22428 Level 4 Est. Patient 21:34:05 DIRECTOR OF MUSIC THERAPY Mikhail Forbes MD [facility] CPT-80746 Level 4 Est. Patient 15:14:34 DIRECTOR OF MUSIC THERAPY Mikhail Forbes MD [facility] CPT-97167 Level 3 Est. Patient 12:52:25 CDT Mikhail Forbes MD [facility] CPT-33303 Level 2 Est. Patient 14:57:21 CDT Radha Victor [facility] CPT-10793 Level 2 Est. Patient 16:59:23 CDT Radha Victor [facility] CPT-65575 Level 3 Est. Patient 15:10:28 CDT Moon Pete [facility] CPT-78027 Level 3 Est. Patient 13:38:05 DIRECTOR OF MUSIC THERAPY Moon Pete [facility] CPT-78125 Level 3 Est. Patient 13:36:40 DIRECTOR OF MUSIC THERAPY Antony Moran DO [facility] CPT-89100 Level 3 Est. Patient 14:07:56 DIRECTOR OF MUSIC THERAPY Moon Pete [facility] Procedures Code Procedure Name Date Entry Date Standard Description CPT-79513 Ankle, right, Complete - Min 3V 10:34:26 CDT CPT-J1050 Depo Provera 150 mg (Medroxyprogesterone) 11:26:14 CDT CPT-74300 Abx/Therapy Injection 11:26:13 CDT CPT-J1055 Depo-Provera Injection only 150 mg 16:55:48 CDT CPT-J1050 Depo Provera 150 mg (Medroxyprogesterone) 13:49:16 DIRECTOR OF MUSIC THERAPY CPT-05302 Abx/Therapy Injection 13:49:16 DIRECTOR OF MUSIC THERAPY CPT-J1055 Depo-Provera Injection only 150 mg 09:45:32 DIRECTOR OF MUSIC THERAPY CPT-J1050 Depo Provera 150 mg (Medroxyprogesterone) 18:49:54 CDT CPT-92957 Abx/Therapy Injection 18:49:54 CDT CPT-J1055 Depo-Provera Injection only 150 mg 09:18:50 CDT CPT-J1050 Depo Provera 150 mg (Medroxyprogesterone) 08:12:54 CDT CPT-98217 Abx/Therapy Injection 08:12:54 CDT CPT-J1050 Depo Provera 150 mg (Medroxyprogesterone) 15:07:25 CDT CPT-89211 Abx/Therapy Injection 15:07:25 CDT CPT-J1050 Depo Provera 150 mg (Medroxyprogesterone) 09:59:09 CDT CPT-J1050 Depo Provera 150 mg (Medroxyprogesterone) 15:43:37 DIRECTOR OF MUSIC THERAPY CPT-99806 Abx/Therapy Injection 15:43:37 DIRECTOR OF MUSIC THERAPY CPT-J1050 Depo Provera 150 mg (Medroxyprogesterone) 15:14:34 DIRECTOR OF MUSIC THERAPY CPT-68027 Postop F/U Visit 09:10:48 CDT CPT-OV Office Visit 21:43:13 CDT CPT-01495 Postop F/U Visit 16:13:18 CDT CPT-44752 Venipuncture Draw Fee 13:37:57 DIRECTOR OF MUSIC THERAPY
--- OUTSIDE RECORDS SUMMARY | 2018-09-25 11:07 | XMS REPORT | Clinical Summary ---
Author Author Admin, MAISHA Pedroza 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 TOPIRAMATE 58337438059 No Longer Active Linda Davis MD PhD Active HYDROCODONE-ACETAMINOPHEN 5-325 MG TABS 1 po q 6hr PRN Pain 06/18 HYDROCODONE-ACETAMINOPHEN 99296824076 No Longer Active Mikhail Forbes MD Active KEFLEX 500 MG CAP 1 tab po tid CEPHALEXIN 19255369245 No Longer Active Mikhail Forbes MD Active HYDROCODONE-ACETAMINOPHEN 5-500 MG TABS 1 every 4hours as needed HYDROCODONE-ACETAMINOPHEN 92549209375 No Longer Active Radha Victor APRN Active TAMIFLU 75 MG CAPS 1 bid x 5 days OSELTAMIVIR PHOSPHATE 64027586361 No Longer Active Linda Davis MD PhD Active AUGMENTIN 875-125 MG TAB 1 tab by mouth twice daily with food AMOXICILLIN-POT CLAVULANATE 83173046442 No Longer Active Jillina Frazell SEED DISTRICT SALES MANAGER Active AUGMENTIN 875-125 MG TAB 1 tab by mouth twice daily with food AMOXICILLIN-POT CLAVULANATE 23970150655 No Longer Active Jillina Frahazel SEED DISTRICT SALES MANAGER Active CLINDAMYCIN HCL 150 MG CAPS 1 four times a day CLINDAMYCIN HCL 94367175925 No Longer Active Moonbeau Pete APRN Active BACTRIM DS 800-160 MG TAB 1 tab by mouth twice daily TRIMETHOPRIM-SULFAMETHOXAZOLE 00637849462 No Longer Active Moon Pete SEED DISTRICT SALES MANAGER Active AMOXICILLIN 500 MG CAP 1 tab by mouth twice daily AMOXICILLIN 04779902600 No Longer Active Antony Moran DO Active ZITHROMAX Z-MAKAYLA 250 MG TABS 2 now then 1 everyday AZITHROMYCIN 99995593764 No Longer Active Antony Moran DO Active ZITHROMAX Z-MAKAYLA 250 MG TABS 2 now then 1 everyday ZITHROMAX Z-MAKAYLA 250 MG TABS 5177576 AZITHROMYCIN Inactive AMOXICILLIN 500 MG CAP 1 tab by mouth twice daily AMOXICILLIN 500 MG CAP 385198 AMOXICILLIN Inactive BACTRIM DS 800-160 MG TAB 1 tab by mouth twice daily BACTRIM DS 800-160 MG TAB 936001 TRIMETHOPRIM-SULFAMETHOXAZOLE Inactive CLINDAMYCIN HCL 150 MG CAPS 1 four times a day CLINDAMYCIN HCL 150 MG CAPS 086895 CLINDAMYCIN HCL Inactive HYDROCODONE-ACETAMINOPHEN 5-500 MG TABS 1 every 4hours as needed HYDROCODONE-ACETAMINOPHEN 5-500 MG TABS HYDROCODONE- ACETAMINOPHEN Inactive KEFLEX 500 MG CAP 1 tab po tid KEFLEX 500 MG CAP 351425 CEPHALEXIN Inactive HYDROCODONE-ACETAMINOPHEN 5-325 MG TABS 1 po q 6hr PRN Pain 06/18 HYDROCODONE-ACETAMINOPHEN 5-325 MG TABS 000249 HYDROCODONE- ACETAMINOPHEN Inactive TOPAMAX 25 MG TABS take 1 tab po qday for migraines. TOPAMAX 25 MG TABS 171448 TOPIRAMATE Inactive AUGMENTIN 875-125 MG TAB 1 tab by mouth twice daily with food AUGMENTIN 875-125 MG TAB 058702 AMOXICILLIN-POT CLAVULANATE Inactive AUGMENTIN 875-125 MG TAB 1 tab by mouth twice daily with food AUGMENTIN 875-125 MG TAB 822449 AMOXICILLIN-POT CLAVULANATE Inactive TAMIFLU 75 MG CAPS [...] EBV - Chemistry sodium, serum 141 mmol/L 910-281 6476/09/21 carbon dioxide, venous blood 26.0 mmol/L 21.0-32.0 [...] to Follow Negative [place] [facility] [place] human chorionic gonadotropin, urine, qualitative (urine test) Negative Negative human chorionic gonadotropin, urine, qualitative (urine test) Negative Negative Encounters Code Encounter Date Provider Facility CPT-05935 Level 3 Est. Patient 18:31:30 CDT Linda Davis MD PhD [facility] CPT-24800 Level 4 Est. Patient 21:34:05 CHIEF ACCOUNTANT Mikhail Forbes MD [facility] CPT-30683 Level 4 Est. Patient 15:14:34 CHIEF ACCOUNTANT Mikhail Forbes MD [facility] CPT-79049 Level 3 Est. Patient 12:52:25 CDT Mikhail Forbes MD [facility] CPT-97615 Level 2 Est. Patient 14:57:21 CDT Radha Victor [facility] [place] CPT-43363 Level 2 Est. Patient 16:59:23 CDT Radha Victor [facility] [place] CPT-27150 Level 3 Est. Patient 15:10:28 CDT Moon Derek Pete [facility] CPT-09108 Level 3 Est. Patient 13:38:05 CHIEF ACCOUNTANT Moon Pete [facility] CPT-37582 Level 3 Est. Patient 13:36:40 CHIEF ACCOUNTANT Antony Moran DO [facility] CPT-22088 Level 3 Est. Patient 14:07:56 CHIEF ACCOUNTANT Moon Pete [facility] Procedures Code Procedure Name Date Entry Date Standard Description CPT-J1050 Depo Provera 150 mg (Medroxyprogesterone) 13:49:16 CHIEF ACCOUNTANT CPT-87934 Abx/Therapy Injection 13:49:16 CHIEF ACCOUNTANT CPT-J1055 Depo-Provera Injection only 150 mg 09:45:32 CHIEF ACCOUNTANT CPT-J1050 Depo Provera 150 mg (Medroxyprogesterone) 18:49:54 CDT CPT-11982 Abx/Therapy Injection 18:49:54 CDT CPT-J1055 Depo-Provera Injection only 150 mg 09:18:50 CDT CPT-J1050 Depo Provera 150 mg (Medroxyprogesterone) 08:12:54 CDT CPT-01071 Abx/Therapy Injection 08:12:54 CDT CPT-J1050 Depo Provera 150 mg (Medroxyprogesterone) 15:07:25 CDT CPT-65162 Abx/Therapy Injection 15:07:25 CDT CPT-J1050 Depo Provera 150 mg (Medroxyprogesterone) 09:59:09 CDT CPT-J1050 Depo Provera 150 mg (Medroxyprogesterone) 15:43:37 CHIEF ACCOUNTANT CPT-60573 Abx/Therapy Injection 15:43:37 CHIEF ACCOUNTANT CPT-J1050 Depo Provera 150 mg (Medroxyprogesterone) 15:14:34 CHIEF ACCOUNTANT CPT-59355 Postop F/U Visit 09:10:48 CDT CPT-OV Office Visit 21:43:13 CDT CPT-98963 Postop F/U Visit 16:13:18 CDT CPT-26796 Venipuncture Draw Fee 13:37:57 CHIEF ACCOUNTANT
--- OUTSIDE RECORDS SUMMARY | 2018-09-25 11:08 | XMS REPORT | Clinical Summary ---
Author Author Admin, MAISHA Organization [facility] Address Unknown Phone Unavailable Allergies, Adverse Reactions, Alerts Allergy Name Reaction Description Start Date Severity Status Provider SULFA rash Moderate Active Jessy Sommers PONY RIDE OPERATOR Conditions or Problems Problem Name Problem Code Onset Date Status Entry Date Provider Comment Standard Description Annotate FH DIABETES V18.0 Active Moon Pete CAD PROGRAMMER Family history of diabetes mellitus PHARYNGITIS-ACUTE 462 Inactive Moon Pete CAD PROGRAMMER Acute pharyngitis OTITIS MEDIA, RIGHT 382.9 [...] FH BREAST CANCER V16.3 Active Radha Victor CAD PROGRAMMER Family history of malignant neoplasm of [...] and fatigue PHARYNGITIS-ACUTE ICD-462 Inactive Moon Pete CAD PROGRAMMER OTITIS MEDIA, RIGHT ICD-382.9 Inactive Linda [...] 6 hours if needed for pain/fever ACETAMINOPHEN 45227555914 Active Linda Davis MD PhD Active DEPO-PROVERA 150 MG/ML SUPENSION q3mos MEDROXYPROGEST ANDRZEJ (CONTRACEP) 77548095056 Active Linda Davis MD PhD Active TOPAMAX 25 MG TABS take 1 tab po qday for migraines. TOPIRAMATE 30967304610 No Longer Active Linda Davis MD PhD Active HYDROCODONE-ACETAMINOPHEN 5-325 MG TABS 1 po q 6hr PRN Pain 06/18 HYDROCODONE-ACETAMINOPHEN 33461334804 No Longer Active Mikhail Forbes MD Active KEFLEX 500 MG CAP 1 tab po tid CEPHALEXIN 92455790112 No Longer Active Mikhail Forbes MD Active HYDROCODONE-ACETAMINOPHEN 5-500 MG TABS 1 every 4hours as needed HYDROCODONE-ACETAMINOPHEN 99934589799 No Longer Active Radha Victor APRN Active TAMIFLU 75 MG CAPS 1 bid x 5 days OSELTAMIVIR PHOSPHATE 42660798233 No Longer Active Linda Davis MD PhD Active AUGMENTIN 875-125 MG TAB 1 tab by mouth twice daily with food AMOXICILLIN-POT CLAVULANATE 08882198355 No Longer Active Jillina Frazell CAD PROGRAMMER Active AUGMENTIN 875-125 MG TAB 1 tab by mouth twice daily with food AMOXICILLIN-POT CLAVULANATE 58780904247 No Longer Active Jillina Kayleigh COOPERN Active CLINDAMYCIN HCL 150 MG CAPS 1 four times a day CLINDAMYCIN HCL 98773680764 No Longer Active Moon Reed Juan R RODRÍGUEZ Active BACTRIM DS 800-160 MG TAB 1 tab by mouth twice daily TRIMETHOPRIM-SULFAMETHOXAZOLE 20436410820 No Longer Active Moon Pete CAD PROGRAMMER Active AMOXICILLIN 500 MG CAP 1 tab by mouth twice daily AMOXICILLIN 44203743609 No Longer Active Antony Moran DO Active ZITHROMAX Z-MAKAYLA 250 MG TABS 2 now then 1 everyday AZITHROMYCIN 26578889941 No Longer Active Antony Moran DO Active ZITHROMAX Z-MAKAYLA 250 MG TABS 2 now then 1 everyday ZITHROMAX Z-MAKAYLA 250 MG TABS 4213219 AZITHROMYCIN Inactive AMOXICILLIN 500 MG CAP 1 tab by mouth twice daily AMOXICILLIN 500 MG CAP 944757 AMOXICILLIN Inactive BACTRIM DS 800-160 MG TAB 1 tab by mouth twice daily BACTRIM DS 800-160 MG TAB 118576 TRIMETHOPRIM-SULFAMETHOXAZOLE Inactive CLINDAMYCIN HCL 150 MG CAPS 1 four times a day CLINDAMYCIN HCL 150 MG CAPS 931807 CLINDAMYCIN HCL Inactive HYDROCODONE-ACETAMINOPHEN 5-500 MG TABS 1 every 4hours as needed HYDROCODONE-ACETAMINOPHEN 5-500 MG TABS HYDROCODONE- ACETAMINOPHEN Inactive KEFLEX 500 MG CAP 1 tab po tid KEFLEX 500 MG CAP 839362 CEPHALEXIN Inactive HYDROCODONE-ACETAMINOPHEN 5-325 MG TABS 1 po q 6hr PRN Pain 06/18 HYDROCODONE-ACETAMINOPHEN 5-325 MG TABS 446706 HYDROCODONE- ACETAMINOPHEN Inactive TOPAMAX 25 MG TABS take 1 tab po qday for migraines. TOPAMAX 25 MG TABS 179969 TOPIRAMATE Inactive AUGMENTIN 875-125 MG TAB 1 tab by mouth twice daily with food AUGMENTIN 875-125 MG TAB 285183 AMOXICILLIN-POT CLAVULANATE Inactive AUGMENTIN 875-125 MG TAB 1 tab by mouth twice daily with food AUGMENTIN 875-125 MG TAB 537434 AMOXICILLIN-POT CLAVULANATE Inactive TAMIFLU 75 MG CAPS [...] EBV - Chemistry sodium, serum 141 mmol/L 988-567 7905/09/21 carbon dioxide, venous blood 26.0 mmol/L 21.0-32.0 [...] to Follow Negative [place] Report: [facility] [place] human chorionic gonadotropin, urine, qualitative (urine test) Negative Negative Encounters Code Encounter Date Provider Facility CPT-95709 Level 3 Est. Patient 18:31:30 CDT Linda Davis MD PhD [facility] CPT-03621 Level 4 Est. Patient 21:34:05 LAMP STACK DEVELOPER Mikhail Forbes MD [facility] CPT-76083 Level 4 Est. Patient 15:14:34 LAMP STACK DEVELOPER Mikhail Forbes MD [facility] CPT-16570 Level 3 Est. Patient 12:52:25 CDT Mikhail Forbes MD [facility] CPT-07020 Level 2 Est. Patient 14:57:21 CDT Radha Victor [facility] CPT-45663 Level 2 Est. Patient 16:59:23 CDT Radha Victor [facility] CPT-49438 Level 3 Est. Patient 15:10:28 CDT Moon Pete [facility] [place] CPT-26319 Level 3 Est. Patient 13:38:05 LAMP STACK DEVELOPER Moon Pete [facility] [place] [place] CPT-02150 Level 3 Est. Patient 13:36:40 LAMP STACK DEVELOPER Antony Cline Dean KATHLEEN [facility] CPT-69043 Level 3 Est. Patient 14:07:56 LAMP STACK DEVELOPER Moon Pete [facility] [place] [facility] [place] Procedures Code Procedure Name Date Entry Date Standard Description CPT-J1050 Depo Provera 150 mg (Medroxyprogesterone) 11:26:14 CDT CPT-46677 Abx/Therapy Injection 11:26:13 CDT CPT-J1055 Depo-Provera Injection only 150 mg 16:55:48 CDT CPT-J1050 Depo Provera 150 mg (Medroxyprogesterone) 13:49:16 LAMP STACK DEVELOPER CPT-33527 Abx/Therapy Injection 13:49:16 LAMP STACK DEVELOPER CPT-J1055 Depo-Provera Injection only 150 mg 09:45:32 LAMP STACK DEVELOPER CPT-J1050 Depo Provera 150 mg (Medroxyprogesterone) 18:49:54 CDT CPT-76605 Abx/Therapy Injection 18:49:54 CDT CPT-J1055 Depo-Provera Injection only 150 mg 09:18:50 CDT CPT-J1050 Depo Provera 150 mg (Medroxyprogesterone) 08:12:54 CDT CPT-16554 Abx/Therapy Injection 08:12:54 CDT CPT-J1050 Depo Provera 150 mg (Medroxyprogesterone) 15:07:25 CDT CPT-41092 Abx/Therapy Injection 15:07:25 CDT CPT-J1050 Depo Provera 150 mg (Medroxyprogesterone) 09:59:09 CDT CPT-J1050 Depo Provera 150 mg (Medroxyprogesterone) 15:43:37 LAMP STACK DEVELOPER CPT-47899 Abx/Therapy Injection 15:43:37 LAMP STACK DEVELOPER CPT-J1050 Depo Provera 150 mg (Medroxyprogesterone) 15:14:34 LAMP STACK DEVELOPER CPT-23847 Postop F/U Visit 09:10:48 CDT CPT-OV Office Visit 21:43:13 CDT CPT-12923 Postop F/U Visit 16:13:18 CDT CPT-60359 Venipuncture Draw Fee 13:37:57 LAMP STACK DEVELOPER
--- OUTSIDE RECORDS SUMMARY | 2018-09-25 11:08 | XMS REPORT | Clinical Summary ---
Author Author Admin, MAISHA Pedroza [facility] Address Unknown Phone Unavailable Allergies, Adverse Reactions, Alerts Allergy Name Reaction Description Start Date Severity Status Provider SULFA rash Moderate Active Jessy Sommers ROTARY CUTTER OPERATOR Conditions or Problems Problem Name Problem Code Onset Date Status Entry Date Provider Comment Standard Description Annotate FH DIABETES V18.0 Active Moon Pete FURNITURE MECHANIC Family history of diabetes mellitus PHARYNGITIS-ACUTE 462 Inactive Moon Pete FURNITURE MECHANIC Acute pharyngitis OTITIS MEDIA, RIGHT 382.9 Active Moon Pete FURNITURE MECHANIC Unspecified otitis media ACUTE PHARYNGITIS 462 Active Antony Moran DO Acute pharyngitis COUGH 786.2 Active Antony Moran DO Cough FATIGUE 780.79 Active Antony Moran DO Other malaise and fatigue TONSILLITIS 463 Active Moon Pete FURNITURE MECHANIC Acute tonsillitis ABSCESS, GLUTEAL 682.5 Active Moon Pete FURNITURE MECHANIC Cellulitis and abscess of buttock EAR PAIN, LEFT 388.70 Active Moon Pete FURNITURE MECHANIC Otalgia, unspecified FH BREAST CANCER V16.3 Active Jillina Kayleigh FURNITURE MECHANIC Family history of malignant neoplasm of breast PILONIDAL CYST 685.1 Active Germainllina Frazell FURNITURE MECHANIC Pilonidal cyst without mention of abscess AFTERCARE FOLLOW SURGERY SKIN&SUBCUT TISSUE NEC V58.77 Active Pradip Smith MD Aftercare following surgery of the skin and subcutaneous tissue, NEC PHARYNGITIS-ACUTE ICD-462 Inactive Moon Pete APRN Medication List Medication Instructions Start Date Stop Date Generic Name [facility] Status Provider Patient Instruction KEFLEX 500 MG CAP 1 tab po tid CEPHALEXIN 11605769181 Active Jillina Frazell FURNITURE MECHANIC Active HYDROCODONE-ACETAMINOPHEN 5-325 MG TABS 1 po q 6hr PRN Pain HYDROCODONE-ACETAMINOPHEN 08386774329 Active Jillina Frazell FURNITURE MECHANIC Active HYDROCODONE-ACETAMINOPHEN 5-500 MG TABS 1 every 4hours as needed HYDROCODONE-ACETAMINOPHEN 39620724414 No Longer Active Jillina Frazell FURNITURE MECHANIC Active TAMIFLU 75 MG CAPS 1 bid x 5 days OSELTAMIVIR PHOSPHATE 67907765670 No Longer Active Linda Davis MD PhD Active AUGMENTIN 875-125 MG TAB 1 tab by mouth twice daily with food AMOXICILLIN-POT CLAVULANATE 11662367968 No Longer Active Jillina Frazell FURNITURE MECHANIC Active AUGMENTIN 875-125 MG TAB 1 tab by mouth twice daily with food AMOXICILLIN-POT CLAVULANATE 96189370882 No Longer Active Jillina Frazell FURNITURE MECHANIC Active CLINDAMYCIN HCL 150 MG CAPS 1 four times a day CLINDAMYCIN HCL 80683408554 No Longer Active Moon Pete APRN Active BACTRIM DS 800-160 MG TAB 1 tab by mouth twice daily TRIMETHOPRIM-SULFAMETHOXAZOLE 59398209375 No Longer Active Moon Pete APRN Active AMOXICILLIN 500 MG CAP 1 tab by mouth twice daily AMOXICILLIN 10026128944 No Longer Active Antony Moran DO Active ZITHROMAX Z-MAKAYLA 250 MG TABS 2 now then 1 everyday AZITHROMYCIN 13853296021 No Longer Active Antony Moran DO Active ZITHROMAX Z-MAKAYLA 250 MG TABS 2 now then 1 everyday ZITHROMAX Z-MAKAYLA 250 MG TABS 5230946 AZITHROMYCIN Inactive AMOXICILLIN 500 MG CAP 1 tab by mouth twice daily AMOXICILLIN 500 MG CAP 748830 AMOXICILLIN Inactive BACTRIM DS 800-160 MG TAB 1 tab by mouth twice daily BACTRIM DS 800-160 MG TAB TRIMETHOPRIM-SULFAMETHOXAZOLE Inactive CLINDAMYCIN HCL 150 MG CAPS 1 four times a day CLINDAMYCIN HCL 150 MG CAPS 818396 CLINDAMYCIN HCL Inactive HYDROCODONE-ACETAMINOPHEN 5-500 MG TABS 1 every 4hours as needed HYDROCODONE-ACETAMINOPHEN 5-500 MG TABS HYDROCODONE- ACETAMINOPHEN Inactive AUGMENTIN 875-125 MG TAB 1 tab by mouth twice daily with food AUGMENTIN 875-125 MG TAB 306613 AMOXICILLIN-POT CLAVULANATE Inactive AUGMENTIN 875-125 MG TAB 1 tab by mouth twice daily with food AUGMENTIN 875-125 MG TAB 898293 AMOXICILLIN-POT CLAVULANATE Inactive TAMIFLU 75 MG CAPS [...] blood 13.0 g/dL platelet count 311 10*3/mm3 Encounters Code Encounter Date Provider Facility CPT-19959 Level 2 Est. Patient 14:57:21 CDT [facility] Level 2 Est. Patient 16:59:23 [facility] CPT-06193 Level 3 Est. Patient 15:10:28 CDT Moon Pete [facility] CPT-43450 Level 3 Est. Patient 13:38:05 ROBOTIC WELD TECHNICIAN Moon Pete [facility] CPT-91697 Level 3 Est. Patient 13:36:40 ROBOTIC WELD TECHNICIAN Antony Moran DO [facility] CPT-24911 Level 3 Est. Patient 14:07:56 ROBOTIC WELD TECHNICIAN Moon Pete [facility] Procedures Code Procedure Name Date Entry Date Standard Description CPT-19630 Postop F/U Visit 09:10:48 CDT CPT-OV Office Visit 21:43:13 CDT CPT-52992 Postop F/U Visit 16:13:18 CDT CPT-74084 Venipuncture Draw Fee 13:37:57 ROBOTIC WELD TECHNICIAN
--- OUTSIDE RECORDS SUMMARY | 2018-09-25 11:08 | XMS REPORT | Clinical Summary ---
Author Author Admin, MAISHA Pedroza [facility] Address Unknown Phone Allergies, Adverse Reactions, Alerts Allergy Name Reaction Description Start Date Severity Status Provider SULFA rash Moderate Active Jessy Sommers VOCATIONAL REHABILITATION SPECIALIST Conditions or Problems Problem Name Problem Code Onset Date Status Entry Date Provider Comment Standard Description Annotate FH DIABETES V18.0 Active Moon Pete DIRECTOR INTERNAL COMMUNICATIONS Family history of diabetes mellitus PHARYNGITIS-ACUTE 462 Inactive Moon Pete DIRECTOR INTERNAL COMMUNICATIONS Acute pharyngitis OTITIS MEDIA, RIGHT 382.9 Active Moon Pete DIRECTOR INTERNAL COMMUNICATIONS Unspecified otitis media ACUTE PHARYNGITIS 462 Active Antony Moran DO Acute pharyngitis COUGH 786.2 Active Antony Moran DO Cough FATIGUE 780.79 Active Antony Moran DO Other malaise and fatigue TONSILLITIS 463 Active Moon Pete DIRECTOR INTERNAL COMMUNICATIONS Acute tonsillitis ABSCESS, GLUTEAL 682.5 Active Moon Pete DIRECTOR INTERNAL COMMUNICATIONS Cellulitis and abscess of buttock EAR PAIN, LEFT 388.70 Active Moon Pete DIRECTOR INTERNAL COMMUNICATIONS Otalgia, unspecified FH BREAST CANCER V16.3 Active Jillsantiago Victor DIRECTOR INTERNAL COMMUNICATIONS Family history of malignant neoplasm of breast PILONIDAL CYST 685.1 Active Radha Victor DIRECTOR INTERNAL COMMUNICATIONS Pilonidal cyst without mention of abscess AFTERCARE FOLLOW SURGERY SKIN&SUBCUT TISSUE NEC V58.77 Active Pradip Smith MD Aftercare following surgery of the skin and subcutaneous tissue, NEC PHARYNGITIS-ACUTE ICD-462 Inactive Moon Pete APRN Medication List Medication Instructions Start Date Stop Date Generic Name [facility] Status Provider Patient Instruction HYDROCODONE-ACETAMINOPHEN 5-325 MG TABS 1 po q 6hr PRN Pain HYDROCODONE-ACETAMINOPHEN 18778410322 Active Jillina Frashantelll DIRECTOR INTERNAL COMMUNICATIONS Active HYDROCODONE-ACETAMINOPHEN 5-500 MG TABS 1 every 4hours as needed HYDROCODONE-ACETAMINOPHEN 87817324057 No Longer Active Jillina Frazell DIRECTOR INTERNAL COMMUNICATIONS Active TAMIFLU 75 MG CAPS 1 bid x 5 days OSELTAMIVIR PHOSPHATE 40837517996 No Longer Active Linda Davis MD PhD Active AUGMENTIN 875-125 MG TAB 1 tab by mouth twice daily with food AMOXICILLIN-POT CLAVULANATE 48970030606 No Longer Active Jillina Sterlingl DIRECTOR INTERNAL COMMUNICATIONS Active AUGMENTIN 875-125 MG TAB 1 tab by mouth twice daily with food AMOXICILLIN-POT CLAVULANATE 65795967331 No Longer Active Germainllina Sterlingl DIRECTOR INTERNAL COMMUNICATIONS Active CLINDAMYCIN HCL 150 MG CAPS 1 four times a day CLINDAMYCIN HCL 49888578063 No Longer Active Moon Pete APRN Active BACTRIM DS 800-160 MG TAB 1 tab by mouth twice daily TRIMETHOPRIM-SULFAMETHOXAZOLE 77071344269 No Longer Active Moon Pete APRN Active AMOXICILLIN 500 MG CAP 1 tab by mouth twice daily AMOXICILLIN 17638016429 No Longer Active Antony Moran DO Active ZITHROMAX Z-MAKAYLA 250 MG TABS 2 now then 1 everyday AZITHROMYCIN 25789197628 No Longer Active Antony Moran DO Active ZITHROMAX Z-MAKAYLA 250 MG TABS 2 now then 1 everyday ZITHROMAX Z-MAKAYLA 250 MG TABS 0080131 AZITHROMYCIN Inactive AMOXICILLIN 500 MG CAP 1 tab by mouth twice daily AMOXICILLIN 500 MG CAP 373876 AMOXICILLIN Inactive BACTRIM DS 800-160 MG TAB 1 tab by mouth twice daily BACTRIM DS 800-160 MG TAB TRIMETHOPRIM-SULFAMETHOXAZOLE Inactive CLINDAMYCIN HCL 150 MG CAPS 1 four times a day CLINDAMYCIN HCL 150 MG CAPS 037665 CLINDAMYCIN HCL Inactive HYDROCODONE-ACETAMINOPHEN 5-500 MG TABS 1 every 4hours as needed HYDROCODONE-ACETAMINOPHEN 5-500 MG TABS HYDROCODONE- ACETAMINOPHEN Inactive AUGMENTIN 875-125 MG TAB 1 tab by mouth twice daily with food AUGMENTIN 875-125 MG TAB 639543 AMOXICILLIN-POT CLAVULANATE Inactive AUGMENTIN 875-125 MG TAB 1 tab by mouth twice daily with food AUGMENTIN 875-125 MG TAB 622270 AMOXICILLIN-POT CLAVULANATE Inactive TAMIFLU 75 MG CAPS [...] 10*3/mm3 Encounters Code Encounter Date Provider Facility CPT-72551 Level 2 Est. Patient 14:57:21 CDT [facility] CPT-45482 Level 2 Est. Patient 16:59:23 CDT Radha Victor [facility] CPT-89394 Level 3 Est. Patient 15:10:28 CDT Moon Pete [facility] CPT-22688 Level 3 Est. Patient 13:38:05 QUALITY CHECKER Moon Pete [facility] CPT-28449 Level 3 Est. Patient 13:36:40 QUALITY CHECKER Antony Moran DO [facility] CPT-72503 Level 3 Est. Patient 14:07:56 QUALITY CHECKER Moon Pete [facility] Procedures Code Procedure Name Date Entry Date Standard Description CPT-61341 Postop F/U Visit 09:10:48 CDT CPT-OV Office Visit 21:43:13 CDT CPT-71522 Postop F/U Visit 16:13:18 CDT CPT-25652 Venipuncture Draw Fee 13:37:57 QUALITY CHECKER
--- OUTSIDE RECORDS SUMMARY | 2018-09-25 11:08 | XMS REPORT | Clinical Summary ---
Author Author Admin, MAISHA Pedroza [facility] Address Unknown Phone Unavailable Allergies, Adverse Reactions, Alerts Allergy Name Reaction Description Start Date Severity Status Provider SULFA rash Moderate Active Jessy Sommesr WORKERS' COMPENSATION CLAIMS EXAMINER Conditions or Problems Problem Name Problem Code Onset Date Status Entry Date Provider Comment Standard Description Annotate FH DIABETES V18.0 Active Moon Pete PUBLIC WORKS MANAGER Family history of diabetes mellitus PHARYNGITIS-ACUTE 462 Inactive Moon Pete PUBLIC WORKS MANAGER Acute pharyngitis OTITIS MEDIA, RIGHT 382.9 Active Moon Pete PUBLIC WORKS MANAGER Unspecified otitis media ACUTE PHARYNGITIS 462 Active Antony Moran DO Acute pharyngitis COUGH 786.2 Active Antony Moran DO Cough FATIGUE 780.79 Active Antony Moran DO Other malaise and fatigue TONSILLITIS 463 Active Moon Pete PUBLIC WORKS MANAGER Acute tonsillitis ABSCESS, GLUTEAL 682.5 Active Moon Pete PUBLIC WORKS MANAGER Cellulitis and abscess of buttock EAR PAIN, LEFT 388.70 Active Moon Pete PUBLIC WORKS MANAGER Otalgia, unspecified FH BREAST CANCER V16.3 Active Jillina Kayleigh PUBLIC WORKS MANAGER Family history of malignant neoplasm of breast PILONIDAL CYST 685.1 Active Jillina Frazell PUBLIC WORKS MANAGER Pilonidal cyst without mention of abscess [...] 1 tab po qday for migraines. TOPIRAMATE [id number] Active Mikhail Forbes MD Active HYDROCODONE-ACETAMINOPHEN 5-325 MG TABS 1 po q 6hr PRN Pain 06/18 HYDROCODONE-ACETAMINOPHEN 75562671530 No Longer Active Mikhail Forbes MD Active KEFLEX 500 MG CAP 1 tab po tid CEPHALEXIN 23292147364 No Longer Active Mikhail Forbes MD Active HYDROCODONE-ACETAMINOPHEN 5-500 MG TABS 1 every 4hours as needed HYDROCODONE-ACETAMINOPHEN 07171281924 No Longer Active Radha Victor APRN Active TAMIFLU 75 MG CAPS 1 bid x 5 days OSELTAMIVIR PHOSPHATE 11900281771 No Longer Active Linda Davis MD PhD Active AUGMENTIN 875-125 MG TAB 1 tab by mouth twice daily with food AMOXICILLIN-POT CLAVULANATE 73507193409 No Longer Active Jillina Frazell PUBLIC WORKS MANAGER Active AUGMENTIN 875-125 MG TAB 1 tab by mouth twice daily with food AMOXICILLIN-POT CLAVULANATE 15301613189 No Longer Active Jillina Frazell PUBLIC WORKS MANAGER Active CLINDAMYCIN HCL 150 MG CAPS 1 four times a day CLINDAMYCIN HCL 48547649279 No Longer Active Moon Pete APRN Active BACTRIM DS 800-160 MG TAB 1 tab by mouth twice daily TRIMETHOPRIM-SULFAMETHOXAZOLE 90011787013 No Longer Active Moon Reed Juan R RODRÍGUEZ Active AMOXICILLIN 500 MG CAP 1 tab by mouth twice daily AMOXICILLIN 71845897582 No Longer Active Antony Moran DO Active ZITHROMAX Z-MAKAYLA 250 MG TABS 2 now then 1 everyday AZITHROMYCIN 81267452410 No Longer Active Antony Moran DO Active ZITHROMAX Z-MAKAYLA 250 MG TABS 2 now then 1 everyday ZITHROMAX Z-MAKAYLA 250 MG TABS 1081474 AZITHROMYCIN Inactive AMOXICILLIN 500 MG CAP 1 tab by mouth twice daily AMOXICILLIN 500 MG CAP 878862 AMOXICILLIN Inactive BACTRIM DS 800-160 MG TAB 1 tab by mouth twice daily BACTRIM DS 800-160 MG TAB TRIMETHOPRIM-SULFAMETHOXAZOLE Inactive CLINDAMYCIN HCL 150 MG CAPS 1 four times a day CLINDAMYCIN HCL 150 MG CAPS 672936 CLINDAMYCIN HCL Inactive HYDROCODONE-ACETAMINOPHEN 5-500 MG TABS 1 every 4hours as needed HYDROCODONE-ACETAMINOPHEN 5-500 MG TABS HYDROCODONE- ACETAMINOPHEN Inactive KEFLEX 500 MG CAP 1 tab po tid KEFLEX 500 MG CAP 669767 CEPHALEXIN Inactive HYDROCODONE-ACETAMINOPHEN 5-325 MG TABS 1 po q 6hr PRN Pain 06/18 HYDROCODONE-ACETAMINOPHEN 5-325 MG TABS 017369 HYDROCODONE- ACETAMINOPHEN Inactive AUGMENTIN 875-125 MG TAB 1 tab by mouth twice daily with food AUGMENTIN 875-125 MG TAB 123503 AMOXICILLIN-POT CLAVULANATE Inactive AUGMENTIN 875-125 MG TAB 1 tab by mouth twice daily with food AUGMENTIN 875-125 MG TAB 216829 AMOXICILLIN-POT CLAVULANATE Inactive TAMIFLU 75 MG CAPS [...] 10*3/mm3 Encounters Code Encounter Date Provider Facility CPT-28310 Level 4 Est. Patient 15:14:34 WARE SERVER Mikhail Forbes MD [facility] CPT-14338 Level 3 Est. Patient 12:52:25 CDT Mikhail Forbes MD [facility] CPT-45198 Level 2 Est. Patient 14:57:21 CDT Radha Victor [facility] CPT-34488 Level 2 Est. Patient 16:59:23 CDT Radha Victor [facility] CPT-43888 Level 3 Est. Patient 15:10:28 CDT Moon Pete [facility] CPT-39416 Level 3 Est. Patient 13:38:05 WARE SERVER Moon Pete [facility] CPT-56367 Level 3 Est. Patient 13:36:40 WARE SERVER Antony Moran DO [facility] CPT-81826 Level 3 Est. Patient 14:07:56 WARE SERVER Moon Pete [facility] Procedures Code Procedure Name Date Entry Date Standard Description CPT-J1050 Depo Provera 150 mg (Medroxyprogesterone) 15:43:37 WARE SERVER CPT-93850 Abx/Therapy Injection 15:43:37 WARE SERVER CPT-J1050 Depo Provera 150 mg (Medroxyprogesterone) 15:14:34 WARE SERVER CPT-86409 Postop F/U Visit 09:10:48 CDT CPT-OV Office Visit 21:43:13 CDT CPT-00668 Postop F/U Visit 16:13:18 CDT CPT-57307 Venipuncture Draw Fee 13:37:57 WARE SERVER
--- OUTSIDE RECORDS SUMMARY | 2018-09-25 11:09 | XMS REPORT | Clinical Summary ---
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 Conditions or Problems Problem Name Problem Code Onset Date Status Entry Date Provider Comment Standard Description Annotate FH DIABETES V18.0 Active Moon Pete REGISTERED NURSE AMBULATORY Family history of diabetes mellitus PHARYNGITIS-ACUTE 462 Inactive Moon Pete REGISTERED NURSE AMBULATORY Acute pharyngitis OTITIS MEDIA, RIGHT 382.9 Active Moon Pete REGISTERED NURSE AMBULATORY Unspecified otitis media ACUTE PHARYNGITIS 462 Active Antony Moran DO Acute pharyngitis COUGH 786.2 Active Antony Moran DO Cough FATIGUE 780.79 Active Antony Moran DO Other malaise and fatigue TONSILLITIS 463 Active Moon Pete REGISTERED NURSE AMBULATORY Acute tonsillitis ABSCESS, GLUTEAL 682.5 Active Moon Pete REGISTERED NURSE AMBULATORY Cellulitis and abscess of buttock EAR PAIN, LEFT 388.70 Active Moon Pete REGISTERED NURSE AMBULATORY Otalgia, unspecified FH BREAST CANCER V16.3 Active Jillsantiago Victor REGISTERED NURSE AMBULATORY Family history of malignant neoplasm of breast PILONIDAL CYST 685.1 Active Radha Victor REGISTERED NURSE AMBULATORY Pilonidal cyst without mention of abscess AFTERCARE FOLLOW SURGERY SKIN&SUBCUT TISSUE NEC V58.77 Active Pradip Smith MD Aftercare following surgery of the skin and subcutaneous tissue, NEC PHARYNGITIS-ACUTE ICD-462 Inactive Moon Pete APRN Medication List Medication Instructions Start Date Stop Date Generic Name [facility] Status Provider Patient Instruction HYDROCODONE-ACETAMINOPHEN 5-325 MG TABS 1 po q 6hr PRN Pain HYDROCODONE-ACETAMINOPHEN 80388236943 Active Jillina Frashantelll REGISTERED NURSE AMBULATORY Active HYDROCODONE-ACETAMINOPHEN 5-500 MG TABS 1 every 4hours as needed HYDROCODONE-ACETAMINOPHEN 27260606408 No Longer Active Jillina Frazell REGISTERED NURSE AMBULATORY Active TAMIFLU 75 MG CAPS 1 bid x 5 days OSELTAMIVIR PHOSPHATE 49763148399 No Longer Active Linda Davis MD PhD Active AUGMENTIN 875-125 MG TAB 1 tab by mouth twice daily with food AMOXICILLIN-POT CLAVULANATE 39085020033 No Longer Active Jillina Sterlingl REGISTERED NURSE AMBULATORY Active AUGMENTIN 875-125 MG TAB 1 tab by mouth twice daily with food AMOXICILLIN-POT CLAVULANATE 87451561472 No Longer Active Germainllina Sterlingl REGISTERED NURSE AMBULATORY Active CLINDAMYCIN HCL 150 MG CAPS 1 four times a day CLINDAMYCIN HCL 61826960392 No Longer Active Moon Pete APRN Active BACTRIM DS 800-160 MG TAB 1 tab by mouth twice daily TRIMETHOPRIM-SULFAMETHOXAZOLE 68780392575 No Longer Active Moon Pete APRN Active AMOXICILLIN 500 MG CAP 1 tab by mouth twice daily AMOXICILLIN 73227363166 No Longer Active Antony Moran DO Active ZITHROMAX Z-MAKAYLA 250 MG TABS 2 now then 1 everyday AZITHROMYCIN 67044423886 No Longer Active Antony Moran DO Active ZITHROMAX Z-MAKAYLA 250 MG TABS 2 now then 1 everyday ZITHROMAX Z-MAKAYLA 250 MG TABS 7804382 AZITHROMYCIN Inactive AMOXICILLIN 500 MG CAP 1 tab by mouth twice daily AMOXICILLIN 500 MG CAP 631430 AMOXICILLIN Inactive BACTRIM DS 800-160 MG TAB 1 tab by mouth twice daily BACTRIM DS 800-160 MG TAB TRIMETHOPRIM-SULFAMETHOXAZOLE Inactive CLINDAMYCIN HCL 150 MG CAPS 1 four times a day CLINDAMYCIN HCL 150 MG CAPS 998854 CLINDAMYCIN HCL Inactive HYDROCODONE-ACETAMINOPHEN 5-500 MG TABS 1 every 4hours as needed HYDROCODONE-ACETAMINOPHEN 5-500 MG TABS HYDROCODONE- ACETAMINOPHEN Inactive AUGMENTIN 875-125 MG TAB 1 tab by mouth twice daily with food AUGMENTIN 875-125 MG TAB 903556 AMOXICILLIN-POT CLAVULANATE Inactive AUGMENTIN 875-125 MG TAB 1 tab by mouth twice daily with food AUGMENTIN 875-125 MG TAB 442856 AMOXICILLIN-POT CLAVULANATE Inactive TAMIFLU 75 MG CAPS [...] E&M - 3141-9 130 [lb_av] Weight Measured blood pressure, diastolic - 8462-4 70 mm[Hg] BP burkett blood pressure, systolic - 8480-6 98 mm[Hg] BP sys height E&M - 8302-2 59.5 [in_us] Bdy height pulse rate E&M - 8867-4 72 /min Heart rate temperature E&M 97.1 [degF] Body temperature weight E&M - 3141-9 120.8 [lb_av] Weight Measured Diagnostic Results Date Name Value Unit Range Description Lab Report: CBC W/ DIFF, HCG - Hematology leukocyte count, blood 9.3 10*3/mm3 hemoglobin, blood 13.0 g/dL platelet count 311 10*3/mm3 Encounters Code Encounter Date Provider Facility CPT-06206 Level 2 Est. Patient 14:57:21 CDT [facility] CPT-82119 Level 2 Est. Patient 16:59:23 CDT [facility] CPT-44585 Level 3 Est. Patient 15:10:28 CDT Moon Pete [facility] CPT-77036 Level 3 Est. Patient 13:38:05 CAN LINE EXAMINER Moon Pete [facility] CPT-72328 Level 3 Est. Patient 13:36:40 CAN LINE EXAMINER Antony Moran DO [facility] CPT-58399 Level 3 Est. Patient 14:07:56 CAN LINE EXAMINER Moon Pete [facility] Procedures Code Procedure Name Date Entry Date Standard Description CPT-93723 Postop F/U Visit 09:10:48 CDT CPT-OV Office Visit 21:43:13 CDT CPT-37214 Postop F/U Visit 16:13:18 CDT CPT-94920 Venipuncture Draw Fee 13:37:57 CAN LINE EXAMINER
--- OUTSIDE RECORDS SUMMARY | 2018-09-25 11:09 | XMS REPORT | Clinical Summary ---
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 Family history of diabetes mellitus PHARYNGITIS-ACUTE 462 Inactive Moon Pete CERAMIC TILE INSTALLATION HELPER Acute pharyngitis OTITIS MEDIA, RIGHT 382.9 Active Moon Pete CERAMIC TILE INSTALLATION HELPER Unspecified otitis media ACUTE PHARYNGITIS 462 Active Antony Moran DO Acute pharyngitis COUGH 786.2 Active Antony Morna DO Cough FATIGUE 780.79 Active Antony Moran DO Other malaise and fatigue TONSILLITIS 463 Active Moon Pete CERAMIC TILE INSTALLATION HELPER Acute tonsillitis ABSCESS, GLUTEAL 682.5 Active Moon Pete CERAMIC TILE INSTALLATION HELPER Cellulitis and abscess of buttock EAR PAIN, LEFT 388.70 Active Moon Pete CERAMIC TILE INSTALLATION HELPER Otalgia, unspecified FH BREAST CANCER V16.3 Active Jillina Kayleigh CERAMIC TILE INSTALLATION HELPER Family history of malignant neoplasm of breast PILONIDAL CYST 685.1 Active Jillina Frazell CERAMIC TILE INSTALLATION HELPER Pilonidal cyst without mention of abscess AFTERCARE [...] 1 tab po qday for migraines. TOPIRAMATE 09153223587 Active Mikhail Forbes MD Active HYDROCODONE-ACETAMINOPHEN 5-325 MG TABS 1 po q 6hr PRN Pain 06/18 HYDROCODONE-ACETAMINOPHEN 95153437912 No Longer Active Mikhail Forbes MD Active KEFLEX 500 MG CAP 1 tab po tid CEPHALEXIN 20883109539 No Longer Active Mikhail Forbes MD Active HYDROCODONE-ACETAMINOPHEN 5-500 MG TABS 1 every 4hours as needed HYDROCODONE-ACETAMINOPHEN 45953389803 No Longer Active Radha Victor APRN Active TAMIFLU 75 MG CAPS 1 bid x 5 days OSELTAMIVIR PHOSPHATE 03093150373 No Longer Active Linda Davis MD PhD Active AUGMENTIN 875-125 MG TAB 1 tab by mouth twice daily with food AMOXICILLIN-POT CLAVULANATE 63848531188 No Longer Active Jillina Frazell CERAMIC TILE INSTALLATION HELPER Active AUGMENTIN 875-125 MG TAB 1 tab by mouth twice daily with food AMOXICILLIN-POT CLAVULANATE 24385098427 No Longer Active Jillina Frazell CERAMIC TILE INSTALLATION HELPER Active CLINDAMYCIN HCL 150 MG CAPS 1 four times a day CLINDAMYCIN HCL 91732968180 No Longer Active Moon Pete APRN Active BACTRIM DS 800-160 MG TAB 1 tab by mouth twice daily TRIMETHOPRIM-SULFAMETHOXAZOLE 67449662640 No Longer Active Moon Reed Juan R RODRÍGUEZ Active AMOXICILLIN 500 MG CAP 1 tab by mouth twice daily AMOXICILLIN 18091550160 No Longer Active Antony Moran DO Active ZITHROMAX Z-MAKAYLA 250 MG TABS 2 now then 1 everyday AZITHROMYCIN 38124762878 No Longer Active Antony Moran DO Active ZITHROMAX Z-MAKAYLA 250 MG TABS 2 now then 1 everyday ZITHROMAX Z-MAKAYLA 250 MG TABS 6742860 AZITHROMYCIN Inactive AMOXICILLIN 500 MG CAP 1 tab by mouth twice daily AMOXICILLIN 500 MG CAP 416901 AMOXICILLIN Inactive BACTRIM DS 800-160 MG TAB 1 tab by mouth twice daily BACTRIM DS 800-160 MG TAB TRIMETHOPRIM-SULFAMETHOXAZOLE Inactive CLINDAMYCIN HCL 150 MG CAPS 1 four times a day CLINDAMYCIN HCL 150 MG CAPS 566336 CLINDAMYCIN HCL Inactive HYDROCODONE-ACETAMINOPHEN 5-500 MG TABS 1 every 4hours as needed HYDROCODONE-ACETAMINOPHEN 5-500 MG TABS HYDROCODONE- ACETAMINOPHEN Inactive KEFLEX 500 MG CAP 1 tab po tid KEFLEX 500 MG CAP 537237 CEPHALEXIN Inactive HYDROCODONE-ACETAMINOPHEN 5-325 MG TABS 1 po q 6hr PRN Pain 06/18 HYDROCODONE-ACETAMINOPHEN 5-325 MG TABS 949094 HYDROCODONE- ACETAMINOPHEN Inactive AUGMENTIN 875-125 MG TAB 1 tab by mouth twice daily with food AUGMENTIN 875-125 MG TAB 442660 AMOXICILLIN-POT CLAVULANATE Inactive AUGMENTIN 875-125 MG TAB 1 tab by mouth twice daily with food AUGMENTIN 875-125 MG TAB 371029 AMOXICILLIN-POT CLAVULANATE Inactive TAMIFLU 75 MG CAPS [...] g/dL platelet count 311 10*3/mm3 Lab Report: [facility] - Chemistry human chorionic gonadotropin, urine, qualitative (urine test) Negative Negative Encounters Code Encounter Date Provider Facility CPT-20749 Level 4 Est. Patient 15:14:34 EXECUTIVE VICE PRESIDENT OF SALES Mikhail Forbes MD [facility] CPT-37518 Level 3 Est. Patient 12:52:25 CDT Mikhail Forbes MD [facility] CPT-14300 Level 2 Est. Patient 14:57:21 CDT Radha Victor [facility] CPT-61906 Level 2 Est. Patient 16:59:23 CDT Radha Victor [facility] CPT-51984 Level 3 Est. Patient 15:10:28 CDT Moon Pete [facility] CPT-76137 Level 3 Est. Patient 13:38:05 EXECUTIVE VICE PRESIDENT OF SALES Moon Pete [facility] CPT-09664 Level 3 Est. Patient 13:36:40 EXECUTIVE VICE PRESIDENT OF SALES Antony Moran DO [facility] CPT-40131 Level 3 Est. Patient 14:07:56 EXECUTIVE VICE PRESIDENT OF SALES Moon Pete [facility] Procedures Code Procedure Name Date Entry Date Standard Description CPT-J1050 Depo Provera 150 mg (Medroxyprogesterone) 15:43:37 EXECUTIVE VICE PRESIDENT OF SALES CPT-62819 Abx/Therapy Injection 15:43:37 EXECUTIVE VICE PRESIDENT OF SALES CPT-J1050 Depo Provera 150 mg (Medroxyprogesterone) 15:14:34 EXECUTIVE VICE PRESIDENT OF SALES CPT-07973 Postop F/U Visit 09:10:48 CDT CPT-OV Office Visit 21:43:13 CDT CPT-23965 Postop F/U Visit 16:13:18 CDT CPT-94064 Venipuncture Draw Fee 13:37:57 EXECUTIVE VICE PRESIDENT OF SALES
--- OUTSIDE RECORDS SUMMARY | 2018-09-25 11:09 | XMS REPORT | Clinical Summary ---
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 Family history of diabetes mellitus PHARYNGITIS-ACUTE 462 Inactive Moon Pete INCINERATOR PLANT GENERAL SUPERVISOR Acute pharyngitis OTITIS MEDIA, RIGHT 382.9 Active Moon Pete INCINERATOR PLANT GENERAL SUPERVISOR Unspecified otitis media ACUTE PHARYNGITIS 462 Active Antony Moran DO Acute pharyngitis COUGH 786.2 Active Antony Moran DO Cough FATIGUE 780.79 Active Antony Moran DO Other malaise and fatigue TONSILLITIS 463 Active Moon Pete INCINERATOR PLANT GENERAL SUPERVISOR Acute tonsillitis ABSCESS, GLUTEAL 682.5 Active Moon Pete INCINERATOR PLANT GENERAL SUPERVISOR Cellulitis and abscess of buttock EAR PAIN, LEFT 388.70 Active Moon Pete INCINERATOR PLANT GENERAL SUPERVISOR Otalgia, unspecified FH BREAST CANCER V16.3 Active Jillsantiago Victor INCINERATOR PLANT GENERAL SUPERVISOR Family history of malignant neoplasm of breast PILONIDAL CYST 685.1 Active Radha Victor INCINERATOR PLANT GENERAL SUPERVISOR Pilonidal cyst without mention of abscess AFTERCARE FOLLOW SURGERY SKIN&SUBCUT TISSUE NEC V58.77 Active Pradip Smith MD Aftercare following surgery of the skin and subcutaneous tissue, NEC PHARYNGITIS-ACUTE ICD-462 Inactive Moon Pete APRN Medication List Medication Instructions Start Date Stop Date Generic Name ND Status Provider Patient Instruction KEFLEX 500 MG CAP 1 tab po tid CEPHALEXIN 24252303293 Active Jillina Frazell INCINERATOR PLANT GENERAL SUPERVISOR Active HYDROCODONE-ACETAMINOPHEN 5-325 MG TABS 1 po q 6hr PRN Pain HYDROCODONE-ACETAMINOPHEN 93161120936 Active Jillina Frazell INCINERATOR PLANT GENERAL SUPERVISOR Active HYDROCODONE-ACETAMINOPHEN 5-500 MG TABS 1 every 4hours as needed HYDROCODONE-ACETAMINOPHEN 35401976043 No Longer Active Jillina Frazell INCINERATOR PLANT GENERAL SUPERVISOR Active TAMIFLU 75 MG CAPS 1 bid x 5 days OSELTAMIVIR PHOSPHATE 62392118108 No Longer Active Linda Davis MD PhD Active AUGMENTIN 875-125 MG TAB 1 tab by mouth twice daily with food AMOXICILLIN-POT CLAVULANATE 10952658490 No Longer Active Jillina Frazell INCINERATOR PLANT GENERAL SUPERVISOR Active AUGMENTIN 875-125 MG TAB 1 tab by mouth twice daily with food AMOXICILLIN-POT CLAVULANATE 07983521265 No Longer Active Jillina Frazell INCINERATOR PLANT GENERAL SUPERVISOR Active CLINDAMYCIN HCL 150 MG CAPS 1 four times a day CLINDAMYCIN HCL 39849716252 No Longer Active Moon Pete APRN Active BACTRIM DS 800-160 MG TAB 1 tab by mouth twice daily TRIMETHOPRIM-SULFAMETHOXAZOLE 61866292928 No Longer Active Moon Pete APRN Active AMOXICILLIN 500 MG CAP 1 tab by mouth twice daily AMOXICILLIN 45869453904 No Longer Active Antony Moran DO Active ZITHROMAX Z-MAKAYLA 250 MG TABS 2 now then 1 everyday AZITHROMYCIN 52758200737 No Longer Active Antony Moran DO Active ZITHROMAX Z-MAKAYLA 250 MG TABS 2 now then 1 everyday ZITHROMAX Z-MAKAYLA 250 MG TABS 7361957 AZITHROMYCIN Inactive AMOXICILLIN 500 MG CAP 1 tab by mouth twice daily AMOXICILLIN 500 MG CAP 207533 AMOXICILLIN Inactive BACTRIM DS 800-160 MG TAB 1 tab by mouth twice daily BACTRIM DS 800-160 MG TAB TRIMETHOPRIM-SULFAMETHOXAZOLE Inactive CLINDAMYCIN HCL 150 MG CAPS 1 four times a day CLINDAMYCIN HCL 150 MG CAPS 069480 CLINDAMYCIN HCL Inactive HYDROCODONE-ACETAMINOPHEN 5-500 MG TABS 1 every 4hours as needed HYDROCODONE-ACETAMINOPHEN 5-500 MG TABS HYDROCODONE- ACETAMINOPHEN Inactive AUGMENTIN 875-125 MG TAB 1 tab by mouth twice daily with food AUGMENTIN 875-125 MG TAB 148694 AMOXICILLIN-POT CLAVULANATE Inactive AUGMENTIN 875-125 MG TAB 1 tab by mouth twice daily with food AUGMENTIN 875-125 MG TAB 987283 AMOXICILLIN-POT CLAVULANATE Inactive TAMIFLU 75 MG CAPS [...] 10*3/mm3 Encounters Code Encounter Date Provider Facility CPT-75232 Level 2 Est. [facility] 14:57:21 [facility] Patient 16:59:23 [facility] Level 3 Est. Patient 15:10:28 CDT Moon Pete [facility] CPT-35517 Level 3 Est. Patient 13:38:05 BRAIDING OPERATOR Moon Pete [facility] CPT-68977 Level 3 Est. Patient 13:36:40 BRAIDING OPERATOR Antony Moran DO [facility] CPT-19169 Level 3 Est. Patient 14:07:56 BRAIDING OPERATOR Moon Pete [facility] Procedures Code Procedure Name Date Entry Date Standard Description CPT-34706 Postop F/U Visit 09:10:48 CDT CPT-OV Office Visit 21:43:13 CDT CPT-41693 Postop F/U Visit 16:13:18 CDT CPT-29667 Venipuncture Draw Fee 13:37:57 BRAIDING OPERATOR
--- OUTSIDE RECORDS SUMMARY | 2018-09-25 11:09 | XMS REPORT | Clinical Summary ---
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 Problem Name Problem Code Onset Date Status Entry Date Provider Comment Standard Description Annotate FH DIABETES V18.0 Active Moon Pete [employer] OPERATOR INSULATION Family history of diabetes mellitus PHARYNGITIS-ACUTE 462 Inactive Moon Pete [employer]UPOLA OPERATOR INSULATION Acute pharyngitis OTITIS MEDIA, RIGHT 382.9 Active Moon Pete CUPOLA OPERATOR INSULATION Unspecified otitis media ACUTE PHARYNGITIS 462 Active Antony Moran DO Acute pharyngitis COUGH 786.2 Active Antony Moran DO Cough FATIGUE 780.79 Active Antony Moran DO Other malaise and fatigue TONSILLITIS 463 Active Moon Pete [employer]OLA OPERATOR INSULATION Acute tonsillitis ABSCESS, GLUTEAL 682.5 Active Moon Pete [employer]OLA OPERATOR INSULATION Cellulitis and abscess of buttock EAR PAIN, LEFT 388.70 Active Moon Pete [employer]OLA OPERATOR INSULATION Otalgia, unspecified FH BREAST CANCER V16.3 Active Jifelicity Victor C[employer]OLA OPERATOR INSULATION Family history of malignant neoplasm of breast PILONIDAL CYST 685.1 Active Radha Victor CUPOLA OPERATOR INSULATION Pilonidal cyst without mention of abscess AFTERCARE FOLLOW SURGERY SKIN&SUBCUT TISSUE NEC V58.77 Active Pradip Smith MD Aftercare following surgery of the skin and subcutaneous tissue, NEC PHARYNGITIS-ACUTE ICD-462 Inactive Moon Pete APRN Medication List Medication Instructions Start Date Stop Date Generic Name [facility] Status Provider Patient Instruction HYDROCODONE-ACETAMINOPHEN 5-325 MG TABS 1 po q 6hr PRN Pain HYDROCODONE-ACETAMINOPHEN 26141480552 Active Jillina Frashantelll CUPOLA OPERATOR INSULATION Active HYDROCODONE-ACETAMINOPHEN 5-500 MG TABS 1 every 4hours as needed HYDROCODONE-ACETAMINOPHEN 35355327920 No Longer Active Jillina Frazell CUPOLA OPERATOR INSULATION Active TAMIFLU 75 MG CAPS 1 bid x 5 days OSELTAMIVIR PHOSPHATE 33225414121 No Longer Active Linda Davis MD PhD Active AUGMENTIN 875-125 MG TAB 1 tab by mouth twice daily with food AMOXICILLIN-POT CLAVULANATE 62978018493 No Longer Active Jillina Sterlingl CUPOLA OPERATOR INSULATION Active AUGMENTIN 875-125 MG TAB 1 tab by mouth twice daily with food AMOXICILLIN-POT CLAVULANATE 49680394681 No Longer Active Germainllina Sterlingl CUPOLA OPERATOR INSULATION Active CLINDAMYCIN HCL 150 MG CAPS 1 four times a day CLINDAMYCIN HCL 12220674515 No Longer Active Moon Pete APRN Active BACTRIM DS 800-160 MG TAB 1 tab by mouth twice daily TRIMETHOPRIM-SULFAMETHOXAZOLE 20231523817 No Longer Active Moon Pete APRN Active AMOXICILLIN 500 MG CAP 1 tab by mouth twice daily AMOXICILLIN 46685911709 No Longer Active Antony Moran DO Active ZITHROMAX Z-MAKAYLA 250 MG TABS 2 now then 1 everyday AZITHROMYCIN 93375563587 No Longer Active Antony Moran DO Active ZITHROMAX Z-MAKAYLA 250 MG TABS 2 now then 1 everyday ZITHROMAX Z-MAKAYLA 250 MG TABS 9247091 AZITHROMYCIN Inactive AMOXICILLIN 500 MG CAP 1 tab by mouth twice daily AMOXICILLIN 500 MG CAP 667720 AMOXICILLIN Inactive BACTRIM DS 800-160 MG TAB 1 tab by mouth twice daily BACTRIM DS 800-160 MG TAB TRIMETHOPRIM-SULFAMETHOXAZOLE Inactive CLINDAMYCIN HCL 150 MG CAPS 1 four times a day CLINDAMYCIN HCL 150 MG CAPS 675947 CLINDAMYCIN HCL Inactive HYDROCODONE-ACETAMINOPHEN 5-500 MG TABS 1 every 4hours as needed HYDROCODONE-ACETAMINOPHEN 5-500 MG TABS HYDROCODONE- ACETAMINOPHEN Inactive AUGMENTIN 875-125 MG TAB 1 tab by mouth twice daily with food AUGMENTIN 875-125 MG TAB 569079 AMOXICILLIN-POT CLAVULANATE Inactive AUGMENTIN 875-125 MG TAB 1 tab by mouth twice daily with food AUGMENTIN 875-125 MG TAB 188513 AMOXICILLIN-POT CLAVULANATE Inactive TAMIFLU 75 MG CAPS [...] 13.0 g/dL leukocyte count, blood 9.3 10*3/mm3 Encounters Code Encounter Date Provider Facility CPT-52041 Level 2 Est. Patient 14:57:21 CDT [facility] CPT-05478 Level 2 Est. Patient 16:59:23 CDT Radha Victor [facility] CPT-73406 Level 3 Est. Patient 15:10:28 CDT Moon Pete Formerly named [facility] CPT-50894 Level 3 Est. Patient 13:38:05 REGULATORY SUBMISSIONS ASSOCIATE Moon Pete Formerly named [facility] CPT-82270 Level 3 Est. Patient 13:36:40 REGULATORY SUBMISSIONS ASSOCIATE Antony Moran DO [facility] CPT-42062 Level 3 Est. Patient 14:07:56 REGULATORY SUBMISSIONS ASSOCIATE Moon Pete Formerly named [facility] Procedures Code Procedure Name Date Entry Date Standard Description CPT-57933 Postop F/U Visit 09:10:48 CDT CPT-OV Office Visit 21:43:13 CDT CPT-62237 Postop F/U Visit 16:13:18 CDT CPT-73619 Venipuncture Draw Fee 13:37:57 REGULATORY SUBMISSIONS ASSOCIATE
[2018-09-25] MEDS ORDERED: [UNRECOGNIZED DRUG - OTHER] (11:10)
[2018-09-25] MEDS ORDERED: LEVONORGESTREL (11:10)
[2018-09-25] MEDS ORDERED: PHENTERMINE 30 MG (11:10)
[2018-09-25] MEDS ORDERED: ONDANSETRON 4MG TAB (11:10)
[2018-09-25] MEDS ORDERED: ETHINYL ESTRADIOL (11:10)
--- OUTSIDE RECORDS SUMMARY | 2018-09-25 11:10 | XMS REPORT | Clinical Summary ---
Author Author Admin, MAISHA Pedroza [facility] Address Unknown Phone Unavailable Allergies, Adverse Reactions, Alerts Allergy Name Reaction Description Start Date Severity Status Provider SULFA rash Moderate Active Jessy Sommers COBBLER UPPER Conditions or Problems Problem Name Problem Code Onset Date Status Entry Date Provider Comment Standard Description Annotate FH DIABETES V18.0 Active Moon Pete CONCHE LOADER AND UNLOADER Family history of diabetes mellitus PHARYNGITIS-ACUTE 462 Inactive Moon Pete CONCHE LOADER AND UNLOADER Acute pharyngitis OTITIS MEDIA, RIGHT 382.9 Active Moon Pete CONCHE LOADER AND UNLOADER Unspecified otitis media ACUTE PHARYNGITIS 462 Active Antony Moran DO Acute pharyngitis COUGH 786.2 Active Antony Moran DO Cough FATIGUE 780.79 Active Antony Moran DO Other malaise and fatigue TONSILLITIS 463 Active Moon Pete CONCHE LOADER AND UNLOADER Acute tonsillitis ABSCESS, GLUTEAL 682.5 Active Moon Pete CONCHE LOADER AND UNLOADER Cellulitis and abscess of buttock EAR PAIN, LEFT 388.70 Active Moon Pete CONCHE LOADER AND UNLOADER Otalgia, unspecified FH BREAST CANCER V16.3 Active Jillina Kayleigh CONCHE LOADER AND UNLOADER Family history of malignant neoplasm of breast PILONIDAL CYST 685.1 Active Jillina Frazell CONCHE LOADER AND UNLOADER Pilonidal cyst without mention of abscess AFTERCARE [...] 1 tab po qday for migraines. TOPIRAMATE 55490599218 Active Mikhail Forbes MD Active HYDROCODONE-ACETAMINOPHEN 5-325 MG TABS 1 po q 6hr PRN Pain 06/18 HYDROCODONE-ACETAMINOPHEN 83801003080 No Longer Active Mikhail Forbes MD Active KEFLEX 500 MG CAP 1 tab po tid CEPHALEXIN 87908102157 No Longer Active Mikhail Forbes MD Active HYDROCODONE-ACETAMINOPHEN 5-500 MG TABS 1 every 4hours as needed HYDROCODONE-ACETAMINOPHEN 74396581046 No Longer Active Radha Victor APRN Active TAMIFLU 75 MG CAPS 1 bid x 5 days OSELTAMIVIR PHOSPHATE 48314931197 No Longer Active Linda Davis MD PhD Active AUGMENTIN 875-125 MG TAB 1 tab by mouth twice daily with food AMOXICILLIN-POT CLAVULANATE 81766675309 No Longer Active Jillina Frazell CONCHE LOADER AND UNLOADER Active AUGMENTIN 875-125 MG TAB 1 tab by mouth twice daily with food AMOXICILLIN-POT CLAVULANATE 96785624118 No Longer Active Jillina Frazell CONCHE LOADER AND UNLOADER Active CLINDAMYCIN HCL 150 MG CAPS 1 four times a day CLINDAMYCIN HCL 69023811300 No Longer Active Moon Pete APRN Active BACTRIM DS 800-160 MG TAB 1 tab by mouth twice daily TRIMETHOPRIM-SULFAMETHOXAZOLE 72789964684 No Longer Active Moon Reed Juan R RODRÍGUEZ Active AMOXICILLIN 500 MG CAP 1 tab by mouth twice daily AMOXICILLIN 60390398125 No Longer Active Antony Moran DO Active ZITHROMAX Z-MAKAYLA 250 MG TABS 2 now then 1 everyday AZITHROMYCIN 20577794225 No Longer Active Antony Moran DO Active ZITHROMAX Z-MAKAYLA 250 MG TABS 2 now then 1 everyday ZITHROMAX Z-MAKAYLA 250 MG TABS 9026620 AZITHROMYCIN Inactive AMOXICILLIN 500 MG CAP 1 tab by mouth twice daily AMOXICILLIN 500 MG CAP 402150 AMOXICILLIN Inactive BACTRIM DS 800-160 MG TAB 1 tab by mouth twice daily BACTRIM DS 800-160 MG TAB TRIMETHOPRIM-SULFAMETHOXAZOLE Inactive CLINDAMYCIN HCL 150 MG CAPS 1 four times a day CLINDAMYCIN HCL 150 MG CAPS 057055 CLINDAMYCIN HCL Inactive HYDROCODONE-ACETAMINOPHEN 5-500 MG TABS 1 every 4hours as needed HYDROCODONE-ACETAMINOPHEN 5-500 MG TABS HYDROCODONE- ACETAMINOPHEN Inactive KEFLEX 500 MG CAP 1 tab po tid KEFLEX 500 MG CAP 664214 CEPHALEXIN Inactive HYDROCODONE-ACETAMINOPHEN 5-325 MG TABS 1 po q 6hr PRN Pain 06/18 HYDROCODONE-ACETAMINOPHEN 5-325 MG TABS 250509 HYDROCODONE- ACETAMINOPHEN Inactive AUGMENTIN 875-125 MG TAB 1 tab by mouth twice daily with food AUGMENTIN 875-125 MG TAB 825930 AMOXICILLIN-POT CLAVULANATE Inactive AUGMENTIN 875-125 MG TAB 1 tab by mouth twice daily with food AUGMENTIN 875-125 MG TAB 920762 AMOXICILLIN-POT CLAVULANATE Inactive TAMIFLU 75 MG CAPS [...] 10*3/mm3 Encounters Code Encounter Date Provider Facility CPT-74262 Level 4 Est. Patient 15:14:34 HOOD FITTER Mikhail Forbes MD [facility] CPT-12799 Level 3 Est. Patient 12:52:25 CDT Mikhail Forbes MD [facility] CPT-77698 Level 2 Est. Patient 14:57:21 CDT Radha Victor [facility] CPT-88943 Level 2 Est. Patient 16:59:23 CDT Radha Victor [facility] CPT-69860 Level 3 Est. Patient 15:10:28 CDT Moon Pete [facility] CPT-77325 Level 3 Est. Patient 13:38:05 HOOD FITTER Moon Pete [facility] CPT-11358 Level 3 Est. Patient 13:36:40 HOOD FITTER Antony Moran DO [facility] CPT-55477 Level 3 Est. Patient 14:07:56 HOOD FITTER Moon Pete [facility] Procedures Code Procedure Name Date Entry Date Standard Description CPT-J1050 Depo Provera 150 mg (Medroxyprogesterone) 15:43:37 HOOD FITTER CPT-51672 Abx/Therapy Injection 15:43:37 HOOD FITTER CPT-J1050 Depo Provera 150 mg (Medroxyprogesterone) 15:14:34 HOOD FITTER CPT-39655 Postop F/U Visit 09:10:48 CDT CPT-OV Office Visit 21:43:13 CDT CPT-07619 Postop F/U Visit 16:13:18 CDT CPT-78203 Venipuncture Draw Fee 13:37:57 HOOD FITTER
--- OUTSIDE RECORDS SUMMARY | 2018-09-25 11:10 | XMS REPORT | Clinical Summary ---
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 Conditions or Problems Problem Name Problem Code Onset Date Status Entry Date Provider Comment Standard Description Annotate FH DIABETES V18.0 Active Moon Pete EMERGENCY DEPT TECH Family history of diabetes mellitus PHARYNGITIS-ACUTE 462 Inactive Moon Pete EMERGENCY DEPT TECH Acute pharyngitis OTITIS MEDIA, RIGHT 382.9 Active Moon Pete EMERGENCY DEPT TECH Unspecified otitis media ACUTE PHARYNGITIS 462 Active Antony Moran DO Acute pharyngitis COUGH 786.2 Active Antony Moran DO Cough FATIGUE 780.79 Active Antony Moran DO Other malaise and fatigue TONSILLITIS 463 Active Moon Pete EMERGENCY DEPT TECH Acute tonsillitis ABSCESS, GLUTEAL 682.5 Active Moon Pete EMERGENCY DEPT TECH Cellulitis and abscess of buttock EAR PAIN, LEFT 388.70 Active Moon Pete EMERGENCY DEPT TECH Otalgia, unspecified FH BREAST CANCER V16.3 Active Jillsantiago Victor EMERGENCY DEPT TECH Family history of malignant neoplasm of breast PILONIDAL CYST 685.1 Active Radha Victor EMERGENCY DEPT TECH Pilonidal cyst without mention of abscess AFTERCARE FOLLOW SURGERY SKIN&SUBCUT TISSUE NEC V58.77 Active Pradip Smith MD Aftercare following surgery of the skin and subcutaneous tissue, NEC PHARYNGITIS-ACUTE ICD-462 Inactive Moon Pete APRN Medication List Medication Instructions Start Date Stop Date Generic Name [facility] Status Provider Patient Instruction HYDROCODONE-ACETAMINOPHEN 5-325 MG TABS 1 po q 6hr PRN Pain HYDROCODONE-ACETAMINOPHEN 15386501209 Active Jillina Frashantelll EMERGENCY DEPT TECH Active HYDROCODONE-ACETAMINOPHEN 5-500 MG TABS 1 every 4hours as needed HYDROCODONE-ACETAMINOPHEN 67308226970 No Longer Active Jillina Frazell EMERGENCY DEPT TECH Active TAMIFLU 75 MG CAPS 1 bid x 5 days OSELTAMIVIR PHOSPHATE 23066666949 No Longer Active Linda Davis MD PhD Active AUGMENTIN 875-125 MG TAB 1 tab by mouth twice daily with food AMOXICILLIN-POT CLAVULANATE 49700139092 No Longer Active Jillina Sterlingl EMERGENCY DEPT TECH Active AUGMENTIN 875-125 MG TAB 1 tab by mouth twice daily with food AMOXICILLIN-POT CLAVULANATE 13824204479 No Longer Active Germainllina Sterlingl EMERGENCY DEPT TECH Active CLINDAMYCIN HCL 150 MG CAPS 1 four times a day CLINDAMYCIN HCL 34657829971 No Longer Active Moon Pete APRN Active BACTRIM DS 800-160 MG TAB 1 tab by mouth twice daily TRIMETHOPRIM-SULFAMETHOXAZOLE 83375473644 No Longer Active Moon Pete APRN Active AMOXICILLIN 500 MG CAP 1 tab by mouth twice daily AMOXICILLIN 78514717713 No Longer Active Antony Moran DO Active ZITHROMAX Z-MAKAYLA 250 MG TABS 2 now then 1 everyday AZITHROMYCIN 64908138167 No Longer Active Antony Moran DO Active ZITHROMAX Z-MAKAYLA 250 MG TABS 2 now then 1 everyday ZITHROMAX Z-MAKAYLA 250 MG TABS 8547177 AZITHROMYCIN Inactive AMOXICILLIN 500 MG CAP 1 tab by mouth twice daily AMOXICILLIN 500 MG CAP 268250 AMOXICILLIN Inactive BACTRIM DS 800-160 MG TAB 1 tab by mouth twice daily BACTRIM DS 800-160 MG TAB TRIMETHOPRIM-SULFAMETHOXAZOLE Inactive CLINDAMYCIN HCL 150 MG CAPS 1 four times a day CLINDAMYCIN HCL 150 MG CAPS 887125 CLINDAMYCIN HCL Inactive HYDROCODONE-ACETAMINOPHEN 5-500 MG TABS 1 every 4hours as needed HYDROCODONE-ACETAMINOPHEN 5-500 MG TABS HYDROCODONE- ACETAMINOPHEN Inactive AUGMENTIN 875-125 MG TAB 1 tab by mouth twice daily with food AUGMENTIN 875-125 MG TAB 391850 AMOXICILLIN-POT CLAVULANATE Inactive AUGMENTIN 875-125 MG TAB 1 tab by mouth twice daily with food AUGMENTIN 875-125 MG TAB 625510 AMOXICILLIN-POT CLAVULANATE Inactive TAMIFLU 75 MG CAPS [...] 10*3/mm3 Encounters Code Encounter Date Provider Facility CPT-33884 Level 2 Est. Patient 14:57:21 CDT [facility] CPT-25438 Level 2 Est. Patient 16:59:23 CDT [facility] CPT-12400 Level 3 Est. Patient 15:10:28 CDT Moon Pete [facility] CPT-68083 Level 3 Est. Patient 13:38:05 ROCK SPLITTER Moon Pete [facility] CPT-94676 Level 3 Est. Patient 13:36:40 ROCK SPLITTER Antony Moran DO [facility] CPT-13116 Level 3 Est. Patient 14:07:56 ROCK SPLITTER Moon Pete [facility] Procedures Code Procedure Name Date Entry Date Standard Description CPT-61662 Postop F/U Visit 09:10:48 CDT CPT-OV Office Visit 21:43:13 CDT CPT-72753 Postop F/U Visit 16:13:18 CDT CPT-58312 Venipuncture Draw Fee 13:37:57 ROCK SPLITTER
--- OUTSIDE RECORDS SUMMARY | 2018-09-25 11:10 | XMS REPORT | Clinical Summary ---
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 Conditions or Problems Problem Name Problem Code Onset Date Status Entry Date Provider Comment Standard Description Annotate FH DIABETES V18.0 Active Moon Pete PRINCIPAL DATABASE DEVELOPER Family history of diabetes mellitus PHARYNGITIS-ACUTE 462 Inactive Moon Pete PRINCIPAL DATABASE DEVELOPER Acute pharyngitis OTITIS MEDIA, RIGHT 382.9 Active Moon Pete PRINCIPAL DATABASE DEVELOPER Unspecified otitis media ACUTE PHARYNGITIS 462 Active Antony Moran DO Acute pharyngitis COUGH 786.2 Active Antony Moran DO Cough FATIGUE 780.79 Active Antony Moran DO Other malaise and fatigue TONSILLITIS 463 Active Moon Pete PRINCIPAL DATABASE DEVELOPER Acute tonsillitis ABSCESS, GLUTEAL 682.5 Active Moon Pete PRINCIPAL DATABASE DEVELOPER Cellulitis and abscess of buttock EAR PAIN, LEFT 388.70 Active Moon Pete PRINCIPAL DATABASE DEVELOPER Otalgia, unspecified FH BREAST CANCER V16.3 Active Jillina Kayleigh PRINCIPAL DATABASE DEVELOPER Family history of malignant neoplasm of breast PILONIDAL CYST 685.1 Active Jillina Frazell PRINCIPAL DATABASE DEVELOPER Pilonidal cyst without mention of abscess AFTERCARE [...] 1 tab po qday for migraines. TOPIRAMATE 80723466346 Active Mikhail Forbes MD Active HYDROCODONE-ACETAMINOPHEN 5-325 MG TABS 1 po q 6hr PRN Pain 06/18 HYDROCODONE-ACETAMINOPHEN 16460019324 No Longer Active Mikhail Forbes MD Active KEFLEX 500 MG CAP 1 tab po tid CEPHALEXIN 52060192282 No Longer Active Mikhail Forbes MD Active HYDROCODONE-ACETAMINOPHEN 5-500 MG TABS 1 every 4hours as needed HYDROCODONE-ACETAMINOPHEN 38735626876 No Longer Active Radha Victor APRN Active TAMIFLU 75 MG CAPS 1 bid x 5 days OSELTAMIVIR PHOSPHATE 06210445711 No Longer Active Linda Davis MD PhD Active AUGMENTIN 875-125 MG TAB 1 tab by mouth twice daily with food AMOXICILLIN-POT CLAVULANATE 53252831681 No Longer Active Jillina Frazell PRINCIPAL DATABASE DEVELOPER Active AUGMENTIN 875-125 MG TAB 1 tab by mouth twice daily with food AMOXICILLIN-POT CLAVULANATE 64565710742 No Longer Active Jillina Frazell PRINCIPAL DATABASE DEVELOPER Active CLINDAMYCIN HCL 150 MG CAPS 1 four times a day CLINDAMYCIN HCL 19471324118 No Longer Active Moon Pete APRN Active BACTRIM DS 800-160 MG TAB 1 tab by mouth twice daily TRIMETHOPRIM-SULFAMETHOXAZOLE 47643363800 No Longer Active Moon Reed Juan R RODRÍGUEZ Active AMOXICILLIN 500 MG CAP 1 tab by mouth twice daily AMOXICILLIN 15399413308 No Longer Active Antony Moran DO Active ZITHROMAX Z-MAKAYLA 250 MG TABS 2 now then 1 everyday AZITHROMYCIN 51829362689 No Longer Active Antony Moran DO Active ZITHROMAX Z-MAKAYLA 250 MG TABS 2 now then 1 everyday ZITHROMAX Z-MAKAYLA 250 MG TABS 8790342 AZITHROMYCIN Inactive AMOXICILLIN 500 MG CAP 1 tab by mouth twice daily AMOXICILLIN 500 MG CAP 912935 AMOXICILLIN Inactive BACTRIM DS 800-160 MG TAB 1 tab by mouth twice daily BACTRIM DS 800-160 MG TAB TRIMETHOPRIM-SULFAMETHOXAZOLE Inactive CLINDAMYCIN HCL 150 MG CAPS 1 four times a day CLINDAMYCIN HCL 150 MG CAPS 239961 CLINDAMYCIN HCL Inactive HYDROCODONE-ACETAMINOPHEN 5-500 MG TABS 1 every 4hours as needed HYDROCODONE-ACETAMINOPHEN 5-500 MG TABS HYDROCODONE- ACETAMINOPHEN Inactive KEFLEX 500 MG CAP 1 tab po tid KEFLEX 500 MG CAP 928149 CEPHALEXIN Inactive HYDROCODONE-ACETAMINOPHEN 5-325 MG TABS 1 po q 6hr PRN Pain 06/18 HYDROCODONE-ACETAMINOPHEN 5-325 MG TABS 580344 HYDROCODONE- ACETAMINOPHEN Inactive AUGMENTIN 875-125 MG TAB 1 tab by mouth twice daily with food AUGMENTIN 875-125 MG TAB 757724 AMOXICILLIN-POT CLAVULANATE Inactive AUGMENTIN 875-125 MG TAB 1 tab by mouth twice daily with food AUGMENTIN 875-125 MG TAB 155981 AMOXICILLIN-POT CLAVULANATE Inactive TAMIFLU 75 MG CAPS [...] g/dL platelet count 311 10*3/mm3 Lab Report: [facility] [place] - Chemistry human chorionic gonadotropin, urine, qualitative (urine test) Negative Negative Encounters Code Encounter Date Provider Facility CPT-80671 Level 4 Est. Patient 21:34:05 OPERATIONS MANAGEMENT PROFESSIONALS Mikhail Forbes MD [facility] CPT-27249 Level 4 Est. Patient 15:14:34 OPERATIONS MANAGEMENT PROFESSIONALS Mikhail Forbes MD [facility] CPT-75709 Level 3 Est. Patient 12:52:25 CDT Mikhail Forbes MD [facility] CPT-38128 Level 2 Est. Patient 14:57:21 [facility]PT-16102 Level 2 Est. Patient 16:59:23 CDT Radha Victor [facility] CPT-10766 Level 3 Est. Patient 15:10:28 CDT Moon Pete [facility] CPT-54036 Level 3 Est. Patient 13:38:05 OPERATIONS MANAGEMENT PROFESSIONALS Moon Pete [facility] CPT-46881 Level 3 Est. Patient 13:36:40 OPERATIONS MANAGEMENT PROFESSIONALS Antony Moran DO [facility] CPT-48410 Level 3 Est. Patient 14:07:56 OPERATIONS MANAGEMENT PROFESSIONALS Moon Pete [facility] Procedures Code Procedure Name Date Entry Date Standard Description CPT-J1050 Depo Provera 150 mg (Medroxyprogesterone) 15:43:37 [employer]PERATIONS MANAGEMENT [employer]ESSIONALS CPT-10013 Abx/Therapy Injection 15:43:37 OPERATIONS MANAGEMENT PROFESSIONALS CPT-J1050 Depo Provera 150 mg (Medroxyprogesterone) 15:14:34 OPERATIONS MANAGEMENT PROFESSIONALS CPT-50602 Postop F/U Visit 09:10:48 CDT CPT-OV Office Visit 21:43:13 CDT CPT-09362 Postop F/U Visit 16:13:18 CDT CPT-54094 Venipuncture Draw Fee 13:37:57 OPERATIONS MANAGEMENT PROFESSIONALS
--- OUTSIDE RECORDS SUMMARY | 2018-09-25 11:11 | XMS REPORT | Clinical Summary ---
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 Conditions or Problems Problem Name Problem Code Onset Date Status Entry Date Provider Comment Standard Description Annotate FH DIABETES V18.0 Active Moon Pete SEALS ENGRAVER Family history of diabetes mellitus PHARYNGITIS-ACUTE 462 Inactive Moon Pete SEALS ENGRAVER Acute pharyngitis OTITIS MEDIA, RIGHT 382.9 Active Moon Pete SEALS ENGRAVER Unspecified otitis media ACUTE PHARYNGITIS 462 Active Antony Moran DO Acute pharyngitis COUGH 786.2 Active Antony Moran DO Cough FATIGUE 780.79 Active Antony Moran DO Other malaise and fatigue TONSILLITIS 463 Active Moon Pete SEALS ENGRAVER Acute tonsillitis ABSCESS, GLUTEAL 682.5 Active Moon Pete SEALS ENGRAVER Cellulitis and abscess of buttock EAR PAIN, LEFT 388.70 Active Moon Pete SEALS ENGRAVER Otalgia, unspecified FH BREAST CANCER V16.3 Active Jillina Kayleigh SEALS ENGRAVER Family history of malignant neoplasm of breast PILONIDAL CYST 685.1 Active Jillina Frazell SEALS ENGRAVER Pilonidal cyst without mention of abscess AFTERCARE FOLLOW SURGERY SKIN&SUBCUT TISSUE NEC V58.77 Active Pradip Smith MD Aftercare following surgery of the skin and subcutaneous tissue, NEC Thumb pain, left 729.5 Active Mikhail Forbes MD Pain in limb PHARYNGITIS-ACUTE ICD-462 Inactive Moon Pete APRN Medication List Medication Instructions Start Date Stop Date Generic Name NDC Status Provider Patient Instruction KEFLEX 500 MG CAP 1 tab po tid CEPHALEXIN 03104553016 No Longer Active Mikhail Forbes MD Active HYDROCODONE-ACETAMINOPHEN 5-325 MG TABS 1 po q 6hr PRN Pain HYDROCODONE-ACETAMINOPHEN 23834623134 Active Jillina Frazeljess COOPERN Active HYDROCODONE-ACETAMINOPHEN 5-500 MG TABS 1 every 4hours as needed HYDROCODONE-ACETAMINOPHEN 60776974011 No Longer Active Jillina Frazell SEALS ENGRAVER Active TAMIFLU 75 MG CAPS 1 bid x 5 days OSELTAMIVIR PHOSPHATE 65136508079 No Longer Active Linda Davis MD PhD Active AUGMENTIN 875-125 MG TAB 1 tab by mouth twice daily with food AMOXICILLIN-POT CLAVULANATE 49147001597 No Longer Active Jillina Frashantelll SEALS ENGRAVER Active AUGMENTIN 875-125 MG TAB 1 tab by mouth twice daily with food AMOXICILLIN-POT CLAVULANATE 40219339889 No Longer Active Jillina Sterlingl SEALS ENGRAVER Active CLINDAMYCIN HCL 150 MG CAPS 1 four times a day CLINDAMYCIN HCL 51612161780 No Longer Active Moon Pete APRN Active BACTRIM DS 800-160 MG TAB 1 tab by mouth twice daily TRIMETHOPRIM-SULFAMETHOXAZOLE 65760762655 No Longer Active Moon Pete APRN Active AMOXICILLIN 500 MG CAP 1 tab by mouth twice daily AMOXICILLIN 36332573280 No Longer Active Antony Moran DO Active ZITHROMAX Z-MAKAYLA 250 MG TABS 2 now then 1 everyday AZITHROMYCIN 04643995731 No Longer Active Antony Moran DO Active ZITHROMAX Z-MAKAYLA 250 MG TABS 2 now then 1 everyday ZITHROMAX Z-MAKAYLA 250 MG TABS 3514421 AZITHROMYCIN Inactive AMOXICILLIN 500 MG CAP 1 tab by mouth twice daily AMOXICILLIN 500 MG CAP 427448 AMOXICILLIN Inactive BACTRIM DS 800-160 MG TAB 1 tab by mouth twice daily BACTRIM DS 800-160 MG TAB TRIMETHOPRIM-SULFAMETHOXAZOLE Inactive CLINDAMYCIN HCL 150 MG CAPS 1 four times a day CLINDAMYCIN HCL 150 MG CAPS 259568 CLINDAMYCIN HCL Inactive HYDROCODONE-ACETAMINOPHEN 5-500 MG TABS 1 every 4hours as needed HYDROCODONE-ACETAMINOPHEN 5-500 MG TABS HYDROCODONE- ACETAMINOPHEN Inactive KEFLEX 500 MG CAP 1 tab po tid KEFLEX 500 MG CAP 348751 CEPHALEXIN Inactive AUGMENTIN 875-125 MG TAB 1 tab by mouth twice daily with food AUGMENTIN 875-125 MG TAB 009164 AMOXICILLIN-POT CLAVULANATE Inactive AUGMENTIN 875-125 MG TAB 1 tab by mouth twice daily with food AUGMENTIN 875-125 MG TAB 365043 AMOXICILLIN-POT CLAVULANATE Inactive TAMIFLU 75 MG CAPS 1 bid x 5 days TAMIFLU 75 MG CAPS OSELTAMIVIR PHOSPHATE Inactive Advance Directives Directive Description Start Date PERMISSION TO SHARE Vital Signs Date Name Value Unit Range Description blood pressure, diastolic 73 mm[Hg] BP burkett blood pressure, systolic 106 mm[Hg] BP sys height E&M 62 [in_us] Bdy height pulse rate E&M 92 /min Heart rate temperature E&M 97.6 [degF] Body temperature weight E&M 128 [lb_av] Weight Measured blood pressure, diastolic 59 mm[Hg] BP burkett blood pressure, systolic 104 mm[Hg] BP sys pulse rate E&M 78 /min Heart rate temperature E&M 98.9 [degF] Body temperature weight E&M 129 [lb_av] Weight Measured blood pressure, diastolic 76 mm[Hg] BP burkett blood pressure, systolic 117 mm[Hg] BP sys pulse rate E&M 76 /min Heart rate temperature E&M 98.0 [degF] Body temperature weight E&M 130 [lb_av] Weight Measured Diagnostic Results Date Name Value Unit Range Description Lab Report: CBC W/ DIFF, HCG - Hematology leukocyte count, blood 9.3 10*3/mm3 hemoglobin, blood 13.0 g/dL platelet count 311 10*3/mm3 Encounters Code Encounter Date Provider Facility CPT-31365 Level 3 Est. Patient 12:52:25 CDT Mikhail Forbes MD [facility] CPT-31731 Level 2 Est. Patient 14:57:21 CDT Radha Victor [facility] CPT-01713 Level 2 Est. Patient 16:59:23 CDT Radha Victor [facility] CPT-54740 Level 3 Est. Patient 15:10:28 CDT Moon Pete [facility] CPT-95118 Level 3 Est. 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 CPT-86619 Level 3 Est. Patient 13:36:40 FISH AND WILDLIFE TECHNICIAN Antony Moran DO [facility] CPT-34188 Level 3 Est. Patient 14:07:56 FISH AND WILDLIFE TECHNICIAN Moon Pete [facility] Procedures Code Procedure Name Date Entry Date Standard Description CPT-52168 Postop F/U Visit 09:10:48 CDT CPT-OV Office Visit 21:43:13 CDT CPT-26907 Postop F/U Visit 16:13:18 CDT CPT-52586 Venipuncture Draw Fee 13:37:57 FISH AND WILDLIFE TECHNICIAN
--- OUTSIDE RECORDS SUMMARY | 2018-09-25 11:11 | XMS REPORT | Continuity of Care Document ---
Demographics x Preferred Language Unknown Marital Status Unknown Jainism Affiliation Unknown Race Unknown Ethnic Group Unknown Author Organization Unknown Address Unknown Allergies Active Description Code Type Severity Reaction Onset Reported/Identified Relationship to Patient Clinical Status Yes NONE Food Allergy N/A N/A Yes Sulfa (Sulfonamide Antibiotics) 491 Drug Allergy N/A N/A Medications Medication Packaging Start Date Stop Date Route Dosage Sig [id number]-[id number] 01/24 1 drop OS qid x 7 days PREDNISOLONE ACETATE 12/10/2015 instill 1 drop, OS qid x 4 days; tid x 3 days; bid x 2 days and qd x 1 day Problems Date Dx Coded Attending Type Code Diagnosis Diagnosed By 02/22/2014 SOPHIE MCNEIL 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 02/22/2014 SOPHIE MCNEIL 959.5 FINGER INJURY NOS 02/22/2014 SOPHIE MCNEIL E007.7 ACTIV-VOLLEYBALL 02/22/2014 SOPHIE MCNEIL E849.4 ACCID IN RECREATION AREA 02/22/2014 SOPHIE MCNEIL E917.0 SPORTS W/O SUBSQNT FALL 12/10/2015 W H10.412 Chronic giant papillary conjunctivitis, left eye 12/11/2015 W H10.412 Chronic giant papillary conjunctivitis, left eye 01/18/2016 W H10.413 Chronic giant papillary conjunctivitis, bilateral 01/29/2016 W H10.413 Chronic giant papillary conjunctivitis, bilateral 06/17/2016 MAMIE GAUTHIER J02.9 Acute pharyngitis, unspecified 06/17/2016 MAMIE GAUTHIER J02.9 Acute pharyngitis, unspecified 11/26/2016 MARIZA BARTON R10.2 Pelvic and perineal pain 11/26/2016 MARIZA BARTON Z30.41 Encounter for surveillance of contraceptive pills 11/26/2016 MARIZA BARTON R10.9 Unspecified abdominal pain 11/26/2016 MARIZA BARTON Z32.00 Encounter for test, result unknown 11/27/2016 MICK, MARIZA M F R10.2 Pelvic and perineal pain 12/05/2016 MERT SIU N20.1 Calculus of ureter 01/05/2017 W H52.13 Myopia, bilateral 03/26/2017 MARIZA BARTON F32.9 Major depressive disorder, single episode, unspecified 03/26/2017 MARIZA BARTON R63.5 Abnormal weight gain 03/26/2017 MARIZA BARTON Z83.49 Family history of other endocrine, nutritional and metabolic diseases 03/26/2017 PROSPER BARTONLY Brandon Bautista F32.9 Major depressive disorder, single episode, unspecified 03/26/2017 MARIZA BARTON R63.5 Abnormal weight gain 08/25/2017 PUMA CORDERO, RONEL C Ot N83.201 UNSPECIFIED OVARIAN CYST, RIGHT SIDE 08/25/2017 PUMA CORDERO, RONEL C Ot N83.201 UNSPECIFIED OVARIAN CYST, RIGHT SIDE 09/14/2017 PUMA CORDERO, RONEL C Ot N83.201 UNSPECIFIED OVARIAN CYST, RIGHT SIDE 11/24/2017 PUMA CORDERO, RONEL C Ot N83.201 UNSPECIFIED OVARIAN CYST, RIGHT SIDE 01/20/2018 PUMA CORDERO, RONEL C Ot N83.201 UNSPECIFIED OVARIAN CYST, RIGHT SIDE 02/23/2018 PUMA CORDERO, RONEL C Ot N83.201 UNSPECIFIED OVARIAN CYST, RIGHT SIDE 02/23/2018 PUMA CORDERO, RONEL C Ot N83.201 UNSPECIFIED OVARIAN CYST, RIGHT SIDE 04/05/2018 W H52.13 Myopia, bilateral 04/05/2018 W H52.13 Myopia, bilateral Procedures Code Description [place] [address] TREAT KNUCKLE DISLOCATION 02/22/2014 81379 X-RAY EXAM OF FINGER(S) 02/22/2014 7974 CL REDUC DISLOC-HAND/FNG 02/22/2014 10003 EMERGENCY DEPT VISIT 02/22/2014 65971 OFFICE/OUTPATIENT VISIT, EST 12/10/2015 85774 OFFICE/OUTPATIENT VISIT, EST 01/16/2016 V2520 Contact lens hydrophilic 02/10/2016 V2520 Contact lens hydrophilic 02/10/2016 V2520 Contact lens hydrophilic 07/09/2016 V2520 Contact lens hydrophilic 12/22/2016 05547 EYE EXAM T TREATMENT 01/05/2017 44104 REFRACTION 01/05/2017 61442 Contact Lens Fittting 01/05/2017 05599 EYE EXAM T TREATMENT 04/05/2018 21195 REFRACTION 04/05/2018 04912 Contact Lens [place] 04/05/2018 Results Test Result Range CBC WITH DIFF - 11/02/13 00:00 BASO% 0.5 % 0-2 EOS% 1.6 % 0-7.0 HCT 37.9 % 36.9-47.0 HGB 13.0 G/DL 12.0-16.0 LYMPH% 27.4 % 20-40 MCH 30.4 PG 27-31 MCHC 34.3 G/DL 33-37 MCV 88.6 FL 81-99 MONO% 10.2 % 0-10.0 MPV 9.6 FL 7.3-10.4 NEUTRO% 60.3 % 40-70 PLT 311 10^3u 130-400 RBC 4.3 10^6u 4.2-5.4 RDW 11.8 % 11.5-15.5 WBC 9.3 10^3u 4.8-10.8 NEUTRO# 5.6 10^3u 1.5-7.5 LYMPH# 2.6 10^3u 0.9-4.0 MONO# 1.0 10^3u 0-0.8 EOS# 0.2 10^3u 0-0.6 BASO# 0.1 10^3u 0-0.1 HCG QUAL - 11/02/13 00:00 HCG N Encounters ACCT No. Visit Date/Time Discharge Status Pt. Type Provider Facility Loc./Unit Complaint [id number] 02/22/2014 20:07:00 02/22/2014 22:05:00 DIS Emergency SOPHIE MCNEIL [facility] EMR [id number] 11/02/2013 08:00:00 11/02/2013 13:30:00 DIS Inpatient MOLINA AKERS [facility] OPS [id number] 11/01/2013 11:47:48 Document Registration [id number] 04/29/2013 00:00:00 Document Registration [id number] 12/04/2016 17:05:34 ACT Document Registration [id number] 08/24/2017 13:51:00 08/24/2017 23:59:59 CLS Outpatient PUMA CORDERO, RONEL [facility] RAD N91.2 AMENORRHEA [id number] 11/20/2016 10:31:53 ACT Unknown [id number] 04/05/2018 15:00:00 Document Registration [id number] 01/05/2017 11:04:27 Document Registration [id number] 01/05/2017 11:00:00 Document Registration [id number] 12/22/2016 00:00:00 Document Registration [id number] 07/09/2016 00:00:00 Document Registration [id number] 02/10/2016 00:00:00 Document Registration [id number] 02/10/2016 00:00:00 Document Registration [id number] 01/16/2016 11:50:00 Document Registration [id number] 12/10/2015 08:45:00 Document Registration [id number] 03/26/2017 09:51:00 03/26/2017 13:51:00 [id number]/26/2017 09:15:00 03/26/2017 13:15:00 [id number] 12/05/2016 13:05:00 12/09/2016 17[facility]05:[id number]/05/2016 13:18:00 12/05/2016 15:35:00 [id number] 11/27/2016 11:00:00 11/27/2016 15:00:00 [id number] 11/26/2016 11:29:00 11/26/2016 15:29:00 [facility] [id number] 11/26/2016 11:00:00 11/26/2016 15:00:00 [facility] [id number] 06/17/2016 15:40:00 06/17/2016 19:40:00 [id number] 06/17/2016 15:00:00 06/17/2016 19:00:00 [id number] 08/14/2016 13:58:38 08/14/2016 23:59:59 CLS Outpatient FOREIGN, SHY A [facility] lab work
--- OUTSIDE RECORDS SUMMARY | 2018-09-25 11:11 | XMS REPORT | Clinical Summary ---
Author Author Admin, MAISHA Pedroza [facility] Address Unknown Phone Allergies, Adverse Reactions, Alerts Allergy Name Reaction Description Start Date Severity Status Provider SULFA rash Moderate Active Jessy Sommers TAX ACCOUNTING MANAGER Conditions or Problems Problem Name Problem Code Onset Date Status Entry Date Provider Comment Standard Description Annotate FH DIABETES V18.0 Active Moon Pete LIFT OPERATOR Family history of diabetes mellitus PHARYNGITIS-ACUTE 462 Inactive Moon Pete LIFT OPERATOR Acute pharyngitis OTITIS MEDIA, RIGHT 382.9 Active Moon Pete LIFT OPERATOR Unspecified otitis media ACUTE PHARYNGITIS 462 Active Antony Moran DO Acute pharyngitis COUGH 786.2 Active Antony Moran DO Cough FATIGUE 780.79 Active Antony Moran DO Other malaise and fatigue TONSILLITIS 463 Active Moon Pete LIFT OPERATOR Acute tonsillitis ABSCESS, GLUTEAL 682.5 Active Moon Pete LIFT OPERATOR Cellulitis and abscess of buttock EAR PAIN, LEFT 388.70 Active Moon Pete LIFT OPERATOR Otalgia, unspecified FH BREAST CANCER V16.3 Active Jillsantiago Victor LIFT OPERATOR Family history of malignant neoplasm of breast PILONIDAL CYST 685.1 Active Radha Victor LIFT OPERATOR Pilonidal cyst without mention of abscess AFTERCARE FOLLOW SURGERY SKIN&SUBCUT TISSUE NEC V58.77 Active Pradip Smith MD Aftercare following surgery of the skin and subcutaneous tissue, NEC PHARYNGITIS-ACUTE ICD-462 Inactive Moon Pete APRN Medication List Medication Instructions Start Date Stop Date Generic Name [facility] Status Provider Patient Instruction HYDROCODONE-ACETAMINOPHEN 5-325 MG TABS 1 po q 6hr PRN Pain HYDROCODONE-ACETAMINOPHEN 04069919917 Active Jillina Frashantelll LIFT OPERATOR Active HYDROCODONE-ACETAMINOPHEN 5-500 MG TABS 1 every 4hours as needed HYDROCODONE-ACETAMINOPHEN 85384521649 No Longer Active Jillina Frazell LIFT OPERATOR Active TAMIFLU 75 MG CAPS 1 bid x 5 days OSELTAMIVIR PHOSPHATE 80715222149 No Longer Active Linda Davis MD PhD Active AUGMENTIN 875-125 MG TAB 1 tab by mouth twice daily with food AMOXICILLIN-POT CLAVULANATE 98881800914 No Longer Active Jillina Sterlingl LIFT OPERATOR Active AUGMENTIN 875-125 MG TAB 1 tab by mouth twice daily with food AMOXICILLIN-POT CLAVULANATE 18090157895 No Longer Active Germainllina Sterlingl LIFT OPERATOR Active CLINDAMYCIN HCL 150 MG CAPS 1 four times a day CLINDAMYCIN HCL 53632876659 No Longer Active Moon Pete APRN Active BACTRIM DS 800-160 MG TAB 1 tab by mouth twice daily TRIMETHOPRIM-SULFAMETHOXAZOLE 93930603198 No Longer Active Moon Pete APRN Active AMOXICILLIN 500 MG CAP 1 tab by mouth twice daily AMOXICILLIN 06305530541 No Longer Active Antony Moran DO Active ZITHROMAX Z-MAKAYLA 250 MG TABS 2 now then 1 everyday AZITHROMYCIN 72564686806 No Longer Active Antony Moran DO Active ZITHROMAX Z-MAKAYLA 250 MG TABS 2 now then 1 everyday ZITHROMAX Z-MAKAYLA 250 MG TABS 9813394 AZITHROMYCIN Inactive AMOXICILLIN 500 MG CAP 1 tab by mouth twice daily AMOXICILLIN 500 MG CAP 509793 AMOXICILLIN Inactive BACTRIM DS 800-160 MG TAB 1 tab by mouth twice daily BACTRIM DS 800-160 MG TAB TRIMETHOPRIM-SULFAMETHOXAZOLE Inactive CLINDAMYCIN HCL 150 MG CAPS 1 four times a day CLINDAMYCIN HCL 150 MG CAPS 960981 CLINDAMYCIN HCL Inactive HYDROCODONE-ACETAMINOPHEN 5-500 MG TABS 1 every 4hours as needed HYDROCODONE-ACETAMINOPHEN 5-500 MG TABS HYDROCODONE- ACETAMINOPHEN Inactive AUGMENTIN 875-125 MG TAB 1 tab by mouth twice daily with food AUGMENTIN 875-125 MG TAB 137058 AMOXICILLIN-POT CLAVULANATE Inactive AUGMENTIN 875-125 MG TAB 1 tab by mouth twice daily with food AUGMENTIN 875-125 MG TAB 175100 AMOXICILLIN-POT CLAVULANATE Inactive TAMIFLU 75 MG CAPS [...] 10*3/mm3 Encounters Code Encounter Date Provider Facility CPT-92449 Level 2 Est. Patient 14:57:21 CDT [facility] CPT-70204 Level 2 Est. Patient 16:59:23 CDT [facility] CPT-71910 Level 3 Est. Patient 15:10:28 CDT Moon Pete [facility] CPT-12471 Level 3 Est. Patient 13:38:05 SERVICE ORDER EXPEDITER Moon Pete [facility] CPT-15787 Level 3 Est. Patient 13:36:40 SERVICE ORDER EXPEDITER Antony Moran DO [facility] CPT-08794 Level 3 Est. Patient 14:07:56 SERVICE ORDER EXPEDITER Moon Pete [facility] Procedures Code Procedure Name Date Entry Date Standard Description CPT-99714 Postop F/U Visit 09:10:48 CDT CPT-OV Office Visit 21:43:13 CDT CPT-42930 Postop F/U Visit 16:13:18 CDT CPT-11430 Venipuncture Draw Fee 13:37:57 SERVICE ORDER EXPEDITER
--- OUTSIDE RECORDS SUMMARY | 2018-09-25 11:11 | XMS REPORT ---
Author Author [facility] Organization [facility] Address [address] [place], [place] [address] Phone [phone] Care Team Providers Care Network Developer Name Role Phone PITO RODRÍGUEZ DAVID PP [phone] Summary purpose TRANSITION OF CARE AUTO GENERATION Chief Complaint and Reason for Visit Admit Diagnosis 1 FINGER INJURY NOS Problem list No authorized problems tracked for continuity of care are available for this visit. Encounters No authorized problems tracked for encounter diagnoses are available for this visit. Medications No home medications recorded for this patient visit Allergies, adverse reactions, alerts Allergen Category Ingredient Status Reaction Severity Onset NONE Food Allergy NONE Confirmed or Verified Sulfa (Sulfonamide Antibiotics) Drug Allergy Sulfa (Sulfonamide Antibiotics) Confirmed or Verified Immunizations No immunizations recorded for this patient visit Relevant diagnostic tests and/or laboratory data RESULTS Radiology Results [id number] FINGER XRAY - 3 VIEW PACs Image DATE OF EXAM: Feb 22 2014 RAD 0565-FINGER XRAY-3 VIEW- LEFT: RADIOLOGY REPORT DATE OF SERVICE: 02/22/14 HISTORY: Thumb pain LEFT THUMB 3 [id number] HOURS There is lateral subluxation of the thumb with moderate lateral displacement of the base of the proximal phalanx of the thumb. No fracture is evident. IMPRESSION: Lateral subluxation/partial dislocation of the thumb. MD RAYSA Sosa/mo02/23/2014 09:17:00 / 02/23/2014 09:51:52 cc:David Pete APRN This document has been electronically Signed by: On: DATE OF EXAM: Feb 22 2014 RAD 0565-FINGER XRAY-3 VIEW- LEFT: RADIOLOGY REPORT DATE OF SERVICE: 02/22/14 HISTORY: Thumb pain LEFT THUMB 3 [id number] HOURS There is lateral subluxation of the thumb with moderate lateral displacement of the base of the proximal phalanx of the thumb. No fracture is evident. IMPRESSION: Lateral subluxation/partial dislocation of the thumb. MD RAYSA Sosa/mo02/23/2014 09:17: / 02/23/2014 09:51:52 cc:David Pete APRN This document has been electronically Signed by: On: DATE OF EXAM: Feb 22 2014 RAD 0565-FINGER XRAY-3 VIEW- LEFT: RADIOLOGY REPORT DATE OF SERVICE: 02/22/14 HISTORY: Thumb pain LEFT THUMB 3 [id number] HOURS There is lateral subluxation of the thumb with moderate lateral displacement of the base of the proximal phalanx of the thumb. No fracture is evident. IMPRESSION: Lateral subluxation/partial dislocation of the thumb. MD RAYSA Sosa/mo02/23/2014 09:17:02/23/2014 09:51:52 cc:David Pete APRN This document has been electronically Signed by: YOGESH SHIPMAN On: Feb 23 2014 11:41A Result Amended on 2014-02-23 at 11:06:55. Previous status was MT. Result Amended on 2014-02-23 at 11:41:12. Previous status was MT. FINGER XRAY - 3 VIEW PACs Image DATE OF EXAM: Feb 22 2014 RAD 0565-FINGER XRAY-3 VIEW- LEFT: RADIOLOGY REPORT DATE OF SERVICE: 02/22/14 HISTORY: Postreduction LEFT THUMB 3 VIEWS POST REDUCTION 2142 HOURS Previously noted dislocation at the MCP joint has been reduced. Alignment is anatomical. There is no bony fracture. IMPRESSION: Anatomical reduction of dislocation. MD RAYSA Sosa/mo02/23/2014 09:17:02/23/2014 09:52:54 cc:David Pete APRN This document has been electronically Signed by: On: DATE OF EXAM: Feb 22 2014 RAD 0565-FINGER XRAY-3 VIEW- LEFT: RADIOLOGY REPORT DATE OF SERVICE: 02/22/14 HISTORY: Postreduction LEFT THUMB 3 VIEWS POST REDUCTION 2142 HOURS Previously noted dislocation at the MCP joint has been reduced. Alignment is anatomical. There is no bony fracture. IMPRESSION: Anatomical reduction of dislocation. MD RAYSA Sosa/mo02/23/2014 09:17: / 02/23/2014 09:52:54 cc:David Pete APRN This document has been electronically Signed by: On: DATE OF EXAM: Feb 22 2014 RAD 0565-FINGER XRAY-3 VIEW- LEFT: RADIOLOGY REPORT DATE OF SERVICE: 02/22/14 HISTORY: Postreduction LEFT THUMB 3 VIEWS POST REDUCTION 2142 HOURS Previously noted dislocation at the MCP joint has been reduced. Alignment is anatomical. There is no bony fracture. IMPRESSION: Anatomical reduction of dislocation. MD RAYSA Sosa/mo02/23/2014 09:17:00 / 02/23/2014 09:52:54 cc:David Pete APRN This document has been electronically Signed by: YOGESH SHIPMAN On: Feb 23 2014 11:41A Result Amended on 2014-02-23 at 11:06:58. Previous status was MT. Result Amended on 2014-02-23 at 11:41:18. Previous status was MT. History of procedures Procedure Code Code Type Description Date Performed Performing Physician 79.74 ICD9-CM CL REDUC DISLOC-HAND/FNG 02-22-2014 MIKAYLA RIVERA 46864 CPT-4 X-RAY EXAM OF FINGER(S) 02-22-2014 MIKAYLA RIVERA 03957 CPT-4 X-RAY EXAM OF FINGER(S) 02-22-2014 MIKAYLA RIVERA 13037 CPT-4 EMERGENCY DEPT VISIT 02-22-2014 MIKAYLA RIVERA 68393 CPT-4 TREAT KNUCKLE DISLOCATION 02-22-2014 MIKAYLA RIVERA 66736 CPT-4 TREAT KNUCKLE DISLOCATION 02-22-2014 MIKAYLA RIVERA Functional status No functional or cognitive status observations are available for this visit. Vital signs Type Value Date Respiration Rate 20breaths per minute 41-99-730758:05 Pulse 83beats per minute 41-69-647660:05 Oxygen Saturation 98% 94-98-924313:05 BP Systolic 125mmHg 63-39-975376:05 BP Diastolic 73mmHg 55-09-238993:05 Temperature 98.1F 63-20-689111:05 Social history Type Value Smoking Status NEVER SMOKER Treatment Plan No treatment plan text is available for this visit. Hospital discharge instructions Dismissal Condition fair Disposition on DC home DC Inst/Educ Give yes Med/Side Effects Rev yes
--- OUTSIDE RECORDS SUMMARY | 2018-09-25 11:11 | XMS REPORT | Clinical Summary ---
Author Author Admin, MAISHA Pedroza [facility] Address Unknown Phone Allergies, Adverse Reactions, Alerts Allergy Name Reaction Description Start Date Severity Status Provider SULFA rash Moderate Active Jessy Sommers COMPLIANCE AND CONTROL ANALYST Conditions or Problems Problem Name Problem Code Onset Date Status Entry Date Provider Comment Standard Description Annotate FH DIABETES V18.0 Active Moon Pete SOLOIST DANCER Family history of diabetes mellitus PHARYNGITIS-ACUTE 462 Inactive Moon Pete SOLOIST DANCER Acute pharyngitis OTITIS MEDIA, RIGHT 382.9 Active Moon Pete SOLOIST DANCER Unspecified otitis media ACUTE PHARYNGITIS 462 Active Antony Moran DO Acute pharyngitis COUGH 786.2 Active Antony Moran DO Cough FATIGUE 780.79 Active Antony Moran DO Other malaise and fatigue TONSILLITIS 463 Active Moon Pete SOLOIST DANCER Acute tonsillitis ABSCESS, GLUTEAL 682.5 Active Moon Pete SOLOIST DANCER Cellulitis and abscess of buttock EAR PAIN, LEFT 388.70 Active Moon Pete SOLOIST DANCER Otalgia, unspecified FH BREAST CANCER V16.3 Active Jifelicity Victor SOLOIST DANCER Family history of malignant neoplasm of breast PILONIDAL CYST 685.1 Active Radha Victor SOLOIST DANCER Pilonidal cyst without mention of abscess AFTERCARE FOLLOW SURGERY SKIN&SUBCUT TISSUE NEC V58.77 Active Pradip Smith MD Aftercare following surgery of the skin and subcutaneous tissue, NEC PHARYNGITIS-ACUTE ICD-462 Inactive Moon Pete APRN Medication List Medication Instructions Start Date Stop Date Generic Name ND Status Provider Patient Instruction HYDROCODONE-ACETAMINOPHEN 5-500 MG TABS 1 every 4hours as needed HYDROCODONE-ACETAMINOPHEN 92573113958 No Longer Active Radha Victor APRN Active TAMIFLU 75 MG CAPS 1 bid x 5 days OSELTAMIVIR PHOSPHATE 47689298766 No Longer Active Linda Davis MD PhD Active AUGMENTIN 875-125 MG TAB 1 tab by mouth twice daily with food AMOXICILLIN-POT CLAVULANATE 83449124326 No Longer Active Jillina Frazell SOLOIST DANCER Active AUGMENTIN 875-125 MG TAB 1 tab by mouth twice daily with food AMOXICILLIN-POT CLAVULANATE 73811121418 No Longer Active Germainllina Kayleigh COOPERN Active CLINDAMYCIN HCL 150 MG CAPS 1 four times a day CLINDAMYCIN HCL 62794483769 No Longer Active Moon Pete APRN Active BACTRIM DS 800-160 MG TAB 1 tab by mouth twice daily TRIMETHOPRIM-SULFAMETHOXAZOLE 14574765754 No Longer Active Moon Pete APRN Active AMOXICILLIN 500 MG CAP 1 tab by mouth twice daily AMOXICILLIN 42715533635 No Longer Active Antony Moran DO Active ZITHROMAX Z-MAKAYLA 250 MG TABS 2 now then 1 everyday AZITHROMYCIN 35460867454 No Longer Active Antony Moran DO Active ZITHROMAX Z-MAKAYLA 250 MG TABS 2 now then 1 everyday ZITHROMAX Z-MAKAYLA 250 MG TABS 3227146 AZITHROMYCIN Inactive AMOXICILLIN 500 MG CAP 1 tab by mouth twice daily AMOXICILLIN 500 MG CAP 417516 AMOXICILLIN Inactive BACTRIM DS 800-160 MG TAB 1 tab by mouth twice daily BACTRIM DS 800-160 MG TAB TRIMETHOPRIM-SULFAMETHOXAZOLE Inactive CLINDAMYCIN HCL 150 MG CAPS 1 four times a day CLINDAMYCIN HCL 150 MG CAPS 303076 CLINDAMYCIN HCL Inactive HYDROCODONE-ACETAMINOPHEN 5-500 MG TABS 1 every 4hours as needed HYDROCODONE-ACETAMINOPHEN 5-500 MG TABS HYDROCODONE- ACETAMINOPHEN Inactive AUGMENTIN 875-125 MG TAB 1 tab by mouth twice daily with food AUGMENTIN 875-125 MG TAB 524800 AMOXICILLIN-POT CLAVULANATE Inactive AUGMENTIN 875-125 MG TAB 1 tab by mouth twice daily with food AUGMENTIN 875-125 MG TAB 137082 AMOXICILLIN-POT CLAVULANATE Inactive TAMIFLU 75 MG CAPS 1 bid x 5 days TAMIFLU 75 MG CAPS OSELTAMIVIR PHOSPHATE Inactive Advance Directives Directive Description Start Date PERMISSION TO SHARE Vital Signs Date Name Value Unit Range Description blood pressure, diastolic - 8462-4 70 mm[Hg] [...] 10*3/mm3 Encounters Code Encounter Date Provider Facility CPT-06036 Level 2 Est. Patient 14:57:21 CDT Radha Victor APRN [facility] CPT-45458 Level 2 Est. Patient 16:59:23 CDT Jillina Frazell [facility] CPT-58259 Level 3 Est. Patient 15:10:28 CDT Moon Pete [facility] CPT-77583 Level 3 Est. Patient 13:38:05 CULTURE MEDIA LABORATORY ASSISTANT Moon Pete [facility] CPT-43396 Level 3 Est. Patient 13:36:40 CULTURE MEDIA LABORATORY ASSISTANT Antony Moran DO [facility] CPT-28035 Level 3 Est. Patient 14:07:56 CULTURE MEDIA LABORATORY ASSISTANT Moon Pete [facility] Procedures Code Procedure Name Date Entry Date Standard Description CPT-OV Office Visit 21:43:13 CDT CPT-29307 Postop F/U Visit 16:13:18 CDT CPT-78915 Venipuncture Draw Fee 13:37:57 CULTURE MEDIA LABORATORY ASSISTANT
[2018-09-25 11:41] LABS: BILIRUBIN,URINE NEGATIVE (NEGATIVE); CLARITY,URINE VERY CLOUDY; COLOR,URINE YELLOW; GLUCOSE, URINE (UA) NEGATIVE (NEGATIVE); KETONES,URINE NEGATIVE (NEGATIVE); LEUKOCYTE ESTERASE ,URINE 1+ (NEGATIVE); NITRITE,URINE NEGATIVE (NEGATIVE); PH,URINE 8 (5-9); PROTEIN,URINE 1+ (NEGATIVE); UROBILINOGEN,URINE NORMAL (NORMAL)
[2018-09-25] MEDS ORDERED: ONDANSETRON 4 MG/2 ML (SDV) Z0FRAN IVP ONE (11:45)
[2018-09-25 11:50] LABS: BASOPHILS # (AUTO) 0.1 10^3/uL (0.0-0.1); BASOPHILS % (AUTO) 1 % (0-10); EOSINOPHILS # (AUTO) 0.3 10^3/uL (0.0-0.3); EOSINOPHILS % (AUTO) 3 % (0-10); HEMATOCRIT 38 % (35-52); LYMPHOCYTES # (AUTO) 2.3 X 10^3 (1.0-4.0); LYMPHOCYTES % (AUTO) 29 % (12-44); MEAN CORPUSCULAR HEMOGLOBIN 31 PG (25-34); MEAN CORPUSCULAR HGB CONC 35 G/DL (32-36); MEAN CORPUSCULAR VOLUME 89 FL (80-99); MEAN PLATELET VOLUME 9.2 FL (7.4-10.4); MONOCYTES # (AUTO) 0.6 X 10^3 (0.0-1.0); MONOCYTES % (AUTO) 8 % (0-12); NEUTROPHILS # (AUTO) 4.7 X 10^3 (1.8-7.8); NEUTROPHILS % (AUTO) 60 % (42-75); PLATELET COUNT 371 10^3/uL (130-400); RED CELL DISTRIBUTION WIDTH 11.5 % (10.0-14.5); WHITE BLOOD COUNT 7.9 10^3/uL (4.3-11.0)
[2018-09-25 11:56] LABS: BACTERIA,URINE LARGE /HPF; RBC,URINE 0-2 /HPF
[2018-09-25 12:04] LABS: ALANINE AMINOTRANSFERASE 16 U/L (0-55); ALBUMIN 4.6 GM/DL (3.2-4.5); ALKALINE PHOSPHATASE 60 U/L (40-136); AMYLASE 69 U/L (25-125); BILIRUBIN,TOTAL 0.6 MG/DL (0.1-1.0); BUN/CREATININE RATIO 16; CALCIUM 10.1 MG/DL (8.5-10.1); CARBON DIOXIDE 20 MMOL/L (21-32); CHLORIDE 105 MMOL/L (98-107); CREATININE SERUM 0.85 MG/DL (0.60-1.30); GFR ESTIMATED > 60; GLUCOSE 87 MG/DL (70-105); LIPASE 31 U/L (8-78); POTASSIUM 3.5 MMOL/L (3.6-5.0); SODIUM 139 MMOL/L (135-145); TOTAL PROTEIN 7.6 GM/DL (6.4-8.2)
--- NOTE | 2018-09-25 12:12 | ED GI ---
General Chief Complaint: Abdominal/GI Problems Stated Complaint: N,V Nursing Triage Note: PT AMB TO RM 5 WITH COMPLAINT OF ABD, N/V. STATE SHE SAW DR OVER A WEEK AGO, AND WAS TOLD SHE HAS A POSSBILE GASTRIC ULCER OR HIATAL HERNIA. ALSO STATES SHE FEELS LIKE SHE HAS SOMETHING STUCK IN HER THROAT. PT WAS PUT ON PROTONIX AND ZOFRAN ON WEDNESDAY. Sepsis Screen: No Definite Risk Source of Information: Patient Exam Limitations: No Limitations History of Present Illness Date Seen by Provider: Sep 25, 2018 Time Seen by Provider: 11:44 Initial Comments 18 year old female who presents to the emergency room with complains of epigastric abdominal pain, nausea, and vomiting for 1 week. She reports that she was recently placed on protonix and zofran for a gastric ulcer but she has has had minimal relief. Timing/Duration: 1 Week Severity/Quality: Burning Location: Epigastric Associated Symptoms: Nausea/Vomiting Allergies and Home Medications Allergies Coded Allergies: Sulfa (Sulfonamide Antibiotics) (Verified Allergy, Unknown, 09/25/18) Home Medications Nitrofurantoin Monohyd/M-Cryst 100 Mg Capsule, 1 TAB PO BID Prescribed by: MAMIE CARRILLO on 09/25/18 1249 Promethazine HCl 25 Mg Tablet, 25 MG PO Q6H PRN for NAUSEA/VOMITING Prescribed by: MAMIE CARRILLO on 09/25/18 1249 Sucralfate 1 Gm Tablet, 1 GM PO QIDACHS Prescribed by: MAMIE CARRILLO on 09/25/18 1249 Patient Home Medication List Home Medication List Reviewed: Yes Review of Systems Review of Systems Constitutional: see HPI; No chills, No fever Gastrointestinal: See HPI, Nausea, Vomiting All Other Systems Reviewed Negative Unless Noted: Yes Past Xvdozid-Ladfbl-Hmkxsl Hx Past Med/Social Hx: Reviewed Nursing Past Med/Soc Hx Patient Social History Alcohol Use: Denies Use Recreational Drug Use: No Smoking Status: Never a Smoker Recent Foreign Travel: No Contact w/Someone Who Travel: No Recent Infectious Disease Expo: No Recent Hopitalizations: No Immunizations Up To Date Tetanus Booster (TDap): Less than 5yrs PED Vaccines UTD: Yes Seasonal Allergies Seasonal Allergies: No Past Medical History Surgeries: Yes (CYST DRAINAGE) Respiratory: No Cardiac: No Neurological: No Female Reproductive Disorders: Polycystic Ovarian Dis Genitourinary: No Musculoskeletal: No Endocrine: No HEENT: No Cancer: No Psychosocial: No Blood Disorders: No Family Medical History Reviewed Nursing Family Hx Physical Exam Vital Signs Vital Signs - First Documented 09/25/18 11:00 Temp 98.4 Pulse 78 Resp 17 B/P (MAP) 134/87 (103) Pulse Ox 100 O2 Delivery Room Air Capillary Refill : Less Than 3 Seconds Height/Weight/BMI Height: 5'1.00" Weight: 145lbs. oz. 65.875292rf; BMI Method:Stated General Appearance: WD/WN, no apparent distress Respiratory: chest non-tender, lungs clear, normal breath sounds, no respiratory distress, no accessory muscle use Cardiovascular: normal peripheral pulses, regular rate, rhythm, no edema, no gallop, no JVD, no murmur Gastrointestinal: normal bowel sounds, non tender, soft, no organomegaly, no pulsatile mass Neurologic/Psychiatric: alert, normal mood/affect, oriented x 3 Skin: normal color, warm/dry Progress/Results/Core Measures Results/Orders Lab Results Laboratory Tests Test 09/25/18 11:18 09/25/18 11:34 Range/Units White Blood Count 7.9 4.3-11.0 10^3/uL Red Blood Count 4.23 L 4.35-5.85 10^6/uL Hemoglobin 13.0 11.5-16.0 G/DL Hematocrit 38 35-52 % Mean Corpuscular Volume 89 80-99 FL Mean Corpuscular Hemoglobin 31 25-34 PG Mean Corpuscular Hemoglobin Concent 35 32-36 G/DL Red Cell Distribution Width 11.5 10.0-14.5 % Platelet Count 371 130-400 10^3/uL Mean Platelet Volume 9.2 7.4-10.4 FL Neutrophils (%) (Auto) 60 42-75 % Lymphocytes (%) (Auto) 29 12-44 % Monocytes (%) (Auto) 8 0-12 % Eosinophils (%) (Auto) 3 0-10 % Basophils (%) (Auto) 1 0-10 % Neutrophils # (Auto) 4.7 1.8-7.8 X 10^3 Lymphocytes # (Auto) 2.3 1.0-4.0 X 10^3 Monocytes # (Auto) 0.6 0.0-1.0 X 10^3 Eosinophils # (Auto) 0.3 0.0-0.3 10^3/uL Basophils # (Auto) 0.1 0.0-0.1 10^3/uL Sodium Level 139 135-145 MMOL/L Potassium Level 3.5 L 3.6-5.0 MMOL/L Chloride Level 105 98-107 MMOL/L Carbon Dioxide Level 20 L 21-32 MMOL/L Anion Gap 14 5-14 MMOL/L Blood Urea Nitrogen 14 7-18 MG/DL Creatinine 0.85 0.60-1.30 MG/DL Estimat Glomerular Filtration Rate > 60 BUN/Creatinine Ratio 16 Glucose Level 87 70-105 MG/DL Calcium Level 10.1 8.5-10.1 MG/DL Corrected Calcium 8.5-10.1 MG/DL Total Bilirubin 0.6 0.1-1.0 MG/DL Aspartate Amino Transf (AST/SGOT) 21 5-34 U/L Alanine Aminotransferase (ALT/SGPT) 16 0-55 U/L Alkaline Phosphatase 60 40-136 U/L Total Protein 7.6 6.4-8.2 GM/DL Albumin 4.6 H 3.2-4.5 GM/DL Amylase Level 69 25-125 U/L Lipase 31 8-78 U/L Urine Color YELLOW Urine Clarity VERY CLOUDY H Urine pH 8 5-9 Urine Specific [place] 1.010 L 1.016-1.022 Urine Protein 1+ H NEGATIVE Urine Glucose (UA) NEGATIVE NEGATIVE Urine Ketones NEGATIVE NEGATIVE Urine Nitrite NEGATIVE NEGATIVE Urine Bilirubin NEGATIVE NEGATIVE Urine Urobilinogen NORMAL NORMAL MG/DL Urine Leukocyte Esterase 1+ H NEGATIVE Urine RBC (Auto) 1+ H NEGATIVE Urine RBC 0-2 /HPF Urine WBC 5-10 H /HPF Urine Squamous Epithelial Cells 5-10 /HPF Urine Crystals NONE /LPF Urine Bacteria LARGE H /HPF Urine Casts NONE /LPF Urine Mucus NEGATIVE /LPF Urine Culture Indicated YES Micro Results Microbiology 09/25/18 Urine Culture - Final, Complete NO GROWTH My Orders Orders - MAMIE CARRILLO Comprehensive Metabolic Panel (09/25/18 11:42) Lipase (09/25/18 11:42) Amylase (09/25/18 11:42) Ed Iv/Invasive Line Start (09/25/18 11:42) Cbc With Automated Diff (09/25/18 11:42) Ondansetron Injection (Zofran Injectio (09/25/18 11:45) Medications Given in ED Vital Signs/I&O 09/25/18 09/25/18 11:00 13:13 Temp 98.4 98.4 Pulse 78 78 Resp 17 17 B/P (MAP) 134/87 (103) 128/84 (99) Pulse Ox 100 100 O2 Delivery Room Air Room Air Blood Pressure Mean: 103 Progress Progress Note : Time: 12:46 Progress Note I have seen and evaluated the patient. I have informed her of her laboratory studies. Her pain and nausea has improved. She agrees with plan of care, plans for follow up, return precautions were given. Departure Impression Primary Impression: Urinary tract infection Additional Impression: GERD (gastroesophageal reflux disease) Disposition: HOME, SELF-CARE Condition: Stable/Unchanged Departure-Patient Inst. Decision time for Depature: 12:46 Referrals: MIKAYLA CARBONE BRETT D DO STEWART, CHAD C MD (PCP/Family) Primary Care Physician Patient Instructions: Urinary Tract Infection, Adult (DC) Add. Discharge Instructions: Take medications as directed. Continue to use the Protonix and Zofran as previously prescribed. Call tomorrow morning to schedule an appointment for follow-up with Dr. Faustin or one of the provided surgeons for follow-up. Return back to the emergency room for worsening symptoms or concerns as needed. All discharge instructions reviewed with patient and/or family. Voiced understanding. Scripts Promethazine HCl (Promethazine Tablet) 25 Mg Tablet 25 MG PO Q6H PRN for NAUSEA/VOMITING, #14 TAB Prov: MAMIE CARRILLO 09/25/18 Nitrofurantoin Monohyd/M-Cryst (Macrobid 100 mg Capsule) 100 Mg Capsule 1 TAB PO BID for 7 Days, #14 CAP Prov: MAMIE CARRILLO 09/25/18 Sucralfate (Carafate) 1 Gm Tablet 1 GM PO QIDACHS for 7 Days, #28 TAB Prov: MAMIE CARRILLO 09/25/18 MAMIE CARRILLO Sep 25, 2018 12:12
[2018-09-25] MEDS ORDERED: SUCR1TAB36 PO (12:49)
[2018-09-25] MEDS ORDERED: PROM25TA14 PO (12:49)
[2018-09-25] MEDS ORDERED: NITR-65 PO (12:49)
[2018-09-25 13:13] VITALS: BP 128/84
== END 2018-09-25 13:13 | disposition home or self-care (01) ==
LOC: EDUNIT# 10:49 → ER 10:50
DX: N39.0 Urinary tract infection, site not specified (principal); K21.9 Gastro-esophageal reflux disease without esophagitis; Z88.2 Allergy status to sulfonamides; Z87.448 Personal history of other diseases of urinary system
CPT/HCPCS: 36415; 80053; 81000; 82150; 83690; 85025; 87088

== ENCOUNTER 2018-09-29 18:50 | Emergency (ER) | payer OTHER ==
[~2018-09-29] VITALS: Ht 154.9 cm; Wt 65.8 kg
[~2018-09-29 18:50] MED LIST: ETHINYL ESTRADIOL; LEVONORGESTREL; NITR-65 PO; ONDANSETRON 4MG TAB; PHENTERMINE 30 MG; PROM25TA14 PO; SUCR1TAB36 PO; [UNRECOGNIZED DRUG - OTHER]
--- OUTSIDE RECORDS SUMMARY | 2018-09-29 19:13 | XMS REPORT | Continuity of Care Document ---
Demographics x Preferred Language Unknown Marital Status Unknown Adventism Affiliation Unknown Race Unknown Ethnic Group Unknown Author Organization Unknown Address Unknown Allergies Active Description Code Type Severity Reaction Onset Reported/Identified Relationship to Patient Clinical Status Yes NONE Food Allergy N/A N/A Yes Sulfa (Sulfonamide Antibiotics) 491 Drug Allergy N/A N/A Medications Medication Packaging Start Date Stop Date Route Dosage Sig [id number] 01/24 1 drop OS qid x 7 [...] MAMIE GAUTHIER J02.9 Acute pharyngitis, unspecified 06/17/2016 MMAIE GAUTHIER J02.9 Acute pharyngitis, unspecified 11/26/2016 MARIZA [...] Procedures Code [place] [address] TREAT KNUCKLE DISLOCATION 02/22/2014 85576 X-RAY EXAM OF FINGER(S) 02/22/2014 7974 CL REDUC DISLOC-HAND/FNG 02/22/2014 60992 EMERGENCY DEPT VISIT 02/22/2014 33347 OFFICE/OUTPATIENT VISIT, EST 12/10/2015 20220 OFFICE/OUTPATIENT VISIT, EST 01/16/2016 V2520 Contact lens hydrophilic 02/10/2016 V2520 Contact lens hydrophilic 02/10/2016 V2520 Contact lens hydrophilic 07/09/2016 V2520 Contact lens hydrophilic 12/22/2016 00463 EYE EXAM T TREATMENT 01/05/2017 77177 REFRACTION 01/05/2017 98875 Contact Lens [place] 01/05/2017 06403 EYE EXAM T TREATMENT 04/05/2018 95487 REFRACTION 04/05/2018 05152 Contact Lens [place] 04/05/2018 Results Test Result [...] Status Pt. Type Provider Facility Loc./Unit Complaint [id number] 02/22/2014 20:07:00 02/22/2014 22:05:00 DIS Emergency SOPHIE MCNEIL [facility] EMR [id number] 11/02/2013 08:00:00 11/02/2013 13:30:00 DIS Inpatient MOLINA AKERS [facility] OPS [id number] 11/01/2013 11:47:48 Document Registration [id number] 04/29/2013 00:00:00 Document Registration [id number] 12/04/2016 17:05:34 ACT Document Registration [id number] 08/24/2017 13:51:00 08/24/2017 23:59:59 CLS Outpatient PUMA CORDERO, RONEL [facility] RAD N91.2 AMENORRHEA [id number] 11/20/2016 10:31:53 ACT Unknown [id number] 04/05/2018 15:00:00 Document Registration [id number] 01/05/2017 11:04:27 Document Registration [id number] 01/05/2017 11:00:00 Document Registration [id number] 12/22/2016 00:00:00 Document Registration [id number] 07/09/2016 00:00:00 Document Registration [id number] 02/10/2016 00:00:00 Document Registration [id number] 02/10/2016 00:00:00 Document Registration [id number] 01/16/2016 11:50:00 Document Registration [id number] 12/10/2015 08:45:00 Document Registration [id number] 03/26/2017 09:51:00 03/26/2017 13:51:00 [id number]/26/2017 09:15:00 03/26/2017 13:15:00 [id number] 12/05/2016 13:05:00 12/09/2016 [facility]05[id number]2016 13:18:00 12/05/2016 15:35:00 [id number] 11/27/2016 11:00:00 11/27/2016 15:00:[id number] 11/26/2016 11:29:00 11/26/2016 15:29:00 [id number] 11/26/2016 11:00:00 11/26/2016 15:00:00 [id number] 06/17/2016 15:40:00 06/17/2016 19:40:00 [id number] 06/17/2016 15:00:00 06/17/2016 19:00:00 [facility] [id number] 08/14/2016 13:58:38 08/14/2016 23:59:59 CLS Outpatient FOREIGN, SHY A [facility] lab work
[2018-09-29] MEDS ORDERED: LACTATED RINGERS 1,000 ML IV ONE (20:11)
[2018-09-29] MEDS ORDERED: ONDANSETRON 4 MG/2 ML (SDV) Z0FRAN IVP ONE (20:15)
[2018-09-29 20:27] LABS: BILIRUBIN,URINE NEGATIVE (NEGATIVE); CLARITY,URINE VERY CLOUDY; COLOR,URINE AMBER; GLUCOSE, URINE (UA) NEGATIVE (NEGATIVE); KETONES,URINE NEGATIVE (NEGATIVE); LEUKOCYTE ESTERASE ,URINE 1+ (NEGATIVE); NITRITE,URINE NEGATIVE (NEGATIVE); PH,URINE 8 (5-9); PROTEIN,URINE 2+ (NEGATIVE); UROBILINOGEN,URINE NORMAL (NORMAL)
[2018-09-29 20:28] LABS: BASOPHILS % (AUTO) 0 % (0-10); EOSINOPHILS # (AUTO) 0.2 10^3/uL (0.0-0.3); EOSINOPHILS % (AUTO) 1 % (0-10); HEMATOCRIT 37 % (35-52); HEMOGLOBIN 12.9 G/DL (11.5-16.0); LYMPHOCYTES # (AUTO) 1.5 X 10^3 (1.0-4.0); LYMPHOCYTES % (AUTO) 13 % (12-44); MEAN CORPUSCULAR HEMOGLOBIN 31 PG (25-34); MEAN CORPUSCULAR HGB CONC 35 G/DL (32-36); MEAN CORPUSCULAR VOLUME 90 FL (80-99); MEAN PLATELET VOLUME 9.5 FL (7.4-10.4); MONOCYTES # (AUTO) 0.6 X 10^3 (0.0-1.0); MONOCYTES % (AUTO) 5 % (0-12); NEUTROPHILS # (AUTO) 9.3 X 10^3 (1.8-7.8); NEUTROPHILS % (AUTO) 80 % (42-75); PLATELET COUNT 330 10^3/uL (130-400); RED CELL DISTRIBUTION WIDTH 11.5 % (10.0-14.5); WHITE BLOOD COUNT 11.6 10^3/uL (4.3-11.0)
[2018-09-29 20:35] LABS: AMORPHOUS SEDIMENT,UR MOD AMOR PHOSPHATE /LPF; BACTERIA,URINE 0-2 /HPF; RBC,URINE 50-100 /HPF; WBC,URINE MODERATE /HPF
[2018-09-29 20:46] LABS: ALANINE AMINOTRANSFERASE 18 U/L (0-55); ALBUMIN 4.5 GM/DL (3.2-4.5); ALKALINE PHOSPHATASE 62 U/L (40-136); AMYLASE 84 U/L (25-125); BILIRUBIN,TOTAL 0.2 MG/DL (0.1-1.0); BUN/CREATININE RATIO 12; CALCIUM 9.6 MG/DL (8.5-10.1); CARBON DIOXIDE 22 MMOL/L (21-32); CHLORIDE 106 MMOL/L (98-107); CREATININE SERUM 0.85 MG/DL (0.60-1.30); GFR ESTIMATED > 60; GLUCOSE 113 MG/DL (70-105); LIPASE 30 U/L (8-78); POTASSIUM 3.7 MMOL/L (3.6-5.0); SODIUM 141 MMOL/L (135-145); TOTAL PROTEIN 7.5 GM/DL (6.4-8.2)
[2018-09-29] MEDS ORDERED: KETOROLAC 30 MG/ML VIAL IVP ONE (21:15)
--- NOTE | 2018-09-29 21:22 | NUR ---
REPORT RECIEVED FROM ISRAEL JIMÉNEZ TO ASSUME CARE OF PT @ THIS TIME.
--- NOTE | 2018-09-29 21:28 | Diagnostic Imaging Report ---
INDICATION: Right lower quadrant pain. Time of exam: 9:21 PM No prior studies available for comparison. The heart size is normal. The lungs are clear. There is no free air. Bowel gas pattern is nonobstructed. Tiny calcific density overlying lower pole of the right kidney suggestive of a small renal calculus. Study is otherwise unremarkable. There is moderate stool in the colon. IMPRESSION: Probable small right renal calculus. No other significant abnormality is seen. Dictated by: Dictated on workstation # [id number]
[2018-09-29] MEDS ORDERED: PROMETHAZINE INJ 25 MG/ML (PHENERGAN) AMP IVP ONE (21:30)
[2018-09-29] MEDS ORDERED: diphenhydrAMINE 50 MG/ML INJ (BENADRYL) IVP ONE (21:30)
--- NOTE | 2018-09-29 21:37 | Diagnostic Imaging Report ---
PROCEDURE: CT urinary tract, rule out kidney stone. TECHNIQUE: Multiple contiguous axial images were obtained through the abdomen and pelvis without the use of intravenous contrast. Auto Exposure Controls were utilized during the CT exam to meet ALARA standards for radiation dose reduction. INDICATION: Right lower quadrant pain. No prior CT studies available for comparison. The lung bases are clear. The liver and gallbladder are unremarkable. No biliary duct dilatation is seen. The pancreas and spleen are unremarkable. No adrenal mass is detected. Both kidneys contain multiple small nonobstructing calculi approximately 1-3 mm in size. There does appear to be hydroureteronephrosis on the right. The dilated right ureter is traced into the pelvis where there is an approximately 2 mm calculus just proximal to the UVJ. No bladder calculi are seen. Aorta is non-aneurysmal. Bowel loops are normal caliber. There is no obstruction. No free fluid is identified. There is moderate stool in the colon. Uterus is unremarkable. IMPRESSION: Bilateral nonobstructing nephrolithiasis. There is also approximately 2 mm calculus in the distal right ureter just above the UVJ producing moderate hydroureteronephrosis. Dictated by: Dictated on workstation # [id number]
[2018-09-29] MEDS ORDERED: RX-ONDANSETRON 4 MG ODT (ZOFRAN) PPK #4 PO STA (22:40)
[2018-09-29] MEDS ORDERED: RX-NITROFURANTOIN 100 MG (MACROBID) CAP PPK#2 PO STA (22:40)
[2018-09-29] MEDS ORDERED: ONDA8TAB13 PO (22:44)
[2018-09-29] MEDS ORDERED: TAMS0.4C98 PO (22:44)
[2018-09-29] MEDS ORDERED: HYDR-87 PO (22:44)
[2018-09-29] MEDS ORDERED: NITR-65 PO (22:44)
[2018-09-29] MEDS ORDERED: RX-HYDROCODONE/APAP 5/325 MG #4 TAB PK PO PRN (22:45)
--- NOTE | 2018-09-29 22:45 | ED Abdominal Pain ---
General Chief Complaint: Abdominal/GI Problems Stated Complaint: ABD PAIN,NAUSEA Nursing Triage Note: Patient complains of severe right lower quadrant pain that started approximately 2 1/2 hours ago. Pt. advises she was seen in the emergency department wednesday with a dx. of hiatal hernia. She advises hx. of PCOS and kidney stones. Sepsis Screen: No Definite Risk Source of Information: Patient History of Present Illness Date Seen by Provider: September 29, 2018 Time Seen by Provider: 20:03 Initial Comments PT ARRIVES VIA POV WITH MOM PT STATES SHE HAS "VERY EXCRUCIATING PAIN IN RIGHT LOWER ABDOMEN AND IT GOES INTO MY BACK AND GROIN" PAIN BEGAN 2 1/2 HOURS AGO WHILE LAYING IN BED + NAUSEA, NO VOMITING. TOOK PHENERGAN--HAS MADE HER DROWSY NOTHING WORSENS OR IMPROVES PAIN, BUT HAS NOT TAKEN ANYTHING FOR PAIN NO FEVER NO URINARY SYMPTOMS PT STATES SHE HAS HAD KIDNEY STONES IN THE PAST PT ALSO HAS HISTORY OF PCOS WAS SEEN HERE IN ER ON WEDNESDAY, AND DX WITH HIATAL HERNIA/MARY, AND UTI AND IS SUPPOSED TO FOLLOW UP WITH DR. THIBODEAUX GIVEN RX'S FOR MACROBID, PROMETHAZINE AND CARAFATE. Allergies and Home Medications Allergies Coded Allergies: Sulfa (Sulfonamide Antibiotics) (Verified Allergy, Unknown, 09/29/18) Home Medications Hydrocodone/Ibuprofen 1 Each Tablet, 1 EACH PO Q4H PRN for PAIN-MODERATE Prescribed by: DELFIN ROSARIO on 09/29/182243 Nitrofurantoin Monohyd/M-Cryst 100 Mg Capsule, 1 TAB PO BID Prescribed by: MAMIE CARRILLO on 09/25/18 124 Nitrofurantoin Monohyd/M-Cryst 100 Mg Capsule, 100 MG PO BID Prescribed by: DELFIN ROSARIO on 09/29/182243 Ondansetron 8 Mg Tab.rapdis, 8 MG PO Q6H Prescribed by: DELFIN ROSARIO on 09/29/182243 Promethazine HCl 25 Mg Tablet, 25 MG PO Q6H PRN for NAUSEA/VOMITING Prescribed by: MAMIE CARRLILO on 09/25/18 124 Sucralfate 1 Gm Tablet, 1 GM PO QIDACHS Prescribed by: MAMIE CARRILLO on 09/25/18 124 Tamsulosin HCl 0.4 Mg Cap, 0.4 MG PO DAILY Prescribed by: DELFIN ROSARIO on 09/29/18 9174 Patient Home Medication List Home Medication List Reviewed: Yes Review of Systems Review of Systems Constitutional: no symptoms reported Respiratory: No Symptoms Reported Cardiovascular: No Symptoms Reported Gastrointestinal: See HPI, Abdominal Pain, Nausea; Denies Vomiting Genitourinary: See HPI (LMP--NOW. ) Musculoskeletal: see HPI, back pain Skin: no symptoms reported Psychiatric/Neurological: No Symptoms Reported Endocrine: No Symptoms Reported Past Tdysajp-Riyqxf-Lrycni Hx Patient Social History Alcohol Use: Denies Use Recreational Drug Use: No Smoking Status: Never a Smoker Recent Foreign Travel: No Contact w/Someone Who Travel: No Recent Infectious Disease Expo: No Recent Hopitalizations: No Immunizations Up To Date Tetanus Booster (TDap): Less than 5yrs PED Vaccines UTD: Yes Seasonal Allergies Seasonal Allergies: No Past Medical History Surgeries: Yes (CYST DRAINAGE) Respiratory: No Cardiac: No Neurological: No Female Reproductive Disorders: Polycystic Ovarian Dis Genitourinary: No Musculoskeletal: No Endocrine: No HEENT: No Cancer: No Psychosocial: No Blood Disorders: No Physical Exam Vital Signs Vital Signs - First Documented 09/29/18 20:18 Temp 97.6 Pulse 67 Resp 14 B/P (MAP) 131/70 (90) Pulse Ox 98 O2 Delivery Room Air Capillary Refill : Less Than 3 Seconds Height/Weight/BMI Height: 5'1.00" Weight: 145lbs. oz. 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, no motor/sensory deficits, alert, normal mood/affect, oriented x 3 Skin: normal color, warm/dry; No rash Progress/Results/Core Measures Results/Orders Lab Results Laboratory Tests Test 09/29/18 20:08 09/29/18 20:21 Range/Units White Blood Count 11.6 H 4.3-11.0 10^3/uL Red Blood Count 4.15 L 4.35-5.85 10^6/uL Hemoglobin 12.9 11.5-16.0 G/DL Hematocrit 37 35-52 % Mean Corpuscular Volume 90 80-99 FL Mean Corpuscular Hemoglobin 31 25-34 PG Mean Corpuscular Hemoglobin Concent 35 32-36 G/DL Red Cell Distribution Width 11.5 10.0-14.5 % Platelet Count 330 130-400 10^3/uL Mean Platelet Volume 9.5 7.4-10.4 FL Neutrophils (%) (Auto) 80 H 42-75 % Lymphocytes (%) (Auto) 13 12-44 % Monocytes (%) (Auto) 5 0-12 % Eosinophils (%) (Auto) 1 0-10 % Basophils (%) (Auto) 0 0-10 % Neutrophils # (Auto) 9.3 H 1.8-7.8 X 10^3 Lymphocytes # (Auto) 1.5 1.0-4.0 X 10^3 Monocytes # (Auto) 0.6 0.0-1.0 X 10^3 Eosinophils # (Auto) 0.2 0.0-0.3 10^3/uL Basophils # (Auto) 0.0 0.0-0.1 10^3/uL Sodium Level 141 135-145 MMOL/L Potassium Level 3.7 3.6-5.0 MMOL/L Chloride Level 106 98-107 MMOL/L Carbon Dioxide Level 22 21-32 MMOL/L Anion Gap 13 5-14 MMOL/L Blood Urea Nitrogen 10 7-18 MG/DL Creatinine 0.85 0.60-1.30 MG/DL Estimat Glomerular Filtration Rate > 60 BUN/Creatinine Ratio 12 Glucose Level 113 H 70-105 MG/DL Calcium Level 9.6 8.5-10.1 MG/DL Corrected Calcium 9.2 8.5-10.1 MG/DL Total Bilirubin 0.2 0.1-1.0 MG/DL Aspartate Amino Transf (AST/SGOT) 20 5-34 U/L Alanine Aminotransferase (ALT/SGPT) 18 0-55 U/L Alkaline Phosphatase 62 40-136 U/L Total Protein 7.5 6.4-8.2 GM/DL Albumin 4.5 3.2-4.5 GM/DL Amylase Level 84 25-125 U/L Lipase 30 8-78 U/L Urine Color SAMANTA H Urine Clarity VERY CLOUDY H Urine pH 8 5-9 Urine Specific [place] 1.015 L 1.016-1.022 Urine Protein 2+ H NEGATIVE Urine Glucose (UA) NEGATIVE NEGATIVE Urine Ketones NEGATIVE NEGATIVE Urine Nitrite NEGATIVE NEGATIVE Urine Bilirubin NEGATIVE NEGATIVE Urine Urobilinogen NORMAL NORMAL MG/DL Urine Leukocyte Esterase 1+ H NEGATIVE Urine RBC (Auto) 5+ H NEGATIVE Urine RBC 50-100 H /HPF Urine WBC MODERATE /HPF Urine Squamous Epithelial Cells 10-25 H /HPF Urine Crystals PRESENT H /LPF Urine Amorphous Sediment MOD BETH PHOSPHATE H /LPF Urine Bacteria 0-2 /HPF Urine Casts NONE /LPF Urine Mucus NEGATIVE /LPF Urine Culture Indicated NO Urine Test NEGATIVE NEGATIVE My Orders Orders - DELFIN ROSARIO DO Ct Abd/Pelvis Wo(Kidney Stone) (09/29/18 20:11) Amylase (09/29/18 20:11) Cbc With Automated Diff (09/29/18 20:11) Comprehensive Metabolic Panel (09/29/18 20:11) Lipase (09/29/18 20:11) Acute Abd Series (09/29/18 20:11) Ed Iv/Invasive Line Start (09/29/18 20:11) Ed Iv/Invasive Line Start (09/29/18 20:11) Lactated Ringers (Lr 1000 Ml Iv Solution (09/29/18 20:11) Ondansetron Injection (Zofran Injectio (09/29/18 20:15) Hcg,Qualitative Urine (09/29/18 20:30) Ketorolac Injection (Toradol Injection) (09/29/18 21:15) Promethazine Injection (Phenergan Injec (09/29/18 21:30) Diphenhydramine Injection (Benadryl Inje (09/29/18 21:30) Rx-Hydrocodone/Apap 5-325 Mg (Rx-Vicodin (09/29/18 22:45) Rx-Ondansetron Po (Rx-Zofran Po) (09/29/18 22:40) Rx-Nitrofurantoin [place] (Rx-Macrobid) (09/29/18 22:40) Tamsulosin Capsule (Flomax Capsule) (09/30/18 18:00) Tamsulosin Capsule (Flomax Capsule) (09/29/18 22:49) Medications Given in ED Vital Signs/I&O 09/29/18 09/29/18 20:18 23:20 Temp 97.6 97.6 Pulse 67 74 Resp 14 16 B/P (MAP) 131/70 (90) 117/69 (85) Pulse Ox 98 98 O2 Delivery Room Air Room Air Blood Pressure Mean: 90 Progress Progress Note : Progress Note PAIN FREE AT DISMISSAL Diagnostic Imaging Comments ABDOMEN XRAYS--NO ACUTE PROCESS, PENDING RADIOLOGIST REVIEW CT ABDOMEN/PELVIS--2 MM STONE RIGHT DISTAL URETER WITH HYDRONEPHROSIS, BILATERAL INTRARENAL STONES--PER RADIOLOGIST REPORT AT 2229 Departure Impression Primary Impression: Right distal ureteral calculus Disposition: HOME, SELF-CARE Condition: Improved Departure-Patient Inst. Referrals: RONEL BARTHOLOMEW MD (PCP/Family) Primary Care Physician Patient Instructions: How to Strain Your Urine, Kidney Stones (DC) Add. Discharge Instructions: CLEAR LIQUIDS STRAIN ALL URINE--RETURN ANY STONES TO [facility] OFFICE FOLLOW UP WITH DR. PICKARD IN 3-4 DAYS FOR FURTHER CARE, RETURN TO ER IF WORSE All discharge instructions reviewed with patient and/or family. Voiced understanding. Scripts Ondansetron (Ondansetron Odt) 8 Mg Tab.rapdis 8 MG PO Q6H for Nausea/Vomiting, #10 TAB Prov: DELFIN ROSARIO DO 09/29/18 Tamsulosin HCl (Flomax) 0.4 Mg Cap 0.4 MG PO DAILY, #10 CAP Prov: DELFIN ROSARIO DO 09/29/18 Hydrocodone/Ibuprofen (Hydrocodone-Ibuprofen 7.5-200) 1 Each Tablet 1 EACH PO Q4H PRN for PAIN-MODERATE for 3 Days, TAB Prov: DELFIN ROSARIO DO 09/29/18 Nitrofurantoin Monohyd/M-Cryst (Macrobid 100 mg Capsule) 100 Mg Capsule 100 MG PO BID, #20 CAP Prov: DELFIN ROSARIO DO 09/29/18 Work/School Note: School/Childcare Release Date Seen in the Emergency Department: September 29, 2018 Return to School: October 03, 2018 DELFIN ROSARIO DO September 29, 2018 22:45
[2018-09-29] MEDS ORDERED: TAMSULOSIN 0.4 MG (FLOMAX) CAP PO ONE (22:49)
[2018-09-29 23:20] VITALS: BP 117/69
[2018-09-30] MEDS ORDERED: TAMSULOSIN 0.4 MG (FLOMAX) CAP PO SCH (18:00)
[2018-10-04] MEDS ORDERED: ONDA4TAB10 PO (13:55)
[2018-10-04] MEDS ORDERED: PROM25TA14 PO (13:55)
[2018-10-04] MEDS ORDERED: LEVO1TAB72 PO (13:55)
[2018-10-04] MEDS ORDERED: NITR100C10 PO (13:55)
[2018-10-04] MEDS ORDERED: TAMS0.4C98 PO (13:55)
[2018-10-04] MEDS ORDERED: PANT40TA3 PO (13:55)
[2018-10-04] MEDS ORDERED: ONDA8TAB13 PO (13:55)
[2018-10-04] MEDS ORDERED: ONDN4T PO (14:00)
[2018-10-04] MEDS ORDERED: METF-397 PO (14:01)
[2018-10-04] MEDS ORDERED: PHEN30CA2 PO (14:01)
[2018-10-04] MEDS ORDERED: SUCR1TAB PO (14:02)
== END 2018-09-29 23:20 | disposition home or self-care (01) ==
LOC: EDUNIT# 18:50 → ER 18:52
DX: N13.2 Hydronephrosis with renal and ureteral calculous obstruction (principal); Z87.442 Personal history of urinary calculi; Z88.2 Allergy status to sulfonamides; Z87.448 Personal history of other diseases of urinary system; Z87.19 Personal history of other diseases of the digestive system
CPT/HCPCS: 36415; 74022; 74176; 80053; 81000; 82150; 83690; 84703; 85025

== ENCOUNTER 2018-10-04 12:30 | Observation (INO) | payer OTHER | END 2018-10-07 15:10 | disposition home or self-care (01) | LOC: 4TH 12:30 ==

== ENCOUNTER → 2018-10-10 | Outpatient (CLI) | payer OTHER ==
[~2018-10-10] MED LIST changes: +HYDR-34 PO; +HYDR-87 PO; +LEVO1TAB72 PO; +METF-397 PO; +NITR100C10 PO; +ONDA4TAB10 PO; +ONDA8TAB13 PO; +ONDN4T PO; +PANT40TA3 PO; +PHEN30CA2 PO; +SUCR1TAB PO; +TAMS0.4C98 PO
--- NOTE | 2018-10-10 15:01 | Diagnostic Imaging Report ---
INDICATION: Right-sided kidney stones. TIME OF EXAM: 2:30 PM COMPARISON: Correlation is made with abdominal series from 09/29/[address] CT from 09/29/2018. FINDINGS: Bowel contents obscure renal shadows, limiting evaluation. No definite calculi along the expected course of the ureters is seen. Previously noted tiny calculus at the right UVJ on CT is not appreciated by plain film, as this area is obscured by bowel contents. No obstruction is identified. Surgical clips in the gallbladder fossa are noted. IMPRESSION: Limited study due to moderate stool throughout the colon obscuring the urinary tracts. No acute features detected. Dictated by: Dictated on workstation # [id number]
== END ==
LOC: RAD 14:22
PROVIDERS: ATTEND Surgery
DX: N20.0 Calculus of kidney (principal); Z98.890 Other specified postprocedural states
CPT/HCPCS: 74018

== ENCOUNTER → 2018-10-14 | Outpatient (CLI) | payer OTHER ==
[~2018-10-14] MED LIST changes: +PHEN-640 PO
--- NOTE | 2018-10-14 11:55 | Diagnostic Imaging Report ---
PROCEDURE: CT abdomen and pelvis without contrast. TECHNIQUE: Multiple contiguous axial images were obtained through the abdomen and pelvis without the use of intravenous contrast. Auto Exposure Controls were utilized during the CT exam to meet ALARA standards for radiation dose reduction. INDICATION: Bilateral renal stones and a right ureteral stone. COMPARISON: Correlation is made with prior CT from 09/29/2018. FINDINGS: The lung bases are clear. The liver is unremarkable. Gallbladder is surgically absent. There is no biliary ductal dilatation. Pancreas and spleen are unremarkable. No adrenal mass is identified. Previously noted nonobstructing calculi in both kidneys are again noted. There continues to be right-sided hydroureteronephrosis. There appears to have been interval passage of the larger right renal calculus on recent CT into the right ureter. This is just above the UVJ. There may be a second and even third smaller calculus adjacent to this in the distal right ureter. Left ureter is unremarkable. Bladder is unremarkable. Uterus and ovaries are unremarkable. There is no ascites. Bowel loops are normal caliber. IMPRESSION: Bilateral nonobstructing nephrolithiasis. There is moderate right hydroureteronephrosis. This appears to be caused by several small calculi in the distal right ureter just above the UVJ. These appear to be different calculi than while were seen on CT study from 09/29/2018. Dictated by: Dictated on workstation # [id number]
== END ==
LOC: RAD FS 10:18
PROVIDERS: ATTEND Urology
DX: N13.2 Hydronephrosis with renal and ureteral calculous obstruction (principal); Z90.49 Acquired absence of other specified parts of digestive tract
CPT/HCPCS: 74176

== ENCOUNTER → 2018-10-18 | Outpatient (CLI) | payer OTHER | END | disposition home or self-care (01) | LOC: PREOP 14:32 | PROVIDERS: ATTEND Urology | DX: Z01.818 Encounter for other preprocedural examination (principal) ==

== ENCOUNTER 2018-10-19 08:52 | Day surgery (SDC) | payer OTHER ==
[~2018-10-19] VITALS: Ht 154.9 cm; Wt 63.5 kg
[2018-10-19] VITALS (9 sets, daily range): BP systolic 99–111; BP diastolic 63–74
[~2018-10-19 08:52] MED LIST changes: -PHEN-640 PO
--- OUTSIDE RECORDS SUMMARY | 2018-10-19 09:10 | XMS REPORT | Continuity of Care Document ---
Demographics x Preferred Language Unknown Marital Status Unknown Faith Affiliation Unknown Race Unknown Ethnic Group Unknown Author Organization Unknown Address Unknown Allergies Active Description Code Type Severity Reaction Onset Reported/Identified Relationship to Patient Clinical Status Yes NONE Food Allergy N/A N/A Yes Sulfa (Sulfonamide Antibiotics) 491 Drug Allergy N/A N/A Yes Sulfa (Sulfonamide Antibiotics) [id number] Drug Allergy Unknown N/A 09/29/2018 Medications Medication Packaging Start Date Stop Date Route Dosage Sig [id number] 01/24/2015 1 drop OS qid x 7 days PREDNISOLONE ACETATE 12/10/2015 instill 1 drop, OS qid x 4 days; tid x 3 days; bid x 2 days and qd x 1 day Problems Date Dx Coded Attending Type Code Diagnosis Diagnosed By 02/22/2014 SOPHIE MCNEIL 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 02/22/2014 SOPHIE MCNEIL 959.5 FINGER INJURY NOS 02/22/2014 SOPHIE MCNEIL E007.7 ACTIV- VOLLEYBALL 02/22/2014 SOPHIE MCNEIL E849.4 ACCID IN RECREATION [...] Z32.00 Encounter for test, result unknown 11/27/2016 MICKPROSPERLY Brandon Bautista R10.2 Pelvic and perineal pain 12/05/2016 METR SIU N20.1 Calculus of ureter 01/05/2017 W H52.13 Myopia, bilateral 03/26/2017 PROSPER BARTONLY Brandon Bautista F32.9 Major depressive disorder, single episode, unspecified 03/26/2017 MICKMARIZA R63.5 Abnormal weight gain 03/26/2017 MICKPROSPERLY Brandon Bautista Z83.49 Family history of other endocrine, nutritional and metabolic diseases 03/26/2017 MARIZA BARTON Brandon Bautista F32.9 Major depressive disorder, single episode, unspecified 03/26/2017 MARIZA BARTON Brandon Bautista R63.5 Abnormal weight gain 08/25/2017 PUMA CORDERO, [...] Myopia, bilateral 04/05/2018 W H52.13 Myopia, bilateral 09/25/2018 MAMIE CARRILLO Ot K21.9 GASTRO- ESOPHAGEAL REFLUX DISEASE WITHOUT 09/25/2018 BERNBERLIN JEANIS Ot N39.0 URINARY TRACT INFECTION, SITE NOT SPECIF 09/25/2018 MAMIE CARRILLO Ot R11.2 NAUSEA WITH VOMITING, UNSPECIFIED 09/25/2018 MAMIE CARRILLO Ot Z87.448 PERSONAL HISTORY OF OTHER DISEASES OF UR 09/25/2018 MAMIE CARRILLO Ot Z88.2 ALLERGY STATUS TO SULFONAMIDES STATUS 09/27/2018 BERLIN CARRILLOIS Ot K21.9 GASTRO- ESOPHAGEAL REFLUX DISEASE WITHOUT 09/27/2018 BERNBERLIN JEANIS Ot N39.0 URINARY TRACT INFECTION, SITE NOT SPECIF 09/27/2018 MAMIE CARRILLO Ot R11.2 NAUSEA WITH VOMITING, UNSPECIFIED 09/27/2018 MAMIE CARRILLO Ot Z87.448 PERSONAL HISTORY OF OTHER DISEASES OF UR 09/27/2018 MAMIE CARRILLO Ot Z88.2 ALLERGY STATUS TO SULFONAMIDES STATUS 09/29/2018 ABRAHAM DO, DELFIN K Ot N13.2 HYDRONEPHROSIS WITH RENAL AND URETERAL C 09/29/2018 ABRAHAM DO, DELFIN K Ot R10.31 RIGHT LOWER QUADRANT PAIN 09/29/2018 ABRAHAM DO, DELFIN K Ot Z87.19 PERSONAL HISTORY OF OTHER DISEASES OF TH 09/29/2018 ABRAHAM DO, DELFIN K Ot Z87.442 PERSONAL HISTORY OF URINARY CALCULI 09/29/2018 ABRAHAM DO, DELFIN K Ot Z87.448 PERSONAL HISTORY OF OTHER DISEASES OF UR 09/29/2018 ABRAHAM DO, DELFIN K Ot Z88.2 ALLERGY STATUS TO SULFONAMIDES STATUS 10/03/2018 ABRAHAM DO, DELFIN K Ot N13.2 HYDRONEPHROSIS WITH RENAL AND URETERAL C 10/03/2018 ABRAHAM DO, DELFIN K Ot R10.31 RIGHT LOWER QUADRANT PAIN 10/03/2018 ABRAHAM DO, DELFIN K Ot Z87.19 PERSONAL HISTORY OF OTHER DISEASES OF TH 10/03/2018 ABRAHAM DO, DELFIN K Ot Z87.442 PERSONAL HISTORY OF URINARY CALCULI 10/03/2018 ABRAHAM DO, DELFIN K Ot Z87.448 PERSONAL HISTORY OF OTHER DISEASES OF UR 10/03/2018 ABRAHAM DO, DELFIN K Ot Z88.2 ALLERGY STATUS TO SULFONAMIDES STATUS 10/04/2018 PUMA CORDERO, RONEL C Ot N83.201 UNSPECIFIED OVARIAN CYST, RIGHT SIDE 10/06/2018 ABRAHAM DO, DELFIN K Ot N13.2 HYDRONEPHROSIS WITH RENAL AND URETERAL C 10/06/2018 ABRAHAM DO, DELFIN K Ot R10.31 RIGHT LOWER QUADRANT PAIN 10/06/2018 ABRAHAM DO, DELFIN K Ot Z87.19 PERSONAL HISTORY OF OTHER DISEASES OF TH 10/06/2018 ABRAHAM DO, DELIFN K Ot Z87.442 PERSONAL HISTORY OF URINARY CALCULI 10/06/2018 ABRAHAM DO, DELFIN K Ot Z87.448 PERSONAL HISTORY OF OTHER DISEASES OF UR 10/06/2018 DELFIN ROSARIO DO Nery Ot Z88.2 ALLERGY STATUS TO SULFONAMIDES STATUS 10/07/2018 TRENT THIBODEAUX MD, Ot E86.0 DEHYDRATION 10/07/2018 TRENT THIBODEAUX MD, Ot K21.0 GASTRO-ESOPHAGEAL REFLUX DISEASE WITH ES 10/07/2018 TRENT THIBODEAUX MD, Ot K29.70 GASTRITIS, UNSPECIFIED, WITHOUT BLEEDING 10/07/2018 TRENT THIBODEAUX MD, Ot K44.9 DIAPHRAGMATIC HERNIA WITHOUT OBSTRUCTION 10/07/2018 TRENT THIBODEAUX MD, Ot K81.1 CHRONIC CHOLECYSTITIS 10/07/2018 TRENT THIBODEAUX MD, Ot K82.8 OTHER SPECIFIED DISEASES OF GALLBLADDER 10/07/2018 TRENT THIBODEAUX MD, Ot N13.39 OTHER HYDRONEPHROSIS 10/07/2018 TRENT THIBODEAUX MD, Ot N20.0 CALCULUS OF KIDNEY 10/11/2018 TRENT THIBODEAUX MD, Ot N20.0 CALCULUS OF KIDNEY 10/11/2018 TRENT THIBODEAUX MD, Ot Z98.890 OTHER SPECIFIED POSTPROCEDURAL STATES 10/14/2018 UPMA CORDERO, RONEL Forde Ot N83.201 UNSPECIFIED OVARIAN CYST, RIGHT SIDE 10/14/2018 TRENT THIBODEAUX MD, Ot N20.0 CALCULUS OF KIDNEY 10/14/2018 TRENT THIBODEAUX MD, Ot Z98.890 OTHER SPECIFIED POSTPROCEDURAL STATES Procedures Code Description [place] [address] TREAT KNUCKLE DISLOCATION 02/22/2014 75638 X-RAY EXAM OF FINGER(S) 02/22/2014 7974 CL REDUC DISLOC-HAND/FNG 02/22/2014 10671 EMERGENCY DEPT VISIT 02/22/2014 62720 OFFICE/OUTPATIENT VISIT, EST 12/10/2015 82185 OFFICE/OUTPATIENT VISIT, EST 01/16/2016 V2520 Contact lens hydrophilic 02/10/2016 V2520 Contact lens hydrophilic 02/10/2016 V2520 Contact lens hydrophilic 07/09/2016 V2520 Contact lens hydrophilic 12/22/2016 74157 EYE EXAM T TREATMENT 01/05/2017 21985 REFRACTION 01/05/2017 53049 Contact Lens Fittting 01/05/2017 04310 EYE EXAM T TREATMENT 04/05/2018 12533 REFRACTION 04/05/2018 51706 Contact Lens Fittting 04/05/2018 [id number] EXCISION OF ESOPHAGOGASTRIC JUNCTION, EN 10/06/2018 [id number] EXCISION OF STOMACH, PYLORUS, ENDO, DIAG 10/06/2018 [id number] RESECTION OF GALLBLADDER, PERCUTANEOUS E 10/06/2018 Results Test Result Range CBC WITH DIFF [...] HCG QUAL - 11/02/13 00:00 HCG N Complete blood count (CBC) with automated white blood cell (WBC) differential - 09/25/18 11:18 Blood leukocytes automated count (number/volume) 7.9 10*3/uL 4.3-11.0 Blood erythrocytes automated count (number/volume) 4.23 10*6/uL 4.35-5.85 Venous blood hemoglobin measurement (mass/volume) 13.0 g/dL 11.5-16.0 Blood hematocrit (volume fraction) 38 % 35-52 Automated erythrocyte mean corpuscular volume 89 [foz_us] 80-99 Automated erythrocyte mean corpuscular hemoglobin (mass per erythrocyte) 31 pg 25-34 Automated erythrocyte mean corpuscular hemoglobin concentration measurement (mass/volume) 35 g/dL 32-36 Automated erythrocyte distribution width ratio 11.5 % 10.0- 14.5 Automated blood platelet count (count/volume) 371 10*3/uL 130-400 Automated blood platelet mean volume measurement 9.2 [foz_us] 7.4-10.4 Automated blood neutrophils/100 leukocytes 60 % 42-75 Automated blood lymphocytes/100 leukocytes 29 % 12-44 Blood monocytes/100 leukocytes 8 % 0-12 Automated blood eosinophils/100 leukocytes 3 % 0-10 Automated blood basophils/100 leukocytes 1 % 0-10 Blood neutrophils automated count (number/volume) 4.7 10*3 1.8-7.8 Blood lymphocytes automated count (number/volume) 2.3 10*3 1.0-4.0 Blood monocytes automated count (number/volume) 0.6 10*3 0.0- 1.0 Automated eosinophil count 0.3 10*3/uL 0.0-0.3 Automated blood basophil count (count/volume) 0.1 10*3/uL 0.0-0.1 Comprehensive metabolic panel - 09/25/18 11:18 Serum or plasma sodium measurement (moles/volume) 139 mmol/L 135-145 Serum or plasma potassium measurement (moles/volume) 3.5 mmol/L 3.6-5.0 Serum or plasma chloride measurement (moles/volume) 105 mmol/L 98-107 Carbon dioxide 20 mmol/L 21-32 Serum or plasma anion gap determination (moles/volume) 14 mmol/L 5-14 Serum or plasma urea nitrogen measurement (mass/volume) 14 mg/dL 7-18 Serum or plasma creatinine measurement (mass/volume) 0.85 mg/dL 0.60-1.30 Serum or plasma urea nitrogen/creatinine mass ratio 16 NRG Serum or plasma creatinine measurement with calculation of estimated glomerular filtration rate > NRG Serum or plasma glucose measurement (mass/volume) 87 mg/dL 70-105 Serum or plasma calcium measurement (mass/volume) 10.1 mg/dL 8.5-10.1 Serum or plasma total bilirubin measurement (mass/volume) 0.6 mg/dL 0.1-1.0 Serum or plasma alkaline phosphatase measurement (enzymatic activity/volume) 60 U/L 40-136 Serum or plasma aspartate aminotransferase measurement (enzymatic activity/volume) 21 U/L 5-34 Serum or plasma alanine aminotransferase measurement (enzymatic activity/volume) 16 U/L 0-55 Serum or plasma protein measurement (mass/volume) 7.6 g/dL 6.4-8.2 Serum or plasma albumin measurement (mass/volume) 4.6 g/dL 3.2-4.5 Serum or plasma amylase measurement (enzymatic activity/volume) - 09/25/18 11:18 Serum or plasma amylase measurement (enzymatic activity/volume) 69 U/L 25-125 Lipase - 09/25/18 11:18 Lipase 31 U/L 8-78 Complete urinalysis with reflex to culture - 09/25/18 11:34 Urine color determination YELLOW NRG Urine clarity determination VERY CLOUDY NRG Urine pH measurement by test strip 8 5-9 Specific gravity of urine by test strip 1.010 1.016-1.022 Urine protein assay by test strip, semi-quantitative 1+ NEGATIVE Urine glucose detection by automated test strip NEGATIVE NEGATIVE Erythrocytes detection in urine sediment by light microscopy 1+ NEGATIVE Urine ketones detection by automated test strip NEGATIVE NEGATIVE Urine nitrite detection by test strip NEGATIVE NEGATIVE Urine total bilirubin detection by test strip NEGATIVE NEGATIVE Urine urobilinogen measurement by automated test strip (mass/volume) NORMAL NORMAL Urine leukocyte esterase detection by dipstick 1+ NEGATIVE Automated urine sediment erythrocyte count by microscopy (number/high power field) [HPF] NRG Automated urine sediment leukocyte count by microscopy (number/high power field) [HPF] NRG Bacteria detection in urine sediment by light microscopy LARGE NRG Squamous epithelial cells detection in urine sediment by light microscopy 5-10 NRG Crystals detection in urine sediment by light microscopy NONE NRG Casts detection in urine sediment by light microscopy NONE NRG Mucus detection in urine sediment by light microscopy NEGATIVE NRG Complete urinalysis with reflex to culture YES NRG Bacterial urine culture - 09/25/18 11:34 Bacterial urine culture NG NRG Complete blood count (CBC) with automated white blood cell (WBC) differential - 09/29/18 20:08 Blood leukocytes automated count (number/volume) 11.6 10*3/uL 4.3-11.0 Blood erythrocytes automated count (number/volume) 4.15 10*6/uL 4.35-5.85 Venous blood hemoglobin measurement (mass/volume) 12.9 g/dL 11.5-16.0 Blood hematocrit (volume fraction) 37 % 35-52 Automated erythrocyte mean corpuscular volume 90 [foz_us] 80-99 Automated erythrocyte mean corpuscular hemoglobin (mass per erythrocyte) 31 pg 25-34 Automated erythrocyte mean corpuscular hemoglobin concentration measurement (mass/volume) 35 g/dL 32-36 Automated erythrocyte distribution width ratio 11.5 % 10.0- 14.5 Automated blood platelet count (count/volume) 330 10*3/uL 130-400 Automated blood platelet mean volume measurement 9.5 [foz_us] 7.4-10.4 Automated blood neutrophils/100 leukocytes 80 % 42-75 Automated blood lymphocytes/100 leukocytes 13 % 12-44 Blood monocytes/100 leukocytes 5 % 0-12 Automated blood eosinophils/100 leukocytes 1 % 0-10 Automated blood basophils/100 leukocytes 0 % 0-10 Blood neutrophils automated count (number/volume) 9.3 10*3 1.8-7.8 Blood lymphocytes automated count (number/volume) 1.5 10*3 1.0-4.0 Blood monocytes automated count (number/volume) 0.6 10*3 0.0- 1.0 Automated eosinophil count 0.2 10*3/uL 0.0-0.3 Automated blood basophil count (count/volume) 0.0 10*3/uL 0.0-0.1 Comprehensive metabolic panel - 09/29/18 20:08 Serum or plasma sodium measurement (moles/volume) 141 mmol/L 135-145 Serum or plasma potassium measurement (moles/volume) 3.7 mmol/L 3.6-5.0 Serum or plasma chloride measurement (moles/volume) 106 mmol/L 98-107 Carbon dioxide 22 mmol/L 21-32 Serum or plasma anion gap determination (moles/volume) 13 mmol/L 5-14 Serum or plasma urea nitrogen measurement (mass/volume) 10 mg/dL 7-18 Serum or plasma creatinine measurement (mass/volume) 0.85 mg/dL 0.60-1.30 Serum or plasma urea nitrogen/creatinine mass ratio 12 NRG Serum or plasma creatinine measurement with calculation of estimated glomerular filtration rate > NRG Serum or plasma glucose measurement (mass/volume) 113 mg/dL 70-105 Serum or plasma calcium measurement (mass/volume) 9.6 mg/dL 8.5-10.1 Serum or plasma total bilirubin measurement (mass/volume) 0.2 mg/dL 0.1-1.0 Serum or plasma alkaline phosphatase measurement (enzymatic activity/volume) 62 U/L 40-136 Serum or plasma aspartate aminotransferase measurement (enzymatic activity/volume) 20 U/L 5-34 Serum or plasma alanine aminotransferase measurement (enzymatic activity/volume) 18 U/L 0-55 Serum or plasma protein measurement (mass/volume) 7.5 g/dL 6.4-8.2 Serum or plasma albumin measurement (mass/volume) 4.5 g/dL 3.2-4.5 CALCIUM CORRECTED 9.2 mg/dL 8.5-10.1 Serum or plasma amylase measurement (enzymatic activity/volume) - 09/29/18 20:08 Serum or plasma amylase measurement (enzymatic activity/volume) 84 U/L 25-125 Lipase - 09/29/18 20:08 Lipase 30 U/L 8-78 Complete urinalysis with reflex to culture - 09/29/18 20:21 Urine color determination SAMANTA NRG Urine clarity determination VERY CLOUDY NRG Urine pH measurement by test strip 8 5-9 Specific gravity of urine by test strip 1.015 1.016-1.022 Urine protein assay by test strip, semi-quantitative 2+ NEGATIVE Urine glucose detection by automated test strip NEGATIVE NEGATIVE Erythrocytes detection in urine sediment by light microscopy 5+ NEGATIVE Urine ketones detection by automated test strip NEGATIVE NEGATIVE Urine nitrite detection by test strip NEGATIVE NEGATIVE Urine total bilirubin detection by test strip NEGATIVE NEGATIVE Urine urobilinogen measurement by automated test strip (mass/volume) NORMAL NORMAL Urine leukocyte esterase detection by dipstick 1+ NEGATIVE Automated urine sediment erythrocyte count by microscopy (number/high power field) [HPF] NRG Automated urine sediment leukocyte count by microscopy (number/high power field) MODERATE NRG Bacteria detection in urine sediment by light microscopy 0-2 NRG Squamous epithelial cells detection in urine sediment by light microscopy 10-25 NRG Crystals detection in urine sediment by light microscopy PRESENT NRG Casts detection in urine sediment by light microscopy NONE NRG Mucus detection in urine sediment by light microscopy NEGATIVE NRG Complete urinalysis with reflex to culture NO NRG Amorphous sediment detection in urine sediment by light microscopy MOD BETH PHOSPHATE NRG Urine beta human chorionic gonadotropin (hCG) measurement - 09/29/18 20:21 Urine beta human chorionic gonadotropin (hCG) measurement NEGATIVE NEGATIVE Automated blood complete blood count (hemogram) panel - 10/04/18 13:35 Blood leukocytes automated count (number/volume) 9.4 10*3/uL 4.3-11.0 Blood erythrocytes automated count (number/volume) 4.07 10*6/uL 4.35-5.85 Venous blood hemoglobin measurement (mass/volume) 12.4 g/dL 11.5-16.0 Blood hematocrit (volume fraction) 36 % 35-52 Automated erythrocyte mean corpuscular volume 89 [foz_us] 80-99 Automated erythrocyte mean corpuscular hemoglobin (mass per erythrocyte) 30 pg 25-34 Automated erythrocyte mean corpuscular hemoglobin concentration measurement (mass/volume) 34 g/dL 32-36 Automated erythrocyte distribution width ratio 11.6 % 10.0- 14.5 Automated blood platelet count (count/volume) 318 10*3/uL 130-400 Automated blood platelet mean volume measurement 9.3 [foz_us] 7.4-10.4 Comprehensive metabolic panel - 10/04/18 13:35 Serum or plasma sodium measurement (moles/volume) 137 mmol/L 135-145 Serum or plasma potassium measurement (moles/volume) 3.9 mmol/L 3.6-5.0 Serum or plasma chloride measurement (moles/volume) 103 mmol/L 98-107 Carbon dioxide 27 mmol/L 21-32 Serum or plasma anion gap determination (moles/volume) 7 mmol/L 5-14 Serum or plasma urea nitrogen measurement (mass/volume) 13 mg/dL 7-18 Serum or plasma creatinine measurement (mass/volume) 1.20 mg/dL 0.60-1.30 Serum or plasma urea nitrogen/creatinine mass ratio 11 NRG Serum or plasma creatinine measurement with calculation of estimated glomerular filtration rate 57 NRG Serum or plasma glucose measurement (mass/volume) 91 mg/dL 70-105 Serum or plasma calcium measurement (mass/volume) 9.8 mg/dL 8.5-10.1 Serum or plasma total bilirubin measurement (mass/volume) 0.4 mg/dL 0.1-1.0 Serum or plasma alkaline phosphatase measurement (enzymatic activity/volume) 75 U/L 40-136 Serum or plasma aspartate aminotransferase measurement (enzymatic activity/volume) 14 U/L 5-34 Serum or plasma alanine aminotransferase measurement (enzymatic activity/volume) 11 U/L 0-55 Serum or plasma protein measurement (mass/volume) 7.5 g/dL 6.4-8.2 Serum or plasma albumin measurement (mass/volume) 4.2 g/dL 3.2-4.5 CALCIUM CORRECTED 9.6 mg/dL 8.5-10.1 Urine beta human chorionic gonadotropin (hCG) measurement - 10/05/18 21:53 Urine beta human chorionic gonadotropin (hCG) measurement NEGATIVE NEGATIVE Encounters ACCT No. Visit Date/Time Discharge Status Pt. Type Provider Facility Loc./Unit Complaint [id number] 02/22/2014 20:07:00 02/22/2014 22:05:00 DIS Emergency SOPHIE MCNEIL [facility] EMR [id number] 11/02/2013 08:00:00 11/02/2013 13:30:00 DIS Inpatient DELPHINEMOLINA [facility] OPS [id number] 11/01/2013 11:47:48 Document Registration [id number] 04/29/2013 00:00:00 Document Registration [id number] 12/04/2016 17:05:34 ACT Document Registration [id number] 10/14/2018 10:18:00 10/14/2018 23:59:59 CLS Outpatient MARCELA PICKARD MD [facility] RAD FS BILATERAL RENAL STONES [id number] 10/10/2018 14:22:00 10/10/2018 23:59:59 CLS Outpatient TRENT THIBODEAUX MD [facility] RAD HX BILAT NEPHROLITHIASIS [id number] 10/04/2018 12:30:00 10/07/2018 15:10:00 DIS Inpatient TRENT THIBODEAUX MD [facility] 4TH RUQ PAIN,NAUSEA,VOMITING,DEHYRATION [id number] 09/29/2018 18:52:00 09/29/2018 23:20:00 DIS Emergency DELFIN ROSARIO DO [facility] ER ABD PAIN,NAUSEA [id number] 09/25/2018 10:50:00 09/25/2018 13:13:00 DIS Emergency MAMIE CARRILLO [facility] ER N,V [id number] 08/24/2017 13:51:00 08/24/2017 23:59:59 CLS Outpatient RONEL BARTHOLOMEW MD [facility] RAD N91.2 AMENORRHEA [id number] 11/20/2016 10:31:53 ACT Unknown [id number] 04/05/2018 15:00:00 Document Registration [id number] 01/05/2017 11:04:27 Document Registration [id number] 01/05/2017 11:00:00 Document Registration [id number] 12/22/2016 00:00:00 Document Registration [id number] 07/09/2016 00:00:00 Document Registration [id number] 02/10/2016 00:00:00 Document Registration [id number] 02/10/2016 00:00:00 Document Registration [id number] 01/16/2016 11:50:00 Document Registration [id number] 12/10/2015 08:45:00 Document Registration [id number] 03/26/2017 09:51:00 03/26/2017 13:51:00 [id number]/2017 09:15:00 03/26/2017 13:15:00 [id number] 12/05/2016 13:05:00 12/09/2016 [facility]05:[id number]05/2016 13:18:00 12/05/2016 15:35:00 [id number] 11/27/2016 11:00:00 11/27/2016 15:00:[id number] 11/26/2016 11:29:00 11/26/2016 15:29:00 [id number] 11/26/2016 11:00:00 11/26/2016 15:00:00 [id number] 06/17/2016 15:40:00 06/17/2016 19:40:00 [id number]/17[facility]2016 15:00:00 06/17/2016 19:00:00 [id number] 08/14/2016 13:58:38 08/14/2016 23:59:59 CLS Outpatient SHY CARRASQUILLO [facility] lab work
[2018-10-19] MEDS ORDERED: cefTRIAXone FOR IV USE 1,000 MG in WATER (STERILE) FOR INJECTION 10 ML IV ONE (09:30)
--- NOTE | 2018-10-19 09:32 | Diagnostic Imaging Report ---
INDICATION: Right ureteral stone. TIME OF EXAMINATION: 9:13 AM. COMPARISON: Correlation is made with the prior KUB from 10/10/[address] from 10/14/2018. FINDINGS: The previously noted small calculi in the region of the distal right ureter on the recent CT are not wall seen by plain film due to obscuration of this area by stool. The bowel gas pattern is nonobstructed. No definite radiopaque urinary tract calculi are seen. IMPRESSION: No definite radiopaque urinary tract calculi are identified; however, moderate stool overlies the urinary tracts. Dictated by: Dictated on workstation # [id number]
[2018-10-19] MEDS ORDERED: LACTATED RINGERS 1,000 ML IV PRN (09:36)
--- NOTE | 2018-10-19 09:41 | Progress Note-Pre Operative ---
Pre-Operative Progress Note H&P Reviewed The H&P was reviewed, patient examined and no changes noted. Date Seen by Provider: October 19, 2018 Time Seen by Provider: 09:40 Date H&P Reviewed: October 19, 2018 Time H&P Reviewed: 09:40 Pre-Operative Diagnosis: RT DISTAL URETERAL STONES MARCELA PICKARD MD October 19, 2018 09:41
--- NOTE | 2018-10-19 09:47 | Progress Note-Post Operative ---
Post-Operative Progess Note Surgeon (s)/Shactor Helper (s) Surgeon MARCELA PICKARD MD Shactor Helper: NONE Pre-Operative Diagnosis RT DISTAL URETERAL STONES Post-Operative Diagnosis SAME Procedure & Operative Findings Date of Procedure 10/19/18 Procedure Performed/Findings RT URETEROSCOPY WITH STONE BASKET Anesthesia Type GENERAL Estimated Blood Loss Estimated blood loss (mL): NONE Specimens/Packing Specimens Removed RT URETERAL STONE Packing: NONE MARCELA PICKARD MD October 19, 2018 09:47
--- NOTE | 2018-10-19 09:48 | Discharge Inst-Urology ---
Discharge Inst-Urology Discharge Medications New, Converted, or Re-newed RX: RX on Chart Patient Instructions/Follow Up Plan Please make appointment to been seen in office in 2 weeks. Stone for analysis post seen by patient, mother has it Increase oral fluids for 48 hours and then as needed. Diet and Activity as tolerated. If questions or concerns contact your physician Or seek help at emergency department. MARCELA PICKARD MD October 19, 2018 09:48
[2018-10-19] MEDS ORDERED: MIDAZOLAM 2 MG/2 ML (VERSED) VIAL ONE (10:05)
[2018-10-19] MEDS ORDERED: fentaNYL INJECTION 100 MCG/2 ML AMP ONE (10:05)
[2018-10-19] MEDS ORDERED: DEXAMETHASONE 10 MG/ML (DECADRON) 1 ML VIAL ONE (10:13)
[2018-10-19] MEDS ORDERED: LIDOCAINE PF 2% 5 ML (XYLOCAINE) VIAL ONE (10:13)
[2018-10-19] MEDS ORDERED: ONDANSETRON 4 MG/2 ML (SDV) Z0FRAN ONE (10:13)
[2018-10-19] MEDS ORDERED: SEVOFLURANE (ULTANE) 15 ML INHAL SOLN ONE (10:13)
[2018-10-19] MEDS ORDERED: proPOfol 200 MG/20 ML (DIPRIVAN) VIAL IV ONE (10:13)
[2018-10-19] MEDS ORDERED: KETOROLAC 30 MG/ML VIAL ONE (10:39)
[2018-10-19] MEDS ORDERED: FUROSEMIDE 40 MG/4 ML INJ (LASIX) ONE (10:39)
[2018-10-19] MEDS ORDERED: HYDROmorphone 2 MG/ML VIAL (DILAUDID) IV ONE (11:00)
[2018-10-19] MEDS ORDERED: ONDANSETRON 4 MG/2 ML (SDV) Z0FRAN IVP PRN (11:00)
[2018-10-19] MEDS ORDERED: PHEN-640 PO (11:56)
[2018-10-19] MEDS ORDERED: NITR-65 PO (11:56)
--- NOTE | 2018-10-19 12:34 | Anesthesia-General Post-Op ---
General Patient Condition Mental Status/LOC: Same as Preop Cardiovascular: Satisfactory Nausea/Vomiting: Absent Respiratory: Satisfactory Pain: Controlled Complications: Absent Post Op Complications Complications None Follow Up Care/Instructions Patient Instructions None needed. Anesthesia/Patient Condition Patient Condition Patient is doing well, no complaints, stable vital signs, no apparent adverse anesthesia problems. No complications reported per nursing. ABIEL JIMENEZ CRNA October 19, 2018 12:34
--- NOTE | 2018-10-19 15:04 | OPERATIVE REPORT ---
DATE OF SERVICE: 10/19/2018 PREOPERATIVE DIAGNOSIS: Right distal ureteral stones. POSTOPERATIVE DIAGNOSIS: Right distal ureteral stone "hourglass." OPERATION PERFORMED: Cystoscopy with right ureteroscopy and stone basket. SURGEON: Melvin Pickard MD ANESTHESIA: General. COMPLICATIONS: None. PROCEDURE IN DETAIL: Under satisfactory general anesthesia with the patient in lithotomy position, genitalia were prepped and draped in the usual sterile fashion. Cystoscope was introduced under vision. The cystoscopy was essentially negative except for sluggish efflux on the right side. Using the foroblique lens, I dilated the right ureteral orifice and intramural portion to the level of the stone to accommodate a 6.9 [place] semi-rigid ureteroscope. I went to the level of the stone that was visualized as an hourglass appearance and it was kind of stuck to the wall of the ureter. I was going to go ahead and do a lithoclast; however, the stone from the wall and started floating, so I did not want to lose it proximally. I went ahead and passed a 3-[place] basket under vision, and grabbed the stone, engaged it and extracted it. A piece fell in the bladder. I went back with ureteroscope to make sure there are no more fragments or pieces of stones or other stones in the ureter, all the way to the proximal ureter, there was none looking antegrade and retrograde. I removed the ureteroscope, reinserted the cystoscope to empty the bladder. The patient tolerated the procedure and anesthesia well and was sent to recovery room in stable condition. PLAN: Stone analysis. We already did a renal stone profile. When we see her back in two weeks, we will do a stone risk profile to complete the workup for stone prevention along with stone instruction sheet. This plan was fully explained to the mother. Job ID: [id number] DocumentID: [id number] Dictated Date: 10/19/2018 10:59:09 Charge Master Coordinator Date: 10/19/2018 15:02:57 Dictated By: MELVIN PICKARD MD
== END 2018-10-19 12:29 | disposition home or self-care (01) ==
LOC: SDC 08:52
PROVIDERS: ATTEND Urology
DX: N20.1 Calculus of ureter (principal); Z11.2 Encounter for screening for other bacterial diseases; E28.2 Polycystic ovarian syndrome; K44.9 Diaphragmatic hernia without obstruction or gangrene; K21.9 Gastro-esophageal reflux disease without esophagitis; Z88.2 Allergy status to sulfonamides; Z79.84 Long term (current) use of oral hypoglycemic drugs
CPT/HCPCS: 74018; 84703; 87081

== ENCOUNTER 2018-11-03 14:33 | Outpatient (RCR) | payer OTHER | END 2019-01-25 | LOC: LAB 14:33 | PROVIDERS: ATTEND Urology | DX: N20.0 Calculus of kidney (principal) | CPT/HCPCS: 36415; 82140; 82340; 82507; 82570; 83735; 83945; 83986; 84105; 84133; 84300; 84392; 84560 ==

== ENCOUNTER → 2018-11-03 | Outpatient (CLI) | payer OTHER ==
[~2018-11-03] MED LIST changes: +PHEN-640 PO
--- NOTE | 2018-11-03 19:24 | Diagnostic Imaging Report ---
PROCEDURE: US Thyroid. TECHNIQUE: Multiple real-time grayscale images were obtained of the thyroid in various projections. INDICATION: Dysphagia and globus sensation. FINDINGS: Right lobe of the thyroid measures 4.1 x 1.5 x 1.1 cm and the left lobe measures 4.3 x 1.1 x 1.4 cm. Both lobes show fairly homogeneous echotexture. No discrete mass is detected. Isthmus is 2 mm in thickness. IMPRESSION: Unremarkable thyroid ultrasound. Dictated by: Dictated on workstation # [id number]
== END ==
LOC: RAD 14:02
PROVIDERS: ATTEND Family Medicine
DX: F45.8 Other somatoform disorders (principal)
CPT/HCPCS: 76536

== ENCOUNTER → 2018-12-16 | Outpatient (CLI) | payer OTHER ==
--- NOTE | 2018-12-16 10:51 | Diagnostic Imaging Report ---
PROCEDURE: CT urinary tract, rule out kidney stone. TECHNIQUE: Multiple contiguous axial images were obtained through the abdomen and pelvis without the use of intravenous contrast. Auto Exposure Controls were utilized during the CT exam to meet ALARA standards for radiation dose reduction. INDICATION: Left flank pain. History of kidney stones. COMPARISON: 10/14/2018 FINDINGS: Included portions of the lung bases are clear. CT ABDOMEN: Since the previous exam, there has been interval migration of 3 mm calculus into the distal left ureter near the UVJ (image 103, series 2). Despite this, there is no significant proximal hydroureteronephrosis. Additional nonobstructive left renal calculus is identified. No renal or ureteral calculi are identified on the right. There no hydronephrosis or other evidence of obstruction on the right. No renal masses are seen on this noncontrast exam on either side. The adrenal glands, spleen, pancreas, and liver have an unremarkable noncontrast CT appearance. There is no loculated fluid collection, free fluid, nor free air within the abdomen. No abnormal mesenteric or retroperitoneal adenopathy is seen. Small bowel loops are nondistended. Normal appendix is identified. Osseous structures show no acute abnormalities. CT PELVIS: Trace amount of free fluid is noted within the pelvis. Again, there is a 3 mm calculus within the distal left ureter. Urinary bladder is unopacified. No additional calculi are seen within the urinary bladder. There is no loculated fluid collection or free air within the pelvis. No abnormal adenopathy is seen. Osseous structures show no additional acute abnormalities. IMPRESSION: 1. Interval migration of 3 mm calculus into the distal left ureter. Despite this, there is no significant proximal hydroureteronephrosis. 2. Additional nonobstructive left renal calculus. 3. Small amount of free fluid within the pelvis; possibly physiologic. Dictated by: Dictated on workstation # [id number]
--- NOTE | 2018-12-16 10:52 | Diagnostic Imaging Report ---
INDICATION: Left flank pain. TIME OF EXAM: 10:33 AM FINDINGS: There are surgical clips in the gallbladder fossa. Bowel gas pattern is unremarkable. Tiny calcific density medial aspect of the left pelvis correlates with the distal left ureteric calculus on CT. No other definite urinary tract calculi are detected. IMPRESSION: Distal left ureteric calculus. Dictated by: Dictated on workstation # [id number]
== END ==
LOC: RAD 09:49
PROVIDERS: ATTEND Urology
DX: N20.2 Calculus of kidney with calculus of ureter (principal); Z98.890 Other specified postprocedural states
CPT/HCPCS: 74018; 74176